=== PATIENT | male | born 1940 | race Caucasian/White ===

== ENCOUNTER 2018-01-11 13:49 | Emergency (ER) | payer OTHER ==
[2018-01-11 14:06] LABS: Absolute Lymphocytes (CBC) 1.5 K/uL (0.7-4.9); Absolute Monocytes 0.8 K/uL (0.1-1.3); Absolute Neutrophil 2.6 K/uL (1.8-8.0); Basophils % 0.7 % (0-1.3); Eosinophils % 0.8 % (0-4.4); Hematocrit 41.5 % (39.6-49.0); Lymphocytes % 30.5 % (15.3-44.8); MCH 36.3 pg (27.0-35.0); MCV 105.4 fL (80-100); MPV 8.4 fL (7.6-11.3); Monocytes % 16.6 % (3.3-12.3); RBC Red Blood Cell Count 3.94 M/uL (4.33-5.43)
[2018-01-11 14:09] LABS: Protime INR 1.12
[2018-01-11 14:24] LABS: ALT/SGPT 22 U/L (12-78); AST/SGOT 19 U/L (15-37); Albumin 4.7 g/dL (3.4-5.0); Alkaline Phosphatase 57 U/L (45-117); BUN Blood Urea Nitrogen 17 mg/dL (7-18); Bicarbonate 27 mmol/L (21-32); Bilirubin Direct 0.2 mg/dL (0-0.2); Bilirubin Total 0.8 mg/dL (0.2-1.0); Glucose Level 106 mg/dL (74-106); Magnesium 2.2 mg/dL (1.8-2.4); NT PRO-BNP 40 pg/mL (<450); Potassium 3.8 mmol/L (3.5-5.1); Protein, Total 8.2 g/dL (6.4-8.2); Sodium Level 140 mmol/L (136-145); Troponin (Emerg Dept Use Only) < 0.02 ng/mL (0.0-0.045)
[2018-01-11 14:38] LABS: Blood Morphology Comment NOTED (NOT SEEN); Platelet Estimate ADEQ; Urine White Blood Cell Casts OK
[2018-01-11 14:39] LABS: Macrocytosis 1+
--- NOTE | 2018-01-11 14:42 | RAD REPORT ---
EXAM DESCRIPTION: RAD - Chest Single View - 01/11/2018 2:33 pm CLINICAL HISTORY: CHEST PAIN Chest pain. COMPARISON: CHEST PA AND LAT 2 VIEW dated 11/12/2013; CHEST PA AND LAT 2 VIEW dated 05/02/2013 FINDINGS: Portable technique limits examination quality. The lungs are grossly clear. The heart is normal in size. No displaced fractures. IMPRESSION: No acute intrathoracic process suspected.
--- NOTE | 2018-01-11 15:04 | RAD REPORT ---
EXAM DESCRIPTION: CT - Chest For Pe Angio - 01/11/2018 2:58 pm CLINICAL HISTORY: Chest pain. Chest pain;Dyspnea COMPARISON: Chest Angio dated 05/04/2016 TECHNIQUE: CT angiogram of the pulmonary arteries was performed with MIP. All CT scans are performed using dose optimization technique as appropriate and may include automated exposure control or mA/KV adjustment according to patient size. FINDINGS: No evidence of pulmonary thromboembolism. No acute aortic finding demonstrated. The lungs are clear. No significant pericardial or pleural fluid. No concerning bony finding. IMPRESSION: No evidence of pulmonary thromboembolism. No acute lung findings.
--- NOTE | 2018-01-11 16:19 | ER ---
Nurse's Notes [facility] Name: Jovi Garcia Age: 77 yrs Sex: Male : 1940 Arrival Date: 01/11/2018 Time: 13:50 Bed 7 Private MD: Diagnosis: Shortness of breath;Back pain Presentation: 01/11 13:50 Presenting complaint: Patient states: pain to left arm radiating to chest for a few iw days, worse today, also c/o shortness of breath. Transition of care: patient was not received from another setting of care. Risk Assessment: Do you want to hurt yourself or someone else? Patient reports no desire to harm self or others. Initial Sepsis Screen:. 13:50 Method Of Arrival: Ambulatory iw 13:50 Acuity: NABEEL 2 iw 16:15 Onset of symptoms is unknown. Initial Sepsis Screen: Does the patient meet any 2 bp criteria? No. Patient's initial sepsis screen is negative. Does the patient have a suspected source of infection? No. Patient's initial sepsis screen is negative. Care prior to arrival: None. Triage Assessment: 16:15 General: Appears in no apparent distress. comfortable, Behavior is calm, cooperative, bp appropriate for age. Pain: Denies pain. Historical: - Allergies: 13:58 No Known Allergies; iw - Home Meds: 13:57 alfuzosin 10 mg oral Tb24 1 tab once daily [Active]; Livalo 4 mg oral tab 1 tab once iw daily [Active]; furosemide 40 mg Oral tab 1 tab [Active]; potassium chloride 10 mEq Oral cpER [Active]; carvedilol 12.5 mg oral tab 1 tab 2 times per day [Active]; clopidogrel 75 mg oral tab 1 tab once daily [Active]; Prozac 40 mg Oral cap 1 cap once daily [Active]; pantoprazole 40 mg oral TbEC 1 tab once daily [Active]; Xanax 0.25 mg oral tab as needed [Active]; Valium Oral as needed [Active]; ProAir HFA 90 mcg/actuation inhalation HFAA 2 puffs as needed [Active]; aspirin 81 mg Oral TbEC 1 tab once daily [Active]; Vitamin D Oral daily [Active]; Vitamin B-12 Oral daily [Active]; indomethacin 75 mg Oral cpER 1 cap 2 times per day [Active]; - PMHx: 13:57 AAA; Alzheimers; Hernia; Hypertension; iw - PSHx: 13:57 Hernia repair; iw - Immunization history:: Adult Immunizations up to date. - Social history:: Smoking status: Patient/guardian denies using tobacco. - Ebola Screening: : Patient negative for fever greater than or equal to 101.5 degrees Fahrenheit, and additional compatible Ebola Virus Disease symptoms Patient denies exposure to infectious person Patient denies travel to an Ebola-affected area in the 21 days before illness onset No symptoms or risks identified at this time. Screenin:55 Abuse screen: Denies threats or abuse. Denies injuries from another. Nutritional bp screening: No deficits noted. Tuberculosis screening: No symptoms or risk factors identified. Fall Risk None identified. Assessment: 13:57 General: Appears in no apparent distress. comfortable, Behavior is cooperative, bp appropriate for age, anxious. Pain: Complains of pain in chest Pain does not radiate. Pain began 1 hour ago. Neuro: Level of Consciousness is awake, alert, obeys commands, Oriented to person, place, time, situation, Appropriate for age. Cardiovascular: Rhythm is sinus rhythm. Respiratory: Reports shortness of breath Airway is patent Respiratory effort is even, unlabored, Respiratory pattern is regular, symmetrical. GI: No signs and/or symptoms were reported involving the gastrointestinal system. : No signs and/or symptoms were reported regarding the genitourinary system. EENT: No deficits noted. Derm: No deficits noted. Musculoskeletal: Circulation, motion, and sensation intact. Range of motion: intact in all extremities. 14:49 Reassessment: PT TO CT WITH COMMERCIAL REAL ESTATE ATTORNEY. bp 16:28 Reassessment: PT D/C HOME WITH FAMILY, DX WITH NONSPECIFIC CP. bp Vital Signs: 13:56 BP 97 / 85; Pulse 86; Resp 16; Temp 98.1; Pulse Ox 96% ; Weight 99.79 kg; Height 6 ft. bp (182.88 cm); 14:49 BP 107 / 69; Pulse 81; Resp 17; Pulse Ox 96% ; bp 16:14 BP 119 / 88; Pulse 81; Resp 17; Pulse Ox 99% ; bp 13:56 Body Mass Index 29.84 (99.79 kg, 182.88 cm) bp ED Course: 13:50 Patient arrived in ED. iw 13:50 Tye Tomlinson, RN is Primary Nurse. bp 13:51 Triage completed. iw 13:52 Enoc Mccrary PA is PHCP. jr8 13:52 Adair Saldivar MD is Attending Physician. jr8 13:55 Inserted saline lock: 22 gauge in right antecubital area, using aseptic technique. bp Blood collected. Patient maintains SpO2 saturation greater than 95% on room air. 13:55 Patient has correct armband on for positive identification. Placed in gown. Bed in low bp position. Call light in reach. Side rails up X2. Adult w/ patient. teletypesetter monitor on. Pulse ox on. NIBP on. 14:00 EKG done, by application technician. reviewed by Enoc ABBOTT. at1 14:33 X-ray completed. Portable x-ray completed in exam room. Patient tolerated procedure sw well. 14:33 XRAY Chest (1 view) In Process Unspecified. EDMS 14:57 CT completed. Patient tolerated procedure well. Patient moved to CT via stretcher. mw3 Patient moved back from CT. 14:58 CT Chest For PE Angio In Process Unspecified. EDMS 16:14 No provider procedures requiring assistance completed. IV discontinued, intact, bp bleeding controlled, No redness/swelling at site. Pressure dressing applied. 16:16 Arm band placed on. bp 16:18 Germán Kuhn MD is Referral Physician. jr8 Administered Medications: No medications were administered Outcome: 16:16 Discharged to home ambulatory, with family. bp 16:16 Condition: stable 16:19 Discharge ordered by . jr8 16:27 Discharge instructions given to patient, Instructed on discharge instructions, follow bp up and referral plans. Demonstrated understanding of instructions, follow-up care. 16:28 Patient left the ED. bp Signatures: Dispatcher [employer] EDMS Christi Velarde, RN RN iw Enoc Mccrary PA PA jr8 Tosha Adams, textile machine maintenance mechanic EKG Tat1 Ofelia Palacios Brian, RN RN bp Angie Lugo mw3 Corrections: (The following items were deleted from the chart) 13:59 13:56 BP 97 / 85; Pulse 86bpm; Resp 16bpm; Pulse Ox 96%; Temp 98.1F; bp bp
--- NOTE | 2018-01-11 16:19 | EDPHYS ---
Physician Documentation [facility] Name: oJvi Garcia Age: 77 yrs Sex: Male : 1940 Arrival Date: 01/11/2018 Time: 13:50 Bed 7 Private MD: ED Physician Adair Saldivar HPI: 01/11 16:11 This 77 yrs old Male presents to ER via Ambulatory with complaints of jr8 shoulder pain/ Shortness Of Breath. 16:11 Patient stated that for the past several months has had on/off bilateral shoulder pain jr8 and shortness of breath. Has seen PCP with no definitive answer. Came to ED today because he was feeling worse . Severity of symptoms: At their worst the symptoms were mild in the emergency department the symptoms are unchanged. The patient has experienced similar episodes in the past, a few times. The patient has not recently seen a physician. Historical: - Allergies: 13:58 No Known Allergies; iw - Home Meds: 13:57 alfuzosin 10 mg oral Tb24 1 tab once daily [Active]; Livalo 4 mg oral tab 1 tab once iw daily [Active]; furosemide 40 mg Oral tab 1 tab [Active]; potassium chloride 10 mEq Oral cpER [Active]; carvedilol 12.5 mg oral tab 1 tab 2 times per day [Active]; clopidogrel 75 mg oral tab 1 tab once daily [Active]; Prozac 40 mg Oral cap 1 cap once daily [Active]; pantoprazole 40 mg oral TbEC 1 tab once daily [Active]; Xanax 0.25 mg oral tab as needed [Active]; Valium Oral as needed [Active]; ProAir HFA 90 mcg/actuation inhalation HFAA 2 puffs as needed [Active]; aspirin 81 mg Oral TbEC 1 tab once daily [Active]; Vitamin D Oral daily [Active]; Vitamin B-12 Oral daily [Active]; indomethacin 75 mg Oral cpER 1 cap 2 times per day [Active]; - PMHx: 13:57 AAA; Alzheimers; Hernia; Hypertension; iw - PSHx: 13:57 Hernia repair; iw - Immunization history:: Adult Immunizations up to date. - Social history:: Smoking status: Patient/guardian denies using tobacco. - Ebola Screening: : Patient negative for fever greater than or equal to 101.5 degrees Fahrenheit, and additional compatible Ebola Virus Disease symptoms Patient denies exposure to infectious person Patient denies travel to an Ebola-affected area in the 21 days before illness onset No symptoms or risks identified at this time. ROS: 16:11 Eyes: Negative for injury, pain, redness, and discharge, ENT: Negative for injury, jr8 pain, and discharge, Neck: Negative for injury, pain, and swelling, Cardiovascular: Negative for chest pain, palpitations, and edema, Abdomen/GI: Negative for abdominal pain, nausea, vomiting, diarrhea, and constipation, MS/Extremity: Negative for injury and deformity, Skin: Negative for injury, rash, and discoloration, Neuro: Negative for headache, weakness, numbness, tingling, and seizure. 16:11 Respiratory: Positive for dyspnea on exertion, shortness of breath, Negative for cough, hemoptysis, orthopnea, pleurisy, sputum production, wheezing. 16:11 Back: Positive for pain with movement, of the left trapezius and right trapezius. Exam: 16:11 Eyes: Pupils equal round and reactive to light, extra-ocular motions intact. Lids and jr8 lashes normal. Conjunctiva and sclera are non-icteric and not injected. Cornea within normal limits. Periorbital areas with no swelling, redness, or edema. ENT: Nares patent. No nasal discharge, no septal abnormalities noted. Tympanic membranes are normal and external auditory canals are clear. Oropharynx with no redness, swelling, or masses, exudates, or evidence of obstruction, uvula midline. Mucous membranes moist. Neck: Trachea midline, no thyromegaly or masses palpated, and no cervical lymphadenopathy. Supple, full range of motion without nuchal rigidity, or vertebral point tenderness. No Meningismus. Cardiovascular: Regular rate and rhythm with a normal S1 and S2. No gallops, murmurs, or rubs. Normal PMI, no JVD. No pulse deficits. Respiratory: Lungs have equal breath sounds bilaterally, clear to auscultation and percussion. No rales, rhonchi or wheezes noted. No increased work of breathing, no retractions or nasal flaring. Abdomen/GI: Soft, non-tender, with normal bowel sounds. No distension or tympany. No guarding or rebound. No evidence of tenderness throughout. Back: No spinal tenderness. No costovertebral tenderness. Full range of motion. Skin: Warm, dry with normal turgor. Normal color with no rashes, no lesions, and no evidence of cellulitis. MS/ Extremity: Pulses equal, no cyanosis. Neurovascular intact. Full, normal range of motion. Neuro: Awake and alert, GCS 15, oriented to person, place, time, and situation. Cranial nerves II-XII grossly intact. Motor strength 5/5 in all extremities. Sensory grossly intact. Cerebellar exam normal. Normal gait. Vital Signs: 13:56 BP 97 / 85; Pulse 86; Resp 16; Temp 98.1; Pulse Ox 96% ; Weight 99.79 kg; Height 6 ft. bp (182.88 cm); 14:49 BP 107 / 69; Pulse 81; Resp 17; Pulse Ox 96% ; bp 16:14 BP 119 / 88; Pulse 81; Resp 17; Pulse Ox 99% ; bp 13:56 Body Mass Index 29.84 (99.79 kg, 182.88 cm) bp MDM: 13:52 Patient medically screened. [facility] 16:11 Data reviewed: vital signs, nurses notes, lab test result(s), EKG, radiologic studies, [facility] CT scan, plain films, and as a result, I will discharge patient. Data interpreted: Pulse oximetry: on room air is 99 %. Interpretation: normal. Counseling: I had a detailed discussion with the patient and/or guardian regarding: the historical points, exam findings, and any diagnostic results supporting the discharge/admit diagnosis, lab results, radiology results, the need for outpatient follow up, a card processing clerk, a family practitioner, to return to the emergency department if symptoms worsen or persist or if there are any questions or concerns that arise at home. ED course: Patients pain completely resolved. No acute findings on labs, CT, plain films, or ECG. Needs to f/u back with cardiology . 01/11 13:51 Order name: Basic Metabolic Panel; Complete Time: 14:25 bp 01/11 13:51 Order name: CBC with Diff; Complete Time: 14:43 bp 01/11 13:51 Order name: LFT's; Complete Time: 14:25 bp 01/11 13:51 Order name: Magnesium; Complete Time: 14:25 bp 01/11 13:51 Order name: NT PRO-BNP; Complete Time: 14:25 bp 01/11 13:51 Order name: PT-INR; Complete Time: 14:25 bp 01/11 13:51 Order name: Troponin (emerg Dept Use Only); Complete Time: 14:25 bp 01/11 13:51 Order name: XRAY Chest (1 view); Complete Time: 14:43 bp 01/11 13:51 Order name: EKG; Complete Time: 13:52 bp 01/11 13:51 Order name: Cardiac monitoring; Complete Time: 13:52 bp 01/11 13:51 Order name: EKG - Nurse/Tech; Complete Time: 13:52 bp 01/11 13:51 Order name: IV Saline Lock; Complete Time: 13:52 bp 01/11 14:11 Order name: CBC Smear Scan; Complete Time: 14:43 EDMS 01/11 14:44 Order name: CT Chest For PE Angio; Complete Time: 15:11 jr8 01/11 13:51 Order name: Labs collected and sent; Complete Time: 13:52 bp 01/11 13:51 Order name: O2 Per Protocol; Complete Time: 13:52 bp 01/11 13:51 Order name: O2 Sat Monitoring; Complete Time: 13:52 bp Administered Medications: No medications were administered Disposition: 17:53 Co-signature as Attending Physician, Adair Saldivar MD. rn Disposition: 01/11/18 16:19 Discharged to Home. Impression: Shortness of breath, Back pain. - Condition is Stable. - Discharge Instructions: Shortness of Breath. - Medication Reconciliation Form, Thank You Letter, Antibiotic Education, Prescription Opioid Use form. - Follow up: Germán Kuhn MD; When: 2 - 3 days; Reason: Recheck today's complaints, Continuance of care, Re-evaluation by your physician. - Problem is new. - Symptoms have improved. Signatures: Dispatcher [employer] Christi Osborne RN Adair Farias MD MD rn Roszak, Josh, PA PA jr8 Tye Tomlinson RN RN bp Corrections: (The following items were deleted from the chart) 16:28 16:19 01/11/2018 16:19 Discharged to Home. Impression: Shortness of breath; Back pain. bp Condition is Stable. Forms are Medication Reconciliation Form, Thank You Letter, Antibiotic Education, Prescription Opioid Use. Follow up: Germán Kuhn; When: 2 - 3 days; Reason: Recheck today's complaints, Continuance of care, Re-evaluation by your physician. Problem is new. Symptoms have improved. jr8
--- NOTE | 2018-01-11 16:46 | EKG ---
Test Date: 2018-01-11 Test Time: 13:55:07 Police Guard: NICKY MEASUREMENT RESULTS: Intervals: Rate: 80 NV: 192 QRSD: 150 QT: 436 QTc: 502 [place]: P: 45 NV: 192 QRS: 42 T: 181 INTERPRETIVE STATEMENTS: Normal sinus rhythm Left bundle branch block Abnormal ECG Compared to ECG 09/03/2015 11:03:16 No significant changes Electronically Signed On 01-11-18 16:44:25 CDT by Chase Friedman
== END 2018-01-11 16:28 | disposition home or self-care (01) ==
LOC: ER 13:49
DX: M54.9 Dorsalgia, unspecified (principal)
CPT/HCPCS: 36415; 71045; 71275; 80048; 80076; 83735; 83880; 84484; 85025; 85610; 93005; 99285; Q9967

== ENCOUNTER 2019-10-03 15:11 | Emergency (ER) | payer OTHER ==
[2019-10-03 16:30] LABS: Absolute Lymphocytes (CBC) 1.4 K/uL (0.7-4.9); Basophils % 0.2 % (0-1.3); Hematocrit 37.8 % (39.6-49.0); Lymphocytes % 15.7 % (15.3-44.8); MPV 9.8 fL (7.6-11.3); RBC Red Blood Cell Count 3.66 M/uL (4.33-5.43)
[2019-10-03] MEDS ORDERED: MORPHINE 2 MG/ML SYR ONE (16:47)
[2019-10-03] MEDS ORDERED: ONDANSETRON 4 MG/2 ML VIAL ONE (16:47)
--- NOTE | 2019-10-03 16:55 | RAD REPORT ---
EXAM DESCRIPTION: CT - Abdomen Pelvis W Contrast - 10/03/2019 4:33 pm CLINICAL HISTORY: ABD PAIN COMPARISON: Chest For Pe Angio dated 01/11/2018 TECHNIQUE: Biphasic, helical CT imaging of the abdomen and pelvis was performed following 100 ml non -ionic IV contrast. No oral contrast. All CT scans are performed using dose optimization technique as appropriate and may include automated exposure control or mA/KV adjustment according to patient size. FINDINGS: Minimal stranding in the lateral gutter on the right not clearly different from the prior CT chest study. No acute lung base finding. Mild diffuse fatty infiltration of the liver. No focal liver lesion. No portal vein abnormality. Sple en and pancreas without suspicious findings. Gallbladder and biliary tree are also without suspicious finding. Symmetric renal function is seen with no hydronephrosis or suspicious renal mass. No pyelonephritis o r acute parenchymal process. No bladder abnormalities. No adrenal abnormalities. Stomach and small bowel show no suspicious findings. Appendix is normal. Colon from cecum through the splenic flexure shows no acute finding. In the mid descending colon there is mild wall thickening. T here is 1 enlarged diverticulum with stranding and edema in the adjacent fat. Patient has additional descending and sigmoid diverticulosis. No free air, abscess or extravasation of bowel content. No col on mass seen. No free air, pneumatosis or free fluid. No hernia, mass or bulky lymphadenopathy. Advanced disc and bony degenerative changes are present spanning L2-S1. No pars defects. No acute or destructive finding. IMPRESSION: Mild diverticulitis in the mid descending colon. No abscess, free air or other complicating factor.
[2019-10-03 17:13] LABS: Albumin 4.4 g/dL (3.4-5.0); Bilirubin Direct 0.2 mg/dL (0-0.2); Potassium 3.8 mmol/L (3.5-5.1); Protein, Total 8.4 g/dL (6.4-8.2)
[2019-10-03 17:27] LABS: Urine Blood 2+ (NEG); Urine Glucose NEGATIVE (NEG); Urine Protein NEGATIVE (NEG); Urine Specific Gravity 1.005 (1.005-1.030); Urine pH 5.5 (5.0-7.0)
--- OUTSIDE RECORDS SUMMARY | 2019-10-03 17:39 | XMS REPORT | Continuity of Care Document ---
:1940 Author Organization [facility] t Address [address] [place] [address] [address] [place] [address] Care Team Providers Name Role Phone Oj Gabriel MD Attending Clinician Problems This patient has no known problems. Allergies, Adverse Reactions, Alerts This patient has no known allergies or adverse reactions. Medications This patient has no known medications. Procedures This patient has no known procedures. Encounters Start End Encounter Admission Attending Care Care Encounter Source Date/Time Date/Time Type Type Clinicians Facility Department ID 2018-12-11 2018-12-11 Office WILLIAM Gabriel [id number] 14:50:18 15:54:42 Visit Lucio Sparks [id number] Tobias [id number] Tri [id number] nal 092 Building Results This patient has no known results.
[2019-10-03] MEDS ORDERED: CIPROFLOXACIN HCL 500 MG TAB ONE (17:47)
[2019-10-03] MEDS ORDERED: metroNIDAZOLE 500 MG TABLET ONE (17:47)
--- NOTE | 2019-10-03 17:47 | ER ---
Nurse's Notes [facility] Name: Jovi Garcia Age: 79 yrs Sex: Male : 1940 Arrival Date: 10/03/2019 Time: 15:18 Bed 25 Private MD: Diagnosis: Diverticulitis Presentation: 10/02 15:34 Chief complaint: Patient states: Severe abdominal pain for 4 days. Denies N/V/D, no ll1 fever. Sent by Dr. Dave for eval of possible bowel obstruction. Coronavirus screen: Proceed with normal triage. Patient denies a cough. Patient denies shortness of breath or difficulty breathing. Patient denies measured and/or subjective temperature greater than 100.4F prior to today's visit. Patient denies travel on a cruise ship or to a country the [facility] currently lists as an affected area. Patient denies contact with known and/or suspected case of COVID-19. Ebola Screen: Patient denies travel to an Ebola-affected area in the 21 days before illness onset. Initial Sepsis Screen: Does the patient meet any 2 criteria? No. Patient's initial sepsis screen is negative. Risk Assessment: Do you want to hurt yourself or someone else? Patient reports no desire to harm self or others. Onset of symptoms was September 30, 2019. 15:34 Method Of Arrival: Ambulatory ll1 15:34 Acuity: NABEEL 3 ll1 15:58 Initial Sepsis Screen: Does the patient have a suspected source of infection? No. ca1 Patient's initial sepsis screen is negative. Historical: - Allergies: 15:34 No Known Allergies; ll1 - PMHx: 15:34 AAA; Hernia; Hypertension; Alzheimers; ll1 - PSHx: 15:34 Hernia repair; ll1 - Immunization history:: Flu vaccine is up to date. - Social history:: Patient/guardian denies using alcohol, street drugs, tobacco products, Smoking status: Patient denies any tobacco usage or history of. Screenin:56 Abuse screen: Denies threats or abuse. Denies injuries from another. Nutritional ca1 screening: No deficits noted. Tuberculosis screening: No symptoms or risk factors identified. Fall Risk IV access (20 points). Assessment: 15:56 General: Appears in no apparent distress. comfortable, Behavior is calm, cooperative, ca1 appropriate for age. Pain: Complains of pain in left upper quadrant and left lower quadrant Pain does not radiate. Pain currently is 8 out of 10 on a pain scale. Pain began 5 days ago. Neuro: Level of Consciousness is awake, alert, obeys commands, Oriented to person, place, time, situation. Cardiovascular: Heart tones S1 S2 present Capillary refill < 3 seconds Patient's skin is warm and dry. Respiratory: Airway is patent Respiratory effort is even, unlabored, Respiratory pattern is regular, symmetrical, Breath sounds are clear bilaterally. GI: Abdomen is round non-distended, Bowel sounds present X 4 quads. Abd is soft X 4 quads Abdomen is tender to palpation in left lower quadrant Reports last BM was 5 days ago. : No signs and/or symptoms were reported regarding the genitourinary system. EENT: No signs and/or symptoms were reported regarding the EENT system. Derm: Skin is intact, is healthy with good turgor, Skin is pink, warm \T\ dry. Musculoskeletal: Circulation, motion, and sensation intact. Capillary refill < 3 seconds. 16:53 Reassessment: Patient appears in no apparent distress at this time. Patient and/or ca1 family updated on plan of care and expected duration. Pain level reassessed. Patient is alert, oriented x 3, equal unlabored respirations, skin warm/dry/pink. 17:56 Reassessment: Patient appears in no apparent distress at this time. Patient is alert, ca1 oriented x 3, equal unlabored respirations, skin warm/dry/pink. Vital Signs: 15:34 Pulse 76; Resp 18; Temp 99.0; Pulse Ox 95% ; Pain 8/10; ll1 15:34 BP 128 / 71; ll1 16:53 BP 123 / 71; Pulse 67; Resp 15 S; Pulse Ox 95% on R/A; ca1 17:53 BP 134 / 79 RA (auto/lg); Pulse 67; Resp 18 S; Pulse Ox 98% on R/A; jp3 ED Course: 15:18 Patient arrived in ED. fj1 15:36 Triage completed. ll1 15:36 Arm band placed on Patient notified of wait time. ll1 15:47 Sanjeev Day MD is Attending Physician. mh7 15:49 Francesca Mandujano RN is Primary Nurse. ca1 15:56 Patient has correct armband on for positive identification. Placed in gown. Bed in low ca1 position. Call light in reach. Side rails up X 1. Pulse ox on. NIBP on. Warm blanket given. 16:07 Initial lab(s) drawn, by me, held in ED. Inserted saline lock: 18 gauge in left jp3 antecubital area, using aseptic technique. Blood collected. Patient maintains SpO2 saturation greater than 95% on room air. 16:33 CT Abd/Pelvis - IV Contrast Only In Process Unspecified. EDMS 16:57 EKG done, by ED staff, reviewed by Sanjeev Day MD. 3 17:45 Rory Griffin MD is Referral Physician. [facility] 17:56 Removal of peripheral IV. Catheter intact, dressing applied. 3 17:56 No provider procedures requiring assistance completed. IV discontinued, intact, ca1 bleeding controlled, No redness/swelling at site. Pressure dressing applied. Administered Medications: 16:40 Drug: Zofran (Ondansetron) 4 mg Route: IVP; Site: left antecubital; ca1 17:37 Follow up: Response: No adverse reaction; Nausea is decreased ca1 16:44 Drug: morphine 2 mg {Note: rass 0.} Route: IVP; Site: left antecubital; ca1 17:37 Follow up: Response: No adverse reaction; Pain is decreased; RASS: Alert and Calm (0) ca1 17:40 Drug: Cipro 500 mg Route: PO; ca1 17:58 Follow up: Response: No adverse reaction ca1 17:42 Drug: Flagyl 500 mg Route: PO; ca1 17:58 Follow up: Response: No adverse reaction ca1 Outcome: 17:46 Discharge ordered by . [facility] 17:56 Discharged to home ambulatory, with significant other. ca1 17:56 Condition: stable 17:56 Discharge instructions given to patient, Instructed on discharge instructions, follow up and referral plans. medication usage, Demonstrated understanding of instructions, follow-up care, medications, Prescriptions given X x5 17:58 Patient left the ED. ca1 Signatures: Dispatcher [employer] EDMS Aroldo Soto jp3 Francesca Mandujano RN RN ca1 Vladimir Massey1 Stevan Diaz RN RN ll1 Sanjeev Day MD MD [facility]
--- NOTE | 2019-10-03 17:47 | EDPHYS ---
Physician Documentation [facility] Name: Jovi Garcia Age: 79 yrs Sex: Male : 1940 Arrival Date: 10/03/2019 Time: 15:18 Bed 25 Private MD: ED Physician Sanjeev Day HPI: 10/02 16:16 This 79 yrs old Male presents to ER via Ambulatory with complaints of mh7 Abdominal Pain.. 16:16 The patient presents with abdominal pain in the left lower quadrant. Onset: The mh7 symptoms/episode began/occurred 5 day(s) ago. The symptoms do not radiate. Associated signs and symptoms: Pertinent positives: constipation, Pertinent negatives: nausea, vomiting, and diarrhea, anorexia, blood in stools, chest pain, diarrhea, dysuria, fever, headache, hematuria, nausea, palpitations, shortness of breath, testicular pain, vomiting, vomiting blood. The symptoms are described as intermittent, vague, waxing/waning. Modifying factors: The symptoms are alleviated by nothing, the symptoms are aggravated by nothing. Severity of pain: At its worst the pain was moderate today, in the emergency department the pain has improved moderately. The patient has been recently seen by a physician: the patient's primary care provider. Historical: - Allergies: 15:34 No Known Allergies; ll1 - PMHx: 15:34 AAA; Hernia; Hypertension; Alzheimers; ll1 - PSHx: 15:34 Hernia repair; ll1 - Immunization history:: Flu vaccine is up to date. - Social history:: Patient/guardian denies using alcohol, street drugs, tobacco products, Smoking status: Patient denies any tobacco usage or history of. ROS: 16:16 Constitutional: Negative for fever, chills, and weight loss, Eyes: Negative for injury, mh7 pain, redness, and discharge, ENT: Negative for injury, pain, and discharge, Neck: Negative for injury, pain, and swelling, Cardiovascular: Negative for chest pain, palpitations, and edema, Respiratory: Negative for shortness of breath, cough, wheezing, and pleuritic chest pain, Back: Negative for injury and pain, : Negative for injury, bleeding, discharge, and swelling, MS/Extremity: Negative for injury and deformity, Skin: Negative for injury, rash, and discoloration, Neuro: Negative for headache, weakness, numbness, tingling, and seizure, Psych: Negative for depression, anxiety, suicide ideation, homicidal ideation, and hallucinations, Allergy/Immunology: Negative for hives, rash, and allergies, Endocrine: Negative for neck swelling, polydipsia, polyuria, polyphagia, and marked weight changes, Hematologic/Lymphatic: Negative for swollen nodes, abnormal bleeding, and unusual bruising. Exam: 16:16 Constitutional: This is a well developed, well nourished patient who is awake, alert, mh7 and in no acute distress. Head/Face: Normocephalic, atraumatic. Eyes: Pupils equal round and reactive to light, extra-ocular motions intact. Lids and lashes normal. Conjunctiva and sclera are non-icteric and not injected. Cornea within normal limits. Periorbital areas with no swelling, redness, or edema. Neck: Trachea midline, no thyromegaly or masses palpated, and no cervical lymphadenopathy. Supple, full range of motion without nuchal rigidity, or vertebral point tenderness. No Meningismus. Chest/axilla: Normal chest wall appearance and motion. Nontender with no deformity. No lesions are appreciated. Cardiovascular: Regular rate and rhythm with a normal S1 and S2. No gallops, murmurs, or rubs. Normal PMI, no JVD. No pulse deficits. Respiratory: Lungs have equal breath sounds bilaterally, clear to auscultation and percussion. No rales, rhonchi or wheezes noted. No increased work of breathing, no retractions or nasal flaring. 16:16 Back: No spinal tenderness. No costovertebral tenderness. Full range of motion. Skin: Warm, dry with normal turgor. Normal color with no rashes, no lesions, and no evidence of cellulitis. MS/ Extremity: Pulses equal, no cyanosis. Neurovascular intact. Full, normal range of motion. Neuro: Awake and alert, GCS 15, oriented to person, place, time, and situation. Cranial nerves II-XII grossly intact. Motor strength 5/5 in all extremities. Sensory grossly intact. Cerebellar exam normal. Normal gait. Psych: Awake, alert, with orientation to person, place and time. Behavior, mood, and affect are within normal limits. 16:16 Abdomen/GI: Inspection: scar(s), are noted in the abdomen, Bowel sounds: normal, in all quadrants, Palpation: moderate abdominal tenderness, in the left lower quadrant, Rectal exam: the exam is deferred, because of patient request, Indicators: McBurney's point is not tender, Mcdonough's sign is negative, Rovsing's sign is negative, Obturator sign is negative, Psoas sign is negative, Liver: no appreciated palpable abnormalities, Hernia: not appreciated. 17:52 ECG was reviewed by the Attending Physician. [facility] Vital Signs: 15:34 Pulse 76; Resp 18; Temp 99.0; Pulse Ox 95% ; Pain 8/10; ll1 15:34 BP 128 / 71; ll1 16:53 BP 123 / 71; Pulse 67; Resp 15 S; Pulse Ox 95% on R/A; ca1 17:53 BP 134 / 79 RA (auto/lg); Pulse 67; Resp 18 S; Pulse Ox 98% on R/A; jp3 MDM: 16:11 Patient medically screened. [facility] 17:42 Differential diagnosis: bowel obstruction, diverticulitis, non-specific abd pain, mh7 Peptic Ulcer Disease, Pyelonephritis, Ureterolithiasis, urinary tract infection. Data reviewed: vital signs, nurses notes, old medical records, lab test result(s), CBC, electrolytes, urinalysis, radiologic studies, CT scan. Data interpreted: Pulse oximetry: on room air is 95 %. Interpretation: normal. Counseling: I had a detailed discussion with the patient and/or guardian regarding: the historical points, exam findings, and any diagnostic results supporting the discharge/admit diagnosis, lab results, radiology results, the need for outpatient follow up, a hatch supervisor, to return to the emergency department if symptoms worsen or persist or if there are any questions or concerns that arise at home. 10/02 16:13 Order name: Basic Metabolic Panel; Complete Time: 17:34 [facility] 10/02 16:13 Order name: CBC with Diff [facility] 10/02 16:13 Order name: Hepatic Function; Complete Time: 17:34 [facility] 10/02 16:13 Order name: Lipase; Complete Time: 17:34 [facility] 10/02 16:13 Order name: CT Abd/Pelvis - IV Contrast Only; Complete Time: 17:07 [facility] 10/02 17:12 Order name: Urine Dipstick--Ancillary (enter results); Complete Time: 17:34 eb 10/02 16:13 Order name: IV Saline Lock; Complete Time: 16:35 7 10/02 16:13 Order name: Labs collected and sent; Complete Time: 16:35 7 10/02 16:13 Order name: Urine Dipstick-Ancillary (obtain specimen); Complete Time: 17:08 7 10/02 16:21 Order name: EKG - Nurse/Tech; Complete Time: 16:52 mh7 EC:52 Rate is 67 beats/min. Rhythm is regular, Normal Sinus Rhythm. QRS [place] is Normal. VA mh7 interval is prolonged at 212 msec. QRS interval is normal. QT interval is normal. No Q waves. T waves are Normal. No ST changes noted. Clinical impression: Abnormal EKG without significant change. Administered Medications: 16:40 Drug: Zofran (Ondansetron) 4 mg Route: IVP; Site: left antecubital; ca1 17:37 Follow up: Response: No adverse reaction; Nausea is decreased ca1 16:44 Drug: morphine 2 mg {Note: rass 0.} Route: IVP; Site: left antecubital; ca1 17:37 Follow up: Response: No adverse reaction; Pain is decreased; RASS: Alert and Calm (0) ca1 17:40 Drug: Cipro 500 mg Route: PO; ca1 17:58 Follow up: Response: No adverse reaction ca1 17:42 Drug: Flagyl 500 mg Route: PO; ca1 17:58 Follow up: Response: No adverse reaction ca1 Disposition: 10/03/19 17:46 Discharged to Home. Impression: Diverticulitis. - Condition is Stable. - Discharge Instructions: Diverticulitis, [id number]. - Prescriptions for Dulcolax (bisacodyl) 5 mg Oral tablet,delayed release (DR/EC) - take 1 tablet by ORAL route once daily; 5 tablet. Bentyl 20 mg Oral Tablet - take 1 tablet by ORAL route every 6 hours As needed; 20 tablet. Colace 100 mg Oral Tablet - take 1 tablet by ORAL route every 12 hours; 14 tablet. Flagyl 500 mg Oral Tablet - take 1 tablet by ORAL route every 8 hours for 7 days; 21 tablet. Cipro 500 mg Oral Tablet - take 1 tablet by ORAL route every 12 hours for 7 days; 14 tablet. - Medication Reconciliation Form, Thank You Letter, Antibiotic Education, Prescription Opioid Use form. - Follow up: Private Physician; When: 1 - 2 days; Reason: Worsening of condition, Recheck today's complaints, Re-evaluation by your physician. Follow up: Rory Griffin MD; When: 1 - 2 days; Reason: Worsening of condition, Recheck today's complaints. - Problem is new. - Symptoms have improved. Signatures: Dispatcher [employer] EDMS Francesca Mandujano RN RN ca1 Stevan Diaz RN RN ll1 Sanjeev Day MD MD mh7 Corrections: (The following items were deleted from the chart) 17:58 17:46 10/03/2019 17:46 Discharged to Home. Impression: Diverticulitis. Condition is ca1 Stable. Forms are Medication Reconciliation Form, Thank You Letter, Antibiotic Education, Prescription Opioid Use. Follow up: Private Physician; When: 1 - 2 days; Reason: Worsening of condition, Recheck today's complaints, Re-evaluation by your physician. Follow up: Rory Griffin; When: 1 - 2 days; Reason: Worsening of condition, Recheck today's complaints. Problem is new. Symptoms have improved. mh7
[2019-10-03 18:09] VITALS: TEMP 99
[2019-10-03 18:12] VITALS: BP 134/79; O2SAT 98
[2019-10-03 20:36] LABS: Blood Morphology Comment NOT SEEN (NOT SEEN); Platelet Estimate ADEQ; Urine White Blood Cell Casts OK
--- NOTE | 2019-10-04 18:15 | EKG ---
Test Date: 2019-10-03 Test Time: 16:49:54 Patent Leather Sorter: ROBIN MEASUREMENT RESULTS: Intervals: Rate: 67 VA: 212 QRSD: 148 QT: 466 QTc: 492 [place]: P: 43 VA: 212 QRS: 10 T: 126 INTERPRETIVE STATEMENTS: Sinus rhythm with 1st degree AV block Left bundle branch block Abnormal ECG Compared to ECG 01/11/2018 13:55:07 First degree AV block now present Electronically Signed On 10-04-19 18:12:48 CDT by Chase Friedman
== END 2019-10-03 17:58 | disposition home or self-care (01) ==
LOC: ER 15:11
DX: K57.92 Diverticulitis of intestine, part unspecified, without perforation or abscess without bleeding (principal); I10 Essential (primary) hypertension; G30.9 Alzheimer's disease, unspecified; F02.80 Dementia in other diseases classified elsewhere, unspecified severity, without behavioral disturbance, psychotic disturbance, mood disturbance, and anxiety
CPT/HCPCS: 93005; 85025; 80048; 36415; 82565; 80076; 81003; 83690; 74177; 96375; 96374; 99284; Q9967; J2270; J2405

== ENCOUNTER 2020-10-15 09:00 | Day surgery (SDC) | payer OTHER ==
--- NOTE | 2020-10-13 14:12 | RAD REPORT ---
EXAM DESCRIPTION: RAD - Chest Pa And Lat (2 Views) - 10/13/2020 2:04 pm CLINICAL HISTORY: preop, pending catheterization and stenting procedure COMPARISON: January 2018, November 2013 TECHNIQUE: Frontal and lateral views of the chest were obtained. FINDINGS: The lungs are clear. Interstitial pattern matches comparison. No failure or volume overlo ad. Heart size is normal and central vasculature is within normal limits. No pleural effusion or pne umothorax seen. No acute bony finding noted. No aortic abnormality. IMPRESSION: No acute cardiopulmonary process. No significant change from comparison study.
[2020-10-13 14:18] LABS: Absolute Lymphocytes (CBC) 1.6 K/uL (0.7-4.9); Basophils % 0.4 % (0-1.3); Hematocrit 39.4 % (39.6-49.0); Lymphocytes % 33.2 % (15.3-44.8); MPV 10.3 fL (7.6-11.3); RBC Red Blood Cell Count 3.92 M/uL (4.33-5.43)
[2020-10-13 14:27] LABS: Protime INR 1.03
--- NOTE | 2020-10-14 13:01 | EKG ---
Test Date: 2020-10-13 Test Time: 12:51:17 Exchange Trouble Shooter: JOCELYN MEASUREMENT RESULTS: Intervals: Rate: 75 TN: 208 QRSD: 144 QT: 434 QTc: 484 [place]: P: 61 TN: 208 QRS: 93 T: -25 INTERPRETIVE STATEMENTS: Normal sinus rhythm Rightward axis Left bundle branch block Abnormal ECG Compared to ECG 10/03/2019 16:49:54 Right-axis deviation now present First degree AV block no longer present Electronically Signed On 10-14-20 12:59:36 CDT by Chase Friedman
[2020-10-15] MEDS ORDERED: NA CHLORIDE 0.9% 500 ML ONE (09:35)
[2020-10-15] MEDS ORDERED: LIDOCAINE 1% 20 ML MDV ONE (09:37)
[2020-10-15] MEDS ORDERED: HEPA 1000U/500MLS 1,000 UNIT/500 ML BAG IV ONE (09:37)
[2020-10-15] MEDS ORDERED: MIDAZOLAM HCL 2 MG/2 ML INJ ONE (09:55)
[2020-10-15] MEDS ORDERED: NA CHLORIDE 0.9% 0 ML ONE (09:56)
[2020-10-15] MEDS ORDERED: FENTANYL CITR 100 MCG/2 ML ONE (09:56)
[2020-10-15] MEDS ORDERED: ATROPINE SULF 1 MG/10 ML SYR IV ONE (09:56)
--- NOTE | 2020-10-15 11:02 | OP ---
Date of Procedure: 10/15/2020 Surgeon: Chase Friedman MD Beaming Machine Operator: Mr. Donald Gramajo Angio-Seal was used to close the case. The patient will remain in the hospital for 2 hours of bedres t after this. He will go home with the same home medication plus statin and I will see him in the of [facility] in 2 weeks. Procedure: Left heart catheterization and selective coronary arteriogram. Indication: Coronary artery disease. Chest pain. The patient was brought to the laborer steel handling today as an inpatient. He has a history of CAD, status post multiple stents. He has a history of hypertensio n, gastroesophageal reflux disease, chronic diastolic congestive heart failure, COPD. Procedure In Detail: Brought to the laborer steel handling as an outpatient, prepped and draped in the routine elie rile fashion, given Versed and fentanyl for sedation. A 6-American sheath introduced in the right comm on femoral artery successfully using the Seldinger technique and 10 cc of xylocaine. Angiography the re was normal. Angio-Seal was used to close the case. Left and right Lona catheter were used to cannulate the left main and right main. He was found to have diffuse plaquing throughout. He has a proximal mid LAD stent that is widely patent. He had a distal RCA stent, they were widely patent. H e had a 50% RCA stenosis, proximal had about 50% mid to distal LAD stenosis right after a very large second diagonal. Circumflex was normal. He was right dominant. The patient tolerated the procedure well. There were no complications. Blood Loss: 5 mL. Postoperative Diagnosis: Moderate coronary artery disease. Plan: To continue to medical therapy. The patient is not on statin and I will definitely plan to ad d that down the road. Anesthesia: Total conscious sedation was 45 minutes. NB/MODL Voice ID: [id number] Report ID: [id number]
[2020-10-15 11:16] VITALS: O2SAT 97
[2020-10-15 11:45] VITALS: BP 145/66; TEMP 96.6
== END 2020-10-15 12:13 | disposition home or self-care (01) ==
LOC: CCL 09:00
DX: I25.110 Atherosclerotic heart disease of native coronary artery with unstable angina pectoris (principal); I11.0 Hypertensive heart disease with heart failure; I50.32 Chronic diastolic (congestive) heart failure; I65.23 Occlusion and stenosis of bilateral carotid arteries; J44.9 Chronic obstructive pulmonary disease, unspecified; K21.9 Gastro-esophageal reflux disease without esophagitis; Z95.5 Presence of coronary angioplasty implant and graft
CPT/HCPCS: 93005; 85025; 80048; 36415; 85610; 85730; 71046; 93454; C1893; C1760; J2250; J3010; J7040; J1644; J0583

== ENCOUNTER 2021-03-30 09:30 | Day surgery (SDC) | payer OTHER ==
[2021-03-30 10:00] LABS: MPV 10.1 fL (7.6-11.3)
[2021-03-30 10:05] LABS: Protime INR 1.02
[2021-03-30 11:55] VITALS: O2SAT 97
--- NOTE | 2021-03-30 12:59 | RAD REPORT ---
EXAM DESCRIPTION: RAD - Lumbar Puncture For Dx - 03/30/2021 12:32 pm CLINICAL HISTORY: Dementia COMPARISON: None FINDINGS: The risks, benefits and alternatives to the procedure were explained to the patient and in formed consent obtained. The patient was placed prone into the fluoroscopy suite. The skin and subcutaneous tissues were anest hetized with lidocaine. Under fluoroscopic guidance a 22 gauge spinal needle was advanced into the th ecal sac at L2-3 level. 4 cc of CSF removed and sent to the laboratory Patient experienced no immediate complication Fluoroscopy time 2.4 minutes. One fluoroscopic spot image obtained IMPRESSION: Lumbar puncture
[2021-03-30 13:45] VITALS: BP 134/75; TEMP 97
[2021-03-30 13:46] VITALS: BMI 33.5
== END 2021-03-30 14:15 | disposition home or self-care (01) ==
LOC: DS 09:30 → EDSTATUS 11:00 → DS 14:15
PROVIDERS: ATTEND Psychiatry & Neurology Neurology with Special Qualifications in Child Neurology
PROC: 009U3ZX Drainage of Spinal Canal, Percutaneous Approach, Diagnostic (ICD-10-PCS; principal; 2021-03-30)
DX: F03.90 Unspecified dementia, unspecified severity, without behavioral disturbance, psychotic disturbance, mood disturbance, and anxiety (principal)
CPT/HCPCS: 36415; 77003; 82542; 85049; 85610; 85730

== ENCOUNTER 2023-07-10 07:46 | Day surgery (SDC) | payer OTHER ==
[2023-07-07 09:21] LABS: Absolute Eosinophils 0.1 K/uL (0-0.5); Absolute Lymphocytes (CBC) 1.6 K/uL (0.7-4.9); Absolute Monocytes 1.9 K/uL (0.1-1.3); Basophils % 0.4 % (0-1.3); Eosinophils % 0.7 % (0-4.4); Hematocrit 38.7 % (39.6-49.0); Hemoglobin 13.2 g/dL (13.6-17.9); Lymphocytes % 20.6 % (15.3-44.8); MCH 33.6 pg (27.0-35.0); MCV 98.9 fL (80-100); MPV 10.4 fL (7.6-11.3); Monocytes % 25.3 % (3.3-12.3); Platelets 121 thou/uL (152-406); RBC Red Blood Cell Count 3.91 M/uL (4.33-5.43); Red Cell Distribution Width 14.8 % (12.1-15.2)
[2023-07-07 09:30] LABS: PT Prothrombin Time 12.5 SECONDS (9.5-12.5); PTT, Activated Partial Thromb 32.3 SECONDS (24.3-36.9); Protime INR 1.14
--- NOTE | 2023-07-07 09:56 | RAD REPORT ---
EXAM DESCRIPTION: RAD - Chest Pa And Lat (2 Views) - 07/07/2023 8:25 am CLINICAL HISTORY: pre op for surgery Chest pain. COMPARISON: Chest Pa And Lat (2 Views) dated 10/13/2020; Chest Single View dated 01/11/2018; CHEST PA A ND LAT 2 VIEW dated 11/12/2013; CHEST PA AND LAT 2 VIEW dated 05/02/2013 FINDINGS: The lungs are clear. The heart is normal in size. No displaced fractures. IMPRESSION: No acute or concerning finding suspected.
[2023-07-07 10:29] LABS: Blood Morphology Comment NOT SEEN (NOT SEEN); Differential Total Cells Count 100; Lymphocytes 19 % (15-42); Metamyelocytes 1 % (0-0); Monocytes 25 % (0-10); Platelet Estimate ADEQ; Segmented Neutrophils 53 % (40-80)
--- NOTE | 2023-07-07 11:49 | EKG ---
Test Date: 2023-07-07 Test Time: 08:27:31 Section Crews Activities Clerk: JOCELYN MEASUREMENT RESULTS: Intervals: Rate: 62 PA: 226 QRSD: 146 QT: 448 QTc: 454 [place]: P: 52 PA: 226 QRS: 56 T: 159 INTERPRETIVE STATEMENTS: Sinus rhythm with 1st degree AV block Left bundle branch block Abnormal ECG Compared to ECG 10/13/2020 12:51:17 First degree AV block now present Right-axis deviation no longer present Electronically Signed On 07-07-23 11:48:22 CDT by Gene Ledezma
[2023-07-10] MEDS: Ringers Lactate 1,000 ML IV ONE (08:20)
[2023-07-10 09:16] VITALS: O2SAT 99
[2023-07-10] MEDS ORDERED: propofoL 200 MG/20 ML VIAL IV ONE (09:19)
[2023-07-10] MEDS ORDERED: LIDOCAINE 1% MPF 5 ML VIAL ONE (09:19)
[2023-07-10] MEDS ORDERED: FENTANYL CITR 100 MCG/2 ML ONE (09:20)
[2023-07-10] MEDS: CEFAZOLIN SODIUM 1 GM/VIAL ONE (09:48)
[2023-07-10] MEDS: LIDOCAINE 1% 20 ML MDV ONE (10:15)
--- NOTE | 2023-07-10 10:26 | P.BOP ---
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
[2023-07-10 12:58] VITALS: BP 145/71; TEMP 97.1
--- NOTE | 2023-07-10 20:21 | OP ---
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 Postoperative Diagnosis: Right facial squamous cell carcinoma. Procedures: Wide excision of right facial squamous cell carcinoma. The area removed is about 3 x 2 cm for gross negative margins. Estimated Blood Loss: Less than 10 cc. Specimen: Mass. Anesthesia: General plus local. Indications: This is the case of an 83-year-old patient who comes to us referred by the dermatologis t with a squamous cell carcinoma. The patient had initial shave biopsy by a local caseworker who referred the patient to us for excision. The area of concern was marked by me, the patient, and the patient's today. It was done long time ago, so the only thing we have is a scar tissue present in that region, but the margins were positive so they want me to excise that. So we looked some othe r areas in the face and this will always come back to the same spot. I went a little bit extra just to get some lesions around the area, I guess it looks also with some scales present. Description Of Procedure: The benefits, alternatives, and risks of the procedure was done in advance , which include, but not limited to infection, bleeding, damage to adjacent structures, anesthetic co mplication, recurrence, NE, even . He also understands this may not relieve the symptoms. He m ight need more than one surgical intervention. He understood and signed a consent. Then, after that , we took the patient to the operating room after marking the area . The patient had some sedation and MAC anesthesia present in case we do want to give general anesthesia at this moment. We were trying to do as light as we can but at the same time, the area hurt and it was so close to his eyes, the reflex made it moved, so the Anesthesia helped us with that. We also did local anesthetic and after that, we proceeded to do wide excision of the area of concern. We went a little bit more t sainz the area mentioned around since some areas with scales nearby that we do not want to mess. The a marcello was sent out with gross negative margins and they come back as squamous tissue by Dr. Carrasquillo. No evidence of the margins of the squamous cell carcinoma. That meant we proceeded then to irrigate th e area. Then, after that, we closed the area with a combination of 3-0 chromic and Dermabond. Spong e count and instrument counts correct. We injected local anesthetic before closure and obtained hemo stasis. Patient was sent to recovery in stable condition. We cannot see any other lesions in the fa ce right now. We recommend the patient to see the caseworker and follow up in the future since andry ocampo has other areas that look like keratosis all over his face and forearms. Disposition: Home. Activity: As tolerated, no lifting. Follow up in my office in 1 week. Call for appointment at [phone]. Keep the area dry for 48 hours, then may shower. SHAWN/ROB Voice ID: [id number] Report ID: [id number]
== END 2023-07-10 11:56 | disposition home or self-care (01) ==
LOC: OR 07:46
PROVIDERS: ATTEND Surgery
PROC: 0HB1XZZ Excision of Face Skin, External Approach (ICD-10-PCS; principal; 2023-07-10 09:45)
DX: C44.329 Squamous cell carcinoma of skin of other parts of face (principal); E78.00 Pure hypercholesterolemia, unspecified; I51.9 Heart disease, unspecified; F32.A Depression, unspecified; F41.9 Anxiety disorder, unspecified; F03.90 Unspecified dementia, unspecified severity, without behavioral disturbance, psychotic disturbance, mood disturbance, and anxiety; G47.30 Sleep apnea, unspecified; L82.1 Other seborrheic keratosis
CPT/HCPCS: 93005; 85025; 80048; 36415; 85610; 88331; 88332; 88305; 85730; 71046; 11643; J2704; J2001 ×2; J3010; J7120; J0690

== ENCOUNTER 2023-11-21 08:08 | Day surgery (SDC) | payer OTHER ==
[2023-11-21 09:11] LABS: Absolute Basophils 0.1 K/uL (0-0.5); Absolute Eosinophils 1.3 K/uL (0-0.5); Absolute Lymphocytes (CBC) 1.6 K/uL (0.7-4.9); Absolute Monocytes 2.5 K/uL (0.1-1.3); Absolute Neutrophil 3.9 K/uL (1.8-8.0); Basophils % 0.6 % (0-1.3); Hematocrit 33.7 % (39.6-49.0); Hemoglobin 11.4 g/dL (13.6-17.9); Lymphocytes % 16.8 % (15.3-44.8); MCH 33.5 pg (27.0-35.0); MCHC 33.9 g/dL (32.0-36.0); MCV 98.9 fL (80-100); MPV 9.8 fL (7.6-11.3); Neutrophils % 41.6 % (41.7-73.7); Nucleated Red Blood Cells % 0.1 % (0-0); Platelets 116 thou/uL (152-406); RBC Red Blood Cell Count 3.41 M/uL (4.33-5.43); Red Cell Distribution Width 15.9 % (12.1-15.2)
[2023-11-21] MEDS ORDERED: NA CHLORIDE 0.9% 1,000 ML ONE (09:18)
[2023-11-21 09:20] LABS: PT Prothrombin Time 12.7 SECONDS (9.4-12.5); PTT, Activated Partial Thromb 34.5 SECONDS (24.3-36.9); Protime INR 1.14
[2023-11-21] MEDS ORDERED: FLUMAZENIL 0.1 MG/ML (5 mL VIAL) IV ONE (09:25)
[2023-11-21] MEDS ORDERED: NALOXONE HCL 2 MG/2 ML VIAL ONE (09:25)
[2023-11-21] MEDS ORDERED: MIDAZOLAM HCL 2 MG/2 ML INJ ONE (09:25)
[2023-11-21] MEDS ORDERED: FENTANYL CITR 100 MCG/2 ML ONE (09:25)
[2023-11-21] MEDS ORDERED: ONDANSETRON 4 MG/2 ML VIAL ONE (09:26)
[2023-11-21 09:49] LABS: Percent Reticulocyte Count 2.07 % (0.4-2.05)
[2023-11-21 10:54] LABS: Atypical Lymphocytes 1 %; Band Neutrophils 1 % (0-1); Blood Morphology Comment NOT SEEN (NOT SEEN); Differential Total Cells Count 100; Eosinophils 5 % (0-3); Lymphocytes 21 % (15-42); Monocytes 19 % (0-10); Platelet Estimate ADEQ; Segmented Neutrophils 52 % (40-80)
[2023-11-21 11:05] LABS: Cytogenetics, Bone Marrow SENT; Flow Cytometry, Bone Marrow SENT
--- NOTE | 2023-11-21 11:25 | RAD REPORT ---
EXAM DESCRIPTION: - Bone Marrow Biopsy - 11/21/2023 10:50 am CLINICAL HISTORY: C94.6,D47.1 COMPARISON: No comparisons FINDINGS: Preoperative diagnosis: Thrombocytopenia, lymphocytosis Post operative diagnosis: Same Conscious Sedation: 3 milligram Versed, 100 mcg Fentanyl. 30 minutes of face to face time. Patient was continuously monitored by nursing staff. Image guidance: CT guidance Contrast used: NONE Estimated blood loss: less than 5 mL Specimens: 10 mL of bone marrow aspirate obtained. A core sample was also submitted. Needle type: 13 gauge bone biopsy needle. Complications: None Postprocedure imaging demonstrated no complications. Samples were given to pathology for analysis. Th e patient tolerated the procedure without immediate complication and transferred to the recovery room in stable condition. All CT scans are performed using dose optimization technique as appropriate and may include automated exposure control or mA/KV adjustment according to patient size. IMPRESSION: Technically successful CT-guided bone marrow aspiration and core biopsy with conscious s edation. No immediate complications.
[2023-11-21 13:06] VITALS: BMI 31.1
[2023-11-21 14:41] VITALS: BP 136/88; TEMP 97.1; O2SAT 100
== END 2023-11-21 12:07 | disposition home or self-care (01) ==
LOC: DS 08:08
PROVIDERS: ATTEND Internal Medicine Hematology & Oncology
PROC: 07DR3ZX Extraction of Iliac Bone Marrow, Percutaneous Approach, Diagnostic (ICD-10-PCS; principal; 2023-11-21)
PROC: 079T3ZX Drainage of Bone Marrow, Percutaneous Approach, Diagnostic (ICD-10-PCS; 2023-11-21)
DX: C94.6 Myelodysplastic disease, not elsewhere classified (principal); D47.1 Chronic myeloproliferative disease; D72.821 Monocytosis (symptomatic); J44.9 Chronic obstructive pulmonary disease, unspecified; F03.90 Unspecified dementia, unspecified severity, without behavioral disturbance, psychotic disturbance, mood disturbance, and anxiety
CPT/HCPCS: 36415; 38221; 85025; 85044; 85610; 85730; 88305; 88311; 88313; J2250; J2310; J2405; J3010; J7030

== ENCOUNTER 2024-01-15 02:59 | Inpatient (IN) | payer OTHER ==
--- OUTSIDE RECORDS SUMMARY | 2024-01-15 03:03 | XMS REPORT | Continuity of Care Document ---
Author Name Unknown Address [address] [place] [address] [facility] Address [address] [place] [address] Care Team Providers Care Regulatory Compliance Engineer Name Role Phone Vladimir Bowser Jr. Primary Care Physician ADRIÁN OSUNA Attending Clinician Unavailable [facility] Attending Clinician Unavailable SANJIV CASAS Attending Clinician Unavailable SANJIV CASAS Attending Clinician Unavailable Doctor Unassigned, [place] Attending Clinician U LUCIO Abad Attending Clinician Unavail LUCIO Bess Attending Clinician Unavail Lucio Bess MD Attending Clinician [phone] Marissa Gbariel Attending Clinician [phone] Payers Payer Name Policy Type Policy Number Effective Date Expirati on Date Source FABIOLA WOODS [facility] [place] HMO 7 [id number] 2023 00:00:00 NICHOLAS WOODS [employer]US 42 OA 7 [id number] 2022 00:00:00 [employer] MEDICARE ADVANTAGE [id number] 2023 00:00:00 [employer] [place] 5 [id number] 2022 00:00:00 [employer] MEDICARE ADV [id number] 00:00:00 Problems Condition Name Condition Details Condition Category Status Onset Date Resolution Date Last Treatment Date Treating Clinician Comments Source Dermatitis Dermatitis Disease Active 10-01 00:00: 00 [facility] - Externa l Monocytosi s Monocytosi s Disease Active 10-01 00:00: 00 [facility] - Externa l Low platelet count Low platelet count Disease Active 10-01 00:00: 00 [facility] - Externa l Chronic diastolic (congestiv e) heart failure (multi HCC) Chronic diastolic (congestiv e) heart failure (multi HCC) Disease Active 08-06 00:00: 00 [facility] - Externa felix Immunodefi ciency due to conditions classified elsewhere (multi HCC) Immunodefi ciency due to conditions classified elsewhere (multi HCC) Disease Active 09-26 00:00: 00 [facility] - Externa felix Stage 3a chronic kidney disease Stage 3a chronic kidney disease Disease Active 05-26 00:00: 00 [facility] - Externa felix Morbid obesity Morbid obesity Disease Active 05-25 00:00: 00 [facility] - Externa l Well adult exam Well adult exam Disease Active 05-25 00:00: 00 [facility] - Externa felix Prediabete s Prediabete s Disease Active 05-25 00:00: 00 [facility] - Externa l Gastroesop hageal reflux disease without esophagiti s Gastroesop hageal reflux disease without esophagiti s Disease Active 05-25 00:00: 00 Gneet Jacob - Externa l 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 Disease Active 05-25 00:00: 00 [facility] - Externa l Elevated liver function tests Elevated liver function tests Disease Active 05-25 00:00: 00 [facility] - Externa l Renal insufficie ncy Renal insufficie ncy Disease Active 05-25 00:00: 00 [facility] - Externa felix Condyloma acuminatum Condyloma acuminatum Disease Active 05-25 00:00: 00 Genet Seybold - Externa l 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 pectoris Disease Active 04-27 00:00: 00 Genet Seybold - Externa l Well adult exam Well adult exam Disease Active 04-27 00:00: 00 Genet Seybold - Externa l Chronic paroxysmal hemicrania Chronic paroxysmal hemicrania Disease Active 04-27 00:00: 00 Genet Lamaold - Externa l Primary hypertensi on Primary hypertensi on Disease Active 04-27 00:00: 00 Genet Seybold - Externa l Mixed hyperlipid emia Mixed hyperlipid emia Disease Active 04-27 00:00: 00 Genet Seybold - Externa l 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 pectoris Disease Active 04-27 00:00: 00 Genet Seybold - Externa l History of heart artery stent History of heart artery stent Disease Active 04-27 00:00: 00 Genet Seybold - Externa l History of AAA (abdominal aortic aneurysm) repair History of AAA (abdominal aortic aneurysm) repair Disease Active 04-27 00:00: 00 Genet Seybold - Externa l Simple chronic bronchitis (multi HCC) Simple chronic bronchitis (multi HCC) Disease Active 04-27 00:00: 00 [facility] Seybold - Externa l Anxiety Anxiety Disease Active 04-27 00:00: 00 Gen[facility] Seybold - Externa l 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 Active 04-27 00:00: 00 Gen[facility] Seybold - Externa l Injury, other and unspecifie d, hand, except finger Injury, other and unspecifie d, hand, except finger Disease Active 2005-04 00:00: 00 [facility] Allergies, Adverse Reactions, Alerts Allergy Name Allergy Type Status Severity Reaction(s) Onset Date Inactive Date Treating Clinician Comments Source NO KNOWN ALLERGIE S Drug Class Active [facility] Social History Social Habit Start Date Stop Date Quantity Comments Source [facility] to SARS[facility]-2 (event) Not sure [facility] History SDOH Alcohol Frequency [facility] mcclelland - External History SDOH Alcohol Std Drinks Genet cohenold - External History SDOH Alcohol Binge [facility] - External Gender identity Antonia harvey ybold - External History of tobacco use Cigarette Smoker Genet izquierdo - External Alcoholic beverage intake 2023-12-12 00:00:00 2023-12-12 00:00:00 Ex-drinker (finding) [facility] - External Cigarettes smoked current (pack per day) - Reported 2023-08-07 00:00:00 2023-08-07 00:00:00 [facility] - External Cigarette pack-years 2023-08-07 00:00:00 2023-08-07 00:00:00 [facility] Jacob - External Tobacco use and exposure 2023-08-07 00:00:00 2023-08-07 00:00:00 Smokeless tobacco non-user [facility] - External Alcohol intake 2023-03-28 00:00:00 2023-03-28 00:00:00 Lifetime non-drinker (finding) [facility] - External Alcohol Comment 2022-04-27 00:00:00 2022-04-27 00:00:00 quit in 1977 [facility] - External Education 2022-04-27 00:00:00 2022-04-27 00:00:00 17 [facility] - External History of Social function 2020-02-03 00:00:00 2020-02-03 00:00:00 [facility] Sex assigned at 1940 00:00:00 1940 00:00:00 Gen[facility] Jacob - External Smoking Status Start Date Stop Date Source Ex-smoker 2023-08-07 00:00:00 2023-08-07 00:00:00 [place] Jacob - External Never smoked tobacco [facility] Medications Ordered Medication Name Filled Medication Name Start Date Stop Date Current Medication? Ordering Clinician Indication Dosage Frequency Signature (SIG) Comments Components Source Rivastigmin e 4.6 MG/24HR transdermal PATCH 24 HR 12-11 16:33: 07 12-11 00:00 :00 No 1{appli cation} QD Place 1 Applicatio n onto the skin daily. [facility] Aspirin 81 MG oral Chewable Tablet 12-11 16:32: 34 12-11 00:00 :00 No 81mg QD Take 1 tablet (81 mg total) by mouth daily. [facility] Cetirizine HCl (ZyrTEC Allergy) 10 MG oral Capsule 12-11 00:00: 00 Yes [id number] 10mg QD Take 1 capsule (10 mg total) by mouth daily as needed (itching). [facility] Famotidine (Pepcid) 20 MG oral tablet 12-11 00:00: 00 Yes [id number] 20mg QD Take 1 tablet (20 mg total) by mouth daily. [facility] Furosemide 40 MG oral Tablet 11-13 00:00: 00 Yes [id number] TK1 TABLET BY MOUTH THREE TIMES A WEEK [facility] Potassium chloride CR (KLOR-CON) 10 MEQ oral Tab CR 11-12 00:00: 00 Yes [id number] take 1 tablet by mouth 3 times a week. [facility] Ascorbic Acid (Vitamin C) 100 MG oral Chewable Tablet 10-01 16:47: 07 10-01 00:00 :00 No Take by mouth. [facility] Albuterol HFA 108 (90 Base) MCG/ACT IN AERS 10-01 16:11: 36 Yes 2{puff} Q.25D Inhale 2 puffs into the lungs every 6 hours as needed. [facility] Aspirin 81 MG oral Chewable Tablet 10-01 16:11: 36 Yes 81mg Take 1 tablet (81 mg total) by mouth daily. [facility] Pitavastati n Calcium (Livalo) 4 MG oral Tablet 10-01 16:11: 36 Yes QD Take by mouth daily [facility] Ascorbic Acid (Vitamin C) 500 MG oral Chewable Tablet 10-01 16:11: 36 Yes Take by mouth [facility] Rivastigmin e 4.6 MG/24HR transdermal PATCH 24 HR 10-01 16:11: 36 Yes 1{appli cation} Place 1 Applicatio n onto the skin daily. [facility] Multiple Vitamins-Mi nerals (PreserVisi on AREDS) oral Tablet 10-01 16:11: 36 Yes 1{tbl} Q.5D Take 1 tablet by mouth 2 times daily. [facility] Indomethaci n CR 75 MG oral Cap CR 10-01 16:11: 36 Yes 1{tbl} QD Take 1 tablet by mouth daily as needed (headache) . [facility] COCONUT OIL OR 10-01 16:11: 36 Yes Take by mouth. [facility] Alprazolam 0.5 MG oral Tablet 10-01 00:00: 00 Yes [id number] .5mg QD Take 1 tablet (0.5 mg total) by mouth daily as needed for anxiety. [facility] Triamcinolo ne Acetonide 0.1 % apply externally Cream 09-17 00:00: 00 Yes [facility] predniSONE (DELTASONE) 20 MG oral tablet 09-15 00:00: 00 12-11 00:00 :00 No 40mg QD Take 2 tablets (40 mg total) by mouth daily FOR 5 DAYS. [facility] Indomethaci n CR 75 MG oral Cap CR 08-06 11:16: 17 Yes 1{tbl} QD Take 1 tablet by mouth daily as needed (headache) . [facility] Multiple Vitamins-Mi nerals (PreserVisi on AREDS) oral Tablet 08-06 11:07: 34 Yes 1{tbl} Take 1 tablet by mouth 2 times daily. [facility] Rivastigmin e 4.6 MG/24HR transdermal PATCH 24 HR 29 11:06: 43 Yes 1{appli cation} Place 1 Applicatio n onto the skin daily. [facility] Carvedilol 12.5 MG oral Tablet 06-25 00:00: 00 Yes 12.5mg Take 1 tablet (12.5 mg total) by mouth in the morning and 1 tablet (12.5 mg total) in the evening. Take with meals. [facility] PROZAC ORAL 06-18 13:19: 22 Yes None Entered [facility] albuterol (PROAIR HFA) 90 mcg/actuati on inhaler 06-18 13:19: 22 Yes 2{puff} Inhale 2 Puffs every 6 (six) hours as needed for Wheezing or Shortness of Breath. [facility] indomethaci n 75 mg CR capsule 06-18 13:19: 22 Yes 75mg Take 1 capsule by mouth as needed. [facility] potassium chloride 10 mEq CR capsule 06-18 13:19: 22 Yes 10meq Take 1 capsule by mouth in the morning and 1 capsule in the evening. [facility] carvedilol 12.5 mg tablet 06-18 13:19: 22 Yes 12.5mg Take 1 tablet by mouth in the morning and 1 tablet in the evening. Take with meals. [facility] clopidogrel 75 mg tablet 06-18 13:19: 22 Yes 75mg Take 1 tablet by mouth in the morning. [facility] aspirin 81 mg chewable tablet 06-18 13:19: 22 Yes 81mg Take 1 tablet by mouth in the morning. [facility] ZOCOR ORAL 06-18 13:18: 59 06-18 00:00 :00 No None Entered [facility] ascorbic acid (VITAMIN C ORAL) 06-18 13:18: 58 Yes Take by mouth. [facility] mupirocin (BACTROBAN TOPICAL) 06-18 13:18: 58 Yes Apply to area(s). [facility] Pitavastati n (LIVALO) 4 mg Tab 06-18 13:18: 58 Yes Take by mouth. [facility] Tamsulosin HCl 0.4 MG oral Capsule 05-23 00:00: 00 Yes [id number] .4mg QD Take 1 capsule (0.4 mg total) by mouth daily. [facility] Alprazolam 0.5 MG oral Tablet 05-09 00:00: 00 10-01 00:00 :00 No [id number] .5mg QD Take 1 tablet (0.5 mg total) by mouth daily as needed for anxiety. [facility] Indomethaci n 50 MG oral Capsule 05-09 00:00: 00 08-06 00:00 :00 No [id number] 50mg QD Take 1 capsule (50 mg total) by mouth daily as needed (pain). [facility] Albuterol HFA 108 (90 Base) MCG/ACT IN AERS 2022-04 11:26: 54 Yes 2{puff} Q.25D Inhale 2 puffs into the lungs every 6 hours as needed. [facility] Aspirin 81 MG oral Chewable Tablet 2022-04 11:26: 54 Yes 81mg Take 1 tablet (81 mg total) by mouth daily. [facility] Pitavastati n Calcium (Livalo) 4 MG oral Tablet 2022-04 11:26: 54 Yes Take by mouth daily [facility] Ascorbic Acid (Vitamin C) 500 MG oral Chewable Tablet 2022-04 11:26: 54 Yes Take by mouth [facility] Potassium chloride CR (Klor-Con 10) 10 MEQ oral Tab CR 2022-04 00:00: 00 Yes [id number] TAKE 1 TABLET BY MOUTH THREE TIMES PER WEEK. [facility] Furosemide 40 MG oral Tablet 2022-04 00:00: 00 Yes [id number] 40mg TAKE 1 TABLET (40 MG TOTAL) BY MOUTH THREE TIMES A WEEK [facility] Pantoprazol e Sodium 40 MG oral Tablet Delayed Response 2022-04 00:00: 00 Yes [id number] 40mg QD TAKE 1 TABLET BY MOUTH EVERY DAY [facility] Clopidogrel Bisulfate (PLAVIX) 75 MG oral Tablet 2022-04 00:00: 00 Yes [id number] 75mg QD TAKE 1 TABLET BY MOUTH EVERY DAY [facility] Fluoxetine HCl 40 MG oral Capsule 2022-04 00:00: 00 Yes [id number] 40mg QD TAKE 1 CAPSULE (40 MG TOTAL) BY MOUTH DAILY. [facility] Albuterol HFA 108 (90 Base) MCG/ACT IN AERS 12-16 10:10: 23 Yes 2{puff} Q.25D Inhale 2 puffs into the lungs every 6 hours as needed. [facility] Aspirin 81 MG oral Chewable Tablet 12-16 10:10: 23 Yes 81mg Take 1 tablet (81 mg total) by mouth daily. [facility] Pitavastati n Calcium (Livalo) 4 MG oral Tablet 12-16 10:10: 23 Yes Take by mouth daily [facility] Ascorbic Acid (Vitamin C) 500 MG oral Chewable Tablet 12-16 10:10: 23 Yes Take by mouth [facility] Alprazolam 0.5 MG oral Tablet 12-16 00:00: 00 Yes [id number] .5mg QD Take 1 tablet (0.5 mg total) by mouth daily as needed for anxiety. [facility] Albuterol HFA 108 (90 Base) MCG/ACT IN AERS 09-16 14:42: 05 Yes 2{puff} Q.25D Inhale 2 puffs into the lungs every 6 hours as needed [facility] Aspirin 81 MG oral Chewable Tablet 09-16 14:42: 05 Yes 81mg Take 1 tablet (81 mg total) by mouth daily [facility] Pitavastati n Calcium (Livalo) 4 MG oral Tablet 09-16 14:42: 05 Yes Take by mouth daily [facility] Ascorbic Acid (Vitamin C) 500 MG oral Chewable Tablet 09-16 14:42: 05 Yes Take by mouth [facility] Potassium chloride CR (Klor-Con 10) 10 MEQ oral Tab CR 08-15 00:00: 00 Yes [id number] TAKE 1 TABLET BY MOUTH THREE TIMES PER WEEK [facility] Tamsulosin HCl 0.4 MG oral Capsule 08-15 00:00: 00 Yes [id number] .4mg Take 1 capsule (0.4 mg total) by mouth daily [facility] Carvedilol 12.5 MG oral Tablet 08-15 00:00: 00 Yes 12.5mg Take 1 tablet (12.5 mg total) by mouth in the morning and 1 tablet (12.5 mg total) in the evening. Take with meals. [facility] Alprazolam 0.5 MG oral Tablet 06-10 00:00: 00 Yes [id number] .5mg QD Take 1 tablet (0.5 mg total) by mouth daily as needed for anxiety [facility] Fluoxetine HCl 40 MG oral Capsule 06-08 00:00: 00 Yes [id number] 40mg Take 1 capsule (40 mg total) by mouth daily [facility] Furosemide 40 MG oral Tablet 06-08 00:00: 00 Yes [id number] 40mg Take 1 tablet (40 mg total) by mouth three times a week [facility] Pantoprazol e Sodium 40 MG oral Tablet Delayed Response 06-08 00:00: 00 Yes [id number] 40mg Take 1 tablet (40 mg total) by mouth daily [facility] Clopidogrel Bisulfate (PLAVIX) 75 MG oral Tablet 06-08 00:00: 00 Yes [id number] 75mg Take 1 tablet (75 mg total) by mouth daily [facility] Fluocinolon e Acetonide 0.01 % apply externally Solution 05-07 00:00: 00 Yes APPLY TO AFFECTED AREAS ON SCALP TWICE A DAY FOR 2 WEEKS/BRODERICK H [facility] Indomethaci n CR 75 MG oral Cap CR 04-27 10:35: 36 04-27 00:00 :00 No 75mg Take 75 mg by mouth as needed [facility] Fluticasone Furoate-Jeri anterol 200-25 MCG/ACT inhalation AEROSOL POWDER, BREATH ACTIVATED 04-27 10:35: 36 04-27 00:00 :00 No Inhale into the lungs [facility] Calcium Carbonate-V it D-Min (CALCIUM 1200 OR) 04-27 10:35: 36 04-27 00:00 :00 No Take by mouth [facility] [place]-3 Fatty Acids (Fish Oil) 1200 MG oral Capsule 04-27 10:35: 36 04-27 00:00 :00 No Take by mouth [facility] Coconut Oil 1000 MG oral Capsule 04-27 10:35: 36 04-27 00:00 :00 No Take by mouth [facility] Zinc 50 MG oral Capsule 04-27 10:35: 36 04-27 00:00 :00 No Take by mouth [facility] Mupirocin Calcium (BACTROBAN) 2 % apply externally Cream 04-27 10:31: 51 04-27 00:00 :00 No Apply 1 applicatio n topically 3 times daily Follow package directions . [facility] Albuterol HFA 108 (90 Base) MCG/ACT IN AERS 04-27 09:31: 26 Yes 2{puff} Q.25D Inhale 2 puffs into the lungs every 6 hours as needed. [facility] Aspirin 81 MG oral Chewable Tablet 04-27 09:31: 26 Yes 81mg Take 1 tablet (81 mg total) by mouth daily. [facility] Carvedilol 12.5 MG oral Tablet 04-27 09:31: 26 Yes 12.5mg Take 12.5 mg by mouth in the morning and 12.5 mg in the evening. Take with meals. [facility] Clopidogrel Bisulfate 75 MG oral Tablet 04-27 09:31: 26 Yes 75mg Take 75 mg by mouth daily [facility] Pitavastati n Calcium (Livalo) 4 MG oral Tablet 04-27 09:31: 26 Yes Take by mouth daily [facility] Ascorbic Acid (Vitamin C) 500 MG oral Chewable Tablet 04-27 09:31: 26 Yes Take by mouth [facility] Zinc 50 MG oral Capsule 04-27 00:00: 00 Yes 1{capsu le} Take 1 capsule by mouth daily [facility] Turmeric 500 MG oral Capsule 04-27 00:00: 00 Yes 1{capsu le} Take 1 capsule by mouth daily [facility] [place]-3 Fatty Acids (Fish Oil) 1200 MG oral Capsule 04-27 00:00: 00 Yes [id number] 1{capsu le} Take 1 capsule by mouth 2 times daily [facility] Alprazolam 0.5 MG oral Tablet 04-27 00:00: 00 Yes [id number] .5mg QD Take 1 tablet (0.5 mg total) by mouth daily as needed for anxiety [facility] Zinc 50 MG oral Capsule 04-27 00:00: 00 Yes 1{capsu le} Take 1 capsule by mouth daily [facility] Indomethaci n CR 75 MG oral Cap CR 04-27 00:00: 00 Yes [id number] 75mg QD Take 75 mg by mouth daily as needed (pain) [facility] Zinc 50 MG oral Capsule 04-27 00:00: 00 Yes 1{capsu le} QD Take 1 capsule by mouth daily [facility] [place] Turmeric 500 MG oral Capsule 04-27 00:00: 00 Yes 1{capsu le} QD Take 1 capsule by mouth daily [facility] [place]-3 Fatty Acids (Fish Oil) 1200 MG oral Capsule 04-27 00:00: 00 Yes [id number] 1{capsu le} Q.5D Take 1 capsule by mouth 2 times daily [facility] Fluticasone Furoate-Jeri anterol 200-25 MCG/ACT inhalation AEROSOL POWDER, BREATH ACTIVATED 04-27 00:00: 00 Yes [id number] 1{puff} QD Inhale 1 puff into the lungs daily [facility] Coconut Oil 1000 MG oral Capsule 04-27 00:00: 00 Yes [id number] 1{capsu le} QD Take 1 capsule by mouth daily [facility] Calcium Carbonate-V it D-Min (Calcium 1200) [id number] MG-UNIT oral Chewable Tablet 04-27 00:00: 00 Yes 1{each} QD Take 1 each by mouth daily [facility] Fluoxetine HCl 40 MG oral Capsule 2021-04 00:00: 00 Yes 40mg Take 40 mg by mouth daily [facility] Furosemide 40 MG oral Tablet 2021-04 00:00: 00 Yes 40mg Take 40 mg by mouth three times a week [facility] Tamsulosin HCl 0.4 MG oral Capsule 2021-04 00:00: 00 Yes 1{capsu le} Take 1 capsule by mouth daily [facility] Alprazolam 0.5 MG oral Tablet 2021-04 00:00: 00 04-27 00:00 :00 No .5mg QD Take 0.5 mg by mouth daily as needed [facility] Klor-Con 10 10 MEQ oral Tab CR 2021-04 00:00: 00 Yes TAKE 1 TABLET BY MOUTH THREE TIMES PER WEEK [facility] Pantoprazol e Sodium 40 MG oral Tablet Delayed Response 2021-04 1-14 00:00: 00 Yes 40mg Take 40 mg by mouth daily [facility] Memantine HCl 10 MG oral Tablet 2021-04 1-14 00:00: 00 Yes 10mg Take 1 tablet (10 mg total) by mouth 2 times daily. [facility] Amoxicillin -Pot Clavulanate 500-125 MG oral Tablet 2021-04 1-09 00:00: 00 04-27 00:00 :00 No TAKE 2 TABLETS BY MOUTH NOW, THEN 1 TABLET EVERY 8 HOURS UNTIL ALL TAKEN [facility] MEMANTINE 10 mg tablet 2019-04 00:00: 00 Yes [id number] TAKE 1 TABLET BY MOUTH TWICE A DAY [facility] memantine 10 mg tablet 2019-04 00:00: 00 Yes [id number] 10mg Take 1 tablet by mouth 2 (two) times daily. [facility] RIVASTIGMIN E 4.6 mg/24 hr patch 2019-04 00:00: 00 Yes [id number] 1{patch } APPLY 1 PATCH TO SKIN DAILY. [facility] memantine tablet pack 2019-04 0- 00:00: 00 03-09 00:00 :00 No [id number] Take by mouth SEE-INSTRU CTIONS. 5 mg/day for =1 week; 5 mg twice daily for =1 week; 15 mg/day given in 5 mg and 10 mg doses for =1 week; then 10 mg twice daily [facility] RIVASTIGMIN E 4.6 mg/24 hr patch 2019-04 0-13 00:00: 00 02-25 00:00 :00 No [id number] 1{patch } APPLY 1 PATCH TO SKIN DAILY. [facility] ZOCOR ORAL 12-11 21:16: 59 Yes None Entered [facility] albuterol (PROAIR HFA) 90 mcg/actuati on inhaler 12-11 21:16: 59 Yes 2{puff} Inhale 2 Puffs every 6 (six) hours as needed for Wheezing or Shortness of Breath. [facility] indomethaci n 75 mg CR capsule 12-11 21:16: 59 Yes 75mg Take 75 mg by mouth as needed. [facility] aspirin 81 mg chewable tablet 12-11 21:16: 59 Yes 81mg Take 81 mg by mouth daily. [facility] omega-3s/dh a/epa/fish oil/D3 (VITAMIN-D + OMEGA-3 ORAL) 12-11 21:16: 59 Yes Take by mouth. [facility] PROZAC ORAL 12-11 21:14: 13 Yes None Entered [facility] potassium chloride 10 mEq CR capsule 12-11 21:14: 13 Yes 10meq Take 10 mEq by mouth 2 (two) times daily. [facility] carvedilol 12.5 mg tablet 12-11 21:14: 13 Yes 12.5mg Take 12.5 mg by mouth 2 (two) times daily with meals. [facility] clopidogrel 75 mg tablet 12-11 21:14: 13 Yes 75mg Take 75 mg by mouth daily. [facility] ZOCOR ORAL 12-11 16:16: 59 Yes None Entered [facility] albuterol (PROAIR HFA) 90 mcg/actuati on inhaler 12-11 16:16: 59 Yes 2{puff} Inhale 2 Puffs every 6 (six) hours as needed for Wheezing or Shortness of Breath. [facility] indomethaci n 75 mg CR capsule 12-11 16:16: 59 Yes 75mg Take 75 mg by mouth as needed. [facility] aspirin 81 mg chewable tablet 12-11 16:16: 59 Yes 81mg Take 81 mg by mouth daily. [facility] PROZAC ORAL 12-11 16:14: 13 Yes None Entered [facility] potassium chloride 10 mEq CR capsule 12-11 16:14: 13 Yes 10meq Take 10 mEq by mouth 2 (two) times daily. [facility] carvedilol 12.5 mg tablet 12-11 16:14: 13 Yes 12.5mg Take 12.5 mg by mouth 2 (two) times daily with meals. [facility] clopidogrel 75 mg tablet 12-11 16:14: 13 Yes 75mg Take 75 mg by mouth daily. [facility] rivastigmin e 4.6 mg/24 hr patch 12-11 00:00: 00 01-20 00:00 :00 No [id number] 1{patch } Apply 1 Patch to skin daily. [facility] rivastigmin e 4.6 mg/24 hr patch 11-28 00:00: 00 12-11 00:00 :00 No 1{patch } Apply 1 Patch to skin daily. [facility] pantoprazol e 40 mg EC tablet 10-28 00:00: 00 Yes 40mg Take 1 tablet by mouth in the morning. [facility] ALPRAZolam 0.25 mg tablet 618 00:00: 00 Yes [facility] furosemide 40 mg tablet 0 509 00:00: 00 Yes [facility] alfuzosin 10 mg 24 hr tablet 0 416 00:00: 00 Yes [facility] FLUoxetine 40 mg capsule 0 416 00:00: 00 Yes [facility] Immunizations Ordered Immunization Name Filled Immunization Name Date Status Comments Source Influenza Virus Vaccine, Quadrivalent, High Dose, Age 65 And Up 2022-02-09 00:00:00 Completed [facility] - External Influenza Virus Vaccine, Quadrivalent, High Dose, Age 65 And Up 2022-02-09 00:00:00 Completed [facility] - External Influenza Virus Vaccine, Quadrivalent, High Dose, Age 65 And Up 2022-02-09 00:00:00 Completed [facility] - External Influenza Virus Vaccine, Quadrivalent, High Dose, Age 65 And Up 2022-02-09 00:00:00 Completed [facility] - External Influenza Virus Vaccine, Quadrivalent, High Dose, Age 65 And Up 2021-05-05 00:00:00 Completed [facility] - External Influenza Virus Vaccine, Quadrivalent, High Dose, Age 65 And Up 2021-05-05 00:00:00 Completed [facility] - External Influenza Virus Vaccine, Quadrivalent, High Dose, Age 65 And Up 2021-05-05 00:00:00 Completed [facility] - External Influenza Virus Vaccine, Quadrivalent, High Dose, Age 65 And Up 2021-05-05 00:00:00 Completed Genet Jacob - External Tetanus/Diptheria 2006-04-04 00:00:00 Completed [facility] Tetanus/Diptheria 2006-04-04 00:00:00 Completed [facility] Tetanus/Diptheria 2006-04-04 00:00:00 Completed [facility] Tetanus/Diptheria 2006-04-04 00:00:00 Completed [facility] Tetanus/Diptheria 2006-04-04 00:00:00 Completed [facility] Tetanus/Diptheria 2006-04-04 00:00:00 Completed [facility] Tetanus/Diptheria 2006-04-04 00:00:00 Completed [facility] Tetanus/Diptheria 2006-04-04 00:00:00 Completed [facility] Tetanus/Diptheria 2006-04-04 00:00:00 Completed [facility] Tetanus/Diptheria 2006-04-04 00:00:00 Completed [facility] Tetanus/Diptheria 2006-04-04 00:00:00 Completed [facility] Tetanus/Diptheria 2006-04-04 00:00:00 Completed [facility] Tetanus/Diptheria 2006-04-04 00:00:00 Completed [facility] Tetanus/Diptheria 2006-04-04 00:00:00 Completed [facility] Tetanus/Diptheria 2006-04-04 00:00:00 Completed [facility] Tetanus/Diptheria 2006-04-04 00:00:00 Completed [facility] Infanrix Hexa 2006-04-04 00:00:00 Completed Genet Jacob - External Infanrix Hexa 2006-04-04 00:00:00 Completed Genet Jacob - External Infanrix Hexa 2006-04-04 00:00:00 Completed Genet Jacob - External Infanrix Hexa 2006-04-04 00:00:00 Completed Genet Sorto External Tetanus/Diptheria Unknown Completed [facility] Tetanus/Diptheria Unknown Completed Un [facility] Influenza Virus Vaccine, Quadrivalent, High Dose, Age 65 And Up Unknown Completed Genet Reeves candicebold - External Infanrix Hexa Unknown Completed Genet Jacob - External Influenza vaccine, quadrivalent, adjuvanted, 65+ Unknown Completed Genet noelo ld - External Influenza Virus Vaccine, Quadrivalent, High Dose, Age 65 And Up Unknown Completed Genet Lala harveybold - External Infanrix Hexa Unknown Completed Genet noelold - External Influenza vaccine, quadrivalent, adjuvanted, 65+ Unknown Completed Genet Seole ld - External Influenza Virus Vaccine, Quadrivalent, High Dose, Age 65 And Up Unknown Completed Genet Lala harveybold - External Infanrix Hexa Unknown Completed Genet noelfelecia - External Influenza vaccine, quadrivalent, adjuvanted, 65+ Unknown Completed Genet ole ld - External Influenza Virus Vaccine, Quadrivalent, High Dose, Age 65 And Up Unknown Completed Genet Lala harveybold - External Infanrix Hexa Unknown Completed Genet noelfelecia - External Influenza vaccine, quadrivalent, adjuvanted, 65+ Unknown Completed Genet ole ld - External Vital Signs Vital Name Observation Time Observation Value Comments S ource Systolic blood pressure 2023-12-12 21:04:00 132 mm[Hg] Genet ole renner - External Diastolic blood pressure 2023-12-12 21:04:00 87 mm[Hg] Genet Au ld - External Heart rate 2023-12-12 21:04:00 79 /min Nikhil Jacob - External Body temperature 2023-12-12 21:04:00 37.11 Ligia Genet Jacob - External Respiratory rate 2023-12-12 21:04:00 16 /min Genet Jacob - External Body height 2023-12-12 21:04:00 182.9 cm Antonia Jacob - External Body weight 2023-12-12 21:04:00 110.678 kg Antonia Jacob - External BMI 2023-12-12 21:04:00 33.09 kg/m2 Antonia Jacob - External Oxygen saturation in Arterial blood by Pulse oximetry 2023-12-12 21:04:00 100 /min Genet Au ld - External Systolic blood pressure 2023-10-02 21:05:00 136 mm[Hg] Genet Oropezaybo ld - External Diastolic blood pressure 2023-10-02 21:05:00 82 mm[Hg] Genet Oropezaybo ld - External Heart rate 2023-10-02 21:05:00 77 /min Berryse y Seybold - External Body temperature 2023-10-02 21:05:00 36.83 Ligia Genet Seybold - External Respiratory rate 2023-10-02 21:05:00 16 /min Genet Seybold - External Body height 2023-10-02 21:05:00 182.9 cm Antonia ey Seybold - External Body weight 2023-10-02 21:05:00 111.131 kg Antonia ey Seybold - External BMI 2023-10-02 21:05:00 33.23 kg/m2 Antonia ey Seybold - External Systolic blood pressure 2023-08-07 15:51:00 122 mm[Hg] Genet Oropezaybo ld - External Diastolic blood pressure 2023-08-07 15:51:00 74 mm[Hg] Genet Oropezaybo ld - External Heart rate 2023-08-07 15:51:00 70 /min Nikhil y Seybold - External Body temperature 2023-08-07 15:51:00 36.56 Ligia Genet Seybold - External Respiratory rate 2023-08-07 15:51:00 16 /min Genet Oropezaybold - External Body height 2023-08-07 15:51:00 182.9 cm Antonia ey Seybold - External Body weight 2023-08-07 15:51:00 112.946 kg Antonia ey Seybold - External BMI 2023-08-07 15:51:00 33.77 kg/m2 Antonia ey Seybold - External Oxygen saturation in Arterial blood by Pulse oximetry 2023-08-07 15:51:00 97 /min Genet Oropezaybo ld - External Systolic blood pressure 2023-06-19 18:08:00 137 mm[Hg] [facility] Diastolic blood pressure 2023-06-19 18:08:00 81 mm[Hg] [facility] Heart rate 2023-06-19 18:08:00 77 /min [facility] Body temperature 2023-06-19 18:08:00 35.94 Ligia [facility] Respiratory rate 2023-06-19 18:08:00 20 /min [facility] Body height 2023-06-19 18:08:00 182.9 cm [facility] Body weight 2023-06-19 18:08:00 113.399 kg [facility] BMI 2023-06-19 18:08:00 33.91 kg/m2 [facility] Oxygen saturation in Arterial blood by Pulse oximetry 2023-06-19 18:08:00 93 /min [facility] Systolic blood pressure 2023-03-28 17:23:00 125 mm[Hg] Genet Seybo ld - External Diastolic blood pressure 2023-03-28 17:23:00 77 mm[Hg] Genet Seybo ld - External Heart rate 2023-03-28 17:23:00 87 /min Kelse y Seybold - External Body temperature 2023-03-28 17:23:00 36.67 Ligia Genet Seybold - External Respiratory rate 2023-03-28 17:23:00 20 /min Genet Seybold - External Body height 2023-03-28 17:23:00 182.9 cm Antonia ey Seybold - External Body weight 2023-03-28 17:23:00 112.946 kg Antonia ey Seybold - External BMI 2023-03-28 17:23:00 33.77 kg/m2 Antonia ey Seybold - External Oxygen saturation in Arterial blood by Pulse oximetry 2023-03-28 17:23:00 98 /min Genet Seybo ld - External Systolic blood pressure 2022-12-16 15:07:00 123 mm[Hg] Genet Seybo ld - External Diastolic blood pressure 2022-12-16 15:07:00 72 mm[Hg] Genet Seybo ld - External Heart rate 2022-12-16 15:07:00 64 /min Kelse y Seybold - External Body temperature 2022-12-16 15:07:00 36.67 Ligia Genet Seybold - External Respiratory rate 2022-12-16 15:07:00 20 /min Genet Seybold - External Body height 2022-12-16 15:07:00 182.9 cm Antonia ey Seybold - External Body weight 2022-12-16 15:07:00 115.214 kg Antonia ey Seybold - External BMI 2022-12-16 15:07:00 34.45 kg/m2 Antonia ey Seybold - External Systolic blood pressure 2022-09-16 19:48:00 114 mm[Hg] Genet Seybo ld - External Diastolic blood pressure 2022-09-16 19:48:00 70 mm[Hg] Genet Seybo ld - External Heart rate 2022-09-16 19:40:00 74 /min Kelse y Seybold - External Body temperature 2022-09-16 19:40:00 36.61 Ligia Genet Seybold - External Respiratory rate 2022-09-16 19:40:00 15 /min Genet Seybold - External Body height 2022-09-16 19:40:00 182.9 cm Antonia ey Seybold - External Body weight 2022-09-16 19:40:00 114.76 kg Antonia ey Seybold - External BMI 2022-09-16 19:40:00 34.31 kg/m2 Antonia ey Seybold - External Oxygen saturation in Arterial blood by Pulse oximetry 2022-09-16 19:40:00 99 /min Genet Seybo ld - External Systolic blood pressure 2022-05-25 16:17:00 128 mm[Hg] Genet Seybo ld - External Diastolic blood pressure 2022-05-25 16:17:00 67 mm[Hg] Genet Seybo ld - External Heart rate 2022-05-25 16:17:00 82 /min Kelse y Seybold - External Body temperature 2022-05-25 16:17:00 36.44 Ligia Genet Seybold - External Respiratory rate 2022-05-25 16:17:00 14 /min Genet Seybold - External Body height 2022-05-25 16:17:00 182.9 cm Antonia ey Seybold - External Body weight 2022-05-25 16:17:00 119.75 kg Antonia ey Seybold - External BMI 2022-05-25 16:17:00 35.80 kg/m2 Antonia ey Seybold - External Oxygen saturation in Arterial blood by Pulse oximetry 2022-05-25 16:17:00 95 /min Genet Au ld - External Systolic blood pressure 2022-04-27 15:19:00 116 mm[Hg] Genet Lamao ld - External Diastolic blood pressure 2022-04-27 15:19:00 68 mm[Hg] Genet Lamao ld - External Heart rate 2022-04-27 15:19:00 100 /min Nikhil y ybold - External Body temperature 2022-04-27 15:19:00 35.89 Ligia Genet Oropezaybold - External Respiratory rate 2022-04-27 15:19:00 16 /min Genet Lamaold - External Body height 2022-04-27 15:19:00 182.9 cm Antonia harvey Seybold - External Body weight 2022-04-27 15:19:00 119.296 kg Antonia harvey Seybold - External BMI 2022-04-27 15:19:00 35.67 kg/m2 Antonia ey Seybold - External Oxygen saturation in Arterial blood by Pulse oximetry 2020-02-03 16:12:00 98 /min [facility] Systolic blood pressure 2020-02-03 16:12:00 109 mm[Hg] [facility] Diastolic blood pressure 2020-02-03 16:12:00 70 mm[Hg] [facility] Heart rate 2020-02-03 16:12:00 70 /min [facility] Body height 2020-02-03 16:12:00 182.9 cm [facility] Body weight 2020-02-03 16:12:00 108.863 kg [facility] BMI 2020-02-03 16:12:00 32.55 kg/m2 [facility] Systolic blood pressure 2018-12-11 20:01:00 132 mm[Hg] [facility] Diastolic blood pressure 2018-12-11 20:01:00 83 mm[Hg] [facility] Heart rate 2018-12-11 20:01:00 69 /min [facility] Body temperature 2018-12-11 20:01:00 36.5 Ligia [facility] Respiratory rate 2018-12-11 20:01:00 18 /min [facility] Body height 2018-12-11 20:01:00 182.9 cm [facility] Body weight 2018-12-11 20:01:00 99.394 kg [facility] BMI 2018-12-11 20:01:00 29.72 kg/m2 [facility] Systolic blood pressure 2018-12-11 20:01:00 132 mm[Hg] [facility] Diastolic blood pressure 2018-12-11 20:01:00 83 mm[Hg] [facility] Heart rate 2018-12-11 20:01:00 69 /min [facility] Body temperature 2018-12-11 20:01:00 36.5 Ligia [facility] Respiratory rate 2018-12-11 20:01:00 18 /min [facility] Body height 2018-12-11 20:01:00 182.9 cm [facility] Body weight 2018-12-11 20:01:00 99.394 kg [facility] BMI 2018-12-11 20:01:00 29.72 kg/m2 [facility] Procedures Procedure Date / Time Performed Performing Clinician Source EXTERNAL PROVIDER RECORDS 2023-06-16 06:01:00 Do ctor Unassigned, [place] [facility] INSURANCE CORRESPONDENCE 2020-02-11 06:01:00 Doc tor Unassigned, [place] [facility] INSURANCE CORRESPONDENCE 2020-02-05 05:01:00 Doc tor Unassigned, [place] [facility] Encounters Start Date/Time End Date/Time Encounter Type Admission Type Attending [facility] Facility Care Department Encounter ID Source 2024-01-09 11:30:00 2024-01-09 11:30:00 Outpatient ADRIÁN OSUNA [id number] [facility] Jacob 2024-01-03 00:00:00 2024-01-03 00:00:00 Outpatient ADRIÁN OSUNA [id number] [facility] Jacob 2023-12-27 00:00:00 2023-12-27 00:00:00 Outpatient ADRIÁN OSUNA [id number] [facility] 2023-12-27 00:00:00 2023-12-27 00:00:00 Outpatient PREZAS, ADRIÁN JAIMES GENET [id number] [facility] 2023-12-15 00:00:00 2023-12-15 00:00:00 Outpatient PREZAS, ADRIÁN JAIMES GENET [id number] [facility] 2023-12-12 16:50:00 2023-12-12 16:50:00 Outpatient LABGo JAIMES GENET [id number] [facility] 2023-12-12 16:15:00 2023-12-12 16:15:00 Outpatient PREZAS, ADRIÁN GENET GENET [id number] Genet [facility] 2023-12-04 00:00:00 2023-12-04 00:00:00 Outpatient PREZAS, ADRIÁN GENET JAIMES [id number] [facility] 2023-12-01 00:00:00 2023-12-01 00:00:00 Outpatient PREZAS, ADRIÁN GENET GENET [id number] [facility] 2023-11-14 00:00:00 2023-11-14 00:00:00 Outpatient PREZAS, ADRIÁN GENET JAIMES [id number] Genet [facility] 2023-11-13 11:00:00 2023-11-13 11:00:00 Outpatient PREZAS, ADRIÁN GENET JAIMES [id number] Genet [facility] 2023-11-12 00:00:00 2023-11-12 00:00:00 Outpatient PREZAS, ADRIÁN GENET JAIMES [id number] [facility] 2023-11-06 11:00:00 2023-11-06 11:00:00 Outpatient PREZAS, ADRIÁN GENET JAIMES [id number] [facility] 2023-10-24 00:00:00 2023-10-24 00:00:00 Outpatient PREZAS, ADRIÁN GENET JAIMES [id number] [facility] 2023-10-02 16:30:00 2023-10-02 16:30:00 Outpatient PREZAS, ADRIÁN JAIMES [id number] [facility] 2023-09-14 00:00:00 2023-09-14 00:00:00 Outpatient PREZAS, ADRIÁN JAIMES [id number] Genet [facility] 2023-09-11 14:35:00 2023-09-11 14:35:00 Outpatient LAB90 GENET ESQUIVELSEY [id number] Genet [facility] 2023-09-11 00:00:00 2023-09-11 00:00:00 Outpatient PREZAS, ADRIÁN JAIMES [id number] Genet [facility] 2023-09-07 00:00:00 2023-09-07 00:00:00 Outpatient PREZAS, ADRIÁN JAIMES GENET [id number] Genet [facility] 2023-08-10 00:00:00 2023-08-10 00:00:00 Outpatient PREZAS, ADRIÁN JAIMES [facility] [id number] [facility]23-[facility] 11:45:00 2023-08-07 11:45:00 Outpatient LAB90 GENET JAIMES [id number] [facility] 2023-08-07 10:45:00 2023-08-07 10:45:00 Outpatient PREZAS, ADRIÁN JAIMES GENET [id number] Genet [facility] 2023-07-11 00:00:00 2023-07-11 00:00:00 Outpatient PREZAS, ADRIÁN JAIMES GENET [id number] [facility] 2023-07-10 00:00:00 2023-07-10 00:00:00 Outpatient PREZAS, ADRIÁN JAIMES GENET [id number] [facility] 2023-07-03 00:00:00 2023-07-03 00:00:00 Outpatient PREZAS, ADRIÁN JAIMES GENET [id number] [facility] 2023-06-27 10:45:00 2023-06-27 10:45:00 Outpatient PREZAS, ADRIÁN GENET JAIMES [id number] [facility] 2023-06-27 00:00:00 2023-06-27 00:00:00 Outpatient PREZAS, ADRIÁN GENET JAIMES [id number] Genet [facility] 2023-06-26 13:00:00 2023-06-26 13:00:00 Outpatient Macario DHARASONAL SANJIV JULESIsaiasSANJIV CRUZ [facility] [id number] [facility] 2023-06-24 00:00:00 2023-06-24 00:00:00 Outpatient ADRIÁN OSUNA [id number] Genet [facility] 2023-06-21 00:00:00 2023-06-21 00:00:00 Outpatient ADRIÁN OSUNA [id number] Genet [facility] 2023-06-19 13:00:00 2023-06-19 13:45:00 Office Visit Sanjiv Casas [facility] 1..840.114 350.1.13.10 4.2.7.2.686 [id number] [facility] 2023-06-19 13:00:00 2023-06-19 13:00:00 Outpatient Macario DHARASONAL SANJIV JULESIsaiasSANJIV CRUZ [facility] [id number] [facility] 2023-06-16 00:00:00 2023-06-16 00:00:00 Orders Only Doctor Unassigned, [place] [facility] 1..840.114 350.1.13.10 4.2.7.2.686 [id number] [facility] 2023-06-03 00:00:00 2023-06-03 00:00:00 Outpatient ADRIÁN OSUNA [id number] Genet [facility] 2023-05-29 00:00:00 2023-05-29 00:00:00 Outpatient ADRIÁN OSUNA [id number] [facility]et [facility] 2023-05-22 00:00:00 2023-05-22 00:00:00 Outpatient ADRIÁN OSUNA [id number] Genet [facility] 2023-05-08 00:00:00 2023-05-08 00:00:00 Outpatient PREZAS, ADRIÁN JAIMES GENET [id number] [facility] 2023-04-13 00:00:00 2023-04-13 00:00:00 Outpatient PREZAS, ADRIÁN JAIMES GENET [id number] [facility] 2023-04-13 00:00:00 2023-04-13 00:00:00 Outpatient PREZAS, ADRIÁN JAIMES GENET [id number] [facility]et O[facility] 2023-03-28 11:00:00 2023-03-28 11:00:00 Outpatient PREZAS, ADRIÁN JAIMES GENET [id number] [facility] 2023-03-17 10:15:00 2023-03-17 10:15:00 Outpatient PREZAS, ADRIÁN JAIMES GENET [id number] [facility] 2023-02-01 00:00:00 2023-02-01 00:00:00 Outpatient PREZAS, ADRIÁN JAIMES GENET [id number] Genet [facility] 2023-01-22 00:00:00 2023-01-22 00:00:00 Outpatient PREZAS, ADRIÁN JAIMES GENET [id number] [facility] 2022-12-19 00:00:00 2022-12-19 00:00:00 Outpatient PREZAS, ADRIÁN JAIMES GENET [id number] [facility] 2022-12-16 10:35:00 2022-12-16 10:35:00 Outpatient LAB90 GENET JAIMES [id number] [facility] 2022-12-16 10:00:00 2022-12-16 10:00:00 Outpatient PREZAS, ADRIÁN GENET GENET [id number] [facility] 2022-11-21 00:00:00 2022-11-21 00:00:00 Outpatient GENET JAIMES [id number] [facility] 2022-11-03 00:00:00 2022-11-03 00:00:00 Outpatient GENET JAIMES [id number] [facility] 2022-11-02 00:00:00 2022-11-02 00:00:00 Outpatient PREZAS, ADRIÁN GENET JAIMES [id number] [facility] 2022-10-05 00:00:00 2022-10-05 00:00:00 Outpatient PREZAS, ADRIÁN JAIMES GENET [id number] [facility] 2022-09-16 14:45:00 2022-09-16 14:45:00 Outpatient PREZAS, ADRIÁN JAIMES GENET [id number] [facility] 2022-09-02 00:00:00 2022-09-02 00:00:00 Outpatient PREZAS, ADRIÁN JAIMES GENET [id number] [facility] 2022-08-22 11:00:00 2022-08-22 11:00:00 Outpatient PREZAS, ADRIÁN JAIMES GENET [id number] [facility] 2022-08-15 00:00:00 2022-08-15 00:00:00 Outpatient PREZAS, ADRIÁN GENET GENET [id number] [facility] 2022-06-29 00:00:00 2022-06-29 00:00:00 Outpatient PREZAS, ADRIÁN JAIMES GENET [id number] [facility] 2022-06-14 00:00:00 2022-06-14 00:00:00 Outpatient PREZAS, ADRIÁN GENET JAIMES [id number] [facility] 2022-06-10 00:00:00 2022-06-10 00:00:00 Outpatient PREZAS, ADRIÁN GENET JAIMES [id number] [facility] 2022-06-08 00:00:00 2022-06-08 00:00:00 Outpatient PREZAS, ADRIÁN JAIMES GENET [id number] [facility] 2022-05-25 11:15:00 2022-05-25 11:15:00 Outpatient LABGo JAIMES [id number] Genet Seybold 2022-05-25 10:15:00 2022-05-25 10:15:00 Outpatient PREZAS, ADRIÁN GENET JAIMES [id number] Genet Seybold 2022-04-28 00:00:00 2022-04-28 00:00:00 Outpatient PREZAS, ADRIÁN GENET JAIMES [id number] [facility] 2022-04-27 10:30:00 2022-04-27 10:30:00 Outpatient LAB90 GENET GENET [id number] Genet Jacob 2022-04-27 09:30:00 2022-04-27 09:30:00 Outpatient ADRIÁN OSUNA GENET GENET [id number] Genet [facility] 2021-01-22 10:40:00 2021-01-22 10:40:00 Outpatient LUCIO MINOR HOWARD [facility] [id number] [facility] 2020-08-06 00:00:00 2020-08-06 00:00:00 Telephone Lucio Gabriel [facility] 1.2.840.114 350.1.13.10 4.2.7.2.686 [id number] [facility] 2020-07-10 00:00:00 2020-07-10 00:00:00 [facility] 1.2.840.114 350.1.13.10 4.2.7.2.686 [id number] [facility] 2020-07-07 00:00:00 2020-07-07 00:00:00 Lucio Mccabe [facility] 1.2.840.114 350.1.13.10 4.2.7.2.686 [id number] [facility] 2020-04-07 00:00:00 2020-04-07 00:00:00 RefLucio Gupta [facility] 1.2.840.114 350.1.13.10 4.2.7.2.686 [id number] [facility] 2020-04-04 00:00:00 2020-04-04 00:00:00 Lucio Whipple [facility] 1.2840.114 350.1.13.10 4.2.7.2.686 [id number] [facility] 2020-03-06 00:00:00 2020-03-06 00:00:00 Lucio Whipple [facility] 1.2840.114 350.1.13.10 4.2.7.2.686 [id number] [facility] 2020-02-20 00:00:00 2020-02-20 00:00:00 Lucio Whipple [facility] 1.2840.114 350.1.13.10 4.2.7.2.686 [id number] [facility] 2020-02-18 00:00:00 2020-02-18 00:00:00 Telephone Lucio Gabriel [facility] 1.2840.114 350.1.13.10 4.2.7.2.686 [id number] [facility] 2020-02-11 00:00:00 2020-02-11 00:00:00 Orders Only Doctor Unassigned, [place] [facility] 1.2840.114 350.1.13.10 4.2.7.2.686 [id number] [facility] 2020-02-11 00:00:00 2020-02-11 00:00:00 Telephone Lucio Gabriel [facility] 1.2840.114 350.1.13.10 4.2.7.2.686 [id number] [facility] 2020-02-05 00:00:00 2020-02-05 00:00:00 Orders Only Doctor Unassigned, [place] [facility] 1.2840.114 350.1.13.10 4.2.7.2.686 [id number] [facility] 2020-02-04 00:00:00 2020-02-04 00:00:00 Telephone Lucio Gabriel [facility] 1.2.840.114 350.1.13.10 4.2.7.2.686 [id number] [facility] 2020-02-03 10:54:13 2020-02-03 12:01:04 Office Visit HarveyLucio grande [facility] 1.2.840.114 350.1.13.10 4.2.7.2.686 [id number] [facility] 2020-02-03 11:20:00 2020-02-03 11:20:00 Outpatient R LUCIO GABRIEL [facility] [id number] [facility] 2020-01-21 00:00:00 2020-01-21 00:00:00 Refill [facility]io [facility] 1.2.840.114 350.1.13.10 4.2.7.2.686 [id number] [facility] 2019-10-25 00:00:00 2019-10-25 00:00:00 Telephone HarveyMarissa grande [facility] 1.2.840.114 350.1.13.10 4.2.7.2.686 [id number] [facility] 2018-12-11 14:50:18 2018-12-11 15:54:42 Office Visit Lucio Gabriel [facility] 1.2.840.114 350.1.13.10 4.2.7.2.686 [id number] 2018-12-11 14:50:18 2018-12-11 15:54:42 [facility] 1.2.840.114 350.1.13.10 4.2.7.2.686 [id number] [facility] Notes Date/Time Note Provider Source 2023-10-02 16:12:21 Chief Complaint Patient presents with Follow-up Yuki Perales MA II [facility] 2023-08-07 10:57:06 Chief Complaint Patient presents with Physical Annual Health Risk Assessment. Fasting for labs Ro Atkins LVN [facility]
[2024-01-15] MEDS ORDERED: NA CHLORIDE 0.9% 1,000 ML ONE ×3 (03:09→15:55)
[2024-01-15 03:58] LABS: Specific Gravity 1.026 (1.005-1.030); Sqamous Epithelial <5 /HPF (None Seen); Urine Bacteria 20-50 /HPF (<20); Urine Bilirubin NEGATIVE (Negative); Urine Blood Negative (Negative); Urine Clarity Extremely Turbid (Clear); Urine Color Yellow (Yellow); Urine Culture Reflex Order NOT NEEDED; Urine Glucose NEGATIVE (Negative); Urine Granular Casts 0-5 /LPF (None Seen); Urine Ketones NEGATIVE (Negative); Urine Microscopic Reflex YN ORDER UMIC; Urine Mucus 1+ /HPF (None Seen); Urine Nitrite NEGATIVE (Negative); Urine Protein 1+ (Negative); Urine RBC <5 /HPF (None Seen); Urine Urobilinogen 1+ (Normal); Urine pH 5.5 (5.0-7.0)
[2024-01-15 04:01] LABS: Absolute Basophils 0.7 K/uL (0-0.5); Absolute Eosinophils 0.2 K/uL (0-0.5); Absolute Lymphocytes (CBC) 2.2 K/uL (0.7-4.9); Absolute Neutrophil 55.2 K/uL (1.8-8.0); Basophils % 0.8 % (0-1.3); Eosinophils % 0.2 % (0-4.4); Hematocrit 38.2 % (39.6-49.0); Hemoglobin 12.1 g/dL (13.6-17.9); Lymphocytes % 2.3 % (15.3-44.8); MCH 30.8 pg (27.0-35.0); MCHC 31.8 g/dL (32.0-36.0); MCV 96.9 fL (80-100); MPV 8.1 fL (7.6-11.3); Monocytes % 38.8 % (3.3-12.3); Neutrophils % 57.9 % (41.7-73.7); Platelets 70 thou/uL (152-406); RBC Red Blood Cell Count 3.94 M/uL (4.33-5.43); Red Cell Distribution Width 15.6 % (12.1-15.2)
[2024-01-15 04:06] LABS: PT Prothrombin Time 15.1 SECONDS (9.4-12.5); PTT, Activated Partial Thromb 27.4 SECONDS (24.3-36.9); Protime INR 1.36
[2024-01-15] MEDS ORDERED: NA CHLORIDE 0.9% 100 ML ONE ×2 (04:30→15:55)
[2024-01-15] MEDS ORDERED: CEFTRIAXONE 1000 MG/VIAL ONE (04:30)
[2024-01-15 04:59] LABS: Albumin 2.9 g/dL (3.4-5.0); Albumin/Globulin Ratio 1.1 (1.1-1.8); Anion Gap 11.1 mEq/L (5.0-15.0); Bilirubin Total 1.6 mg/dL (0.2-1.0); Globulin 2.6 g/dL (2.3-3.5); Potassium 3.1 mEq/L (3.5-5.1); Protein, Total 5.5 g/dL (6.4-8.2)
[2024-01-15 05:01] LABS: Band Neutrophils 14 % (0-1); Blood Morphology Comment NOT SEEN (NOT SEEN); Differential Total Cells Count 100; Lymphocytes 1 % (15-42); Monocytes 52 % (0-10); Platelet Estimate DECR; Reactive Lymphocytes 1 %; Segmented Neutrophils 32 % (40-80); Smudge Cells 8
[2024-01-15] MEDS ORDERED: NOREPINEPHRINE BITARTRATE/D5W 4 MG/250 ML KIT IV ONE ×2 (05:06→08:25)
[2024-01-15] MEDS ORDERED: DIAZEPAM 10 MG/2 ML INJ SYRINGE ONE (05:08)
--- NOTE | 2024-01-15 05:44 | RAD REPORT ---
XR CHEST 1 VIEW CLINICAL INDICATION: Cough COMPARISON: None FINDINGS: LUNGS/PLEURAL SPACES: The lungs are clear. No pleural effusion. No pneumothorax. HEART/MEDIASTINUM: Within normal range. BONES/UPPER ABDOMEN/SOFT TISSUES: No acute findings. IMPRESSION: No radiographic evidence of active pulmonary process. Electronically signed by: Yesi Redd MD 01/15/2024 05:16 AM CDT RP Due to temporary technical issues with the PACS/[employer] reporting system, reports are being dorie d by the in-house radiologist without review as a courtesy to ensure prompt reporting the interpreting radiologist is fully responsible for the content of the report. Transcribed Date/Time: 01/15/2024 5:44 AM
--- NOTE | 2024-01-15 06:04 | EDPHYS ---
Physician Documentation [facility] Name: Jovi Garcia Age: 83 yrs Sex: Male : 1940 Arrival Date: 01/15/2024 Time: 02:59 Bed 4 Private MD: ED Physician Blanka Keyes HPI: 01/14 03:04 This 83 yrs old Male presents to ER via Unassigned with complaints of ec2 weakness. 03:04 Patient arrives today for evaluation of increased weakness along with nausea, vomiting, ec2 diarrhea. No reported chest pain, no difficulty breathing. History gathered from and EMS.. Historical: - Allergies: 03:49 No Known Allergies; ha1 03:46 No Known Allergies; al5 - Home Meds: 03:49 potassium chloride 10 mEq Oral cpER [Active]; alfuzosin 10 mg Oral Tb24 1 tab once ha1 daily [Active]; indomethacin 75 mg Oral cpER 1 cap 2 times per day [Active]; pantoprazole 40 mg Oral TbEC 1 tab once daily [Active]; Valium Oral as needed [Active]; Vitamin D Oral daily [Active]; Xanax 0.25 mg Oral tab as needed [Active]; ProAir HFA 90 mcg/actuation inhalation HFAA 2 puffs as needed [Active]; aspirin 81 mg Oral TbEC 1 tab once daily [Active]; carvedilol 12.5 mg Oral tab 1 tab 2 times per day [Active]; clopidogrel 75 mg Oral tab 1 tab once daily [Active]; furosemide 40 mg Oral tab 1 tab [Active]; 03:46 carvedilol 12.5 mg Oral tab 1 tab 2 times per day [Active]; pantoprazole 40 mg Oral al5 TbEC 1 tab once daily [Active]; furosemide 40 mg Oral tab 1 tab [Active]; potassium chloride 10 mEq Oral cpER [Active]; clopidogrel 75 mg Oral tab 1 tab once daily [Active]; Livalo 4 mg Oral tab 1 tab once daily [Active]; Wixela Inhub inhalation 2 times per day [Active]; alprazolam 0.5 mg Oral tablet as needed [Active]; tamsulosin 0.4 mg oral capsule daily [Active]; zinc sulfate 50 mg zinc (220 mg) Oral tablet [Active]; Vitamin D3 50 mcg (2,000 unit) oral tablet daily [Active]; - PMHx: 03:49 AAA; Alzheimers; Hernia; Hypertension; ha1 03:51 Dementia; Chronic obstructive lung disease; Hypertensive disorder; BPH; Dementia; al5 CHRONIC PROXIMAL HEMICRANIA; HARD OF HEARING; AORTIC ANEURYSM; - PSHx: 03:51 Stented artery; BACK SX; al5 - Immunization history:: Adult Immunizations up to date, Adult Immunizations up to date. - Infectious Disease History:: Denies. Denies. - Social history:: Smoking status: Smoking status: Patient denies any tobacco usage or history of. ROS: 03:04 Constitutional: as per hpi ec2 Exam: 03:04 Constitutional: GEN: NAD Head: atraumatic Eyes: EOMI Ears: External ears are ec2 normal. LUNGS: no respiratory distress ABD: non-distended, soft, nontender, not guarding, not rigid. SKIN: no evidence of rashes MSK: no evidence of trauma Vital Signs: 03:01 BP 91 / 62; Pulse 101; Resp 16; Pulse Ox 96% ; dd2 03:25 BP 64 / 48; Pulse 121; Resp 17; Pulse Ox 96% ; dd2 03:49 BP 73 / 63; Pulse 109; Resp 16; Temp 98.9(R); Pulse Ox 95% on R/A; Weight 99.79 kg; al5 Height 6 ft. 0 in. ; 04:00 BP 86 / 49; Pulse 124; Resp 20 S; Pulse Ox 96% on R/A; ha1 04:15 BP 76 / 56; Pulse 117; Resp 19 S; Pulse Ox 96% on R/A; ha1 04:30 BP 69 / 58; Pulse 117; Resp 17 S; Pulse Ox 98% on R/A; ha1 05:00 BP 73 / 63; Pulse 109; hb 05:15 BP 98 / 58; Pulse 124; Resp 17 S; Pulse Ox 98% on R/A; ha1 05:30 BP 105 / 87; Pulse 114; Resp 21 S; Pulse Ox 100% on R/A; ha1 05:40 BP 81 / 54; Pulse 116; Resp 17 S; Pulse Ox 100% on R/A; ha1 05:50 BP 71 / 46; Pulse 92; Resp 17 S; Pulse Ox 98% on R/A; ha1 06:10 BP 88 / 48; Pulse 93; Resp 17; Pulse Ox 96% ; dd2 06:36 BP 90 / 66; ec2 06:38 BP 90 / 66; Pulse 96; Resp 16; Pulse Ox 98% ; dd2 06:46 BP 109 / 59; ec2 06:49 BP 100 / 66; Pulse 95; Resp 13; Pulse Ox 98% on R/A; al5 06:50 BP 108 / 92; Pulse 97; Resp 17; Pulse Ox 99% on R/A; al5 06:56 Pulse 96; ec2 07:15 BP 134 / 82; Pulse 103; Resp 15; Pulse Ox 98% on R/A; hb 07:30 BP 130 / 97; Pulse 97; Resp 17; Pulse Ox 98% on R/A; rs5 08:00 BP 103 / 72; Pulse 99; Resp 14; Pulse Ox 99% on R/A; hb 08:15 BP 98 / 71; Pulse 98; hb 08:30 BP 114 / 64; Pulse 99; hb 08:45 BP 116 / 66; Pulse 95; hb 09:00 BP 115 / 58; Pulse 102; Resp 24; Pulse Ox 100% on R/A; hb 09:15 BP 117 / 68; Pulse 101; hb 09:30 BP 113 / 70; Pulse 99; hb 09:45 BP 73 / 63; Pulse 99; hb 10:00 BP 79 / 51; Pulse 99; Resp 21; Pulse Ox 99% on R/A; hb 10:15 BP 96 / 63; Pulse 101; hb 10:30 BP 115 / 71; Pulse 93; hb 10:45 BP 86 / 55; Pulse 97; hb 11:00 BP 92 / 61; Pulse 89; Resp 17; Pulse Ox 98% on R/A; hb 11:15 BP 74 / 63; Pulse 103; hb 11:30 BP 107 / 64; Pulse 102; hb 11:45 BP 114 / 74; Pulse 102; hb 12:00 BP 88 / 63; Pulse 97; Resp 23; Pulse Ox 99% ; hb 12:15 BP 109 / 90; Pulse 96; hb 12:30 BP 141 / 76; Pulse 97; hb 12:45 BP 146 / 70; Pulse 93; hb 13:00 BP 138 / 76; Pulse 91; Resp 18; Pulse Ox 99% on R/A; hb 13:15 BP 155 / 74; Pulse 97; hb 13:30 BP 127 / 51; Pulse 73; hb 13:45 BP 106 / 88; Pulse 93; hb 14:00 BP 128 / 71; Pulse 95; Resp 17; Pulse Ox 98% on R/A; hb 14:15 BP 140 / 74; Pulse 93; hb 14:30 BP 145 / 68; Pulse 90; hb 14:45 BP 109 / 58; Pulse 95; hb 15:00 BP 125 / 55; Pulse 91; Resp 22; Pulse Ox 100% ; hb 15:15 BP 119 / 45; Pulse 99; hb 17:01 BP 116 / 66; Pulse 84; Resp 17; Pulse Ox 98% on R/A; rs5 18:30 BP 122 / 69; Pulse 88; Resp 17; Pulse Ox 99% ; rs5 19:31 BP 121 / 69; Pulse 87; Resp 16; Pulse Ox 99% on R/A; al5 03:49 Body Mass Index 29.84 (99.79 kg, 182.88 cm) al5 Procedures: 05:46 Central Line: the site was prepped with Betadine, in sterile fashion, a triple lumen ec2 catheter was inserted, in the left femoral vein, in 1 attempts. placement was verified, by blood return, the site was dressed with Tegaderm, the patient tolerated the procedure, well. MDM: 03:08 Data reviewed: vital signs. ED course: Patient arrives today for increased weakness ec2 along with nausea, vomiting, diarrhea. Examination remarkable for well-appearing nontoxic individuals otherwise in no acute distress with a reassuring examination. Obtain lab work, EKG, chest x-ray, CT imaging of the abdomen pelvis along with CT scan of the head. . 03:10 Patient medically screened. ec2 03:43 ED course: EKG independently reviewed and interpreted by me, shows atrial fibrillation, ec2 rate of 115, no acute ST segment elevations, left bundle branch block noted. . 03:48 ED course: Further discussion with , indicates patient been weak for some time, has ec2 been having some nausea and vomiting diarrhea. Patient had CT imaging of the thorax and abdomen pelvis 3 days ago. External records show no acute process identified. Will forego CT abdomen of the abdomen and pelvis at this time.. 04:31 ED course: CBC shows marked leukocytosis at 95.3. Urine is remarkable for hyaline casts ec2 as well as bacteriuria. Lactic acid elevated. . 04:32 ED course: Repeat EKG independently reviewed and interpreted by me, shows atrial ec2 fibrillation, rate of 118, left noted, intervals are nonactionable.. 04:41 ED course: Sepsis reassessment complete. . ec2 05:46 ED course: Metabolic profile shows hypokalemia with potassium of 3.1, renal dysfunction ec2 with creatinine of 2.22 will give the patient potassium . 05:58 ED course: Ultimately patient is a critically ill individual with septic shock ec2 secondary to urinary tract infection along with marked leukocytosis, patient required higher level of care and I will transfer accordingly.. 06:08 ED course: I obtained a repeat EKG, shows normal sinus rhythm, rate 93, no acute ST ec2 segment elevations, low bundle-branch block noted.. 07:47 ED course: Patient signed out to me by nighttime physician for helping arrange transfer sp3 to [facility]. Patient is an 83-year-old male with extensive past medical history and no cancer history now in septic shock with FORREST in the setting of leukocytosis of 96,000 on pressors. Monocyte count also elevated on the differential. I have added a Monospot and vancomycin 1 dose has been given as well. Patient's vital signs now much improved on Levophed. Initial lactate of 5.7 and patient has received 30 mill liters per kilogram bolus. Will monitor urine output in the meantime. Transfer has been initiated and they are helping arrange a bed prior to To Communication.. 08:03 ED course: Discussed with Dr. Blas at [facility] who has gracious excepted this sp3 patient to the ICU. We are awaiting bed from transfer center. Will monitor patient in the meantime.. 08:21 ED course: Patient declined by [facility] due to capacity. Upon further sp3 investigation, we do have hematology on-call available here locally at [facility]. I discussed the case with them and they are happy to consult and further differentiate the leukocytosis. Therefore patient will be kept here and I will discuss with inpatient team.. 16:11 ED course: Patient now accepted at [facility] as discussed with Dr. Raphael on our sp3 behalf.. 01/14 03:04 Order name: Blood Culture Adult (2) ec2 01/14 03:04 Order name: CBC with Diff; Complete Time: 05:45 ec2 01/14 03:04 Order name: CMP; Complete Time: 05:45 ec2 01/14 03:04 Order name: Lactate w/ 2H reflex if indic.; Complete Time: 04:33 ec2 01/14 03:04 Order name: Protime (+inr); Complete Time: 04:30 ec2 01/14 03:04 Order name: Ptt, Activated; Complete Time: 04:30 ec2 01/14 03:04 Order name: Urinalysis w/ reflexes; Complete Time: 04:30 ec2 01/14 04:14 Order name: Manual Differential; Complete Time: 05:45 EDMS 01/14 06:33 Order name: Ghost Lactate-NO COLLECT Timer; Complete Time: 06:35 EDMS 01/14 07:53 Order name: Greenlee Screen; Complete Time: 08:32 EDMS 01/14 08:18 Order name: Lactate Sepsis 2 HR Follow-up; Complete Time: 08:32 EDMS 01/14 09:53 Order name: Phosphorus EDMS 01/14 09:53 Order name: Procalcitonin EDMS 01/14 09:53 Order name: Uric Acid EDMS 01/14 09:55 Order name: Cortisol EDMS 01/14 09:55 Order name: C-Reactive Protein EDMS 01/14 09:55 Order name: C-Reactive Protein EDMS 01/14 09:55 Order name: Lactate w/ 2H reflex if indic. EDMS 01/14 09:55 Order name: Magnesium EDMS 01/14 10:50 Order name: Vancomycin Level Trough EDMS 01/14 13:03 Order name: Ghost Lactate-NO COLLECT Timer EDMS 01/14 15:59 Order name: CBC with Automated Diff EDMS 01/14 15:59 Order name: CBC with Automated Diff EDMS 01/14 15:59 Order name: Comprehensive Metabolic Panel EDMS 01/14 15:59 Order name: Comprehensive Metabolic Panel EDMS 01/14 15:59 Order name: Procalcitonin EDMS 01/14 15:59 Order name: Procalcitonin EDMS 01/14 15:59 Order name: Protime (+INR) EDMS 01/14 15:59 Order name: Protime (+INR) EDMS 01/14 15:59 Order name: PTT, Activated Partial Thromb EDMS 01/14 15:59 Order name: PTT, Activated Partial Thromb EDMS 01/14 15:59 Order name: Troponin High Sensitivity EDMS 01/14 15:59 Order name: Troponin High Sensitivity EDMS 01/14 15:59 Order name: Troponin High Sensitivity EDMS 01/14 15:59 Order name: Troponin High Sensitivity EDMS 01/14 03:04 Order name: Chest Single View XRAY; Complete Time: 08:01 ec2 01/14 03:09 Order name: CT Head Brain wo Cont ec2 01/14 08:41 Order name: EKG Electrocardiogram EDMS 01/14 08:41 Order name: EKG Electrocardiogram EDMS 01/14 16:03 Order name: CONS Physician Consult EDMS 01/14 03:04 Order name: Accucheck; Complete Time: 05:03 ec2 01/14 03:04 Order name: Cardiac monitoring; Complete Time: 05:03 ec2 01/14 03:04 Order name: EKG - Nurse/Tech; Complete Time: 05:03 ec2 01/14 03:04 Order name: IV Saline Lock - Large Bore; Complete Time: 05:03 ec2 01/14 03:04 Order name: Labs collected and sent; Complete Time: 05:03 ec2 01/14 03:04 Order name: O2 Per Protocol; Complete Time: 05:03 ec2 01/14 03:04 Order name: O2 Sat Monitoring; Complete Time: 05:03 ec2 01/14 03:04 Order name: Vital Signs; Complete Time: 05:03 ec2 01/14 07:47 Order name: Labs - recollect needed: mono spot; Complete Time: 08:06 bd Administered Medications: 03:25 Drug: NS 0.9% IV (30 ml/kg) 30 ml/kg IV at bolus once; Sepsis Protocol Route: IV; Rate: ha1 bolus; Site: right hand; 03:40 Follow up: Response: No adverse reaction dd2 04:25 Follow up: IV Status: Completed infusion; IV Intake: 1000ml dd2 04:40 Drug: Rocephin IV 1 grams IV at calculated rate once; Given slow IV push per pharmacy ha1 instructions Route: IV; Rate: calculated rate; Site: left antecubital; 04:55 Follow up: Response: No adverse reaction dd2 05:10 Follow up: IV Status: Completed infusion; IV Intake: 100ml dd2 05:00 Drug: Norepinephrine IV 0.1 mcg/kg/min IV at calculated rate Per protocol; (Standard ha1 concentration 4 mg / 250 mL D5W); Recommended max rate 3 mcg/kg/min; Titrate 0.05 mcg/kg/min as often as every 5 minutes to achieve goal (see titration policy); Goal parameter MAP greater than 65 mmHg. Route: IV; Rate: calculated rate; Site: right hand; 05:15 Follow up: Response: No adverse reaction dd2 19:33 Follow up: Response: No adverse reaction; IV Status: patient infusion discontinued per al5 protocol, infusion brought with patient during transport in case needed. 05:15 Drug: Diazepam IVP 5 mg IVP once Route: IVP; Site: left hand; dd2 05:30 Follow up: Response: No adverse reaction dd2 06:37 Drug: Potassium Chloride IV 20 mEq IV at calculated rate once; administer over 1-2 dd2 hours Route: IV; Rate: calculated rate; Site: left femoral; 08:31 Follow up: Response: No adverse reaction; IV Status: Completed infusion; IV Intake: rs5 100ml 08:06 Drug: vancoMYCIN IVPB 1 grams IVPB once over 2 hrs Route: IVPB; Infused Over: 2 hrs; rs5 Site: left femoral; 19:32 Follow up: Response: No adverse reaction; IV Status: Completed infusion; IV Intake: al5 250ml Disposition Summary: 01/15/24 16:22 Transfer Ordered Notes: Transfer Location: Other Acute Care Facility(01/15/24 16:22) sp3 Reason: Higher level of care(01/15/24 16:22) sp3 Condition: Stable(01/15/24 16:22) sp3 Problem: an acute exacerbation(01/15/24 16:22) sp3 Symptoms: have worsened(01/15/24 16:22) sp3 Accepting Physician: [facility] (01/15/24 19:32) al5 Diagnosis - Septic shock, urosepsis, CML with leukocytosis and multiorgan dysfunction sp3 Forms: - Medication Reconciliation Form sp3 - SBAR form sp3 Critical care time excluding procedures: 05:58 Critical care time: Bedside Care: 30 minutes, Consultation: 5 minutes. Total time: 35 ec2 minutes Signatures: Dispatcher [employer] EDMS Conchita zimmerman Blanka Gallegos MD [facility] Shalini Bond, RN RN ha1 Trent Bonilla, RN RN rs5 Vipul Andrade MD MD [facility] Tosha Shelton, RN RN al5 DORENE JOHNSON, RN RN dd2 Corrections: (The following items were deleted from the chart) 03:04 03:04 BLOOD CULTURE*+BA.LAB.BRZ ordered. EDMS EDMS 03:04 03:04 CBC+H.LAB.BRZ ordered. EDMS EDMS 03:04 03:04 COMPREHENSIVE METABOLIC PANEL+C.LAB.BRZ ordered. EDMS EDMS 03:04 03:04 LACTATE+C.LAB.BRZ ordered. EDMS EDMS 03:04 03:04 PROTIME (+INR)+COAG.LAB.BRZ ordered. EDMS EDMS 03:04 03:04 PTT, ACTIVATED+COAG.LAB.BRZ ordered. EDMS EDMS 03:04 03:04 Urinalysis+U.LAB.BRZ ordered. EDMS EDMS 03:04 03:04 Chest Single View+RAD.RAD.BRZ ordered. EDMS EDMS 03:10 03:10 Abdomen Pelvis Wo Con+CT.RAD.BRZ ordered. EDMS EDMS 03:10 03:10 Head Brain Wo Cont+CT.RAD.BRZ ordered. EDMS EDMS 04:03 03:46 Home Meds: Vitamin D Oral daily; al5 al5 04:03 03:46 PMHx: Hypertension; al5 al5 04:03 03:46 PMHx: AAA; al5 al5 04:03 03:46 PMHx: Hernia; al5 al5 04:03 03:46 PMHx: Alzheimers; al5 al5 05:59 05:58 ED course: Ultimately patient is a critically ill individual with septic shock ec2 secondary to urinary tract infection along with marked leukocytosis, patient required higher level of care and I will transfer accordingly.. ec2 06:47 06:03 transferring doc ec2 ec2 08:20 06:03 [facility] ec2 sp3 08:20 06:03 Higher level of care ec2 sp3 08:20 06:03 Stable ec2 sp3 08:20 06:03 new ec2 sp3 08:20 06:03 have improved ec2 sp3 08:20 06:03 Severe sepsis with septic shock ec2 sp3 08:20 06:03 Leukocytosis ec2 sp3 08:20 06:03 UTI/ Urinary tract infection, site not specified ec2 sp3 08:20 06:47 transferring doc ec2 sp3 08:20 06:47 Paroxysmal atrial fibrillation ec2 sp3 16:21 08:21 Inpatient Admission sp3 sp3 16:21 08:21 Eliza Liriano sp3 sp3 16:21 08:21 Intensive Care Unit sp3 sp3 16:21 08:21 Stable sp3 sp3 16:21 08:21 new sp3 sp3 16:21 08:21 have worsened sp3 sp3 16:21 08:21 Standard sp3 sp3 16:21 08:21 sp3 sp3 16:21 08:21 Septic shock, urosepsis, dehydration, leukocytosis undifferentiated sp3 sp3 19:32 16:22 [facility] sp3 al5
--- NOTE | 2024-01-15 06:04 | ER ---
Nurse's Notes [facility] Name: Jovi Garcia Age: 83 yrs Sex: Male : 1940 Arrival Date: 01/15/2024 Time: 02:59 Bed 4 Private MD: Diagnosis: Septic shock, urosepsis, CML with leukocytosis and multiorgan dysfunction Presentation: 01/14 03:49 Coronavirus screen: Vaccine status: Patient reports being unvaccinated. Ebola Screen: ha1 No symptoms or risks identified at this time. Initial Sepsis Screen: Does the patient meet any 2 criteria? No. Patient's initial sepsis screen is negative. Does the patient have a suspected source of infection? No. Patient's initial sepsis screen is negative. Risk Assessment: Do you want to hurt yourself or someone else? Patient reports no desire to harm self or others. Onset of symptoms was January 15, 2024. 03:49 Acuity: NABEEL 2 ha1 03:49 Method Of Arrival: EMS: [facility] al5 03:49 Chief complaint: EMS states: ems toned out by because patient is experiencing al5 nausea, vomiting, and weakness. ems states they found him on the bathroom floor of the home, states he walked to the bathroom and then just laid on the floor. Triage Assessment: 03:49 General: Appears in no apparent distress. Behavior is calm, cooperative. Pain: Denies al5 pain. EENT: No signs and/or symptoms were reported regarding the EENT system. Neuro: Level of Consciousness is awake, alert, obeys commands, Oriented to person, situation, baseline mentation. Cardiovascular: skin cool clammy diaphoretic. Respiratory: Airway is patent Respiratory effort is even, unlabored, Respiratory pattern is regular, symmetrical. GI: reports that patient has been experiencing nausea, vomiting, weakness. : No signs and/or symptoms were reported regarding the genitourinary system. Derm: Skin is clammy, diaphoretic, Skin is pale, Skin temperature is cool. Musculoskeletal: No signs and/or symptoms reported regarding the musculoskeletal system. Historical: - Allergies: 03:49 No Known Allergies; ha1 03:46 No Known Allergies; al5 - Home Meds: 03:49 potassium chloride 10 mEq Oral cpER [Active]; alfuzosin 10 mg Oral Tb24 1 tab once ha1 daily [Active]; indomethacin 75 mg Oral cpER 1 cap 2 times per day [Active]; pantoprazole 40 mg Oral TbEC 1 tab once daily [Active]; Valium Oral as needed [Active]; Vitamin D Oral daily [Active]; Xanax 0.25 mg Oral tab as needed [Active]; ProAir HFA 90 mcg/actuation inhalation HFAA 2 puffs as needed [Active]; aspirin 81 mg Oral TbEC 1 tab once daily [Active]; carvedilol 12.5 mg Oral tab 1 tab 2 times per day [Active]; clopidogrel 75 mg Oral tab 1 tab once daily [Active]; furosemide 40 mg Oral tab 1 tab [Active]; 03:46 carvedilol 12.5 mg Oral tab 1 tab 2 times per day [Active]; pantoprazole 40 mg Oral al5 TbEC 1 tab once daily [Active]; furosemide 40 mg Oral tab 1 tab [Active]; potassium chloride 10 mEq Oral cpER [Active]; clopidogrel 75 mg Oral tab 1 tab once daily [Active]; Livalo 4 mg Oral tab 1 tab once daily [Active]; Wixela Inhub inhalation 2 times per day [Active]; alprazolam 0.5 mg Oral tablet as needed [Active]; tamsulosin 0.4 mg oral capsule daily [Active]; zinc sulfate 50 mg zinc (220 mg) Oral tablet [Active]; Vitamin D3 50 mcg (2,000 unit) oral tablet daily [Active]; - PMHx: 03:49 AAA; Alzheimers; Hernia; Hypertension; ha1 03:51 Dementia; Chronic obstructive lung disease; Hypertensive disorder; BPH; Dementia; al5 CHRONIC PROXIMAL HEMICRANIA; HARD OF HEARING; AORTIC ANEURYSM; - PSHx: 03:51 Stented artery; BACK SX; al5 - Immunization history:: Adult Immunizations up to date, Adult Immunizations up to date. - Infectious Disease History:: Denies. Denies. - Social history:: Smoking status: Smoking status: Patient denies any tobacco usage or history of. Screenin:05 [facility] ED Fall Risk Assessment (Adult) History of falling in the last 3 months, ha1 including since admission Yes- single mechanical fall (1 pt) Confusion or Disorientation Yes (5 pts) Intoxicated or Sedated No (0 pts) Impaired Gait Yes (1 pt) Mobility Assist Device Used Yes (1 pt) Altered Elimination Yes (1 pt) Score/Fall Risk Level 3 or more points = High Risk Oriented to surroundings, Maintained a safe environment, Educated pt \\T\\ family on fall prevention, incl call for assistance when getting out of bed, Hourly rounding (assess needs \\T\\ fall precautionary measures) done. Abuse screen: Denies threats or abuse. Denies injuries from another. Nutritional screening: No deficits noted. Tuberculosis screening: No symptoms or risk factors identified. Assessment: 04:07 Reassessment: see triage assessment. al5 05:00 Reassessment: Patient and/or family updated on plan of care and expected duration. Pain ha1 level reassessed. Respiratory: Airway is patent Respiratory effort is even, unlabored, Respiratory pattern is regular, symmetrical. 06:03 Reassessment: Patient and/or family updated on plan of care and expected duration. Pain ha1 level reassessed. Respiratory: Airway is patent Respiratory effort is even, unlabored, Respiratory pattern is regular, symmetrical. 07:01 General: Appears in no apparent distress. comfortable, Behavior is calm, cooperative. rs5 Pain: Denies pain. Neuro: Level of Consciousness is obeys commands, Oriented to person, place, time. Cardiovascular: Patient's skin is warm and dry. Respiratory: Airway is patent Respiratory effort is even, unlabored, Respiratory pattern is regular, symmetrical. GI: Abdomen is round non-distended, Abd is soft and non tender X 4 quads. : Sagastume in place to gravity drainage. EENT: No signs and/or symptoms were reported regarding the EENT system. Derm: Skin is intact, Skin is pink, warm \\T\\ dry. Musculoskeletal: Range of motion: intact in all extremities. 08:08 Reassessment: Patient and/or family updated on plan of care and expected duration. Pain rs5 level reassessed. Patient is alert, oriented x 3, equal unlabored respirations, skin warm/dry/pink. 09:35 Reassessment: Dr. Liriano at bedside assessing pt and discussing plan of care. ss 12:15 Reassessment: PT AOx2-3, at baseline per . Awaiting acceptance at higher level of care. Levophed continues. Family remains at bedside. 14:47 Reassessment: Initiated transfer to [facility] and spoke with Quintin, transfer ss coordinator who states they cannot accept patient at this time due to lack of cancer diagnosis. 16:01 Reassessment: Patient and/or family updated on plan of care and expected duration. Pain rs5 level reassessed. Patient is alert, oriented x 3, equal unlabored respirations, skin warm/dry/pink. 17:10 Reassessment: Patient and/or family updated on plan of care and expected duration. Pain rs5 level reassessed. Patient is alert, oriented x 3, equal unlabored respirations, skin warm/dry/pink. 18:29 Reassessment: Patient and/or family updated on plan of care and expected duration. Pain rs5 level reassessed. Patient is alert, oriented x 3, equal unlabored respirations, skin warm/dry/pink. successful attempt to call report to MARIKA Murillo from [facility] . 19:30 Reassessment: Patient appears in no apparent distress at this time. No changes from al5 previously documented assessment. Patient and/or family updated on plan of care and expected duration. Pain level reassessed. report given to [facility] for transfer. Vital Signs: 03:01 BP 91 / 62; Pulse 101; Resp 16; Pulse Ox 96% ; dd2 03:25 BP 64 / 48; Pulse 121; Resp 17; Pulse Ox 96% ; dd2 03:49 BP 73 / 63; Pulse 109; Resp 16; Temp 98.9(R); Pulse Ox 95% on R/A; Weight 99.79 kg; al5 Height 6 ft. 0 in. ; 04:00 BP 86 / 49; Pulse 124; Resp 20 S; Pulse Ox 96% on R/A; ha1 04:15 BP 76 / 56; Pulse 117; Resp 19 S; Pulse Ox 96% on R/A; ha1 04:30 BP 69 / 58; Pulse 117; Resp 17 S; Pulse Ox 98% on R/A; ha1 05:00 BP 73 / 63; Pulse 109; hb 05:15 BP 98 / 58; Pulse 124; Resp 17 S; Pulse Ox 98% on R/A; ha1 05:30 BP 105 / 87; Pulse 114; Resp 21 S; Pulse Ox 100% on R/A; ha1 05:40 BP 81 / 54; Pulse 116; Resp 17 S; Pulse Ox 100% on R/A; ha1 05:50 BP 71 / 46; Pulse 92; Resp 17 S; Pulse Ox 98% on R/A; ha1 06:10 BP 88 / 48; Pulse 93; Resp 17; Pulse Ox 96% ; dd2 06:36 BP 90 / 66; ec2 06:38 BP 90 / 66; Pulse 96; Resp 16; Pulse Ox 98% ; dd2 06:46 BP 109 / 59; ec2 06:49 BP 100 / 66; Pulse 95; Resp 13; Pulse Ox 98% on R/A; al5 06:50 BP 108 / 92; Pulse 97; Resp 17; Pulse Ox 99% on R/A; al5 06:56 Pulse 96; ec2 07:15 BP 134 / 82; Pulse 103; Resp 15; Pulse Ox 98% on R/A; hb 07:30 BP 130 / 97; Pulse 97; Resp 17; Pulse Ox 98% on R/A; rs5 08:00 BP 103 / 72; Pulse 99; Resp 14; Pulse Ox 99% on R/A; hb 08:15 BP 98 / 71; Pulse 98; hb 08:30 BP 114 / 64; Pulse 99; hb 08:45 BP 116 / 66; Pulse 95; hb 09:00 BP 115 / 58; Pulse 102; Resp 24; Pulse Ox 100% on R/A; hb 09:15 BP 117 / 68; Pulse 101; hb 09:30 BP 113 / 70; Pulse 99; hb 09:45 BP 73 / 63; Pulse 99; hb 10:00 BP 79 / 51; Pulse 99; Resp 21; Pulse Ox 99% on R/A; hb 10:15 BP 96 / 63; Pulse 101; hb 10:30 BP 115 / 71; Pulse 93; hb 10:45 BP 86 / 55; Pulse 97; hb 11:00 BP 92 / 61; Pulse 89; Resp 17; Pulse Ox 98% on R/A; hb 11:15 BP 74 / 63; Pulse 103; hb 11:30 BP 107 / 64; Pulse 102; hb 11:45 BP 114 / 74; Pulse 102; hb 12:00 BP 88 / 63; Pulse 97; Resp 23; Pulse Ox 99% ; hb 12:15 BP 109 / 90; Pulse 96; hb 12:30 BP 141 / 76; Pulse 97; hb 12:45 BP 146 / 70; Pulse 93; hb 13:00 BP 138 / 76; Pulse 91; Resp 18; Pulse Ox 99% on R/A; hb 13:15 BP 155 / 74; Pulse 97; hb 13:30 BP 127 / 51; Pulse 73; hb 13:45 BP 106 / 88; Pulse 93; hb 14:00 BP 128 / 71; Pulse 95; Resp 17; Pulse Ox 98% on R/A; hb 14:15 BP 140 / 74; Pulse 93; hb 14:30 BP 145 / 68; Pulse 90; hb 14:45 BP 109 / 58; Pulse 95; hb 15:00 BP 125 / 55; Pulse 91; Resp 22; Pulse Ox 100% ; hb 15:15 BP 119 / 45; Pulse 99; hb 17:01 BP 116 / 66; Pulse 84; Resp 17; Pulse Ox 98% on R/A; rs5 18:30 BP 122 / 69; Pulse 88; Resp 17; Pulse Ox 99% ; rs5 19:31 BP 121 / 69; Pulse 87; Resp 16; Pulse Ox 99% on R/A; al5 03:49 Body Mass Index 29.84 (99.79 kg, 182.88 cm) al5 ED Course: 03:03 Patient arrived in ED. ec2 03:03 Vipul Andrade MD is Attending Physician. ec2 03:15 EKG done, by ED staff, reviewed by Vipul Andrade MD. ha1 03:20 Sagastume cath inserted, using sterile technique, 16 Fr., by nd, balloon inflated, to dd2 gravity drainage, urine specimen collected. returned sg urine. Patient tolerated well. 03:25 Inserted saline lock: 20 gauge in left antecubital area, using aseptic technique. Blood ha1 collected. Flushed with 10 mL NS. 03:25 Client placed on continuous cardiac and pulse oximetry monitoring. NIBP monitoring dd2 applied. satellite project site monitor on. Door closed. Noise minimized. Warm blanket given. Pillow given. Verbal reassurance given. 03:48 DORENE JOHNSON, RN is Primary Nurse. dd2 03:49 Inserted saline lock: 20 gauge in left forearm, using aseptic technique. Blood dd2 collected. Flushed with 10 mL NS. Maintain EMS IV. Dressing intact. Good blood return noted. Site clean \\T\\ dry. Gauge \\T\\ site: RT HAND 22G. Flushed with 10 mL NS. 03:51 Triage completed. ha1 04:00 CT Head Brain wo Cont In Process Unspecified. EDMS 04:05 Chest Single View XRAY In Process Unspecified. EDMS 04:07 No provider procedures requiring assistance completed. al5 04:07 Arm band placed on right wrist. Patient placed in the treatment room, on a stretcher. al5 04:08 Patient has correct armband on for positive identification. Placed in gown. Bed in low al5 position. Call light in reach. Side rails up X2. patient in trendelenburg position at this time. Provided Education on: plan of care. 04:55 Procedure consent explained by staff, explained by physician, signed by spouse, CONSENT dd2 FOR CENTRAL LINE. 04:55 Provided Education on: Procedure Consent. dd2 06:38 EKG done, by ED staff, reviewed by Vipul Andrade MD. dd2 07:22 initiated transfer to [facility]. bd 07:47 Attending Physician role handed off by Vipul Andrade MD sp3 07:47 Blanka Keyes MD is Attending Physician. sp3 08:10 pt declined due to no capacity at this time. Per Мария Griffin. bd 08:[address] Keyes, pt will be admitted here. bd 08:21 Eliza Liriano MD is Hospitalizing Provider. sp3 11:30 1130 CM met with at the bedside in the ED exam room. Patient identified by ane name and . Patient is A \\T\\ O 1-2, to self and place. 1200 CM spoke to patient's Kelly Garcia via telephone at [phone]. Kelly reports that her and Jovi live in a 2 story home, and that Jovi has not been on the 2nd floor for maybe 2 years, due to weakness. She explains that performs ADLs mostly independently but also with her assistance at times. He sometimes has difficulty walking around the house because he becomes weak and short of breath. She states does not use any DME except a wheelchair when he has appointments outside the home, and CPAP that he uses while sleeping. Other DME in the home includes a nebulizer, shower chair and a cane. She goes on to explain that he has a Hx of dementia and high WBCs, for which he was referred to Dr. Pires. She states that Dr. Pires told them he no longer needed to see her that "there was nothing wrong with his blood" Dr. Leandro Lugo is 's PCP. No HH or other medical services at this time, and MPOA is in place. Kelly states the ultimate plan is for to return home, perhaps with increased ability to walk around their home and with less assistance with ADLs. She states she will be his transportation home. There are 2 steps to get into the home from the garage and she states prior to him becoming ill, he was able to walk into the house fairly well. CM team will continue to follow and coordinate care during this hospital stay. 12:46 transfer re initiated by Aruna Reeves, Dr Liriano will do the Dr to . bd 12:[address] [facility] due to no icu beds per Yarelis Cooper. bd 13:03 initiated transfer to [facility]. bd 13:12 pt denied at [facility] due to no icu beds. bd 13:17 initiated transfer to [facility]. bd 13:25 pt denied at [facility] due to not having oncology. bd 15:43 re initiated transfer to [facility]. bd 17:30 pt accepted in transfer to [facility] by Dr Sheehan admin approval given by Dr rupinder Dunbar,pt going to ICU rrm G [id number]. 18:41 [facility] will transport pt. bd 19:31 Patient transferred, IV remains in place. al5 Administered Medications: 03:25 Drug: NS 0.9% IV (30 ml/kg) 30 ml/kg IV at bolus once; Sepsis Protocol Route: IV; Rate: ha1 bolus; Site: right hand; 03:40 Follow up: Response: No adverse reaction dd2 04:25 Follow up: IV Status: Completed infusion; IV Intake: 1000ml dd2 04:40 Drug: Rocephin IV 1 grams IV at calculated rate once; Given slow IV push per pharmacy ha1 instructions Route: IV; Rate: calculated rate; Site: left antecubital; 04:55 Follow up: Response: No adverse reaction dd2 05:10 Follow up: IV Status: Completed infusion; IV Intake: 100ml dd2 05:00 Drug: Norepinephrine IV 0.1 mcg/kg/min IV at calculated rate Per protocol; (Standard ha1 concentration 4 mg / 250 mL D5W); Recommended max rate 3 mcg/kg/min; Titrate 0.05 mcg/kg/min as often as every 5 minutes to achieve goal (see titration policy); Goal parameter MAP greater than 65 mmHg. Route: IV; Rate: calculated rate; Site: right hand; 05:15 Follow up: Response: No adverse reaction dd2 19:33 Follow up: Response: No adverse reaction; IV Status: patient infusion discontinued per al5 protocol, infusion brought with patient during transport in case needed. 05:15 Drug: Diazepam IVP 5 mg IVP once Route: IVP; Site: left hand; dd2 05:30 Follow up: Response: No adverse reaction dd2 06:37 Drug: Potassium Chloride IV 20 mEq IV at calculated rate once; administer over 1-2 dd2 hours Route: IV; Rate: calculated rate; Site: left femoral; 08:31 Follow up: Response: No adverse reaction; IV Status: Completed infusion; IV Intake: rs5 100ml 08:06 Drug: vancoMYCIN IVPB 1 grams IVPB once over 2 hrs Route: IVPB; Infused Over: 2 hrs; rs5 Site: left femoral; 19:32 Follow up: Response: No adverse reaction; IV Status: Completed infusion; IV Intake: al5 250ml Medication: 04:07 VIS not applicable for this client. al5 Intake: 04:25 IV: 1000ml; Total: 1000ml. dd2 05:10 IV: 100ml; Total: 1100ml. dd2 08:31 IV: 100ml; Total: 1200ml. rs5 19:32 IV: 250ml; Total: 1450ml. al5 Outcome: 06:03 ER care complete, transfer ordered by . ec2 08:21 Decision to Hospitalize by Provider. sp3 16:22 ER care complete, transfer ordered by . sp3 19:31 Transferred by ground EMS to [facility], al5 19:31 Condition: stable 19:31 Instructed on the need for transfer, 19:32 Patient left the ED. al5 Signatures: Dispatcher [employer] EDMS Conchita Avalos Shelby, RN RN Yazmin Armstrong RN RN hb Patel, Setul, MD MD sp3 Shalini Bond RN RN ha1 Trent Bonilla RN RN rs5 Vipul Andrade MD MD ec2 Tosha Shelton RN RN al5 Marianela Paz RN RN ane DAVIS, DIANA RN RN dd2 Corrections: (The following items were deleted from the chart) 04:03 03:46 Home Meds: Vitamin D Oral daily; al5 al5 04:03 03:46 PMHx: Hypertension; al5 al5 04:03 03:46 PMHx: AAA; al5 al5 04:03 03:46 PMHx: Hernia; al5 al5 04:03 03:46 PMHx: Alzheimers; al5 al5 04:12 04:08 General: Appears in no apparent distress. Behavior is calm, cooperative, al5 al5 : 04:08 Pain: Denies pain. al5 al5 : 04:08 EENT: No signs and/or symptoms were reported regarding the EENT system. al5 al5 : 04:08 Neuro: Level of Consciousness is awake, alert, obeys commands, Oriented to al5 person, situation, baseline mentation. al5 : 04:08 Cardiovascular: skin cool clammy diaphoretic. al5 al5 : 04:08 Respiratory: Airway is patent Respiratory effort is even, unlabored, Respiratory al5 pattern is regular, symmetrical, al5 : 04:08 GI: reports that patient has been experiencing nausea, vomiting, weakness al5al5 : 04:08 : No signs and/or symptoms were reported regarding the genitourinary system. al5al5 : 04:08 Derm: Skin is clammy, diaphoretic, Skin is pale, Skin temperature is cool al5 al5 :12 04:08 Musculoskeletal: No signs and/or symptoms reported regarding the musculoskeletal al5 system. al5
[2024-01-15] MEDS ORDERED: KCL 20 MEQ/100 mL IVPB 100 ML IV ONE (06:31)
[2024-01-15] MEDS ORDERED: NA CHLORIDE 0.9% 250 ML ONE ×2 (07:58→16:10)
[2024-01-15] MEDS ORDERED: VANCOMYCIN 1 GM/VIAL ONE ×2 (07:58→16:10)
[2024-01-15 08:10] LABS: Monoscreen NEG (NEG)
[2024-01-15 10:11] LABS: Phosphorus 2.9 mg/dL (2.5-4.9); Uric Acid 8.8 mg/dL (3.5-7.2)
--- NOTE | 2024-01-15 10:13 | P.CNS ---
Date of Consult: 01/15/24 Reason for Consult: Hypotensive Requesting Physician: Blanka Keyes Chief Complaint: Intractable nausea and vomiting and diarrhea; syncope and collapse History of Present Illness: Patient is an 83-year-old gentleman who presented to the hospital after having an episode of a intractable nausea and vomiting and syncope. Patient passed out completely, and patient was brought into the emergency room for further evaluation. In the ER patient was found to be hypotensive and was started on Levophed. Patient was given IV fluids and it was felt like patient may have a urinary tract infection. However, in light of the fact that patient with significant leukocytosis he has minimal white blood cells in his urine. Chest x-ray was negative. Blood cultures are pending. Spoke with patient's oncologist regarding his medical treatment. 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 I spoke to Dr. Hamm and his concern is that patient may require induction therapy which he is not able to do at this hospital. With patient's counts being so high he is worried that patient may have a underlying superinfection with his renal function and his liver function being slightly abnormal. Patient has been transferred to [facility] while they are waiting for a bed. At this point, after speaking with hematology oncology they are feeling that it is best to transfer patient from the ER as patient may need more aggressive therapy then were able to do here. Will assist with medical management of the patient while in the emergency room while they await transfer. Allergies No Known Allergies Allergy (Verified 11/21/23 08:44) Home Medications: Furosemide [Lasix] 40 mg PO DAILY 03/30/21 Indomethacin 1 mg PO DAILY 03/30/21 Pantoprazole [Protonix Tab*] 1 mg PO DAILY 03/30/21 Potassium Chloride [Micro-K] 1 meq PO DAILY 03/30/21 Rivastigmine Patch [Exelon 4.6 mg Patch*] 1 mg DAILY 03/30/21 carvediloL [Carvedilol] 12.5 mg PO DAILY 03/30/21 ALPRAZolam [Xanax*] 1 tab PO DAILY PRN 07/07/23 Albuterol Inhaler [Ventolin Inhaler] 2 puff IH Q6H PRN 07/07/23 Ascorbate Calcium [Vitamin C] 500 mg PO DAILY 07/07/23 Calcium Carbonate [Calcium] 2 tab PO DAILY 07/07/23 Clopidogrel Bisulfate [Plavix] 75 mg PO DAILY 07/07/23 Coconut Oil 2 tab PO DAILY 07/07/23 Memantine HCl 10 mg PO DAILY 07/07/23 Pitavastatin Calcium [Livalo] 4 mg PO BID 07/07/23 Tamsulosin HCl 0.4 mg PO DAILY 07/07/23 Turmeric Root Extract [Turmeric Curcumin] 500 mg PO DAILY 07/07/23 Zinc Gluconate [Zinc] 50 mg PO DAILY 07/07/23 Tramadol HCl/Acetaminophen [Ultracet Tablet] 1 each PO Q4H PRN #1 07/10/23 Review of Systems 10-point ROS is otherwise unremarkable Physical Examination reviewed General: Alert, In no apparent distress, Oriented x2 HEENT: Atraumatic, PERRLA, Mucous membr. moist/pink, EOMI, Sclerae nonicteric Neck: Supple, 2+ carotid pulse no bruit, No LAD, Without JVD or thyroid abnormality Respiratory: Clear to auscultation bilaterally, Normal air movement Cardiovascular: Regular rate/rhythm, Normal S1 S2 Gastrointestinal: Normal bowel sounds, Soft and benign, Non-distended, No tenderness Musculoskeletal: No tenderness Integumentary: No rashes Neurological: Normal speech, Normal strength at 5/5 x4 extr, Normal tone, Sensation intact, Cranial nerves 3-12 intact, Normal affect Lymphatics: No axilla or inguinal lymphadenopathy Laboratory Data (last 24 hrs) 01/15/24 01/15/24 01/15/24 04:28 03:25 03:25 WBC 95.30 H Hgb 12.1 L Hct 38.2 L Plt Count 70 L PT 15.1 H INR 1.36 APTT 27.4 Sodium 141 Potassium 3.1 L BUN 26 H Creatinine 2.22 H Glucose 119 H Total Bilirubin 1.6 H AST 15 ALT 28 Alkaline Phosphatase 56 - Problems (1) Septic shock Current Visit: Yes Status: Acute (2) Langerhans' cell histiocytosis Current Visit: Yes Status: Acute (3) CMML (chronic myelomonocytic leukemia) Current Visit: Yes Status: Acute (4) Thrombocytopenia Current Visit: Yes Status: Acute (5) Lactic acidosis Current Visit: Yes Status: Acute (6) FORREST (acute kidney injury) Current Visit: Yes Status: Acute (7) Total bilirubin, elevated Current Visit: Yes Status: Acute Conclusions/ Impression: 1. Continue with aggressive IV hydration 2. Continue with IV steroid 3. Spoke with hematology and concern for superinfection with possible need for induction chemotherapy 4. Blood cultures pending 5. Continue with broad-spectrum antibiotic coverage 6. Antiemetics as needed 7. GI and DVT prophylaxis Critical Care: Yes Time Spent Managing Pts care (In Minutes): 60
[2024-01-15] MEDS ORDERED: NOREPINEPHRINE 16 MG in D5W 250 ML IV SCH (10:30)
[2024-01-15] MEDS: NA CHLORIDE 0.9% 500 ML IV ONE ×2 (10:30→15:56)
[2024-01-15] MEDS: HYDROCORTISONE SUC 100 MG INJ IV ONE (10:45)
[2024-01-15] MEDS: NA CHLORIDE 0.9% 1,000 ML IV SCH (11:00)
[2024-01-15] MEDS: CEFEPIME 1 GM in NA CHLORIDE 0.9% 100 ML IV SCH (11:00)
[2024-01-15] MEDS: VANCOMYCIN 1 GM in NA CHLORIDE 0.9% 250 ML IVPB SCH (11:00)
--- NOTE | 2024-01-15 11:51 | EKG ---
Test Date: 2024-01-15 Test Time: 06:05:47 Woodworking Craftsman: NESSA MEASUREMENT RESULTS: Intervals: Rate: 93 NE: 204 QRSD: 146 QT: 426 QTc: 529 [place]: P: 65 NE: 204 QRS: 32 T: 101 INTERPRETIVE STATEMENTS: Normal sinus rhythm Left bundle branch block Abnormal ECG Compared to ECG 01/15/2024 04:30:57 Atrial fibrillation no longer present Electronically Signed On 01-15-24 11:50:17 CDT by Serafin Marshall
--- NOTE | 2024-01-15 11:51 | EKG ---
Test Date: 2024-01-15 Test Time: 03:32:20 Health Physics Technician: NESSA MEASUREMENT RESULTS: Intervals: Rate: 115 [place]: QRSD: 144 QT: 302 QTc: 417 [place]: P: MO: QRS: 12 T: 210 INTERPRETIVE STATEMENTS: Atrial fibrillation with rapid ventricular response Left bundle branch block Abnormal ECG Compared to ECG 07/07/2023 08:27:31 Sinus rhythm no longer present First degree AV block no longer present Electronically Signed On 01-15-24 11:50:34 CDT by Serafin Marshall
--- NOTE | 2024-01-15 11:51 | EKG ---
Test Date: 2024-01-15 Test Time: 04:30:57 [employer] Teacher: NESSA MEASUREMENT RESULTS: Intervals: Rate: 118 OR: QRSD: 140 QT: 354 QTc: 496 [place]: P: OR: QRS: 17 T: 160 INTERPRETIVE STATEMENTS: Atrial fibrillation with rapid ventricular response Left bundle branch block Abnormal ECG Compared to ECG 01/15/2024 03:32:20 No significant changes Electronically Signed On 01-15-24 11:50:25 CDT by Serafin Marshall
--- NOTE | 2024-01-15 15:44 | P.HP ---
Certification for Inpatient Patient admitted to: Inpatient With expected LOS: >2 Midnights Patient will require the following post-hospital care: None Practitioner: I am a practitioner with admitting privileges, knowledge of patient current condition, hospital course, and medical plan of care. Services: Services provided to patient in accordance with Admission requirements found in Title 42 Section 412.3 of the Code of Federal Regulations Patient History Date of Service: 01/15/24 Reason for admission: Intractable nausea and vomiting and diarrhea; syncope and collapse History of Present Illness: Patient is an 83-year-old gentleman who presented to the hospital after having an episode of a intractable nausea and vomiting and syncope. Patient passed out completely, and patient was brought into the emergency room for further evaluation. In the ER patient was found to be hypotensive and was started on Levophed. Patient was given IV fluids and it was felt like patient may have a urinary tract infection. However, in light of the fact that patient with significant leukocytosis he has minimal white blood cells in his urine. Chest x-ray was negative. Blood cultures are pending. Spoke with patient's oncologist regarding his medical treatment. 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 I spoke to Dr. Hamm and his concern is that patient may require induction therapy which he is not able to do at this hospital. With patient's counts being so high he is worried that patient may have a underlying superinfection with his renal function and his liver function being slightly abnormal. Patient has been transferred to [facility] while they are waiting for a bed. At this point, after speaking with hematology oncology they are feeling that it is best to transfer patient from the ER as patient may need more aggressive therapy then were able to do here. Will assist with medical management of the patient while in the emergency room while they await transfer. Allergies No Known Allergies Allergy (Verified 11/21/23 08:44) Home Medications: Furosemide [Lasix] 40 mg PO DAILY 03/30/21 Indomethacin 1 mg PO DAILY 03/30/21 Pantoprazole [Protonix Tab*] 1 mg PO DAILY 03/30/21 Potassium Chloride [Micro-K] 1 meq PO DAILY 03/30/21 Rivastigmine Patch [Exelon 4.6 mg Patch*] 1 mg DAILY 03/30/21 carvediloL [Carvedilol] 12.5 mg PO DAILY 03/30/21 ALPRAZolam [Xanax*] 1 tab PO DAILY PRN 07/07/23 Albuterol Inhaler [Ventolin Inhaler] 2 puff IH Q6H PRN 07/07/23 Ascorbate Calcium [Vitamin C] 500 mg PO DAILY 07/07/23 Calcium Carbonate [Calcium] 2 tab PO DAILY 07/07/23 Clopidogrel Bisulfate [Plavix] 75 mg PO DAILY 07/07/23 Coconut Oil 2 tab PO DAILY 07/07/23 Memantine HCl 10 mg PO DAILY 07/07/23 Pitavastatin Calcium [Livalo] 4 mg PO BID 07/07/23 Tamsulosin HCl 0.4 mg PO DAILY 07/07/23 Turmeric Root Extract [Turmeric Curcumin] 500 mg PO DAILY 07/07/23 Zinc Gluconate [Zinc] 50 mg PO DAILY 07/07/23 Tramadol HCl/Acetaminophen [Ultracet Tablet] 1 each PO Q4H PRN #1 07/10/23 - Past Medical/Surgical History -: Alzheimer's dementia -: Langerhans cell histiocytosis -: CMML -: Hemicrania continua -: Hypertension -: Skin biopsy -: Bone marrow biopsy - Family History Father Family History: Reviewed- Non-Contributory - Social History Smoking Status: Former smoker Alcohol use: No CD- Drugs: No Review of Systems 10-point ROS is otherwise unremarkable Physical Examination - Vital Signs Temperature: 98 F Blood Pressure: 130/80 Pulse: 100 Respirations: 18 Pulse Ox (%): 95 - Physical Exam General: Alert, In no apparent distress, Oriented x2, Demented HEENT: Atraumatic, PERRLA, Mucous membr. moist/pink, EOMI, Sclerae nonicteric Neck: Supple, 2+ carotid pulse no bruit, No LAD, Without JVD or thyroid abnormality Respiratory: Clear to auscultation bilaterally, Normal air movement Cardiovascular: Regular rate/rhythm, Normal S1 S2 Gastrointestinal: Normal bowel sounds, Soft and benign, Non-distended, No tenderness Musculoskeletal: No clubbing, No swelling, No tenderness Integumentary: No rashes Neurological: Normal speech, Normal strength at 5/5 x4 extr, Normal tone, Sensation intact, Cranial nerves 3-12 intact, Normal affect Lymphatics: No axilla or inguinal lymphadenopathy - Studies Laboratory Data (last 24 hrs) 01/15/24 01/15/24 01/15/24 10:25 04:28 04:28 WBC Hgb Hct Plt Count PT INR APTT Sodium 141 Potassium 3.1 L BUN 26 H Creatinine 2.22 H Glucose 119 H Uric Acid 8.8 H Phosphorus 2.9 Magnesium 1.6 Total Bilirubin 1.6 H AST 15 ALT 28 Alkaline Phosphatase 56 01/15/24 01/15/24 03:25 03:25 WBC 95.30 H Hgb 12.1 L Hct 38.2 L Plt Count 70 L PT 15.1 H INR 1.36 APTT 27.4 Sodium Potassium BUN Creatinine Glucose Uric Acid Phosphorus Magnesium Total Bilirubin AST ALT Alkaline Phosphatase Assessment & Plan - Problems (Diagnosis) (1) Septic shock Current Visit: Yes Status: Acute (2) Langerhans' cell histiocytosis Current Visit: Yes Status: Acute (3) CMML (chronic myelomonocytic leukemia) Current Visit: Yes Status: Acute (4) Thrombocytopenia Current Visit: Yes Status: Acute (5) Lactic acidosis Current Visit: Yes Status: Acute (6) FORREST (acute kidney injury) Current Visit: Yes Status: Acute (7) Total bilirubin, elevated Current Visit: Yes Status: Acute - Plan Plan: 1. Continue with IV fluids and IV [id number] coverage 2. IV steroids 3. Hematology consultation 4. Blood cultures 5. Repeat lactic acid 6. Monitor renal function closely; 7. Echocardiogram 8. Hematology consultation 9. Infectious disease consultation 10. Monitor LFTs 11. Discharge Plan: Home Plan to discharge in: Greater than 2 days - Advance Directives Does patient have a Living Will: No Does patient have a Durable POA for Healthcare: No - Code Status/Comfort Care Code Status Assessed: Yes Code Status: Full Code Critical Care: Yes Time Spent Managing PTS Care (In Minutes): 60
[2024-01-15] MEDS ORDERED: ONDANSETRON 4 MG/2 ML VIAL IV PRN (15:53)
[2024-01-15] MEDS ORDERED: ACETAMINOPHEN 500 MG TAB PO PRN (15:53)
[2024-01-15] MEDS ORDERED: HYDROCORTISONE SUC 100 MG INJ ONE (15:54)
[2024-01-15] MEDS ORDERED: NA CHLORIDE 0.9% 500 ML ONE (15:54)
[2024-01-15] MEDS ORDERED: CEFEPIME 1 GM/VIAL ONE (15:55)
[2024-01-15] MEDS ORDERED: SODIUM CHLORIDE 0.9% 10ML INJ IV PRN (16:00)
[2024-01-15] MEDS: INDOMETHACIN 25 MG CAP PO PRN (16:30)
[2024-01-15 20:14] VITALS: TEMP 98.9
[2024-01-15] MEDS ORDERED: PANTOPRAZOLE 40 MG INJ IVP SCH (21:00)
[2024-01-15 21:30] VITALS: O2SAT 99
[2024-01-15 21:32] VITALS: BP 121/69
--- NOTE | 2024-01-16 13:23 | RAD REPORT ---
CT HEAD WITHOUT IV CONTRAST INDICATION: Headache, AMS. COMPARISON: None TECHNIQUE: CT images of the head were obtained without contrast. Multiplanar reformats were provided. Dose lowering techniques such as automated exposure control, iterative reconstruction, and mA and/or kV adjustment for patient size was utilized for this examination. FINDINGS: PARENCHYMA: No acute arterial territory infarct. No acute intracranial hemorrhage. No mass effect or midline shift. VENTRICLES: Normal in size for patient's age. EXTRA-AXIAL: No focal collection. Patent basilar cisterns. ORBITS: Unremarkable. BONES: No acute finding. PARANASAL SINUSES/MASTOIDS/MIDDLE EARS: Clear. SOFT TISSUES: No acute findings. OTHER: None. IMPRESSION: No acute intracranial abnormality. Electronically signed by: Yesi Redd MD 01/15/2024 05:15 AM CDT Due to temporary technical issues with the [employer] reporting system, reports are being dorie d by the in-house radiologist without review as a courtesy to ensure prompt reporting the interpreting radiologist is fully responsible for the content of the report. Transcribed Date/Time: 01/16/2024 1:22 PM
[2024-01-16] MEDS ORDERED: VANCOMYCIN 2 GM in NA CHLORIDE 0.9% 500 ML IVPB SCH (21:00)
== END 2024-01-15 19:32 | disposition short-term general hospital (02) | DRG 871 ==
LOC: ER 02:59 → ERHOLD 15:53
PROVIDERS: ADMIT Hospitalist; ATTEND Hospitalist
PROC: 06HN33Z Insertion of Infusion Device into Left Femoral Vein, Percutaneous Approach (ICD-10-PCS; principal; 2024-01-15)
PROC: 3E043XZ Introduction of Vasopressor into Central Vein, Percutaneous Approach (ICD-10-PCS; 2024-01-15)
DX: A41.9 Sepsis, unspecified organism (principal); R65.21 Severe sepsis with septic shock; E87.20 Acidosis, unspecified; C93.10 Chronic myelomonocytic leukemia not having achieved remission; C96.6 Unifocal Langerhans-cell histiocytosis; R17 Unspecified jaundice; N17.9 Acute kidney failure, unspecified; N39.0 Urinary tract infection, site not specified; G30.9 Alzheimer's disease, unspecified; J44.9 Chronic obstructive pulmonary disease, unspecified; I10 Essential (primary) hypertension; D69.6 Thrombocytopenia, unspecified; F02.80 Dementia in other diseases classified elsewhere, unspecified severity, without behavioral disturbance, psychotic disturbance, mood disturbance, and anxiety; R55 Syncope and collapse; N40.0 Benign prostatic hyperplasia without lower urinary tract symptoms
CPT/HCPCS: 36415; 36556; 51702; 70450; 71045; 80053; 81001; 83605; 83735; 84100; 84145; 84550; 85025; 85610; 85730; 86308; 87040; 93005; 99291; 99292; J0692; J0696; J1720; J3360; J3480; J7030; J7040; J7050; J7060

== ENCOUNTER 2024-01-29 15:45 | Emergency (ER) | payer OTHER ==
--- OUTSIDE RECORDS SUMMARY | 2024-01-29 15:54 | XMS REPORT | Clinical Summary ---
Author Name Unknown Organization [facility] Address [address] [place] [address] Care Team Providers Care Turret Lathe Operator Name Role Phone Arjun Hamm MD Unavailable Allergies No known active allergies Medications Medication Sig Dispensed Refills Start Date End Date Status furosemide (LASIX) 40 mg tablet Take 1 tablet (40 mg) by mouth 3 (three) times a week Monday, Monday and Monday. Active ALPRAZolam (XANAX) 0.25 mg tablet Take 1 tablet (0.25 mg) by mouth every 8 (eight) hours as needed for anxiety. Active pantoprazole (PROTONIX) 40 mg EC tablet Take 1 tablet (40 mg) by mouth daily. Active FLUoxetine (PROzac) 40 mg capsule Take 1 capsule (40 mg) by mouth daily. Active carvedilol (COREG) 12.5 mg tablet Take 1 tablet (12.5 mg) by mouth twice daily. Active tamsulosin (Flomax) 0.4 mg 24 hr capsule Take 1 capsule (0.4 mg) by mouth daily. Active pitavastatin calcium (Livalo) 4 mg tab Take 4 mg by mouth daily. Active cefPODoxime (VANTIN) 200 mg tabletIndications:Pr evention of bacterial infection Take 1 tablet (200 mg) by mouth every 12 (twelve) hours. 60 tablet 2 01/23/2024 Active triamcinolone (KENALOG) 0.1% creamIndications:Chr onic myelomonocytic leukemia Apply topically to affected area(s) 3 (three) times a day. 01/23/2024 Active sodium chloride (NS) 0.9% flush syringe 10 mLIndications:Chroni c myelomonocytic leukemia Inject 10 mL (1 syringe) into each lumen of central venous catheter daily as directed. 60 each 01/23/2024 Active indomethacin (INDOCIN SR) 75 mg ER capsule Take 1 capsule (75 mg) by mouth 2 (two) times a day with meals. 4 Discontinue d(Stop Taking at Discharge) clopidogrel (PLAVIX) 75 mg tablet Take 1 tablet (75 mg) by mouth daily. 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 Encounters Date Type Department Care Team Description 01/29/2024 Documentation [facility] [address] [place] [address] [facility], 8th Floor Elevator [place] [address] Kandis Melton, RN 01/26/2024 Telephone [facility] [address] [place] [address] [facility], 8th Floor Ele[place]ator [place] [address] Leny Stearns, RN 01/23/2024 Orders Only Le[facility] [address] [place] [address] [facility], 8th Floor Elevator [place] [address] Susan Sahu APRN Chronic myelomonocytic leukemia (Primary Dx) 01/23/2024 Orders Only [facility] [address] [place] [address] [facility], 8th Floor Elevator [place] [address] Susan Sahu APRN 01/22/2024 Orders Only [facility] [address] [place] [address] [facility], 11th Floor [place] [address] Bonny Perales APRN 01/18/2024 8:10 PM CDT [facility] [address] [place] [address] 01/18/2024 8:05 PM CDT [facility] [address] [place] [id number] 01/18/2024 8:00 PM CDT Anc[facility] [address] [place] [id number] 01/18/2024 Travel 01/15/2024 8:59 PM CDT - 01/23/2024 10:20 PM CDT Hospital Encounter MAIN [address] [place] [id number] Garrison Sheehan MD Issa, Ghayas C, MD Acute renal impairment (Primary Dx); Chronic myelomonocytic leukemia; Cancer; Malnutrition of moderate degree; Hyperuricemia; Tumor lysis syndrome; Disorder of fluid AND/OR electrolyte; Acute metabolic acidosis; Altered mental status; Other elevated white blood cell count; Creatine kinase level above reference range; Difficulty in walking; Other abnormalities of gait and mobility Discharge Disposition: Home 01/15/2024 Travel after 01/29/2023 Surgical History Surgery Date Site/Laterality Comments CORONARY ANEURYSM REPAIR 2004 CORONARY ANGIOPLASTY 2004 Medical History Medical History Date Comments 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 Dementia in other diseases classified elsewhere, moderate Headache Social History Tobacco Use Types Packs/Day Years Used Date Smoking Tobacco: Unknown Tobacco Cessation:Counseling Given: Not Answered Sex and Gender Information Value Date Recorded Sex Assigned at Not on file Gender Identity Not on file Sexual Orientation Not on file Obstetrics History Last Filed Vital Signs Vital Sign Reading Time Taken Comments Blood Pressure 103/85 01/23/2024 8:35 PM CDT Pulse 79 01/23/2024 8:35 PM CDT Temperature 36.7 C (98 F) 01/23/2024 8:35 PM CDT Respiratory Rate 17 01/23/2024 8:35 PM CDT Oxygen Saturation 97% 01/23/2024 8:35 PM CDT Inhaled Oxygen Concentration - - Weight 105.2 kg (231 lb 14.8 oz) 01/23/2024 6:57 AM CDT Height 180.3 cm (5' 11") 01/15/2024 9:32 PM CDT Body Mass Index 32.35 01/15/2024 9:32 PM CDT Plan of Treatment Upcoming Encounters Date Type Department Care Team (Late st Contact Info) Description 02/06/2024 4:30 PM CDT Telemedicine Leukemia Center [address] [facility] Main Bldg, 8th Floor [place] [address] Jatin Alvarez MD [address] [place], [place] [id number] [email or web address] Maintenance Due Date Last Done Comments COVID-19 Vaccine (#1) 1945 Pneumococcal Vaccine: 65+ Years (1 of 2 - PCV) 948 Influenza Vaccine (#1) 2023 Procedures Procedure Name Priority Date/Time Associated Diagnosis Comments DIFFERENTIAL Routine 01/23/2024 12:26 AM CDT .CBC Routine 01/23/2024 12:26 AM CDT CALCIUM IONIZED, VENOUS Routine 01/23/20 12:26 AM CDT BASIC METABOLIC PANEL, CALCIUM IONIZED Routine 01/23/2024 12:26 AM CDT PHOSPHORUS LEVEL Routine 01/23/2024 12:2 6 AM CDT MAGNESIUM LEVEL Routine 01/23/2024 12:26 AM CDT COMPLETE BLOOD COUNT W/ DIFFERENTIAL Routine 01/23/2024 12:26 AM CDT BASIC METABOLIC PANEL, CALCIUM IONIZED Routine 01/23/2024 12:26 AM CDT URIC ACID Routine 01/23/2024 12:26 AM CDT FIBRINOGEN Routine 01/23/2024 12:26 AM CDT D DIMER Routine 01/23/2024 12:26 AM CDT APTT Routine 01/23/2024 12:26 AM CDT PROTHROMBIN TIME Routine 01/23/2024 12:2 6 AM CDT ASPARTATE AMINOTRANSFERASE Routine 01/23/2024 12:26 AM CDT ALKALINE PHOSPHATASE Routine 01/23/2024 12:26 AM CDT FRACTIONATED BILIRUBIN Routine 12:26 AM CDT TOTAL PROTEIN Routine 01/23/2024 12:26 AM CDT LACTATE DEHYDROGENASE Routine 01/23/2024 12:26 AM CDT ALANINE AMINOTRANSFERASE Routine 01/23/2024 12:26 AM CDT ALBUMIN LEVEL Routine 01/23/2024 12:26 AM CDT POC GLUCOSE SCREEN Routine 01/22/2024 7: 25 AM CDT DIFFERENTIAL Routine 01/22/2024 1:31 AM CDT .CBC Routine 01/22/2024 1:31 AM CDT CALCIUM IONIZED, VENOUS Routine 01/22/20 1:31 AM CDT BASIC METABOLIC PANEL, CALCIUM IONIZED Routine 01/22/2024 1:31 AM CDT PHOSPHORUS LEVEL Routine 01/22/2024 1:31 AM CDT MAGNESIUM LEVEL Routine 01/22/2024 1:31 AM CDT COMPLETE BLOOD COUNT W/ DIFFERENTIAL Routine 01/22/2024 1:31 AM CDT BASIC METABOLIC PANEL, CALCIUM IONIZED Routine 01/22/2024 1:31 AM CDT URIC ACID Routine 01/22/2024 1:31 AM CDT FIBRINOGEN Routine 01/22/2024 1:31 AM CDT D DIMER Routine 01/22/2024 1:31 AM CDT APTT Routine 01/22/2024 1:31 AM CDT PROTHROMBIN TIME Routine 01/22/2024 1:31 AM CDT ASPARTATE AMINOTRANSFERASE Routine 01/22/2024 1:31 AM CDT ALKALINE PHOSPHATASE Routine 01/22/2024 1:31 AM CDT FRACTIONATED BILIRUBIN Routine 1:31 AM CDT TOTAL PROTEIN Routine 01/22/2024 1:31 AM CDT LACTATE DEHYDROGENASE Routine 01/22/2024 1:31 AM CDT ALANINE AMINOTRANSFERASE Routine 01/22/2024 1:31 AM CDT ALBUMIN LEVEL Routine 01/22/2024 1:31 AM CDT POC GLUCOSE SCREEN Routine 01/21/2024 9: 29 PM CDT XR CHEST 1 VW PORTABLE STAT 7:48 PM CDT POC GLUCOSE SCREEN Routine 01/21/2024 7: 08 PM CDT POC GLUCOSE SCREEN Routine 01/21/2024 2: 34 PM CDT POC GLUCOSE SCREEN Routine 01/21/2024 8: 00 AM CDT DIFFERENTIAL Routine 01/21/2024 12:51 AM CDT .CBC Routine 01/21/2024 12:51 AM CDT CALCIUM IONIZED, VENOUS Routine 01/21/20 12:51 AM CDT BASIC METABOLIC PANEL, CALCIUM IONIZED Routine 01/21/2024 12:51 AM CDT PHOSPHORUS LEVEL Routine 01/21/2024 12:5 1 AM CDT MAGNESIUM LEVEL Routine 01/21/2024 12:51 AM CDT COMPLETE BLOOD COUNT W/ DIFFERENTIAL Routine 01/21/2024 12:51 AM CDT BASIC METABOLIC PANEL, CALCIUM IONIZED Routine 01/21/2024 12:51 AM CDT URIC ACID Routine 01/21/2024 12:51 AM CDT FIBRINOGEN Routine 01/21/2024 12:51 AM CDT D DIMER Routine 01/21/2024 12:51 AM CDT APTT Routine 01/21/2024 12:51 AM CDT PROTHROMBIN TIME Routine 01/21/2024 12:5 1 AM CDT ASPARTATE AMINOTRANSFERASE Routine 01/21/2024 12:51 AM CDT ALKALINE PHOSPHATASE Routine 01/21/2024 12:51 AM CDT FRACTIONATED BILIRUBIN Routine 12:51 AM CDT TOTAL PROTEIN Routine 01/21/2024 12:51 AM CDT LACTATE DEHYDROGENASE Routine 01/21/2024 12:51 AM CDT ALANINE AMINOTRANSFERASE Routine 01/21/2024 12:51 AM CDT ALBUMIN LEVEL Routine 01/21/2024 12:51 AM CDT TYPE AND SCREEN Routine 01/21/2024 12:51 AM CDT POC GLUCOSE SCREEN Routine 01/20/2024 10 :44 PM CDT POC GLUCOSE SCREEN Routine 01/20/2024 6: 54 PM CDT POC GLUCOSE SCREEN Routine 01/20/2024 2: 20 PM CDT POC GLUCOSE SCREEN Routine 01/20/2024 9: 27 AM CDT DIFFERENTIAL Routine 01/20/2024 12:43 AM CDT .CBC Routine 01/20/2024 12:43 AM CDT CALCIUM IONIZED, VENOUS Routine 01/20/20 12:43 AM CDT BASIC METABOLIC PANEL, CALCIUM IONIZED Routine 01/20/2024 12:43 AM CDT PHOSPHORUS LEVEL Routine 01/20/2024 12:4 3 AM CDT MAGNESIUM LEVEL Routine 01/20/2024 12:43 AM CDT COMPLETE BLOOD COUNT W/ DIFFERENTIAL Routine 01/20/2024 12:43 AM CDT BASIC METABOLIC PANEL, CALCIUM IONIZED Routine 01/20/2024 12:43 AM CDT URIC ACID Routine 01/20/2024 12:43 AM CDT FIBRINOGEN Routine 01/20/2024 12:43 AM CDT D DIMER Routine 01/20/2024 12:43 AM CDT APTT Routine 01/20/2024 12:43 AM CDT PROTHROMBIN TIME Routine 01/20/2024 12:4 3 AM CDT ASPARTATE AMINOTRANSFERASE Routine 01/20/2024 12:43 AM CDT ALKALINE PHOSPHATASE Routine 01/20/2024 12:43 AM CDT FRACTIONATED BILIRUBIN Routine 12:43 AM CDT TOTAL PROTEIN Routine 01/20/2024 12:43 AM CDT LACTATE DEHYDROGENASE Routine 01/20/2024 12:43 AM CDT ALANINE AMINOTRANSFERASE Routine 01/20/2024 12:43 AM CDT ALBUMIN LEVEL Routine 01/20/2024 12:43 AM CDT POC GLUCOSE SCREEN Routine 01/19/2024 11 :29 PM CDT POC GLUCOSE SCREEN Routine 01/19/2024 7: 21 PM CDT DIFFERENTIAL Routine 01/19/2024 2:25 PM CDT .CBC Routine 01/19/2024 2:25 PM CDT CALCIUM IONIZED, VENOUS Routine 01/19/20 2:25 PM CDT BASIC METABOLIC PANEL, CALCIUM IONIZED Routine 01/19/2024 2:25 PM CDT PHOSPHORUS LEVEL Routine 01/19/2024 2:25 PM CDT MAGNESIUM LEVEL Routine 01/19/2024 2:25 PM CDT COMPLETE BLOOD COUNT W/ DIFFERENTIAL Routine 01/19/2024 2:25 PM CDT BASIC METABOLIC PANEL, CALCIUM IONIZED Routine 01/19/2024 2:25 PM CDT POC GLUCOSE SCREEN Routine 01/19/2024 1: 58 PM CDT POC GLUCOSE SCREEN Routine 01/19/2024 8: 11 AM CDT OSCILLATORY PEP Routine 01/19/2024 8:00 AM CDT .CBC Routine 01/19/2024 1:27 AM CDT CALCIUM IONIZED, VENOUS Routine 01/19/20 1:27 AM CDT BASIC METABOLIC PANEL, CALCIUM IONIZED Routine 01/19/2024 1:27 AM CDT FIBRINOGEN Routine 01/19/2024 1:27 AM CDT D DIMER Routine 01/19/2024 1:27 AM CDT APTT Routine 01/19/2024 1:27 AM CDT PROTHROMBIN TIME Routine 01/19/2024 1:27 AM CDT ASPARTATE AMINOTRANSFERASE Routine 01/19/2024 1:27 AM CDT ALKALINE PHOSPHATASE Routine 01/19/2024 1:27 AM CDT FRACTIONATED BILIRUBIN Routine 1:27 AM CDT TOTAL PROTEIN Routine 01/19/2024 1:27 AM CDT LACTATE DEHYDROGENASE Routine 01/19/2024 1:27 AM CDT ALANINE AMINOTRANSFERASE Routine 01/19/2024 1:27 AM CDT ALBUMIN LEVEL Routine 01/19/2024 1:27 AM CDT URIC ACID RASBURICASE TREATED Routine 01/19/2024 1:27 AM CDT PHOSPHORUS LEVEL Routine 01/19/2024 1:27 AM CDT MAGNESIUM LEVEL Routine 01/19/2024 1:27 AM CDT COMPLETE BLOOD COUNT W/ DIFFERENTIAL Routine 01/19/2024 1:27 AM CDT BASIC METABOLIC PANEL, CALCIUM IONIZED Routine 01/19/2024 1:27 AM CDT POC GLUCOSE SCREEN Routine 01/18/2024 8: 52 PM CDT OSCILLATORY PEP Routine 01/18/2024 8:00 PM CDT OSCILLATORY PEP Routine 01/18/2024 4:00 PM CDT XR CHEST 1 VW STAT 01/18/2024 2:13 PM CDT OSCILLATORY PEP Routine 01/18/2024 12:00 PM CDT POC GLUCOSE SCREEN Routine 01/18/2024 11 :44 AM CDT .CBC Routine 01/18/2024 11:30 AM CDT CALCIUM IONIZED, VENOUS Routine 01/18/20 11:30 AM CDT BASIC METABOLIC PANEL, CALCIUM IONIZED Routine 01/18/2024 11:30 AM CDT URIC ACID RASBURICASE TREATED Routine 01/18/2024 11:30 AM CDT PHOSPHORUS LEVEL Routine 01/18/2024 11:3 0 AM CDT MAGNESIUM LEVEL Routine 01/18/2024 11:30 AM CDT COMPLETE BLOOD COUNT W/ DIFFERENTIAL Routine 01/18/2024 11:30 AM CDT BASIC METABOLIC PANEL, CALCIUM IONIZED Routine 01/18/2024 11:30 AM CDT OSCILLATORY PEP Routine 01/18/2024 8:00 AM CDT POC GLUCOSE SCREEN Routine 01/18/2024 7: 52 AM CDT DIFFERENTIAL Routine 01/18/2024 3:05 AM CDT .CBC Routine 01/18/2024 3:05 AM CDT CALCIUM IONIZED, VENOUS Routine 01/18/20 3:05 AM CDT BASIC METABOLIC PANEL, CALCIUM IONIZED Routine 01/18/2024 3:05 AM CDT FIBRINOGEN Routine 01/18/2024 3:05 AM CDT D DIMER Routine 01/18/2024 3:05 AM CDT APTT Routine 01/18/2024 3:05 AM CDT PROTHROMBIN TIME Routine 01/18/2024 3:05 AM CDT ASPARTATE AMINOTRANSFERASE Routine 01/18/2024 3:05 AM CDT ALKALINE PHOSPHATASE Routine 01/18/2024 3:05 AM CDT FRACTIONATED BILIRUBIN Routine 3:05 AM CDT TOTAL PROTEIN Routine 01/18/2024 3:05 AM CDT LACTATE DEHYDROGENASE Routine 01/18/2024 3:05 AM CDT URIC ACID RASBURICASE TREATED Routine 01/18/2024 3:05 AM CDT PHOSPHORUS LEVEL Routine 01/18/2024 3:05 AM CDT MAGNESIUM LEVEL Routine 01/18/2024 3:05 AM CDT COMPLETE BLOOD COUNT W/ DIFFERENTIAL Routine 01/18/2024 3:05 AM CDT BASIC METABOLIC PANEL, CALCIUM IONIZED Routine 01/18/2024 3:05 AM CDT ALANINE AMINOTRANSFERASE Routine 01/18/2024 3:05 AM CDT ALBUMIN LEVEL Routine 01/18/2024 3:05 AM CDT TYPE AND SCREEN Routine 01/18/2024 3:05 AM CDT POC GLUCOSE SCREEN Routine 01/17/2024 9: 21 PM CDT .CBC Routine 01/17/2024 6:16 PM CDT CALCIUM IONIZED, VENOUS Routine 01/17/20 6:16 PM CDT BASIC METABOLIC PANEL, CALCIUM IONIZED Routine 01/17/2024 6:16 PM CDT URIC ACID RASBURICASE TREATED Routine 01/17/2024 6:16 PM CDT PHOSPHORUS LEVEL Routine 01/17/2024 6:16 PM CDT MAGNESIUM LEVEL Routine 01/17/2024 6:16 PM CDT COMPLETE BLOOD COUNT W/ DIFFERENTIAL Routine 01/17/2024 6:16 PM CDT BASIC METABOLIC PANEL, CALCIUM IONIZED Routine 01/17/2024 6:16 PM CDT POC GLUCOSE SCREEN Routine 01/17/2024 5: 20 PM CDT OSCILLATORY PEP Routine 01/17/2024 4:00 PM CDT OSCILLATORY PEP Routine 01/17/2024 12:00 PM CDT POC GLUCOSE SCREEN Routine 01/17/2024 11 :36 AM CDT HEMATOPATHOLOGY BONE MARROW DIFFERENTIAL Routine 01/17/2024 11:10 AM CDT Chronic myelomonocytic leukemia HEMATOPATHOLOGY BONE MARROW INTERPRETATION Routine 01/17/2024 11:10 AM CDT Chronic myelomonocytic leukemia ZENIA LANGE MD RNA HOLD Routine 01/17/2024 11 :10 AM CDT HP FC SCATTER INTERPRETATION AND REPORT Routine 01/17/2024 11:10 AM CDT STANTON CHAN FLT3 ANALYSIS INTERPRETATION AND REPORT Routine 01/17/2024 11:10 AM CDT ZENIA LANGE FLOW CYTOMETRY WORKUP Routine 01/17/2024 11:10 AM CDT FL DIAGNOSTIC BONE MARROW BIOPSIES & ASPIRATIONS Routine 01/17/2024 11:10 AM CDT Chronic myelomonocytic leukemia .CBC Routine 01/17/2024 10:59 AM CDT CALCIUM IONIZED, VENOUS Routine 01/17/20 24 10:59 AM CDT BASIC METABOLIC PANEL, CALCIUM IONIZED Routine 01/17/2024 10:59 AM CDT URIC ACID RASBURICASE TREATED Routine 01/17/2024 10:59 AM CDT PHOSPHORUS LEVEL Routine 01/17/2024 10:5 9 AM CDT MAGNESIUM LEVEL Routine 01/17/2024 10:59 AM CDT COMPLETE BLOOD COUNT W/ DIFFERENTIAL Routine 01/17/2024 10:59 AM CDT BASIC METABOLIC PANEL, CALCIUM IONIZED Routine 01/17/2024 10:59 AM CDT POC GLUCOSE SCREEN Routine 01/17/2024 8: 16 AM CDT OSCILLATORY PEP Routine 01/17/2024 8:00 AM CDT .CBC Routine 01/17/2024 1:43 AM CDT CALCIUM IONIZED, VENOUS Routine 01/17/20 24 1:43 AM CDT BASIC METABOLIC PANEL, CALCIUM IONIZED Routine 01/17/2024 1:43 AM CDT FIBRINOGEN Routine 01/17/2024 1:43 AM CDT D DIMER Routine 01/17/2024 1:43 AM CDT PROTHROMBIN TIME Routine 01/17/2024 1:43 AM CDT TOTAL PROTEIN Routine 01/17/2024 1:43 AM CDT LACTATE DEHYDROGENASE Routine 01/17/2024 1:43 AM CDT URIC ACID RASBURICASE TREATED Routine 01/17/2024 1:43 AM CDT PHOSPHORUS LEVEL Routine 01/17/2024 1:43 AM CDT MAGNESIUM LEVEL Routine 01/17/2024 1:43 AM CDT COMPLETE BLOOD COUNT W/ DIFFERENTIAL Routine 01/17/2024 1:43 AM CDT BASIC METABOLIC PANEL, CALCIUM IONIZED Routine 01/17/2024 1:43 AM CDT ALANINE AMINOTRANSFERASE Routine 01/17/2024 1:43 AM CDT ALBUMIN LEVEL Routine 01/17/2024 1:43 AM CDT ALKALINE PHOSPHATASE Routine 01/17/2024 1:43 AM CDT APTT Routine 01/17/2024 1:43 AM CDT ASPARTATE AMINOTRANSFERASE Routine 01/17/2024 1:43 AM CDT FRACTIONATED BILIRUBIN Routine 1:43 AM CDT POC GLUCOSE SCREEN Routine 01/16/2024 9: [address] CHEST WO CONTRAST STAT 01/16/2024 9:[address] HEAD WO CONTRAST STAT 01/16/2024 9 :09 PM CDT PROTHROMBIN TIME Routine 01/16/2024 8:30 PM CDT OSCILLATORY PEP Routine 01/16/2024 8:00 PM CDT DIFFERENTIAL Routine 01/16/2024 5:57 PM CDT .CBC Routine 01/16/2024 5:57 PM CDT CALCIUM IONIZED, VENOUS Routine 01/16/20 5:57 PM CDT BASIC METABOLIC PANEL, CALCIUM IONIZED Routine 01/16/2024 5:57 PM CDT URIC ACID RASBURICASE TREATED Routine 01/16/2024 5:57 PM CDT PHOSPHORUS LEVEL Routine 01/16/2024 5:57 PM CDT MAGNESIUM LEVEL Routine 01/16/2024 5:57 PM CDT COMPLETE BLOOD COUNT W/ DIFFERENTIAL Routine 01/16/2024 5:57 PM CDT BASIC METABOLIC PANEL, CALCIUM IONIZED Routine 01/16/2024 5:57 PM CDT POC GLUCOSE SCREEN Routine 01/16/2024 5: 02 PM CDT OSCILLATORY PEP Routine 01/16/2024 4:00 PM CDT US RENAL Routine 01/16/2024 3:55 PM CDT VERIFY CATHETER TIP PLACEMENT Routine 01/16/2024 3:33 PM CDT Acute renal impairment XR CHEST 1 VW POST IMPLANT Routine 01/16/2024 2:57 PM CDT VAP PICC INSERTION W US >5 YEARS OLD Routine 01/16/2024 2:02 PM CDT POC GLUCOSE SCREEN Routine 01/16/2024 11 :39 AM CDT POTASSIUM LEVEL URINE Routine 01/16/2024 10:22 AM CDT PROTEIN / CREATININE RATIO URINE Routine 01/16/2024 10:22 AM CDT SODIUM URINE Routine 01/16/2024 10:22 AM CDT URINE CULTURE STAT 01/16/2024 10:22 AM CDT FOLATE LEVEL STAT 01/16/2024 10:16 AM CDT C. AURIS SCREENING PCR Routine 9:56 AM CDT RESPIRATORY MULTIPLEX PCR PANEL, NASOPHARYNGEAL SWAB STAT 01/16/2024 9:56 AM CDT HP CG KMT2A(MLL) FISH INTERPRETATION AND REPORT STAT 01/16/2024 9:41 AM CDT HP CG OPTICAL GENOME MAPPING ANALYSIS FINAL REPORT STAT 01/16/2024 9:41 AM CDT HP CG BCR/ABL1 T(9;22) FISH INTERPRETATION AND REPORT STAT 01/16/2024 9:41 AM CDT HP CG CHROMOSOME ANALYSIS INTERPRETATION AND REPORT STAT 01/16/2024 9:41 AM CDT HP FC MRD AML INTERPRETATION AND REPORT STAT 01/16/2024 9:41 AM CDT DIFFERENTIAL Routine 01/16/2024 9:41 AM CDT .CBC Routine 01/16/2024 9:41 AM CDT CALCIUM IONIZED, VENOUS Routine 01/16/20 9:41 AM CDT BASIC METABOLIC PANEL, CALCIUM IONIZED Routine 01/16/2024 9:41 AM CDT STANTON CHAN ENDLEUKEMIA MUTATION PANEL V1 INTERPRETATION AND REPORT STAT 01/16/2024 9:41 AM CDT MDA CP FLOW CYTOMETRY WORKUP - AML, MDS WITH EXCESS BLASTS, MPN ACCELERATED/BLAST PHASE OR NEW ACUTE LEUKEMIA OF UNKNOWN LINEAGE STAT 01/16/2024 9:41 AM CDT URIC ACID RASBURICASE TREATED Routine 01/16/2024 9:41 AM CDT PHOSPHORUS LEVEL Routine 01/16/2024 9:41 AM CDT MAGNESIUM LEVEL Routine 01/16/2024 9:41 AM CDT COMPLETE BLOOD COUNT W/ DIFFERENTIAL Routine 01/16/2024 9:41 AM CDT BASIC METABOLIC PANEL, CALCIUM IONIZED Routine 01/16/2024 9:41 AM CDT POTASSIUM VENOUS STAT 01/16/2024 9:41 AM CDT YAMIL CASE Routine 01/16/2024 9:41 AM CDT PERIPHERAL SMR FOR BONE MARROW Routine 01/16/2024 9:41 AM CDT HTLV I+II ANTIBODY STAT 01/16/2024 9: 41 AM CDT HIV 1/2 ANTIGEN/ANTIBODY, FOURTH GEN W/RFL STAT 01/16/2024 9:41 AM CDT HEPATITIS C VIRUS RNA DETECT/QUANT, SERUM STAT 01/16/2024 9:41 AM CDT HEPATITIS B SURFACE ANTIGEN STAT 01/16/2024 9:41 AM CDT HEPATITIS B CORE ANTIBODY STAT 01/16/2024 9:41 AM CDT APTT STAT 01/16/2024 9:41 AM CDT PROTHROMBIN TIME STAT 01/16/2024 9:41 AM CDT ERYTHROPOIETIN LEVEL STAT 01/16/2024 9:41 AM CDT RETICULOCYTE COUNT AUTOMATED Add-On 01/16/2024 9:41 AM CDT VITAMIN B12 LEVEL STAT 01/16/2024 9:4 1 AM CDT ECHOCARDIOGRAM 2D COMPLETE Routine 01/16/2024 8:44 AM CDT OSCILLATORY PEP Routine 01/16/2024 8:00 AM CDT POC GLUCOSE SCREEN Routine 01/16/2024 7: 25 AM CDT NT PRO BNP Add-On 01/16/2024 1:14 AM CDT D DIMER Add-On 01/16/2024 1:14 AM CDT FERRITIN Add-On 01/16/2024 1:14 AM CDT FIBRINOGEN Add-On 01/16/2024 1:14 AM CDT THYROXINE Add-On 01/16/2024 1:14 AM CDT THYROID STIMULATING HORMONE Add-On 01/16/2024 1:14 AM CDT CALCIUM IONIZED, VENOUS Routine 01/16/20 1:14 AM CDT BASIC METABOLIC PANEL, CALCIUM IONIZED Routine 01/16/2024 1:14 AM CDT URIC ACID RASBURICASE TREATED Routine 01/16/2024 1:14 AM CDT URIC ACID Routine 01/16/2024 1:14 AM CDT APTT Routine 01/16/2024 1:14 AM CDT PROTHROMBIN TIME Routine 01/16/2024 1:14 AM CDT PHOSPHORUS LEVEL Routine 01/16/2024 1:14 AM CDT MAGNESIUM LEVEL Routine 01/16/2024 1:14 AM CDT ALBUMIN LEVEL Routine 01/16/2024 1:14 AM CDT ALKALINE PHOSPHATASE Routine 01/16/2024 1:14 AM CDT LACTATE DEHYDROGENASE Routine 01/16/2024 1:14 AM CDT FRACTIONATED BILIRUBIN Routine 1:14 AM CDT ALANINE AMINOTRANSFERASE Routine 01/16/2024 1:14 AM CDT ASPARTATE AMINOTRANSFERASE Routine 01/16/2024 1:14 AM CDT BASIC METABOLIC PANEL, CALCIUM IONIZED Routine 01/16/2024 1:14 AM CDT URINALYSIS MICROSCOPIC EXAM STAT 01/16/2024 1:00 AM CDT URINALYSIS WITH MICROSCOPIC IF INDICATED STAT 01/16/2024 1:00 AM CDT URINE CULTURE STAT 01/16/2024 1:00 AM CDT EKG, 12-LEAD (PORTABLE) Routine 01/16/2024 DIFFERENTIAL STAT 01/15/2024 11:55 PM CDT .CBC STAT 01/15/2024 11:55 PM CDT COMPLETE BLOOD COUNT W/ DIFFERENTIAL STAT 01/15/2024 11:55 PM CDT POC GLUCOSE SCREEN Routine 01/15/2024 11 :26 PM CDT CONFIRM ABORH TYPE STAT 01/15/2024 10 :45 PM CDT VRE CULTURE Routine 01/15/2024 10:40 PM CDT CALCIUM IONIZED, VENOUS STAT 01/15/20 10:26 PM CDT BASIC METABOLIC PANEL, CALCIUM IONIZED STAT 01/15/2024 10:26 PM CDT URIC ACID STAT 01/15/2024 10:26 PM CDT NT PRO BNP Routine 01/15/2024 10:26 PM CDT TRIIODOTHYRONINE STAT 01/15/2024 10:2 6 PM CDT FREE THYROXINE STAT 01/15/2024 10:26 PM CDT THYROID STIMULATING HORMONE STAT 01/15/2024 10:26 PM CDT BLOOD GAS VENOUS STAT 01/15/2024 10:2 6 PM CDT CALCIUM LEVEL STAT 01/15/2024 10:26 PM CDT PHOSPHORUS LEVEL STAT 01/15/2024 10:2 6 PM CDT MAGNESIUM LEVEL STAT 01/15/2024 10:26 PM CDT ALBUMIN LEVEL STAT 01/15/2024 10:26 PM CDT ALKALINE PHOSPHATASE STAT 01/15/2024 10:26 PM CDT LACTATE DEHYDROGENASE STAT 01/15/2024 10:26 PM CDT FRACTIONATED BILIRUBIN STAT 10:26 PM CDT ALANINE AMINOTRANSFERASE STAT 01/15/2024 10:26 PM CDT ASPARTATE AMINOTRANSFERASE STAT 01/15/2024 10:26 PM CDT BASIC METABOLIC PANEL, CALCIUM IONIZED STAT 01/15/2024 10:26 PM CDT BLOOD CULTURE Routine 01/15/2024 10:26 PM CDT D DIMER Add-On 01/15/2024 10:25 PM CDT FIBRINOGEN STAT 01/15/2024 10:25 PM CDT APTT STAT 01/15/2024 10:25 PM CDT PROTHROMBIN TIME STAT 01/15/2024 10:2 5 PM CDT CARDIAC PANEL Routine 01/15/2024 10:25 PM CDT TYPE AND SCREEN STAT 01/15/2024 10:25 PM CDT OSCILLATORY PEP Routine 01/15/2024 9:35 PM CDT OSCILLATORY PEP Routine 01/15/2024 9:35 PM CDT OSCILLATORY PEP Routine 01/15/2024 9:[address] BRAIN Routine 01/15/2024 9:13 AM CDT Cancer OSI CHEST Routine 01/15/2024 9:13 AM CDT Cancer OSI CT ABDOMEN AND PELVIS Routine 01/12/2024 9:14 AM CDT Cancer after 01/29/2023 Results * (ABNORMAL) Basic Metabolic Panel- Calcium Ionized (01/23/2024 12:26 AM CDT) Only the most recent of15 resultswithin the time period is included. eGFR 60 >=60 mL/min/1. 73 sq. m 01/23/2024 2:27 AM [facility] Comment: The eGFRcr is calculated with the 2020 CKD-EPI creatinine equation using creatinine, patient's age, and sex for adults 18 years of age and older. Other factors, especially muscle mass, may affect accuracy and need to be considered. According to the Kidney Disease: Improving Global Outcomes (KDIGO) CKD Work Group 2012 Clinical Practice Guideline, chronic kidney disease (CKD) is defined as the abnormalities of kidney structure or function, present for more than 3 months, with implications for health. CKD should be classified by cause, GFR category, and albuminuria category. KDIGO guidelines provide the following GFR categories. Stage / Description / GFR mL/min/1.73 m2: G1* / Normal or high / >= 90 G2* / Mildly decreased / 60-89 G3a / Mildly to moderately decreased / 45-59 G3b / Moderately to severely decreased / 30-44 G4 / Severely decreased / 15-29 G5 / Kidney failure / <15 *In the absence of evidence of kidney damage, neither G1 nor G2 fulfill criteria for CKD. Sodium Level 137 136 - 145 mmol/L 01/23/2024 2:27 AM [facility] Potassium Level 3.7 3.4 - 4.5 mmol/L 01/23/2024 2:27 AM [facility] Chloride 103 98 - 107 mmol/L 01/23/2024 2:27 AM [facility] CO2 23 22 - 29 mmol/L 01/23/2024 2:27 AM [facility] Anion Gap 11 4 - 14 mmol/L 01/23/2024 2:27 AM [facility] Creatinine 1.20(H) 0.67 - 1.17 mg/dL 01/23/2024 2:27 AM [facility] BUN <4(L) 6 - 23 mg/dL 01/23/2024 2:27 AM [facility] Glucose Level 116(H) 70 - 99 mg/dL 01/23/2024 2:27 AM [facility] Comment: Effective 11/04/15, the glucose reference intervals have been updated based on [employer] guidelines (Standards of Medical Care in Diabetes 2016. Diabetes Care 2016; 39: S13-S22). Fasting blood glucose: Normal: 70-99 mg/dL Impaired fasting glucose (increased risk for diabetes or pre-diabetes): 100-125 mg/dL Diabetes mellitus: >/=126 mg/dL Random blood glucose: Normal: 70-199 mg/dL Note: Random glucose >100 mg/dL is associated with increased risk for diabetes. Blood Venous blood specimen / Unknown Venipuncture / Unknown 01/23/2024 12:26 AM CDT 01/23/2024 12:37 AM CDT Bee Barrera APRN LAB BLOOD ORDERABLE S [facility] Unless otherwise noted, all lab tests performed by: Division of Pathology and Laboratory Medicine [address] [place] [id number] * (ABNORMAL) .CBC (01/23/2024 12:26 AM CDT) Only the most recent of14 resultswithin the time period is included. White Blood Cell 2.4(L) 4.1 - 10.5 K/uL 01/23/2024 5:49 AM CDT [facility] Red Blood Cell 2.66(L) 4.30 - 6.04 M/uL 01/23/2024 5:49 AM CDT [facility] Hemoglobin 8.4(L) 13.3 - 17.4 g/dL 01/23/2024 5:49 AM CDT [facility] Hematocrit 25.6(L) 39.5 - 51.8 % 01/23/2024 5:49 AM CDT [facility] Mean Cell Volume 96 82 - 99 fL 01/23/2024 5:49 AM CDT [facility] Mean Cell Hemoglobin 31.6 26.6 - 33.2 pg 01/23/2024 5:49 AM CDT [facility] Mean Cell Hemoglobin Concentration 32.8 31.1 - 35.2 g/dL 01/23/2024 5:49 AM CDT [facility] RDW-SD 53.9(H) 37.5 - 49.7 fL 01/23/2024 5:49 AM CDT [facility] Red Cell Diameter Width 15.3 11.6 - 15.5 % 01/23/2024 5:49 AM CDT [facility] Platelet 54(L) 160 - 397 K/uL 01/23/2024 5:49 AM CDT [facility] Mean Platelet Volume 9.7 9.1 - 12.6 fL 01/23/2024 5:49 AM CDT [facility] INRBC 0.0 0.0 - 0.1 /100 WBC 01/23/2024 5:49 AM CDT [facility] Comment: The INRBC (instrument NRBC) value reflects the enumeration of nucleated red blood cells contained in a 200uL sample of whole blood analyzed by the instrument. This value may differ from the NRBC value reported in a manual differential, which is based on a 100 cell differential. Blood Venous blood specimen / Unknown Venipuncture / Unknown 01/23/2024 12:26 AM CDT 01/23/2024 12:39 AM CDT Bee Barrera APRN LAB BLOOD ORDERABLE S [facility] Unless otherwise noted, all lab tests performed by: Division of Pathology and Laboratory Medicine [address] [place] [id number] * Fractionated Bilirubin (01/23/2024 12:26 AM CDT) Only the most recent of9 resultswithin the time period is included. Bilirubin Direct 0.2 0.0 - 0.3 mg/dL 01/23/2024 1:09 AM CDT [facility] Comment:Indocyanine Green (I CG) may cause falsely elevated bilirubin results. Total and direct bilirubin must not be measured from samples containing indocyanine green. Bilirubin Indirect 0.9 0.0 - 0.9 mg/dL 01/23/2024 1:09 AM CDT [facility] Bilirubin Total 1.1 0.0 - 1.2 mg/dL 01/23/2024 1:09 AM CDT [facility] Comment:Indocyanine Green (I CG) may cause falsely elevated bilirubin results. Total and direct bilirubin must not be measured from samples containing indocyanine green. False elevation of total bilirubin can be seen in patients with IgG concentrations above 28 g/L. Blood Venous blood specimen / Unknown Venipuncture / Unknown 01/23/2024 12:26 AM CDT 01/23/2024 12:37 AM CDT Jackie Solomon APRN LAB BLOOD ORD ERABLES Performing Organization Address City/[facility]/ZIP Co de Phone Number [facility] Unless otherwise noted, all lab tests performed by: Division of Pathology and Laboratory Medicine [address] [place] [id number] * aPTT (01/23/2024 12:26 AM CDT) Only the most recent of10 resultswithin the time period is included. Pathologist [facility] Activated PTT 28.4 24.8 - 35.6 second(s) 01/23/2024 1:16 AM CDT [facility] Blood Venous blood specimen / Unknown Venipuncture / Unknown 01/23/2024 12:26 AM CDT 01/23/2024 12:38 AM CDT Jackie Whitaker MartinezEmily MORRISON LAB BLOOD ORD ERABLES Performing Organization Address City/[facility] [[email or web address]] de Phone Number [facility] Unless otherwise noted, all lab tests performed by: Division of Pathology and Laboratory Medicine [address] [place] [id number] * Calcium Ionized, Venous (01/23/2024 12:26 AM CDT) Only the most recent of15 resultswithin the time period is included. Pathologist [facility] Venous Ionized Calcium 1.18 1.15 - 1.29 mmol/L 01/23/2024 12:41 AM CDT [facility] Oxygen FLOW Rate/ FiO2 01/23/2024 12:41 AM CDT [facility] O2 Therapy Room air 01/23/2024 12:41 AM CDT [facility] Blood Venous blood specimen / Unknown Venipuncture / Unknown 01/23/2024 12:26 AM CDT 01/23/2024 12:38 AM CDT Bee Barrera [employer] LAB BLOOD ORDERABLE S [facility] Unless otherwise noted, all lab tests performed by: Division of Pathology and Laboratory Medicine [facility] [place] [address] * (ABNORMAL) Differential (01/23/2024 12:26 AM CDT) Only the most recent of9 resultswithin the time period is included. Total Cells 100 01/23/2024 5:49 AM CDT [facility] Manual Neutrophil % 19.0(L) 43.2 - 72.7 % 01/23/2024 5:49 AM CDT [facility] Comment:The Neutrophil count includes Bands. Manual Lymphocyte % 59.0(H) 16.8 - 46.2 % 01/23/2024 5:49 AM CDT [facility] Manual Monocyte % 16.0(H) 5.1 - 12.5 % 01/23/2024 5:49 AM CDT [facility] Manual Eosinophil % 3.0 0.4 - 6.3 % 01/23/2024 5:49 AM CDT [facility] Manual Basophil % 3.0(H) 0.2 - 1.4 % 01/23/2024 5:49 AM CDT [facility] Metamyelocyte % 5:49 AM CDT [facility] Comment:The Metamyelocyte co unt includes Myelocytes. Manual Neutrophil Abs 0.46(L) 1.95 - 7.25 K/uL 01/23/2024 5:49 AM CDT [facility] Manual Lymphocyte Abs 1.42 1.01 - 3.24 K/uL 01/23/2024 5:49 AM CDT [facility] Manual Monocyte Abs 0.38 0.24 - 0.85 K/uL 01/23/2024 5:49 AM CDT [facility] Manual Eosinophil Abs 0.07 0.02 - 0.50 K/uL 01/23/2024 5:49 AM CDT [facility] Manual Basophil Abs 0.07 0.02 - 0.09 K/uL 01/23/2024 5:49 AM CDT [facility] RBC Morphology PRESENT 01/23/2024 5:49 AM CDT [facility] PLT Morph Normal Normal 01/23/2024 5:49 AM CDT [facility] Anisocytosis Present(A) (none) 01/23/2024 5:49 AM CDT [facility] Ovalocyte Present(A) (none) 01/23/2024 5:49 AM CDT [facility] Blood Venous blood specimen / Unknown Venipuncture / Unknown 01/23/2024 12:26 AM CDT 01/23/2024 12:39 AM CDT Bee Barrera APRN LAB BLOOD ORDERABLE S Performing Organization Address [facility] [[email or web address]] de Phone Number [facility] Unless otherwise noted, all lab tests performed by: Division of Pathology and Laboratory Medicine [address] [place] [phone] * (ABNORMAL) Prothrombin Time (01/23/2024 12:26 AM CDT) Only the most recent of11 resultswithin the time period is included. [facility] Prothrombin Time 14.6(H) 12.2 - 14.4 second(s) 01/23/2024 1:16 AM CDT [facility] International Normalization Ratio 1.16(H) 0.91 - 1.10 01/23/2024 1:16 AM CDT [facility] Blood Venous blood specimen / Unknown Venipuncture / Unknown 01/23/2024 12:26 AM CDT 01/23/2024 12:38 AM CDT Jackie Solomon APRN LAB BLOOD ORD ERABLES Performing Organization Address City/[facility]/ZIP Co de Phone Number [facility] Unless otherwise noted, all lab tests performed by: Division of Pathology and Laboratory Medicine [address] [place] [id number] * Fibrinogen (01/23/2024 12:26 AM CDT) Only the most recent of9 resultswithin the time period is included. [facility] Fibrinogen 320 214 - 503 mg/dL 01/23/2024 1:16 AM CDT [facility] Blood Venous blood specimen / Unknown Venipuncture / Unknown 01/23/2024 12:26 AM CDT 01/23/2024 12:38 AM CDT Jackie Solomon APRN LAB BLOOD ORD ERABLES Performing Organization Address City/[facility] [[email or web address]] de Phone Number [facility] Unless otherwise noted, all lab tests performed by: Division of Pathology and Laboratory Medicine [address] [place] [phone] * (ABNORMAL) D-Dimer (01/23/2024 12:26 AM CDT) Only the most recent of9 resultswithin the time period is included. [facility] D-Dimer 6.47(H) 0.10 - 0.50 mcg/ml FEU 01/23/2024 1:18 AM CDT [facility] Blood Venous blood specimen / Unknown Venipuncture / Unknown 01/23/2024 12:26 AM CDT 01/23/2024 12:38 AM CDT Narrative [facility] - 01/23/2024 1:18 AM CDT The cut off value for exclusion of venous thromboembolism is <0.51 mcg/mL FEUs (fibrinogen equivalent units). Jackie Solomon APRN LAB BLOOD ORD ERABLES Performing Organization Address City/[facility] [[email or web address]] de Phone Number [facility] Unless otherwise noted, all lab tests performed by: Division of Pathology and Laboratory Medicine [address] [place] [phone] * (ABNORMAL) Uric Acid (01/23/2024 12:26 AM CDT) Only the most recent of6 resultswithin the time period is included. [facility] Uric Acid 2.5(L) 3.4 - 7.0 mg/dL 01/23/2024 2:27 AM CDT [facility] Blood Venous blood specimen / Unknown Venipuncture / Unknown 01/23/2024 12:26 AM CDT 01/23/2024 12:37 AM CDT Bee Barrera APRN LAB BLOOD ORDERABLE S Performing Organization Address City/[facility]/ZIP Co de Phone Number [facility] Unless otherwise noted, all lab tests performed by: Division of Pathology and Laboratory Medicine [address] [place] [id number] * Alanine Aminotransferase (01/23/2024 12:26 AM CDT) Only the most recent of9 resultswithin the time period is included. ALT 18 <=41 U/L 01/23/2024 2:2 7 AM CDT [facility] Blood Venous blood specimen / Unknown Venipuncture / Unknown 01/23/2024 12:26 AM CDT 01/23/2024 12:37 AM CDT Jackie Solomon APRN LAB BLOOD ORD ERABLES Performing Organization Address City/[facility] Co de Phone Number [facility] Unless otherwise noted, all lab tests performed by: Division of Pathology and Laboratory Medicine [address] [place] [phone] * Aspartate Aminotransferase (01/23/2024 12:26 AM CDT) Only the most recent of9 resultswithin the time period is included. AST 20 <=40 U/L 01/23/2024 1:0 9 AM CDT [facility] Blood Venous blood specimen / Unknown Venipuncture / Unknown 01/23/2024 12:26 AM CDT 01/23/2024 12:37 AM CDT Jackie Solomon APRN LAB BLOOD ORD ERABATSHEVA [facility] Unless otherwise noted, all lab tests performed by: Division of Pathology and Laboratory Medicine [address] [place] [phone] * (ABNORMAL) Total Protein (01/23/2024 12:26 AM CDT) Only the most recent of7 resultswithin the time period is included. Pathologist [facility] Tot Protein 6.1(L) 6.4 - 8.3 gm/dL 01/23/2024 1:09 AM CDT [facility] Blood Venous blood specimen / Unknown Venipuncture / Unknown 01/23/2024 12:26 AM CDT 01/23/2024 12:37 AM CDT Narrative [facility] - 01/23/2024 1:09 AM CDT Reference range established based on adult population Jackie Solomon APRN LAB BLOOD ORD ERABLES [facility] Unless otherwise noted, all lab tests performed by: Division of Pathology and Laboratory Medicine [address] [place] [id number] * (ABNORMAL) Phosphorus Level (01/23/2024 12:26 AM CDT) Only the most recent of15 resultswithin the time period is included. [facility] Phosphorus Level 2.4(L) 2.5 - 4.5 mg/dL 01/23/2024 2:27 AM CDT [facility] Blood Venous blood specimen / Unknown Venipuncture / Unknown 01/23/2024 12:26 AM CDT 01/23/2024 12:37 AM CDT Bee Barrera APRN LAB BLOOD ORDERABLE S [facility] Unless otherwise noted, all lab tests performed by: Division of Pathology and Laboratory Medicine [address] [place] [id number] * Alkaline phosphatase (01/23/2024 12:26 AM CDT) Only the most recent of9 resultswithin the time period is included. Pathologist [facility] Alkaline Phosphatase 62 40 - 129 U/L 01/23/2024 1:09 AM CDT [facility] Blood Venous blood specimen / Unknown Venipuncture / Unknown 01/23/2024 12:26 AM CDT 01/23/2024 12:37 AM CDT Jackie Solomon APRN LAB BLOOD ORD ERABLES Performing Organization Address City/[facility] Co de Phone Number [facility] Unless otherwise noted, all lab tests performed by: Division of Pathology and Laboratory Medicine [address] [place] [phone] * Magnesium Level (01/23/2024 12:26 AM CDT) Only the most recent of15 resultswithin the time period is included. Magnesium Level 1.6 1.6 - 2.6 mg/dL 01/23/2024 2:27 AM CDT [facility] Blood Venous blood specimen / Unknown Venipuncture / Unknown 01/23/2024 12:26 AM CDT 01/23/2024 12:37 AM CDT Bee Barrera APRN LAB BLOOD ORDERABLE S Performing Organization Address [facility] [[email or web address]] de Phone Number [facility] Unless otherwise noted, all lab tests performed by: Division of Pathology and Laboratory Medicine [address] [place] [address] [phone] * (ABNORMAL) LDH (01/23/2024 12:26 AM CDT) Only the most recent of9 resultswithin the time period is included. LDH 234(H) 135 - 225 U/L 01/23/2024 1:09 AM CDT [facility] Blood Venous blood specimen / Unknown Venipuncture / Unknown 01/23/2024 12:26 AM CDT 01/23/2024 12:37 AM CDT Narrative [facility] - 01/23/2024 1:09 AM CDT Results greater than 1651 U/L may not be reliable due to matrix effect with extended dilution as it exceeds the percher's recommended limit. Caution should be exercised when interpreting such values and done in conjunction with clinical context. Jackie Solomon APRN LAB BLOOD ORD ERABLES Performing Organization Address City/[facility] Co de Phone Number [facility] Unless otherwise noted, all lab tests performed by: Division of Pathology and Laboratory Medicine [address] [place] [id number] * Albumin Level (01/23/2024 12:26 AM CDT) Only the most recent of9 resultswithin the time period is included. Albumin Level 3.9 3.5 - 5.2 gm/dL 01/23/2024 2:27 AM CDT [facility] Blood Venous blood specimen / Unknown Venipuncture / Unknown 01/23/2024 12:26 AM CDT 01/23/2024 12:37 AM CDT Jackie Solomon APRN LAB BLOOD ORD ERABLES [facility] Unless otherwise noted, all lab tests performed by: Division of Pathology and Laboratory Medicine [address] [place] [address] [id number] * (ABNORMAL) POC Glucose Screen - Fingerstick (01/22/2024 7:25 AM CDT) Only the most recent of25 resultswithin the time period is included. Pathologist [facility] Glucose Screen 133(H) 70 - 99 mg/dL 01/22/2024 7:27 AM CDT [facility] POC Sample Type Capillary 01/22/2024 7:27 AM CDT [facility] Blood 01/22/2024 7:25 AM CDT 01/22/2024 7:27 AM CDT Narrative [facility] - 01/22/2024 7:27 AM CDT Capillary blood samples, e.g. obtained by fingerstick, may have inaccurate results in patients with decreased peripheral blood flow. Method description: All results are measured using Electrochemistry test methodology. The glucose in the sample mixes with the reagents on the test strip. The reaction produces an electric current. The amount of current produced is proportional to the glucose concentration in the blood. All POC Glucose screen test results, including critical values, must be interpreted and evaluated in the context of the patients' clinical findings. It is recommended to confirm any questionable test results by core lab methodology. Jatin Alvarez MD POCT ORDERABLES - DE VICE [facility] Unless otherwise noted, all lab tests performed by: Division of Pathology and Laboratory Medicine [address] [place] [address] * X-ray Chest 1 View Portable (01/21/2024 7:48 PM CDT) Anatomical Region Laterality Modality Chest Digital Radiogra phy 01/21/2024 9:01 PM CDT Impressions 01/21/2024 9:04 PM CDT Stable exam without evidence of acute cardiopulmonary process. ACTIONABLE ITEMS/RECOMMENDATIONS*: None. *An Actionable Finding is a finding that may be unrelated to the original reason for imaging but potentially actionable, meaning further investigation may be necessary. The Actionable Findings Vigilance Unit (AFVU) assists medical providers with responding to additional radiologic findings that are unexpected and potentially actionable. Narrative 01/21/2024 9:04 PM CDT FULL RESULT: Examination: XR CHEST 1 VW PORTABLE on 01/21/2024 7:48 PM. Clinical History: Acute leukemia Indication: Chest pain Comparison: Chest portable 01/18/2024 1353 hours; chest CT 01/16/2024 Technique: Frontal radiograph of the chest Findings: Support Apparatus: Right PICC terminates over the middle superior vena cava. Lungs/Pleura/Mediastinum: Positioning is lordotic and rotated right posterior oblique. Mild asymmetric elevation of the right hemidiaphragm is unchanged. The lungs are adequately inflated. Reticular bibasilar opacities correlate with small hypodensity linear and nodular opacities in both lung bases on CT, pulmonary ossification versus sequela of prior infection or aspiration. No pleural effusion or pneumothorax. Heart is top normal in size. The aorta is tortuous, unchanged. Procedure Note Lyudmila Trujillo MD - 01/21/2024 FULL RESULT: Examination: XR CHEST 1 VW PORTABLE on 01/21/2024 7:48 PM. Clinical History: Acute leukemia Indication: Chest pain Comparison: Chest portable 01/18/2024 1353 hours; chest CT 01/16/2024 Technique: Frontal radiograph of the chest Findings: Support Apparatus: Right PICC terminates over the middle superior venacava. Lungs/Pleura/Mediastinum: Positioning is lordotic and rotated rightposterior oblique. Mild asymmetric elevation of the right hemidiaphragm isunchanged. The lungs are adequately inflated. Reticular bibasilaropacities correlate with small hypodensity linear and nodular opacities inboth lung bases on CT, pulmonary ossification versus sequela of priorinfection or aspiration. No pleural effusion or pneumothorax. Heart is topnormal in size. The aorta is tortuous, unchanged. IMPRESSION: Stable exam without evidence of acute cardiopulmonary process. ACTIONABLE ITEMS/RECOMMENDATIONS*: None. *An Actionable Finding is a finding that may be unrelated to the originalreason for imaging but potentially actionable, meaning furtherinvestigation may be necessary. The Actionable Findings Vigilance Unit(AFVU) assists medical providers with responding to additional radiologicfindings that are unexpected and potentially actionable. Yady Lang APRN IMG DIAGNOSTIC IMAGI NG ORDERABLES * Type and screen (01/21/2024 12:51 AM CDT) Only the most recent of3 resultswithin the time period is included. ABORh B POS 01/21/2024 12:00 AM CDT [facility] ABSC Negative 01/21/2024 12:00 AM CDT [facility] Clot Expiration 01/24/2024 23:59 01/21/2024 12:00 AM CDT [facility] Historical Record Check Complete 01/21/2024 12:00 AM CDT [facility] Blood Venous blood specimen / Unknown Venipuncture / Unknown 01/21/2024 12:51 AM CDT 01/21/2024 1:05 AM CDT Jackie Solomon APRN BLOOD BANK TE ST ORDERABLES [facility] [address] [place] [address] * (ABNORMAL) Uric Acid Rasburicase (01/19/2024 1:27 AM CDT) Only the most recent of9 resultswithin the time period is included. Uric Acid Rasburicase Treated 2.9(L) 3.4 - 7.0 mg/dL 01/19/2024 2:02 AM CDT [facility] Blood Venous blood specimen / Unknown Venipuncture / Unknown 01/19/2024 1:27 AM CDT 01/19/2024 1:36 AM CDT Jatin Alvarez MD LAB BLOOD ORDERABLES [facility] Unless otherwise noted, all lab tests performed by: Division of Pathology and Laboratory Medicine [address] [place] [id number] * XR Chest 1 View (01/18/2024 2:13 PM CDT) Anatomical Region Laterality Modality Chest Digital Radiogra phy 01/18/2024 2:14 PM CDT Impressions 01/18/2024 2:15 PM CDT Left lower lung opacities may represent infection or atelectasis. ACTIONABLE ITEMS/RECOMMENDATIONS*: None. *An Actionable Finding is a finding that may be unrelated to the original reason for imaging but potentially actionable, meaning further investigation may be necessary. The Actionable Findings Vigilance Unit (AFVU) assists medical providers with responding to additional radiologic findings that are unexpected and potentially actionable. Narrative 01/18/2024 2:15 PM CDT FULL RESULT: Examination: XR CHEST 1 VW on 01/18/2024 2:13 PM. Clinical History: Acute leukemia Indication: Cough, Negative COVID-19 Test Result Comparison: 01/16/2024 Technique: Frontal radiograph of the chest Findings: Support Apparatus: Right PICC line with its distal tip over the SVC. Lungs/Pleura/Mediastinum: Subtle left lower lung opacities. No evident pneumothorax. Cardiomediastinal silhouette is stable. Procedure Note Keyur Major MD - 01/18/2024 FULL RESULT: Examination: XR CHEST 1 VW on 01/18/2024 2:13 PM. Clinical History: Acute leukemia Indication: Cough, Negative COVID-19 Test Result Comparison: 01/16/2024 Technique: Frontal radiograph of the chest Findings: Support Apparatus: Right PICC line with its distal tip over the SVC. Lungs/Pleura/Mediastinum: Subtle left lower lung opacities. No evidentpneumothorax. Cardiomediastinal silhouette is stable. IMPRESSION: Left lower lung opacities may represent infection or atelectasis. ACTIONABLE ITEMS/RECOMMENDATIONS*: None. *An Actionable Finding is a finding that may be unrelated to the originalreason for imaging but potentially actionable, meaning furtherinvestigation may be necessary. The Actionable Findings Vigilance Unit(AFVU) assists medical providers with responding to additional radiologicfindings that are unexpected and potentially actionable. Jackie Solomon APRN IMG DIAGNOSTI C IMAGING ORDERABLES * MD [place] Hold (01/17/2024 11:10 AM CDT) Bone Marrow (Iliac Crest, Right Posterior, Aspirate) Non-blood Collection / Unknown 01/17/2024 11:10 AM CDT 01/17/2024 1:45 PM CDT Jackie Solomon APRN, MDA CP [facility] [employer] MOLECULAR DIAGNOSTICS [facility] Diagnostics Laboratory [address] [place] [address] * Flow Cytometry Workup (01/17/2024 11:10 AM CDT) FLOW CYTOMETRY WORKUP TESTS TO ORDER FC Scatter 01/18/2024 6:36 AM CDT FLOW CYTOMETRY Bone Marrow (Iliac Crest, Right Posterior, Aspirate) Non-blood Collection / Unknown 01/17/2024 11:10 AM CDT 01/17/2024 12:45 PM CDT Jackie Solomon APRN, MDA CP [facility]OMAR [employer] [facility] [address] [address], FLOW CYTOMETRY [facility] Flow Cytometry Laboratory [address] [place] [address] * Hematopathology Bone Marrow Interpretation (01/17/2024 11:10 AM CDT) Diagnosis Bone marrow, right posterior iliac crest, core biopsy, clot sections, aspirate smears, touch preparation and peripheral blood smear: CHRONIC MYELOMONOCYTIC LEUKEMIA-1 (9% BLASTS) 01/22/2024 9:05 PM T [facility] Comment Patient is an 83-year-old woman with 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 Flow cytometry demonstrates increased (18%) monocytes with dim CD7 and partial CD56 expression. CD34 positive population is too few to be properly assessed. FISH for BCR::ABL1 is negative. FISH for KMT2A rearrangement is negative. FLT3 mutation analysis is negative for mutations. 81-gene NGS panel detects ASXL1 p.R1415* (VAF: 48%), NRAS p.G12V (VAF: 41%), SRSF2 p.P95H (VAF: 47%) and TET2 p.Q769fs (VAF: 37%). 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 Cytogenetic study is in progress and the result will be reported separately. 01/22/2024 9:05 PM T [facility] Microscopic Description BONE MARROW BIOPSY Quality: Adequate Cellularity: 30% Megakaryocytes: Decreased Infiltrate: None BONE MARROW CLOT Quality: Adequate Cellularity: 50-60% Megakaryocytes: Dysplastic (small megakaryocytes, hypolobated nuclei) Infiltrate: None BONE MARROW SMEARS and TOUCH PREPARATION Quality / cellularity: Adequate Granulocytes: Adequate in quantity, progressive maturation, mild dysgranulopoiesis Erythrocytes: Decreased, progressive maturation, unremarkable morphology Megakaryocytes: Dysplastic (small megakaryocytes, hypolobated nuclei) Lymphocytes: Adequate in quantity, unremarkable morphology Monocytes: Increased Blasts: Increased (9%). Blasts are large cells and have irregular nuclear contours, fine chromatin, distinct nucleolus and moderate amount of cytoplasm. No Nilda rods seen. 01/22/2024 9:05 PM CDT [facility] Stains on Biopsy Reticulin: No reticulin fibrosis Trichrome: No collagen fibrosis Grade: MF-0 01/22/2024 9:05 PM T [facility] Stains on Aspirate Smear / Touch Preparation Iron: Decreased (1+) stainable storage iron. Ring sideroblasts are not increased. MPO: Positive in a subset of blasts. 01/22/2024 9:05 PM T [facility] Gross Description B: Iliac crest, right posterior, biopsy Length: 1.4 cm Submitted in a single cassette for decalcification. DG C: Iliac crest, right posterior, clot Dimensions: 0.3 x 2.5 x 2.5 cm Specimen is entirely submitted in 1. DG 01/22/2024 9:05 PM T [facility] Peripheral Blood Peripheral blood smear with corresponding complete blood count with differential shows normocytic anemia, leukocytosis (66,300/uL), and thrombocytopenia. Granulocytes show mild left-shifted maturation without obvious dysplasia. Manual differentiation count shows increased monocytes in the absolute number (11,270/ul) and percentage (17%). Lymphocytes appear small and mature. Circulating blasts are not present. Platelets are adequate in quantity and unremarkable morphology. 01/22/2024 9:05 PM T [facility] Disclaimer "Some tests reported here may have been developed and performance characteristics determined by [facility]. These tests have not been specifically cleared or approved by the U.S. Food and Drug Administration. If applicable, controls were reviewed and showed appropriate reactivity." 01/22/2024 9:05 PM T [facility] Bone Marrow (Iliac Crest, Right Posterior, Aspirate) Non-blood Collection / Unknown 01/17/2024 11:10 AM CDT 01/17/2024 12:54 PM CDT Comment:STAINS: IRON,POD (PM L),RETICULIN/TRICHROME Bone marrow specimen (specimen) (Iliac Crest, Right Posterior, Biopsy) Non-blood Collection / Unknown 01/17/2024 11:10 AM CDT 01/17/2024 12:41 PM CDT Comment:STAINS: IRON,POD (PM L),RETICULIN/TRICHROME Bone marrow specimen (specimen) (Iliac Crest, Right Posterior, Clot) 01/17/2024 11:10 AM CDT 01/17/2024 12:41 PM CDT Comment:STAINS: IRON,POD (PM L),RETICULIN/TRICHROME Jatin Alvarez MD LAB PATHOLOGY ORDERA BATSHEVA [facility] [place] [address] [place] [address], [place] * (ABNORMAL) Hematopathology Bone Marrow Differential (01/17/2024 11:10 AM CDT) Method Smear 01/18/2024 10:39 AM CDT [facility] Adequacy Satisfactory for evaluation 01/18/2024 10:39 AM CDT [facility] Total cells counted 500 01/18/2024 10:39 AM CDT [facility] BM Blast % 9(H) 0 - 5 % 01/18/2024 10:39 AM CDT [facility] BM Progranulocyte % 1(L) 2 - 8 % 01/18/2024 10:39 AM CDT [facility] BM Myelocyte % 8 5 - 20 % 01/18/2024 10:39 AM CDT [facility] BM Metamyelocyte % 16 13 - 32 % 01/18/2024 10:39 AM CDT [facility] BM Granulocyte % 43(H) 7 - 30 % 01/18/20 10:39 AM CDT [facility] BM Eosinophil % 1 0 - 4 % 10:39 AM CDT [facility] BM Basophil % 1 0 - 1 % 01/18/2024 10:39 AM CDT [facility] BM Lymphocyte % 6 3 - 17 % 10:39 AM CDT [facility] BM Plasma Cell % 1 0 - 2 % 01/18/20 10:39 AM CDT [facility] BM Monocyte % 8(H) 0 - 5 % 01/18/2024 10:39 AM CDT [facility] BM Pronormoblast % 1 1 - 8 % 01/18/2024 10:39 AM CDT [facility] BM Normoblast % 6(L) 7 - 32 % 10:39 AM CDT [facility] BM M:E Ratio 14.0(H) 3.0 - 4.0 01/18/2024 10:39 AM CDT [facility] Bone Marrow (Iliac Crest, Right Posterior, Aspirate) Non-blood Collection / Unknown 01/17/2024 11:10 AM CDT 01/17/2024 12:54 PM CDT Narrative [facility] - 01/18/2024 10:39 AM CDT DISCLAIMER Preliminary BM Diff may have been completed by a director of medical staff services or a hematopathology fellow and is subject to change. Any pathologist updates will be included on interpretation and appear in the final result. Please use caution in evaluating your patient based on preliminary results. Jatin Alvarez MD LAB PATHOLOGY ORDERA BLES [facility] [id number] [place] [address], * [place] DIAGNOSTIC BONE MARROW BIOPSIES & ASPIRATIONS (01/17/2024 11:10 AM CDT) Bone Marrow Narrative Jewel King APRN - 01/17/2024 11:10 AM CDT Jewel King APRN 01/17/2024 5:43 PM Procedure: Bone Marrow Aspiration/Biopsy Date/Time: 01/17/2024 11:10 AM Provider Information: Performed by: Jewel King APRN Authorized by: Jackie Solomon APRN Tube Wrapper present: yes Tube Wrapper: Pinky Garcia commercial crabber used?: patient representative not needed Patient Diagnosis: Pre-procedure diagnosis: CMML Post-procedure diagnosis: unchanged Indication: Indication: evaluation of disease status and diagnosis/evaluation of hematopoietic dysfunction Anesthesia: Anesthesia: local infiltration (3.5 NEEDLE USED) Patient anesthetized by: advanced practice provider Local anesthetic: lidocaine 1% without epinephrine Anesthetic total (ml): 20 Sedation: Patient sedated?: patient not sedated Aspirate Site(s): Laterality: right Site location: posterior iliac crest Instrument(s) used: [place] needle Instruments placed by: advanced practice provider Biopsy Site(s): Laterality: right Site location: posterior iliac crest Instrument(s) used: Brandin needle Instruments placed by: advanced practice provider Dressing: Dressing: compression bandage (dressing reinforced) Post-Procedure Patient Assessment: Patient tolerance: well Estimated blood loss: none Complications/Observations: no complications Pre-procedure pain scale: 0/10 Greater than 20ccs of Lidocaine given?: No Post-procedure pain scale: 0/10 Discharge/Disposition: Discharge instructions: verbal and patient verbalized understanding Patient discharged to: return to inpatient bed Disposition mode: other Other disposition mode: pt remained in inpatient bed Sample Disposition: Testing performed: flow cytometry, molecular, cytogenetics and pathology Stains performed: iron, POD, reticulum and trichome Research samples(s): no Aspirate volume obtained (mL) - right: 15 Visual assessment for aspirate specimen adequacy - right: particles Visual assessment for biopsy specimen adequacy (cm) - right: 1.3 Biopsy specimen integrity - right: whole Comments: LABELS OBSERVED BY AMELIA Platelets are Lab Results Component Value Date PLT 49 (L) 01/17/2024 today. Jovi Garcia was identified by , MRN, and Name. His allergies were reviewed. The procedure was explained to Jovi Garcia, he was given the opportunity to ask questions, and consent was reviewed with him and signed by him to authorize this procedure. He was satisfied with the answers provided to his questions. Jovi Garcia was assisted in the left lateral recumbent position. The right posterior iliac crest was prepped. Jovi Garcia tolerated the procedure well. I applied pressure at the site for 3 mins to minimize hematoma formation and ensure stop of bleed and then I applied a pressure bandage for pressure dressing. Jovi Garcia verbalized understanding of instruction to maintain pressure dressing dry and intact for 48 hours with no shower, no bathing, no swimming and no activities that would wet the dressing. He remained in the inpatient bed under care of his RN. No bleeding was noted at the dressing site at the end of procedure. I wrote the date and time of procedure on the dressing. Specimens's labels verified with [employer]. Jackie Solomon APRN PROCEDURE/MIN OR SURGICAL ORDERABLES * FC Scatter Interpretation and Report (01/17/2024 11:10 AM CDT) Interpretation Bone Marrow, Iliac crest, right posterior, aspirate No significant increase in blasts by by CD45/CD34/CD19 markers. Flow cytometry study to assess residual myelodysplastic syndrome (MDS) panel not performed. 01/19/2024 10:26 AM CDT FLOW CYTOMETRY Scatter Markers Assessed CD19, CD34, CD45 01/19/2024 10:26 AM CDT FLOW CYTOMETRY Disclaimer Interpretive comments are based on review by the pathologist of the results of each antibody of this specimen. This test was developed and its performance characteristics determined by [facility] Clinical Flow Cytometry Laboratory. It has not been cleared or approved by the US Food and Drug Administration. FDA does not require this test go through premarket FDA review. This test is used for clinical purposes. It should not be regarded as investigational or for research. This laboratory is certified under the Clinical Laboratory Improvement Amendment of 1988 (CLIA) as qualified to perform high complexity clinical laboratory testing. 01/19/2024 10:26 AM CDT FLOW CYTOMETRY Pathologist Signature . 01/19/2024 10:26 AM CDT FLOW CYTOMETRY Bone Marrow (Iliac Crest, Right Posterior, Aspirate) Non-blood Collection / Unknown 01/17/2024 11:10 AM CDT 01/17/2024 12:45 PM CDT Jackie Solomon APRN [facility] HP FLOW C YTOMETRY (HP FC) FLOW CYTOMETRY [facility] Flow Cytometry Laboratory [address] [place] [address] * FLT3 Mutation Analysis Interpretation and Report (01/17/2024 11:10 AM CDT) Pathology [id number] 01/19/2024 8:02 PM CDT MOLECULAR DIAGNOSTICS FLT3 Interpretation FLT3-ITD Mutation: Not detected FLT3-TKD (D835/I836) Mutation: Not detected 01/19/2024 8:02 PM CDT MOLECULAR DIAGNOSTICS FLT3 Methodology PCR-based DNA analysis was performed to detect internal tandem duplication (ITD) mutation in the juxtamembrane domain (JMD) and mutations involving codons 835 and 836 in the tyrosine kinase domain (TKD) mutations in the FLT3. A multiplex PCR using fluorescently-lab eled primers was performed, followed by detection and sizing of PCR products using capillary electrophoresis. For detecting point mutations in codons 835/836, a restriction enzyme digestion of the PCR products using EcoRV restriction enzyme was performed prior to capillary electrophoresis. The lower limit of detection (analytical sensitivity) of this assay is approximately 1% of mutant DNA in a background of wild type DNA. The values for mutant (ITD, TKD) are calculated as (1) mutant allele fraction (mutant signal divided by total (mutant+wild-type ) signal as shown in the middle column) and (2) as a ratio of mutant signal versus wild-type signal (mutant signal divided by wild-type signal as shown in the right column). Limitation of the Assay: The assay is validated to detect FLT3-ITD up to 222 base-pair (bp) in size. The FLT3-TKD assay is limited to alterations that affect the targeted EcoRV restriction site involving codons 835 and 836. Mutations outside the targeted JMD and TKD regions cannot be ruled out. Some of these additional mutations may be covered on a next-generation sequencing (NGS)-based assay. Correlation with any available NGS findings is recommended for complete evaluation. 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 01/19/2024 8:02 PM CDT MOLECULAR DIAGNOSTICS FLT3 Mutation Details FLT3-ITD: Location: Juxtamembrane domain (JMD) Type: Internal tandem duplication (ITD) FLT3-TKD (D835/I836): Location: Codons 835 (Aspartic acid, Asp, D; D835) and 836 (Isoleucine, Ile, I; I836) within the tyrosine kinase domain (TKD) Type: Point mutation (common), which primarily involves codon 835 and small insertion-deletio n (uncommon), which primarily affects codon 836. 01/19/2024 8:02 PM CDT MOLECULAR DIAGNOSTICS FLT3 Clinical Utility FLT3-ITD mutations are reported in 20% to 30% of acute myeloid leukemia (AML) and FLT3-TKD mutations are reported in 5% to 10% AML. Presence of FLT3 mutations, especially FLT3-ITD, is associated with refractory disease, increased risk of relapse and poor overall survival. Presence of co-mutations and allelic ratio of the mutant FLT3 may alter the prognostic impact of FLT3 mutations. In addition to AML, FLT3 mutations have been reported in a smaller subset of other myeloid neoplasms, where they are associated with increased risk of transformation to AML and poor prognosis. FLT3 mutation status is reported to be unstable during disease course and new mutations can be detected especially in relapsed AML including those with previously wild-type FLT3. Food and Drug Administration (FDA)-approved targeted therapies against mutant FLT3-ITD in AML have become available. Due to highly dynamic nature of clinical evidence, testing guidelines and treatment approvals, a comprehensive assessment including, but not limited to, the review of online resources provided in the reference section for up-to-date information on clinical utility. Correlation with additional findings such as morphology, differential count and flow cytometry for assessment of tumor burden in the sample tested is recommended for complete evaluation. Mutation analysis on samples with low (below assay sensitivity) or no involvement by tumor may not be informative. 01/19/2024 8:02 PM CDT MOLECULAR DIAGNOSTICS FLT3 References Ceasar THOMPSON et al. Detection of FLT3 internal tandem duplication and D835 mutations by a multiplex polymerase chain reaction and capillary electrophoresis assay. J Mol Diagn. 2002;5(2):96-102. PubMed PMID: 05738812 Aleksandra Pagan.Cliff. Acute Myeloid Leukemia: from Mutation Profiling to Treatment Decisions. Curr Hematol Malig Rep. 2019 Nov 02. Review. PubMed PMID: 40730625. Melo N et al, Targeting FLT3 mutations in AML: review of current knowledge and evidence. Leukemia. 2019 May;33(2):299-312 . PubMed PMID: 87742430. Shayla MELTON. The importance of FLT3 mutational analysis in acute myeloid leukemia. Leuk Lymphoma. 2018 Jan;59(10):2273-2 286. PubMed PMID: 04681448. Gene-related information: HGAK: https://www.geneformerly [facility] hospitales.org Peer-reviewed literature evidence: PubMed: www.ncbi.nlm.nih. gov/pubmed/?term= FLT3+mutation+adair kemia Professional Guidelines: [place] Society of Clinical Oncology (ASCO): www.asco.org [place] Society of Hematology (NHAN): www.hematology.or g Association for Molecular Pathology (AMP): www.amp.org College of [place] Pathology: www.cap.org LeukemiaNet (ELN): www.leukemia-net. org National Comprehensive Cancer Network (NCCN): www.nccn.org Regulatory Approvals: U.S Food & Drug Administration (FDA): www.fda.gov 01/19/2024 8:02 PM CDT MOLECULAR DIAGNOSTICS ASR DISCLAIMER This test was developed and its performance characteristics determined by the Molecular Diagnostics Laboratory ([facility]) at [facility]. It has not been cleared or approved by the U.S. Food and Drug Administration (FDA). The FDA has determined that such clearance or approval is not necessary. This test is used for clinical purposes. This laboratory is certified under the Clinical Laboratory Improvement Act (CLIA) of 1988 to perform high complexity clinical laboratory testing. 01/19/2024 8:02 PM CDT MOLECULAR DIAGNOSTICS Pathologist Signature . 01/19/2024 8:02 PM CDT MOLECULAR DIAGNOSTICS Bone Marrow (Iliac Crest, Right Posterior, Aspirate) Non-blood Collection / Unknown 01/17/2024 11:10 AM CDT 01/17/2024 1:45 PM CDT Jackie Solomon APRN, MDA [facility] MOLECULAR DIAGNOSTICS [facility] Molecular Diagnostics Laboratory [address] [place] [address] * CT Head without Contrast (01/16/2024 9:09 PM CDT) Anatomical Region Laterality Modality Head Computed Tomogra phy 01/16/2024 9:44 PM CDT Impressions 01/16/2024 9:55 PM CDT Nonspecific 6 mm hypoattenuation within the right centrum semiovale white matter. This may represent chronic microangiopathic change or an age-indeterminate infarct. If there is clinical concern for acute ischemic changes, a MRI brain can be obtained for further evaluation. ACTIONABLE ITEMS/RECOMMENDATIONS*: None. *An Actionable Finding is a finding that may be unrelated to the original reason for imaging but potentially actionable, meaning further investigation may be necessary. The Actionable Findings Vigilance Unit (AFVU) assists medical providers with responding to additional radiologic findings that are unexpected and potentially actionable. Narrative 01/16/2024 9:55 PM CDT FULL RESULT: Examination: CT HEAD WO CONTRAST on 01/16/2024 9:09 PM. CLINICAL HISTORY: Acute leukemia INDICATION: altered mental status COMPARISON: None. TECHNIQUE: CT head without IV contrast was performed. FINDINGS: There are cerebral involutional changes associated prominence of the cerebral sulci, cisterns and ventricles. There is no acute hydrocephalus. There is no intracranial hemorrhage. There is no mass effect or midline shift. There is a nonspecific hypoattenuation within the right posterior frontal centrum semiovale white matter (series 301, image 61). Procedure Note Uri Koch MD - 01/16/2024 FULL RESULT: Examination: CT HEAD WO CONTRAST on 01/16/2024 9:09 PM. CLINICAL HISTORY: Acute leukemia INDICATION: altered mental status COMPARISON: None. TECHNIQUE: CT head without IV contrast was performed. FINDINGS: There are cerebral involutional changes associated prominence of thecerebral sulci, cisterns and ventricles. There is no acute hydrocephalus. There is no intracranial hemorrhage. There is no mass effect or midlineshift. There is a nonspecific hypoattenuation within the right posterior frontalcentrum semiovale white matter (series 301, image 61). IMPRESSION: Nonspecific 6 mm hypoattenuation within the right centrum semiovale whitematter. This may represent chronic microangiopathic change or anage-indeterminate infarct. If there is clinical concern for acute ischemic changes, a MRI brain canbe obtained for further evaluation. ACTIONABLE ITEMS/RECOMMENDATIONS*: None. *An Actionable Finding is a finding that may be unrelated to the originalreason for imaging but potentially actionable, meaning furtherinvestigation may be necessary. The Actionable Findings Vigilance Unit(AFVU) assists medical providers with responding to additional radiologicfindings that are unexpected and potentially actionable. Bernarda Duvall SEO TEAM LEAD G CT ORDERABLES * CT Chest without Contrast (01/16/2024 9:09 PM CDT) Anatomical Region Laterality Modality Chest Computed Tomogra phy 01/16/2024 9:3 7 PM CDT Impressions 01/16/2024 9:51 PM CDT 1. No pulmonary consolidations. A few noncalcified small pulmonary nodules are nonspecific. Innumerable hyperdense pulmonary nodular opacities may represent sequela of prior infectious inflammatory process, pulmonary ossification or sequela of aspiration of contrast material. 2. Bilateral trace pleural effusions. 3. Heavy coronary artery calcification and/or stents. ACTIONABLE ITEMS/RECOMMENDATIONS*: See impression. *An Actionable Finding is a finding that may be unrelated to the original reason for imaging but potentially actionable, meaning further investigation may be necessary. The Actionable Findings Vigilance Unit (AFVU) assists medical providers with responding to additional radiologic findings that are unexpected and potentially actionable. Narrative 01/16/2024 9:51 PM CDT FULL RESULT: Examination: CT CHEST WO CONTRAST on 01/16/2024 9:09 PM. Clinical History: Acute leukemia Indication: cough, Not related to lung cancer, cancer screening or incidental pulmonary nodule follow-up, COVID-19 Not Suspected Comparison: None Technique: CT of the chest is performed without intravenous contrast. Findings: Lungs/Airways/Pleura: A few scattered nonspecific small pulmonary nodules. Also noted subtle peripheral groundglass opacities and innumerable hyperdense peripheral pulmonary nodules predominantly seen in the lower lobes possibly representing sequela of prior infectious inflammatory process, pulmonary ossification or sequela of aspiration of contrast material. Bilateral trace pleural effusions. Neck/Mediastinum/Nodes/Heart: A right PICC has its tip in the superior vena cava. There is no mediastinal or hilar lymphadenopathy. The heart is normal in size. There is heavy coronary artery calcification. No pericardial effusion. Upper abdomen: Limited imaging through the upper abdomen shows normal adrenal glands. Colonic diverticulosis without evidence of complications. There is distention of the gallbladder measuring 5.1 cm in diameter, without evidence of wall thickening or surrounding inflammatory changes. Bones/Soft Tissues: No destructive bone lesions. Procedure Note Anastasia Anderson C.B., MD - 01/16/2024 FULL RESULT: Examination: CT CHEST WO CONTRAST on 01/16/2024 9:09 PM. Clinical History: Acute leukemia Indication: cough, Not related to lung cancer, cancer screening orincidental pulmonary nodule follow-up, COVID-19 Not Suspected Comparison: None Technique: CT of the chest is performed without intravenous contrast. Findings: Lungs/Airways/Pleura: A few scattered nonspecific small pulmonary nodules.Also noted subtle peripheral groundglass opacities and innumerablehyperdense peripheral pulmonary nodules predominantly seen in the lowerlobes possibly representing sequela of prior infectious inflammatoryprocess, pulmonary ossification or sequela of aspiration of contrastmaterial. Bilateral trace pleural effusions. Neck/Mediastinum/Nodes/Heart: A right PICC has its tip in the superiorvena cava. There is no mediastinal or hilar lymphadenopathy. The heart isnormal in size. There is heavy coronary artery calcification. Nopericardial effusion. Upper abdomen: Limited imaging through the upper abdomen shows normaladrenal glands. Colonic diverticulosis without evidence of complications.There is distention of the gallbladder measuring 5.1 cm in diameter,without evidence of wall thickening or surrounding inflammatory changes. Bones/Soft Tissues: No destructive bone lesions. IMPRESSION: 1. No pulmonary consolidations. A few noncalcified small pulmonarynodules are nonspecific. Innumerable hyperdense pulmonary nodularopacities may represent sequela of prior infectious inflammatory process,pulmonary ossification or sequela of aspiration of contrast material. 2. Bilateral trace pleural effusions. 3. Heavy coronary artery calcification and/or stents. ACTIONABLE ITEMS/RECOMMENDATIONS*: See impression. *An Actionable Finding is a finding that may be unrelated to the originalreason for imaging but potentially actionable, meaning furtherinvestigation may be necessary. The Actionable Findings Vigilance Unit(AFVU) assists medical providers with responding to additional radiologicfindings that are unexpected and potentially actionable. Jackie Solomon APRN IMG CT ORDERA BLES * US RENAL (01/16/2024 3:55 PM CDT) Anatomical Region Laterality Modality Abdomen Ultrasound 01/16/2024 4:03 PM CDT Impressions 01/16/2024 4:12 PM CDT 1. No hydronephrosis bilaterally. 2. Urinary bladder decompressed around a Sagastume catheter balloon. ACTIONABLE ITEMS/RECOMMENDATIONS*: Please see findings/impression of the report. *An Actionable Finding is a finding that may be unrelated to the original reason for imaging but potentially actionable, meaning further investigation may be necessary. The Actionable Findings Vigilance Unit (AFVU) assists medical providers with responding to additional radiologic findings that are unexpected and potentially actionable. Narrative 01/16/2024 4:12 PM CDT Examination: US RENAL on 01/16/2024 3:55 PM. Clinical History: Acute leukemia. Indication: Elevated creatinine level. Comparison: None available. TECHNIQUE: The kidneys and urinary bladder were evaluated with grayscale and color Doppler ultrasound. FINDINGS: Left Kidney: Measures 11.6 cm in longitudinal dimension. A cystic focus in the lower pole measures approximately 2.6 x 2.1 x 2.1 cm. No large discrete solid renal mass, obstructing calculi or hydronephrosis. Right Kidney: Measures 9.7 cm in longitudinal dimension. No large discrete solid renal mass, obstructing calculi or hydronephrosis. Urinary Bladder: Decompressed around a Sagastume catheter balloon. Procedure Note Carlito Neal MD - 01/16/2024 Examination: US RENAL on 01/16/2024 3:55 PM. Clinical History: Acute leukemia. Indication: Elevated creatinine level. Comparison: None available. TECHNIQUE: The kidneys and urinary bladder were evaluated with grayscaleand color Doppler ultrasound. FINDINGS: Left Kidney: Measures 11.6 cm in longitudinal dimension. A cystic focus inthe lower pole measures approximately 2.6 x 2.1 x 2.1 cm. No largediscrete solid renal mass, obstructing calculi or hydronephrosis. Right Kidney: Measures 9.7 cm in longitudinal dimension. No large discretesolid renal mass, obstructing calculi or hydronephrosis. Urinary Bladder: Decompressed around a Sagastume catheter balloon. IMPRESSION: 1. No hydronephrosis bilaterally. 2. Urinary bladder decompressed around a Sagastume catheter balloon. ACTIONABLE ITEMS/RECOMMENDATIONS*: Please see findings/impression of thereport. *An Actionable Finding is a finding that may be unrelated to the originalreason for imaging but potentially actionable, meaning furtherinvestigation may be necessary. The Actionable Findings Vigilance Unit(AFVU) assists medical providers with responding to additional radiologicfindings that are unexpected and potentially actionable. Yamil Jaime APRN IMG US ORDERABLES * Tip Verification Central Vascular Access Device (01/16/2024 3:33 PM CDT) Narrative Pia Dodd APRN - 01/16/2024 3:33 PM CDT Pia Dodd APRN 01/16/2024 3:34 PM Central Vascular Access Device Tip Verification Performed by: Pia Dodd APRN Authorized by: Pia Dodd APRN CVAD Properties Date device placed: 01/16/2024 Placed by: Laurent Fisher RN Device placement location: [facility] Catheter Type: PICC Catheter lumen: Double lumen Vein location: Brachial Laterality: Right Tip in good position and cleared for infusion Pia Dodd APRN IV THERAPY ORDERABL ES * XR Chest 1 View Post Implant (01/16/2024 2:57 PM CDT) Anatomical Region Laterality Modality Chest Digital Radiogra phy 01/16/2024 3:40 PM CDT Impressions 01/16/2024 3:41 PM CDT Central venous catheter appears to be in satisfactory position without visible complication. ACTIONABLE ITEMS/RECOMMENDATIONS*: None. *An Actionable Finding is a finding that may be unrelated to the original reason for imaging but potentially actionable, meaning further investigation may be necessary. The Actionable Findings Vigilance Unit (AFVU) assists medical providers with responding to additional radiologic findings that are unexpected and potentially actionable. Narrative 01/16/2024 3:41 PM CDT FULL RESULT: Examination: XR CHEST 1 VW POST IMPLANT on 01/16/2024 2:57 PM. Clinical History: Acute leukemia Indication: Confirm PICC placement Comparison: None Technique: Frontal radiograph of the chest Findings: Support Apparatus: Right longline catheter in place with its tip at the upper border of the azygos arch probably in the superior vena cava. Lungs/Pleura/Mediastinum: Lung volumes are low but the lungs are normal otherwise. Mild aortic tortuosity. Heart size is normal. No pleural effusion or pneumothorax. Procedure Note Jose Horner MD - 01/16/2024 FULL RESULT: Examination: XR CHEST 1 VW POST IMPLANT on 01/16/2024 2:57 PM. Clinical History: Acute leukemia Indication: Confirm PICC placement Comparison: None Technique: Frontal radiograph of the chest Findings: Support Apparatus: Right longline catheter in place with its tip at theupper border of the azygos arch probably in the superior vena cava. Lungs/Pleura/Mediastinum: Lung volumes are low but the lungs are normalotherwise. Mild aortic tortuosity. Heart size is normal. No pleuraleffusion or pneumothorax. IMPRESSION: Central venous catheter appears to be in satisfactory position withoutvisible complication. ACTIONABLE ITEMS/RECOMMENDATIONS*: None. *An Actionable Finding is a finding that may be unrelated to the originalreason for imaging but potentially actionable, meaning furtherinvestigation may be necessary. The Actionable Findings Vigilance Unit(AFVU) assists medical providers with responding to additional radiologicfindings that are unexpected and potentially actionable. Jatin Alvarez MD IMG DIAGNOSTIC IMAGI NG ORDERABLES * Insert Vascular Access Device: PICC (01/16/2024 2:02 PM CDT) Anatomical Region Laterality Modality Ultrasound Narrative 01/16/2024 2:14 PM CDT Date of Procedure: 01/16/24 Title of Procedure: Percutaneous Image-Guided PICC Insertion Proceduralist: Laurent Fisher RN Ordered By: Pia Dodd APRN Procedure Location: ICU Tube Wrapper Present: No Pre Procedure Diagnosis: Chronic myelomonocytic leukemia Post Procedure Diagnosis: Unchanged Indication: Vascular Access. Title of Procedure: Percutaneous Image-Guided Non-Tunneled PICC line insertion Pre Procedure Evaluation: Patient examined pre-procedure and assessment (including allergies, labs, imaging, history and physical exam) performed. Pre-procedure the patient was MDA VAP pre-procdure patient condition: alert. Informed consent obtained prior to procedure, the risks, benefits, and alternative dicussed with patient/designated membership sales representative. Time out: universal protocol time out performed and documented. Anesthesia: MDA VAP anesthesia: local infiltration and see MAR for details Local Anesthetic: MDA VAP local anes (PICC): Lidocaine 1% without Epinephrine Sedation/Anxiolysis: None Sedation: Not applicable Vital signs: Vital signs monitored during procedure/sedation Procedure in Detail: Site preparation: PICC catheter insertion tray used. Patient placed in Flat/supine and Head Turned to Side position. The insertion site was anesthetized with lidocaine 1% without epinephrine via subcutaneous needle . A high level disinfected ultrasound probe with sterile cover was used for guidance. Venous access obtained., Venous access obtained using the micropuncture needle., and Non-pulsatile dark red blood obtained. A permanent record of the ultrasound-guided vessel puncture image has been stored. Modified Seldinger Technique. MicroIntroducer with sheath inserted. Dilator with peel away sheath inserted over guidewire. Guidewire removed, examined, and found to be intact. Drip test performed to confirm venous placement. A new central venous catheter was inserted successfully with good flow and blood return in all lumens. Number of attempts: 1 Vein Location/Laterality: right cephalic Catheter Lumen: double lumen Catheter size: 4Fr Catheter Type: power rated Catheter Internal Length:42cm Catheter External Length:0cm Catheter Trim Length:42cm Estimated Blood Loss: Minimal Catheter Vein Ratio: less than 45% Post Procedure: Each lumen evacuated of air and flushed with sterile saline and Needleless connector and IV tubing attached to catheter. Post procedure site: suture/secured in place, the site cleaned and sterile transparent dressing applied with biopatch, and the dressing labeled with date, time, and initial Assessment: Catheter re-assessed and blood returned through all lumens and patent to flush. Complications: no immediate complication Patient Condition: patient tolerated the procedure well with no immediate complications, patient does not report adverse symptoms, patient remained hemodynamically stable throughout the procedure, and patient is warm and well perfused Responsiveness: alert, awake, and comfortable Patient Disposition: remain in ICU bed and printed education material provided to patient/caregiver Midarm circumference:41.5cm Forearm circumference:24cm Additional Comments: None Pia Dodd APRN IMG VAP ORDERABLES * Sodium Urine (01/16/2024 10:22 AM CDT) Urine Sodium 98 mmol/L 01/16/2024 11:06 AM CDT [facility] Comment:Normal range not rubina ilable for collections less than 24 hours in duration. Urine (Urine Clean Catch) Non-blood Collection / Unknown 01/16/2024 10:22 AM CDT 01/16/2024 10:35 AM CDT Yamil Jaime APRN URINE ORDERABLES [facility] Unless otherwise noted, all lab tests performed by: Division of Pathology and Laboratory Medicine [address] [place] [id number] * (ABNORMAL) Protein/Creatinine Ratio Urine (01/16/2024 10:22 AM CDT) UTP, Random 16 mg/dL 01/16/2024 11:06 AM CDT [facility] Comment:Normal range not rubina ilable for collections less than 24 hours in duration. Urine Creatinine 54.5 40.0 - 278.0 mg/dL 01/16/2024 11:06 AM CDT [facility] Comment:The reference range listed is for first morning urine collection. Urine Protein/Creatini ne Ratio 0.29(H) <=0.14 g/g 01/16/2024 11:06 AM CDT [facility] Urine (Urine Clean Catch) Non-blood Collection / Unknown 01/16/2024 10:22 AM CDT 01/16/2024 10:35 AM CDT Yamil Jaime APRN URINE ORDERABLES [facility] Unless otherwise noted, all lab tests performed by: Division of Pathology and Laboratory Medicine [address] [place] [id number] * Potassium Urine (01/16/2024 10:22 AM CDT) Urine Potassium 20 mmol/L 11:06 AM CDT [facility] Comment:Normal range not rubina ilable for collections less than 24 hours in duration. Urine (Urine Clean Catch) Non-blood Collection / Unknown 01/16/2024 10:22 AM CDT 01/16/2024 10:35 AM CDT Yamil Jaime APRN URINE ORDERABLES [facility] Unless otherwise noted, all lab tests performed by: Division of Pathology and Laboratory Medicine [address] [place] [id number] * Urine Culture (01/16/2024 10:22 AM CDT) Only the most recent of2 resultswithin the time period is included. Urine Culture No Growth. 01/18/2024 8:43 AM CDT [facility] Urine (Urine Sagastume) Non-blood Collection / Unknown 01/16/2024 10:22 AM CDT 01/16/2024 10:35 AM CDT Jackie Solomon APRN MICROBIOLOGY - GENERAL ORDERABLES Performing Organization Address [facility] Co de Phone Number [facility] Unless otherwise noted, all lab tests performed by: Division of Pathology and Laboratory Medicine [address] [place] [id number] * Folate Level (01/16/2024 10:16 AM CDT) Folate Level 13.9 4.8 - 24.2 ng/mL 01/16/2024 11:08 AM CDT [facility] Is patient fasting? Yes 01/16/2024 11:08 AM CDT [facility] Blood Peripheral blood specimen / Unknown CVC Line / Unknown 01/16/2024 10:16 AM CDT 01/16/2024 10:30 AM CDT Narrative [facility] - 01/16/2024 11:08 AM CDT Reference range established based on adult population. Jackie Solomon APRN LAB BLOOD ORD ERABLES [facility] Unless otherwise noted, all lab tests performed by: Division of Pathology and Laboratory Medicine [address] [place] [id number] * C. auris Screening PCR (01/16/2024 9:56 AM CDT) [facility] Specimen Source Axilla+ Groin 01/20/2024 7:58 AM CDT [facility] DEEJAY C auris PCR, Result Negative Not Applicable 01/20/2024 7:58 AM CDT [facility] Comment: ADDITIONAL INFORMATION This test was developed and its performance characteristics determined by [facility] in a manner consistent with CLIA requirements. This test has not been cleared or approved by the U.S. Food and Drug Administration. Test Performed by: [address] [address] [employer] Worker: Delmy Velasquez Ph.D.; CLIA# [id number] Swab (Axilla + Groin) Non-blood Collection / Unknown 01/16/2024 9:56 AM CDT 01/16/2024 10:14 AM CDT Lise Roberto MD MICROBIOLOGY - [facility] AL ORDERABLES [facility] * Respiratory Multiplex PCR Panel, Nasopharyngeal Swab (01/16/2024 9:56 AM CDT) [facility] Adenovirus Not Detected Not Detected 01/16/2024 12:26 PM CDT [facility] Coronavirus 229E Not Detected Not Detected 01/16/2024 12:26 PM CDT [facility] Coronavirus HKU1 Not Detected Not Detected 01/16/2024 12:26 PM CDT [facility] Coronavirus NL63 Not Detected Not Detected 01/16/2024 12:26 PM CDT [facility] Coronavirus OC43 Not Detected Not Detected 01/16/2024 12:26 PM CDT [facility] COVID-19 (SARS-CoV-2) Not Detected Not Detected 01/16/2024 12:26 PM CDT [facility] Human Metapneumovirus Not Detected Not Detected 01/16/2024 12:26 PM CDT [facility] Human Rhinovirus/Enterov irus Not Detected Not Detected 01/16/2024 12:26 PM CDT [facility] Influenza A Not Detected Not Detected 01/16/2024 12:26 PM CDT [facility] Influenza A H1 Not Detected Not Detected 01/16/2024 12:26 PM CDT [facility] Influenza A H1 2009 Not Detected Not Detected 01/16/2024 12:26 PM CDT [facility] Influenza A H3 Not Detected Not Detected 01/16/2024 12:26 PM CDT [facility] Influenza B Not Detected Not Detected 01/16/2024 12:26 PM CDT [facility] Parainfluenza Virus 1 Not Detected Not Detected 01/16/2024 12:26 PM CDT [facility] Parainfluenza Virus 2 Not Detected Not Detected 01/16/2024 12:26 PM CDT [facility] Parainfluenza Virus 3 Not Detected Not Detected 01/16/2024 12:26 PM CDT [facility] Parainfluenza Virus 4 Not Detected Not Detected 01/16/2024 12:26 PM CDT [facility] Respiratory Syncytial Virus Not Detected Not Detected 01/16/2024 12:26 PM CDT [facility] Bordetella parapertussis Not Detected Not Detected 01/16/2024 12:26 PM CDT [facility] Bordetella pertussis Not Detected Not Detected 01/16/2024 12:26 PM CDT [facility] Chlamydophila pneumoniae Not Detected Not Detected 01/16/2024 12:26 PM CDT [facility] Mycoplasma pneumoniae Not Detected Not Detected 01/16/2024 12:26 PM CDT [facility] Swab Nasopharyngeal structure / Unknown Non-blood Collection / Unknown 01/16/2024 9:56 AM CDT 01/16/2024 10:14 AM CDT [facility] - 01/16/2024 12:26 PM CDT The assay is a qualitative multiplex PCR assay to aid in the diagnosis of respiratory pathogens through simultaneous qualitative detection and identification of multiple pathogens directly from nasopharyngeal swabs (RADIATOR TESTER) from individuals with respiratory symptoms. Testing is performed using the [employer]One[employer] Respiratory Panel 2.1 (RP2.1) on the [employer]mer[employer] System. The following organisms are identified using the [employer] RP 2.1 Panel: Adenovirus, Human Coronavirus (229E, HKU1, NL63, and OC43), Severe Acute Respiratory Syndrome Coronavirus 2 (SARS-CoV-2), Human Metapneumovirus, Human Rhinovirus/Enterovirus, Influenza A, including subtypes (H1, H3 and H1-2009), Influenza B, Parainfluenza Virus (1, 2, 3, and 4), Respiratory Syncytial Virus, Bordetella parapertussis, Bordetella pertussis, Chlamydia pneumoniae, and Mycoplasma pneumoniae A result of Not Detected" does not exclude the possibility of the presence of one or more of the pathogens at or below the detection limits of this assay nor does exclude the possibility of pathogens not detected by this panel. Non-infectious causes of respiratory symptoms should also be considered in such cases. Internal controls are used to monitor all stages of the testing process including amplification inhibition. If inhibition is detected, testing is repeated and if inhibition is confirmed the specimen is resulted as "Invalid". When an "Invalid" result occurs, it is recommended to wait 3 days before submitting a new specimen for testing if clinically indicated. This is an FDA-approved assay and its performance characteristics were verified by the microbiology laboratory at the [facility] [place] (CLIA Accreditation # [id number] and CAP Accreditation # [id number]). Results must be interpreted within the context of all relevant clinical and laboratory findings. Assay should not be used for monitoring response to therapy. Jackie Solomon APRN MICROBIOLOGY - GENERAL ORDERABLES [facility] Unless otherwise noted, all lab tests performed by: Division of Pathology and Laboratory Medicine [address] [place] [address] * Flow Cytometry Workup - AML, MDS with excess blasts, MPN accelerated/blast phase or new acute leukemia of unknown lineage (01/16/2024 9:41 AM CDT) FLOW CYTOMETRY WORKUP TESTS TO ORDER FC MRD AML 01/17/2024 6:08 AM CDT FLOW CYTOMETRY Blood Peripheral blood specimen / Unknown CVC Line / Unknown 01/16/2024 9:41 AM CDT 01/16/2024 9:55 AM CDT Jackie PeñazaEmily MORRISON [facility] CP BIOMAR KER WORKUPS [facility] AP LABS [facility] [address] [place] [address], FLOW CYTOMETRY [facility] Flow Cytometry Laboratory [address] [place] [address] * Optical Genome Mapping Analysis Final Report (01/16/2024 9:41 AM CDT) Clinical Indication Post-op Diagnosis: CMML 01/24/2024 4:09 PM CDT CYTOGENETICS Optical Genome Mapping Summary Tier 1 & Tier 2 Variants None Detected 01/24/2024 4:09 PM CDT [facility] HEMATOPATH LAB Optical Genome Mapping Interpretation No apparent Tier 1 (pathogenic) or Tier II (likely pathogenic) cytogenetic abnormality detected. Tier 3 Variants Events Abnormalities Genes involved Gain 5q31.1([id number])x2~3 TCF7 Loss 7q22.1([id number]_ [id number])x1~2 CUX1 Gain 7q34([id number])x2~3 BRAF Loss 16p12.1([id number]_ [id number])x1~2 IL21R Gain 17q11.2([id number]_ [id number])x2~3 SUZ12 Loss 21q22.3([id number]_ [id number])x1~2 U2AF1 Chromoanagenesis- Related Variants None Detected ISCN ogm[GRCh38] 5q31.1([id number]_ [id number])x2~3,7q 22.1([id number])x1~2,7q34 ([id number])x2~3,16p12.1( [id number] )x1~2,17q11.2([id number])x2 ~3,21q22.3([id number])x1~2 01/24/2024 4:09 PM CDT [facility] HEMATOPATH LAB Optical Genome Mapping Methodology Ultra-high molecular weight (UHMW) genomic DNA (gDNA) extraction is performed by using [employer] SP DNA Isolation Kit for blood and bone marrow, which utilizes a lyse, bind, wash, and elute procedure in combination with thermoplastic paramagnetic Nanobind disks to isolate UHMW gDNA from blood and bone marrow with minimal fragmentation. Approximately 1.5 million cells from a blood or bone marrow aspirate are used for gDNA extraction. Extracted gDNA is then labeled and stained using the [employer] Direct Label and Stain (DLS) kit, which utilizes the Direct Label Enzyme (DLE-1) to attach a fluorescent tag (DL-green) via covalent modification to the UHMW gDNA at sequence specific recognition motif (CTTAAG), then followed by staining of the DNA backbone. Approximately 750 ng UHMW gDNA is labelled and stained. Labeled and stained UHMW gDNA is then loaded into a flowcell on a clickTRUE chip, which is subsequently inserted into the [employer] instrument. The flowcells utilize a system of pillars, microchannels, and nanochannels, such that when a current is run through the flow cell, the DNA is untangled, linearized, and imaged as it passes through the pillars, microchannels, and nanochannels. Based on specific labeling and mapping of UHMW gDNA in nanochannel arrays, Optical Genome Mapping (OGM) enables high-resolution analysis of the entire genome. The OGM analysis includes the detection of copy number changes (including aneusomy) as well as structural variants, which encompass translocations, inversions, insertions, deletions, and duplications. Data analysis is performed using the [employer] in conjunction with PHRQL, utilizing a graphical user interface tool for visualization and curation, through Rare Variant Analysis for acquired variants. Following variant calling via the Rare Variant Analysis Pipeline, the sample is filtered using the recommended confidence settings and restricted to variants present in <1% of the [employer] control database. Genomic assessment is based on the Genome Reference Consortium Human Reference 38 (GRCh38/hg38). Variant calls and Tier I & II variant classifications are made according to the recommendations of the World Health Organization (WHO), National Comprehensive Cancer Network (NCCN), National Health System (NHS), and other publications for hematological malignancies. Detailed information about the structural and copy number variant calling algorithms, variant filtering criteria, and decision tree (for VIA only) is available upon request. 01/24/2024 4:09 PM [facility] Optical Genome Mapping Limitations The primary purpose of this test is to detect cytogenetic abnormalities (both structural and numerical changes) involved in tumor oncogenesis (Somatic changes), with a focus on hematological malignancies (HEME_TARGETS). However, this method cannot detect balanced Robertsonian translocations, variants with breakpoints located in poorly covered areas (centromere, sub-telomere and/or telomere), and regions of homozygosity. This method may also miss aneuploidy (e.g., triploidy & tetraploidy) and copy number changes when smaller than 1Mbp. This test is not designed to detect single-nucleotide variants (SNV) that do not impact sequence motif sites. This method is not validated to detect minimal residual disease and may not detect small clones (or subclones) when clonal size is below 20%. 01/24/2024 4:09 PM [facility] Optical Genome Mapping Classification of Variants (reference PMID [id number], [id number], [id number]) Tier 1 Variants with Strong Clinical Significance Tier2 Variants with Potential Clinical Significance Tier 3 Variants of Unknown (Uncertain) Clinical Significance Tier 4* Variants of known insignificance (benign or likely benign) *Tier 4 is not reported 01/24/2024 4:09 PM [facility] Optical Genome Mapping References PMID [id number], [id number], [id number], [id number], [id number], [id number], [id number], [id number] 01/24/2024 4:09 PM [facility] Optical Genome Mapping Disclaimer This test was developed and its performance determined by [facility] as required by the CLIA '88 regulations. It has not been cleared nor approved for specific uses by the U.S. Food and Drug Administration. In applying these results to patient care, correlation with clinical, pathological and other laboratory data are recommended. 01/24/2024 4:09 PM [facility] Pathologist Signature . 01/24/2024 4:09 PM CDT [facility] Blood Peripheral blood specimen / Unknown CVC Line / Unknown 01/16/2024 9:41 AM CDT 01/16/2024 9:55 AM CDT Jackie Solomon APRN [facility] HP CYTOGE NETICS (HP CG) [facility] CYTOGENETICS [facility] [address] [place] [address] * Yamil Case (Newly Diagnosed or Suspected New) (01/16/2024 9:41 AM CDT) Blood Peripheral blood specimen / Unknown CVC Line / Unknown 01/16/2024 9:41 AM CDT 01/16/2024 9:55 AM CDT Jackie Solomon APRN LAB BLOOD ORD ERABLES [facility] Unless otherwise noted, all lab tests performed by: Division of Pathology and Laboratory Medicine [address] [place] [id number] * EndLeukemia Mutation Panel V1 Interpretation and Report (01/16/2024 9:41 AM CDT) Pathology Accession N/A 01/22/2024 12:06 PM CDT MOLECULAR DIAGNOSTICS EndLeukemia Result Radha [facility] [id number] EndLeukemia Assay V1.1 Mutation Analysis Report: Clinical test requisition for mutation studies on the following genes was received: ASXL1, CEBPA, DNMT3A, EZH2, IDH1, IDH2, KIT, KRAS, NPM1, NRAS, RUNX1, SF3B1, SRSF2, TET2, TP53, U2AF1, ZRSR2 A next generation sequencing (NGS)-based analysis for the detection of somatic mutations in the coding sequence of a total of 81 genes was performed on the DNA extracted from the sample in our CLIA-certified molecular diagnostics laboratory. Interpretative findings are reported in the mutation screening summary table(s) below followed by specific details of detected variants. Mutation Screening Summary Interpretation Adan: Circled/Bold: Mutation (or variant) detected Underlined: Mutation testing requested (ordered gene) Asterisk: Additional confirmation studies in progress, addendum report will be issued Variants of probable somatic origin (somatic mutations) Gene DNA change Protein change Location VAF Type ASXL1 c.4243C>T p.R1415* Exon 13 48% SNV - Nonsense NRAS c.35G>T p.G12V Exon 2 41% SNV - Missense SRSF2 c.284C>A p.P95H Exon 1 47% SNV - Missense Variants of uncertain origin (germline versus somatic origin cannot be determined unequivocally) Gene DNA change Protein change Location VAF Type TET2 c.2305_2306dupCA p.Q769fs*44 Exon 3 37% Duplication - Frameshift Variants of probable germline origin Gene DNA change Protein change Location Type CSF3R c.2087T>C p.M696T Exon 17 SNV - Missense CUX1 c.484C>T p.L162F Exon 6 SNV - Missense TET2 c.1088C>T p.P363L Exon 3 SNV - Missense Comment: The selection and classification of variants for reporting incorporates review of available clinicopathologic information, correlation with current clinical presentation, any consultations with additional healthcare providers and exercise of medical judgement by the signout pathologist. GUIDE TO STANDARDIZED NOMENCLATURE AND EXPLANATION OF CHANGES: Variants identified are described using an implementation of a standardized nomenclature developed by the Human Genome Variation Society (HGVS, <http://www.hgvs.org /mutnomen/>). The normative Genbank gene reference sequence identifier and gene symbol in parentheses are provided, followed by the coding DNA sequence change (e.g., "c. 200A>G", which would mean that the position 200 adenine is changed to guanine), and then the inferred protein change (e.g., "p. V35C", which would mean that the amino acid at codon 35 is changed from valine to cysteine). Additional explanations for the DNA and protein changes seen in the current specimen are shown in the following tables: Explanation of DNA variant/mutation types seen in this specimen DNA Change SNV A single nucleotide difference (point mutation) has been identified in the patient sample relative to the reference wild-type gene sequence Duplication A sequence of contiguous DNA has been duplicated in the patient sample relative to the reference wild-type gene sequence Explanation of protein variant/mutation types seen in this specimen Protein Change Missense A single amino acid residue change in the patient sample relative to the reference wild-type protein sequence Nonsense A single nucleotide change resulting in a premature stop codon leading to a truncated protein product in the patient sample relative to the reference wild-type protein sequence Frameshift A mutation involving deletion or insertion of a non-triplet number of nucleotides in the patient sample relative to the reference wild-type sequence. Frameshift mutations generally result in a nonsense translation with early termination of translation. Additional information on genes/variants with findings identified on this assay: Gene Genomic Variant COSMIC dbSNP ClinVar ASXL1 chr20:[id number] C>T c.4243C>T p.R1415* [id number] CSF3R chr1:[id number] A>G c.2087T>C p.M696T CUX1 chr7:[id number] C>T c.484C>T p.L162F NRAS chr1:119178138 C>A c.35G>T p.G12V STZY056 [id number] SRSF2 chr17:16094793 G>T c.284C>A p.P95H TET2 chr4:906690775 C>T c.1088C>T p.P363L [id number] TET2 chr4:550861888 T>TCA c.2305_2306dupCA p.Q769fs*44 Link to COSMIC: <[email or web address]> Link to dbSNP: <https://www.ncbi.nl m.nih.gov/snp> Link to ClinVar: <https://www.ncbi.nl m.nih.gov/clinvar> Methodology: Test Platform: Sequencing libraries were prepared from genomic DNA using hybridization capture-based target enrichment of the genomic regions of interest (see the coverage details below). Bidirectional paired-end sequencing was performed using a next generation sequencing (NGS) platform to screen for single nucleotide variants and insertions/deletions (up to 52 base-pairs) . The genomic reference sequence used is genome GRCh37/hg19. The following software tools were utilized in the experimental setup and data analysis: [employer] Software 4.2.0.112, Real Time Analysis 2.11.30, Sequence Analysis Viewer 2.4.7 and Agiftidea.com.2.0.10 ([employer] Platform Application Center) EndLeukemia Regular Workflow 1.10. Detailed information about the signal-processing, basecalling, alignment, and variant calling algorithms are available upon request. Analytical Sensitivity: For this assay, sensitivity of detection is related in part to depth of coverage, tumor percentage, and allelic frequency for the mutation. Although the NGS platform is capable of achieving a much higher analytical sensitivity; for clinical purposes, we determined the effective lower limit of detection of this assay (analytical sensitivity) to be at 5% (one mutant allele in the background of nineteen wild type alleles) by taking into consideration the depth of coverage at a given base/s and the ability to confirm low level mutations using independent conventional platforms. Classification of Variants: - All gene symbols are as designated by the [employer]IS[employer] gene nomenclature committee (www.genenames.org <http://www.genename s.org>). For example, KMT2A is used in place of MLL per currently approved list of gene symbols. The variants are reported per the standardized mutation nomenclature guidelines by the human genome variation society (HGVS, www.hgvs.org <http://www.hgvs.org >). - The variants detected by this platform are classified into three groups based on both analytic findings such as allelic frequency and the currently available information in publicly available and periodically curated reference databases COSMIC version 64 (Catalog of Somatic Mutations in Cancer, [facility] [place], [place]) and dbSNP version 137 ([employer] [place] of [employer], [place]). o Probable somatic mutations o Variants for which a germline versus somatic origin cannot be determined unequivocally o Variants that are reported as germline polymorphisms in population studies/literature/m atched tumor-normal analysis on different patients in our laboratory - Silent mutations (mutations that do not result in an amino acid change) are not reported. - Very common germline polymorphisms (defined as variants otherwise fitting into group IV above, but with a population frequency of over 20% in our clinical laboratory sample cohort) are not reported. - Internal tandem duplication (ITD) mutations in FLT3 of variant allele frequency >= 5%? and SVLEN <= 100? are detected and reported on the current assay. Limitations of the test: - The primary purpose of this panel is to detect somatic mutations in genes involved in oncogenesis of this patient's tumor. The test or the results thereof should not be used to detect germline variants for hereditary cancer syndromes. If a hereditary cancer syndrome is suspected, separate testing of a germline sample should be performed using an appropriate assay. - This panel is not designed to detect germline variants for familial tumors. Given the coverage of broad genomic regions using next generation sequencing technology, variants known to be germline polymorphisms may be detected. These variants are of unknown clinical significance and are classified separately from the variants of potential somatic origin. - Matched non-tumor tissue from this patient has not been tested, therefore, the possibility of any detected mutation being a germline mutation cannot be completely ruled out. - The assay is designed to detect point mutations and smaller insertion/deletions. - VAF (variant allelic frequency) is the computed percentage ratio of number of sequencing reads that contain the specified mutation to the total number of sequencing reads at the corresponding genomic position. Nominally, computed VAF percentages provide an estimate of the relative proportion of wild-type and mutant alleles at specified genomic positions. The computed allelic frequency may be significantly impacted by a number of variables such as specimen quality, tumor purity, loss of heterozygosity or presence of copy number variations, sequencing platform-specific or bioinformatics related allelic bias, and non-linearity at low molecule counts. Computed VAF should not be used in isolation without correlation with patient's overall clinical presentation and all relevant pathologic information. - Variants detected at very low allelic frequencies not deemed to be confirmable by independent, orthogonal methods and/or in significant discordance with the percentage of tumor in the tested sample may be excluded as the clinical significance and reliability of such low level variant calls is not clear. Report annotation and generation software: A post-variant calling analysis and annotation tool, [employer] version 1.10.1.616, was used in the construction of this report. Sequencing coverage of the genes: Genomic regions interrogated in the panel include a combination of entire coding sequence, limited exons and selected hotspots as determined by reported distribution of mutations for the specific genes. The following table describes the extent and adequacy of coverage in this assay. Covered genes/exons/codons are defined as those having total coverage depth of greater than or equal to 250 reads, or for which an orthogonal mutation analysis testing has been performed. Mutations outside the optimally covered regions listed below may be detectable with diminished sensitivity, and cannot be ruled out. Coverage by gene and codon(s) tested with >250x coverage Gene Exons (codons) tested ANKRD26 (NM_014915) 1 (1-5) ASXL1 (NM_015338) 12-13 (363-1443), 13 (9769-8869) ASXL2 (NM_018263) 12-13 (381-1436) BCOR (NM_017745) 2-4 (1-512), 4-12 (514-1546), 13-15 (8234-5844), 15 (9771-6376) BCORL1 (NM_021946) 1-6 (1-1261), 6 (4140-4142), 6-12 (1468-7224), 12 (3616-4554) BRAF (NM_004333) 11 (439-477), 15 (581-620) BRINP3 (NM_199051) 2-8 (1-767) CALR (NM_004343) 9 (352-418) CBL (NM_005188) 7-9 (337-477) CBLB (NM_170662) 7-10 (282-469) CBLC (NM_012116) 7-10 (336-475) CEBPA (NM_004364) 1 (1-113), 1 (127-175), 1 (215-245), 1 (248-359) CREBBP (NM_004380) 1-8 (1-608), 9-31 (615-1943), 31 (3056-0093) CRLF2 (NM_022148) 6 (230-234) CSF3R (NM_156039) 14 (575-621), 17 (681-864) CUX1 (NM_181552) 2-6 (11-173), 6-9 (175-241), 10-14 (248-408) DDX41 (NM_016222) 1-17 (1-623) DNMT3A (NM_022552) 8-22 (286-861), 23 (866-913) EED (NM_003797) 1-2 (1-69), 2-8 (71-287), 9-12 (289-442) ELANE (NM_001972) 1-2 (1-48), 2 (68-75), 3-5 (93-268) ETNK1 (NM_018638) 3 (139-186) ETV6 (NM_001987) 1-8 (1-453) EZH2 (NM_004456) 2-5 (1-157), 5-6 (160-205), 7 (209-216), 8-19 (243-732), 20 (752) FBXW7 (NM_033632) 9-12 (413-708) FLT3 (NM_004119) 11-20 (437-847) GATA1 (NM_002049) 2-3 (1-85) GATA2 (NM_032638) 2-5 (1-377), 5-6 (379-481) GFI1 (NM_005263) 2 (2-39) GNAS (NM_000516) 8 (201-202), 11 (316-324) HNRNPK (NM_002140) 3-7 (1-108), 8-17 (111-465) HRAS (NM_005343) 2-3 (1-70), 3-4 (73-150) IDH1 (NM_005896) 4 (63-132) IDH2 (NM_002168) 4 (125-178) IKZF1 (NM_006060) 2-8 (1-443), 8 (446-520) IL2RG (NM_000206) 1-2 (1-45), 2-8 (51-370) IL7R (NM_002185) 5-7 (180-292) JAK1 (NM_002227) 3-22 (3-1023), 22-24 (0669-1134) JAK2 (NM_004972) 10 (406-442), 12-14 (505-622), 16 (665-711), 18 (762-805) JAK3 (NM_000215) 2-23 (1-1069) KDM6A (NM_021140) 1-9 (1-223), 9-19 (227-971), 19-21 (976-1070), 22-23 (2122-5416), 23-25 (7750-3639), 25-29 (2167-3233) KIT (NM_000222) 8-9 (411-514), 11 (550-592), 17 (788-828) KMT2A (NM_005933) 2-13 (145-1561), 14-15 (2736-3662), 27 (4957-2459), 27 (1382-3475), 27 (2752-5106), 27 (1292-8040) KRAS (NM_004985) 2-4 (1-150) MAP2K1 (NM_002755) 2 (28-91), 3 (98-146) MPL (NM_005373) 10 (490-522), 12 (552-636) NF1 (NM_001042492) 1-5 (1-190), 6 (202-218), 8-9 (244-309), 9-13 (311-468), 13-23 (478-1038), 24-26 (1340-0913), 26-31 (9577-6339), 31-35 (1826-0798), 35 (6504-2089), 36-38 (1439-3002), 39-47 (5912-0353), 47-52 (9046-8268), 52-58 (3978-6871) NOTCH1 (NM_017617) 26-28 (1188-4440), 34 (4745-6859), 34 (6823-9712) NPM1 (NM_002520) 11 (283-295) NRAS (NM_002524) 2-4 (1-150) PAX5 (NM_016734) 1-10 (1-392) PHF6 (NM_032458) 2-3 (1-79), 4-10 (81-366) PIGA (NM_002641) 2 (1-5), 2-6 (15-485) PML (NM_033238) 3 (201-256) RWVD67V (NM_001031698) 2-19 (2-609), 19-20 (612-658), 20-26 (662-893) PTEN (NM_000314) 7-8 (212-342) PTPN11 (NM_002834) 3-4 (47-126), 7 (253-285), 12 (461-463), 12-13 (465-533) RAD21 (NM_006265) 2-3 (1-81), 3-14 (83-632) LOUIE (NM_000964) 6-7 (211-338) RUNX1 (NM_001754) 2-9 (1-420), 9 (425-437) SETBP1 (NM_015559) 4 (839-886) SF1 (NM_004630) 1-12 (1-524), 13 (528-640) SF3A1 (NM_005877) 1-9 (1-424), 9-16 (427-794) SF3B1 (NM_012433) 13-16 (574-790) SH2B3 (NM_005475) 2 (1-121), 2 (132-170), 2-8 (211-576) SMC1A (NM_006306) 1-7 (1-415), 8-19 (419-983), 20-25 (992-1234) SMC3 (NM_005445) 1 (1-5), 2-6 (20-110), 6-16 (113-505), 16-17 (508-580), 17-20 (592-727), 20-29 (729-1218) SRSF2 (NM_003016) 1 (1-37), 1 (44-121) STAG1 (NM_005862) 2 (1-5), 3-12 (10-392), 13-22 (402-737), 22-29 (739-1049), 29-34 (9402-5773) STAG2 (NM_006603) 2-14 (1-442), 14-16 (840-539), 17-22 (548-751), 23-33 (756-1232) STAT3 (NM_139276) 17-22 (544-715) STAT5A (NM_003152) 3-7 (1-215), 7-20 (223-795) STAT5B (NM_012448) 16 (746-692) SUZ12 (NM_015355) 1-5 (15-169), 6 (174-175), 6-16 (180-740) TERC (NR_001566) 1 (1-41) TERT (NM_198253) 1 (1-24), 1-2 (32-172), 2-4 (235-630), 4-16 (633-1133) TET2 (NM_001127208) 3 (1-77), 3 (91-853), 3 (867-1027), 3-11 (1338-7853) TP53 (NM_000546) 2 (1-25), 4 (33-75), 4-11 (79-394) U2AF1 (NM_006758) 2 (15-44), 6 (117-161) U2AF2 (NM_007279) 1-2 (1-56), 3-5 (63-138), 5 (140-161), 6-12 (163-476) WT1 (NM_024426) 1 (7-64), 1 (75-98), 1-10 (127-523) ZRSR2 (NM_005089) 1-4 (1-90), 6-8 (134-257), 9-11 (267-483) Note. CRLF2 (NM_022148.2) exon 6 (codons 217-256) is also targeted in this assay, and coverage for this area has been manually reviewed to be adequate. DISCLAIMER: This test was developed and its performance characteristics determined by the Molecular Diagnostic Laboratory (M[facility]) at the [facility]. It has not been cleared by the U.S. Food and Drug Administration. However, such approval is not required for clinical implementation, and the test results on the ordered genes have been shown to be clinically useful. This laboratory is CAP accredited and CLIA certified to perform high complexity molecular testing for clinical purposes. 01/22/2024 12:06 PM CDT MOLECULAR DIAGNOSTICS Pathologist Signature . Test performed on 01/19/2024 Test performed on 01/22/2024 01/22/2024 12:06 PM CDT MOLECULAR DIAGNOSTICS Blood Peripheral blood specimen / Unknown CVC Line / Unknown 01/16/2024 9:41 AM CDT 01/16/2024 9:55 AM CDT Jackie Solomon APRN, MDA HP [facility] ([facility]) MOLECULAR DIAGNOSTICS [facility] [address] [place] [address] * HIV 1/2 Antigen/Antibody, Fourth Gen W/RFL (01/16/2024 9:41 AM CDT) HIV Ag/Ab, 4TH Gen NON-REACT EDGAR NON-REACT EDGAR 01/17/2024 5:02 PM CDT YAMILE (DEEJAY) Comment: HIV-1 antigen and HIV-1/HIV-2 antibodies were not detected. There is no laboratory evidence of HIV infection. PLEASE NOTE: This information has been disclosed to you from records whose confidentiality may be protected by state law. If your state requires such protection, then the state law prohibits you from making any further disclosure of the information without the specific written consent of the person to whom it pertains, or as otherwise permitted by law. A general authorization for the release of medical or other information is NOT sufficient for this purpose. For additional information please refer to http://education.[employer]/faq/CAU354 (This link is being provided for informational/ educational purposes only.) The performance of this assay has not been clinically validated in patients less than 2 years old. Blood Peripheral blood specimen / Unknown CVC Line / Unknown 01/16/2024 9:41 AM CDT 01/16/2024 9:55 AM CDT Thais QUEST (DEEJAY) - 01/17/2024 5:02 PM CDT Performing Organization Information: [facility] [address] [place] [address] Lise Biggs Jackie MartinezMacarioJayson TAMIKO LAB BLOOD ORD ERABLES YAMILE (DEEJAY) * Chromosome Analysis Interpretation and Report (01/16/2024 9:41 AM CDT) Clinical Indication Post-op Diagnosis: CMML 01/25/2024 10:57 AM CDT CYTOGENETICS Processed Specimen Type Bone Marrow 01/25/2024 10:57 AM CDT CYTOGENETICS Summary SEE INTERPRETATION. 01/25/2024 10:57 AM CDT CYTOGENETICS Karyotype 46,XY[7] 01/25/2024 10:57 AM CDT CYTOGENETICS Chromosome Analysis Interpretation No apparent clonal cytogenetic abnormality detected. Please note: Due to a low yield of metaphase cells, only seven metaphase cells are available for analysis, which is insufficient for an adequate cytogenetic analysis. Disease-associate d clone(s)/ sub-clones can t be entirely ruled out. Please see separate FISH and Optical Genome Mapping report(s). 01/25/2024 10:57 AM CDT CYTOGENETICS 24 hour Unstimulated Culture Yes 01/25/2024 10:57 AM CDT CYTOGENETICS 48 hour Unstimulated Culture Yes 01/25/2024 10:57 AM CDT CYTOGENETICS Cells Analyzed 7 01/25/2024 10:57 AM CDT CYTOGENETICS Cells Karyotyped 4 01/25/20 24 10:57 AM CDT CYTOGENETICS Normal Cells 7 01/25/2024 10:57 AM CDT CYTOGENETICS Chromosome Analysis Methodology Banding technique: GTL Imaging system: Leica Cytovision 01/25/2024 10:57 AM CDT CYTOGENETICS Chromosome Analysis Disclaimer This chromosomal analysis may not detect any "cryptic" chromosomal aberrations below current resolution, and clones with low mitotic index or at a low level. In applying this result to patient care, correlation with clinical, pathological and other laboratory findings are recommended. Data and/or image review for this report includes activity performed off-site at location: [id number]. 01/25/2024 10:57 AM CDT CYTOGENETICS Pathologist Signature . 01/25/2024 10:57 AM CDT CYTOGENETICS Blood Peripheral blood specimen / Unknown CVC Line / Unknown 01/16/2024 9:41 AM CDT 01/16/2024 9:55 AM CDT Jackie Solomon APRN [facility] HP CYTOGE NETICS (HP CG) CYTOGENETICS [facility] [address] [place] [address] * CG BCR/ABL1 t(9;22) FISH Interpretation and Report (01/16/2024 9:41 AM CDT) Clinical Indication Post-op Diagnosis: CMML 01/17/2024 1:56 PM CDT CYTOGENETICS Processed Specimen Type Blood Smear 01/17/2024 1:56 PM CDT CYTOGENETICS BCR/ABL1 FISH SUMMARY: NORMAL RESULT nuc jerad(ABL1,BCR)x2[2 00] INTERPRETATION: 200 cells have been analyzed, the results are within the normal limits. 01/17/2024 1:56 PM CDT CYTOGENETICS (2R2G)-Normal 100.0 % 01/17/2024 1:56 PM CDT CYTOGENETICS BCR/ABL1 FISH Methodology Technique: fluorescence in situ hybridization (FISH) Probe used: LSI BCR (22q11.2 - spectrum green)/ABL1 (9q34.1 - spectrum orange) ES dual color rearrangement probe. Vendor: [employer] 01/17/2024 1:56 PM CDT CYTOGENETICS [facility] CG FISH DISCLAIMER This test was developed and its performance determined by .[facility] as required by the CLIA '88 regulations. It has not been cleared nor approved for specific uses by the U.S. Food and Drug Administration. In applying these results to patient care, correlation with clinical, pathological and other laboratory data are recommended. 01/17/2024 1:56 PM CDT CYTOGENETICS Pathologist Signature . 01/17/2024 1:56 PM CDT CYTOGENETICS Blood Peripheral blood specimen / Unknown CVC Line / Unknown 01/16/2024 9:41 AM CDT 01/16/2024 9:55 AM CDT Jackie Solomon APRN [facility] HP CYTOGE NETICS (HP CG) CYTOGENETICS [facility] [place] [facility] [address] [place] [address] * CG KMT2A(MLL) FISH Interpretation and Report (01/16/2024 9:41 AM CDT) Clinical Indication Post-op Diagnosis: CMML 01/17/2024 1:57 PM CDT CYTOGENETICS Processed Specimen Type Blood Smear 01/17/2024 1:57 PM CDT CYTOGENETICS KMT2A (MLL) FISH SUMMARY: NORMAL RESULT nuc jerad([id number])[200] INTERPRETATION: 200 cells have been analyzed, the results are within the normal limits. 01/17/2024 1:57 PM CDT CYTOGENETICS (2F)-Normal 100.0 % 01/17/2024 1:57 PM CDT CYTOGENETICS KMT2A (MLL) FISH Methodology Technique: fluorescence in situ hybridization (FISH) Probe used: KMT2A (MLL) dual color breakapart rearrangement probe, located at 11q23 5'KMT2A (MLL) - centromeric (spectrum green) / 3'KMT2A (MLL) - telomeric (spectrum orange) Vendor: [employer] 01/17/2024 1:57 PM CDT CYTOGENETICS [facility] CG FISH DISCLAIMER This test was developed and its performance determined by .[facility] Cytogenetics Laboratory as required by the CLIA '88 regulations. It has not been cleared nor approved for specific uses by the U.S. Food and Drug Administration. In applying these results to patient care, correlation with clinical, pathological and other laboratory data are recommended. 01/17/2024 1:57 PM CDT CYTOGENETICS Pathologist Signature . 01/17/2024 1:57 PM CDT CYTOGENETICS Blood Peripheral blood specimen / Unknown CVC Line / Unknown 01/16/2024 9:41 AM CDT 01/16/2024 9:55 AM CDT Jackie Solomon APRN [facility] HP CYTOGE NETICS (HP CG) CYTOGENETICS [facility] [place] [facility]ogen[facility] [address] [place] [address] * Hepatitis C Virus RNA Detect/Quant (01/16/2024 9:41 AM CDT) [facility] HepC RNA PCR [facility] Undetected Undetected IU/mL 01/18/2024 4:30 PM CDT [facility] KRISTIKIRSTEN Comment: Result in log IU/mL is Undetected. ADDITIONAL INFORMATION The quantification range of this assay is 15 to 100,000,000 IU/mL (1.18 log to 8.00 log IU/mL). Testing was performed using the grover HCV test ([employer] Test Performed by: [place] [address] Fellmongery Worker: Delmy Velasquez Ph.D.; CLIA# [id number] Blood Peripheral blood specimen / Unknown CVC Line / Unknown 01/16/2024 9:41 AM CDT 01/16/2024 9:55 AM CDT Jackie Solomon APRN LAB BLOOD ORD ERABLES Performing Organization Address City/[facility]/ZIP Co de Phone Number [facility] DEEJAY * Hepatitis B Total Ig Core Ab (SCREENING) (anti-HBc total Ig; HBcAb total Ig) (01/16/2024 9:41 AM CDT) [facility] HBcAb. Non Reactive Non Reactive 01/16/2024 12:09 PM CDT [facility] Blood Peripheral blood specimen / Unknown CVC Line / Unknown 01/16/2024 9:41 AM CDT 01/16/2024 9:55 AM CDT Jackie Solomon APRN LAB BLOOD ORD ERABLES [facility] Unless otherwise noted, all lab tests performed by: Division of Pathology and Laboratory Medicine [address] [place] [address] * FC MRD AML Interpretation and Report (01/16/2024 9:41 AM CDT) MRD AML Interpretation Blood, Periph venous Too few immature cells, inadequate for evaluation. Monocytes increased (18%) with dim CD7 and partial CD56 expression. 01/18/2024 10:45 AM CDT FLOW CYTOMETRY Aberrant Population, MRD AML None Detected 01/18/2024 10:45 AM CDT FLOW CYTOMETRY Total Events Acq 1,184,409 01/18/20 10:45 AM CDT FLOW CYTOMETRY Nucleated Events 1,131,147 01/18/20 10:45 AM CDT FLOW CYTOMETRY ABERRANT CELL PHENOTYPE 01/18/2024 10:45 AM CDT FLOW CYTOMETRY MRD AML Markers Assessed CD4, CD5, CD7, CD13, CD14, CD15, CD19, CD25, CD33, CD34, CD36, CD38, CD45, CD54, CD56, CD64, CD117, CD123, CD133, HLA-DR 01/18/2024 10:45 AM CDT FLOW CYTOMETRY Disclaimer This assay has been validated to a sensitivity level of 0.1% (1 cell in 1,000). For a valid negative result. It requires an adequate specimen, with acquisition of at least 200,000 nucleated events and 200 CD34+ myeloid precursors in at least one of the 2 tubes containing markers to assess the original leukemic associate immunophenotype (LAIP). Cases with suboptimal events obtained (e.g.<200,000 nucleated events but =200 CD34+ myeloid precursors) may be reported as "no AML blasts detected in a limited sample" due to the loss of test sensitivity. A positive result can be reported with fewer events; however, the reliability of quantification may be affected. In some cases, a positive result may reach a level below 0.1% if a large number of events is obtained and or the original LAIP is distinctively different from normal. Interpretive comments are based on review by the pathologist of the results of each antibody of this specimen. Each case is unique; monoclonal antibody therapies, the age of specimen at staining, original LAIP and analyzed events may affect the assay's limit of detection. This test was developed and its performance characteristics determined by [facility] Clinical Flow Cytometry Laboratory. It has not been cleared or approved by the US Food and Drug Administration. FDA does not require this test go through premarket FDA review. This test is used for clinical purposes. It should not be regarded as investigational or for research. This laboratory is certified under the Clinical Laboratory Improvement Amendment of 1988 (CLIA) as qualified to perform high complexity clinical laboratory testing. 01/18/2024 10:45 AM CDT FLOW CYTOMETRY Pathologist Signature . 01/18/2024 10:45 AM CDT FLOW CYTOMETRY Blood Peripheral blood specimen / Unknown CVC Line / Unknown 01/16/2024 9:41 AM CDT 01/16/2024 9:55 AM CDT Jackie Solomon APRN [facility] HP FLOW C YTOMETRY (HP FC) FLOW CYTOMETRY [facility] Flow Cytometry Laboratory [address] [place] [address] * Potassium Venous (01/16/2024 9:41 AM CDT) Venous Potassium 3.8 3.4 - 4.5 mmol/L 01/16/2024 9:57 AM CDT [facility] Oxygen FLOW Rate/ FiO2 01/16/2024 9:57 AM CDT [facility] O2 Therapy 01/16/2024 9:57 AM CDT [facility] Blood Peripheral blood specimen / Unknown CVC Line / Unknown 01/16/2024 9:41 AM CDT 01/16/2024 9:54 AM CDT Jackie Solomon APRN LAB BLOOD ORD ERABLES [facility] Unless otherwise noted, all lab tests performed by: Division of Pathology and Laboratory Medicine [address] [place] [id number] * Peripheral Smear for Bone Marrow (01/16/2024 9:41 AM CDT) Blood Peripheral blood specimen / Unknown CVC Line / Unknown 01/16/2024 9:41 AM CDT 01/16/2024 9:55 AM CDT Jackie Solomon APRN LAB BLOOD ORD ERABLES Performing Organization Address City/[facility]/ZIP Co de Phone Number [facility] Unless otherwise noted, all lab tests performed by: Division of Pathology and Laboratory Medicine [address] [place] [id number] * (ABNORMAL) Erythropoietin Level (01/16/2024 9:41 AM CDT) Pathologist [facility] Erythropoietin Level 31.1(H) 2.6 - 18.5 mIU/mL 01/16/2024 11:00 AM CDT [facility] Blood Peripheral blood specimen / Unknown CVC Line / Unknown 01/16/2024 9:41 AM CDT 01/16/2024 9:55 AM CDT Jackie Solomon APRN LAB BLOOD ORD ERABLES Performing Organization Address [facility] Co de Phone Number [facility] Unless otherwise noted, all lab tests performed by: Division of Pathology and Laboratory Medicine [address] [place] [id number] * HTLV I/II Ab (01/16/2024 9:41 AM CDT) [facility] HTLV I/II Ab Screen-[place] Negative Negative 01/18/2024 9:34 PM CDT [facility] DEEJAY Comment: Test Performed by: [address] [address] Fellmongery Worker: Delmy Velasquez Ph.D.; CLIA# [id number] Blood Peripheral blood specimen / Unknown CVC Line / Unknown 01/16/2024 9:41 AM CDT 01/16/2024 9:55 AM CDT Jackie Solomon APRN LAB BLOOD ORD ERABLES [facility] BE[facility]ER * Hepatitis Surface B Ag (01/16/2024 9:41 AM CDT) Pathologist [facility] HBsAg. Non Reactive Non Reactive 01/16/2024 12:09 PM CDT [facility] Blood Peripheral blood specimen / Unknown CVC Line / Unknown 01/16/2024 9:41 AM CDT 01/16/2024 9:55 AM CDT Jackie Solomon APRN LAB BLOOD ORD ERABLES [facility] Unless otherwise noted, all lab tests performed by: Division of Pathology and Laboratory Medicine [address] [place] [id number] * Reticulocyte Count Automated (01/16/2024 9:41 AM CDT) [facility] Reticulocyte Count Automated 2.03 0.92 - 2.71 % 01/16/2024 10:27 AM CDT [facility] RETHE 36.3 29.9 - 38.4 pg 01/16/2024 10:27 AM CDT [facility] IRF 21.0 4.4 - 22.0 % 01/16/2024 10:27 AM CDT [facility] Retic Absolute 0.0603 0.04 - 0.13 M/uL 01/16/2024 10:27 AM CDT [facility] Blood Peripheral blood specimen / Unknown CVC Line / Unknown 01/16/2024 9:41 AM CDT 01/16/2024 9:55 AM CDT Jackie Solomon APRN LAB BLOOD ORD ERABLES [facility] Unless otherwise noted, all lab tests performed by: Division of Pathology and Laboratory Medicine [address] [place] [id number] * Vitamin B12 Level (01/16/2024 9:41 AM CDT) [facility] Vitamin B12 Level 1,108 232 - 1,245 pg/mL 01/16/2024 10:45 AM CDT [facility] Is patient fasting? Yes 01/16/2024 10:45 AM CDT [facility] Blood Peripheral blood specimen / Unknown CVC Line / Unknown 01/16/2024 9:41 AM CDT 01/16/2024 9:55 AM CDT Narrative [facility] - 01/16/2024 10:45 AM CDT Reference range established based on adult population. Jackie Solomon APRN LAB BLOOD ORD ERABLES [facility] Unless otherwise noted, all lab tests performed by: Division of Pathology and Laboratory Medicine [facility] [place] [address] * Echocardiogram 2D Complete (01/16/2024 8:44 AM CDT) EF 57 ISCV 01/16/2024 8:25 AM CDT [facility] 10[facility]24 AM CDT Echocardiographic Report Interpretation Summary A complete two-dimensional transthoracic echocardiogram was performed (2D, M- mode, Spectral and color Doppler). There is no comparison study available. The study was technically difficult. The left ventricle is normal in size. Left ventricular systolic function is normal. LV ejection fraction calculated using the bi-plane method of disks is 57 %. Right ventricular systolic pressure is normal. There is no pericardial effusion. Left Ventricle: The left ventricle is normal in size. There is normal left ventricular wall thickness. Left ventricular systolic function is normal. LV ejection fraction calculated using the bi-plane method of disks is 57 %. Septal motion is consistent with conduction abnormality. I WMSI = 1.00 % Normal = 100 Segments Size X - Cannot 2 - 1-2 small Interpret 1 - Normal Hypokinetic 3 - Akinetic 4 - Dyskinetic3- 5 moderate 5 - Aneurysmal 6-14 large 15-16 diffuse Cardiac Mechanics/Speckle Tracking Imaging: Strain Imaging was performed; GLPS avg = -15.9%. Abnormal global longitudinal peak systolic value. Speckle tracking imaging was technically limited. Diastology: Impaired LV relaxation pattern of diastolic dysfunction, Doppler suggests normal LA pressures. Right Ventricle: The right ventricle is grossly normal size. The right ventricular systolic function is normal. Atria: Atria are normal in size. Likely artifact seen across RA on subcostal views (doubt RA catheter or pacemaker). Mitral Valve: Mild thickening changes are noted. There is no mitral valve stenosis. Tricuspid Valve: The tricuspid valve is not well visualized, but is grossly normal. There is trace tricuspid regurgitation. Estimated RVSP is 21-26mmHg. Right ventricular systolic pressure is normal. Aortic Valve: The aortic valve is not well visualized. The aortic valve opens well. Three cusps cannot be clearly identified but unlikely bicuspid. Pulmonic Valve: The pulmonic valve is not well visualized. There is no pulmonic valvular stenosis. Trace pulmonic valvular regurgitation. Great Vessels: The aortic root is not well visualized but is probably normal size. The inferior vena cava demonstrates normal size and normal respiratory variation. Pericardium/Pleural: There is no pericardial effusion. MMode/2D Measurements IVSd: 1.0 cm LVIDd: 4.8 cm LVIDs: 3.4 cm LVPWd: 1.0 cm FS: 29.6 % Ao root diam: 3.3 cm Ao root area: 8.4 cm2 LA dimension: 3.6 cm LVOT diam: 2.4 cm EDV(MOD-A4C): 56.3 ml ESV(MOD-A4C): 24.3 ml LVOT area: 4.6 cm2 EF(MOD-A4C): 56.8 % EDV(MOD-A2C): 101.5 ml ESV(MOD-A2C): 43.8 ml EDV(MOD-bp): 81.6 ml EF(MOD-A2C): 56.9 % ESV(MOD-bp): 35.0 ml EF(MOD-bp): 57.1 % LAV(MOD-A2C): 62.4 ml LAV(MOD-A4C): 40.6 ml EDV (MOD-bp) Index: 36.9 ml/m2 LAV(MOD-bp): 54.1 ml LAV(MOD-bp) Indexed: 24.5 ml/m2 ESV (MOD-bp) Index: 15.8 ml/m2 RWT: 0.42 cm TAPSE (>1.6): 1.4 cm Doppler Measurements MV E max rosa elena: 64.5 cm/sec MV V2 max: 100.8 cm/sec MV A max rosa elena: 97.4 cm/sec MV max P.1 mmHg MV E/A: 0.66 MV V2 mean: 54.7 cm/sec MV mean P.4 mmHg MV V2 VTI: 16.6 cm MVA(VTI): 4.1 cm2 Ao V2 max: 99.7 cm/sec LV V1 max P.5 mmHg Ao max P.0 mmHg LV V1 mean P.4 mmHg Ao V2 mean: 64.9 cm/sec LV V1 max: 79.8 cm/sec Ao mean P.9 mmHg LV V1 mean: 55.8 cm/sec Ao V2 VTI: 16.4 cm LV V1 VTI: 14.6 cm RUBINA(I,D): 4.1 cm2 RUBINA(V,D): 3.7 cm2 SV(LVOT): 67.8 ml PA V2 max: 91.3 cm/sec PA max P.3 mmHg PA V2 mean: 54.7 cm/sec PA mean P.4 mmHg PA V2 VTI: 15.2 cm Med Peak E' Ros Aelena: 5.0 cm/sec Lat Peak E' Rosa Elena: 10.7 cm/sec TR max rosa elena: 229.0 cm/sec RAP systole: 3.0 mmHg TR max P.0 mmHg RVSP(TR): 24.0 mmHg RV S Vel_phl: 7.0 cm/sec RUBINA Index (I,D): 1.9 RUBINA Index (V,D): 1.7 Dimensionless Index: 0.80 E/e' (avg): 8.2 E/e' (lat): 6.0 E/e' (sept): 12.8 Procedure Note Graciela Benjamin MD - 01/16/2024 Echocardiographic Report Interpretation Summary A complete two-dimensional transthoracic echocardiogram was performed (2D,M- mode, Spectral and color Doppler). There is no comparison studyavailable. The study was technically difficult. The left ventricle is normal in size. Left ventricular systolic function is normal. LV ejection fraction calculated using the bi-plane method of disks is 57%. Right ventricular systolic pressure is normal. There is no pericardial effusion. Left Ventricle: The left ventricle is normal in size. There is normal left ventricularwall thickness. Left ventricular systolic function is normal. LV ejectionfraction calculated using the bi-plane method of disks is 57 %. Septalmotion is consistent with conduction abnormality. I WMSI = 1.00 % Normal = 100 Segments Size X - Cannot 2 - 1-2small Interpret 1 - Normal Hypokinetic 3 - Akinetic 4 - Dyskinetic3-5moderate 5 - Aneurysmal6-14 large 15-16 diffuse Cardiac Mechanics/Speckle Tracking Imaging: Strain Imaging was performed; GLPS avg = -15.9%. Abnormal globallongitudinal peak systolic value. Speckle tracking imaging was technicallylimited. Diastology: Impaired LV relaxation pattern of diastolic dysfunction, Doppler suggestsnormal LA pressures. Right Ventricle: The right ventricle is grossly normal size. The right ventricular systolicfunction is normal. Atria: Atria are normal in size. Likely artifact seen across RA on subcostalviews (doubt RA catheter or pacemaker). Mitral Valve: Mild thickening changes are noted. There is no mitral valve stenosis. Tricuspid Valve: The tricuspid valve is not well visualized, but is grossly normal. Thereis trace tricuspid regurgitation. Estimated RVSP is 21-26mmHg. Rightventricular systolic pressure is normal. Aortic Valve: The aortic valve is not well visualized. The aortic valve opens well.Three cusps cannot be clearly identified but unlikely bicuspid. Pulmonic Valve: The pulmonic valve is not well visualized. There is no pulmonic valvularstenosis. Trace pulmonic valvular regurgitation. Great Vessels: The aortic root is not well visualized but is probably normal size. Theinferior vena cava demonstrates normal size and normal respiratoryvariation. Pericardium/Pleural: There is no pericardial effusion. MMode/2D Measurements IVSd: 1.0 cmLVIDd: 4.8 cm LVIDs: 3.4 cm LVPWd: 1.0 cm FS: 29.6 %Ao root diam: 3.3 cm Ao root area: 8.4 cm2 LA dimension: 3.6 cm LVOT diam: 2.4 cmEDV(MOD-A4C): 56.3 ml ESV(MOD-A4C): 24.3 ml LVOT area: 4.6 cm2EF(MOD-A4C): 56.8 % EDV(MOD-A2C): 101.5 ml ESV(MOD-A2C): 43.8 mlEDV(MOD-bp): 81.6 ml EF(MOD-A2C): 56.9 %ESV(MOD-bp): 35.0 ml EF(MOD-bp): 57.1 % LAV(MOD-A2C): 62.4 ml LAV(MOD-A4C): 40.6 mlEDV (MOD-bp) Index: 36.9 ml/m2 LAV(MOD-bp): 54.1 ml LAV(MOD-bp) Indexed: 24.5 ml/m2 ESV (MOD-bp) Index: 15.8 ml/m2RWT: 0.42 cm TAPSE (>1.6): 1.4 cm Doppler Measurements MV E max rosa elena: 64.5 cm/secMV V2 max: 100.8 cm/sec MV A max rosa elena: 97.4 cm/secMV max P.1 mmHg MV E/A: 0.66MV V2 mean: 54.7 cm/sec MV mean P.4 mmHg MV V2 VTI: 16.6 cm MVA(VTI): 4.1 cm2 Ao V2 max: 99.7 cm/secLV V1 max P.5 mmHg Ao max P.0 mmHgLV V1 mean P.4 mmHg Ao V2 mean: 64.9 cm/secLV V1 max: 79.8 cm/sec Ao mean P.9 mmHgLV V1 mean: 55.8 cm/sec Ao V2 VTI: 16.4 cmLV V1 VTI: 14.6 cm RUBINA(I,D): 4.1 cm2 RUBINA(V,D): 3.7 cm2 SV(LVOT): 67.8 mlPA V2 max: 91.3 cm/sec PA max P.3 mmHg PA V2 mean: 54.7 cm/sec PA mean P.4 mmHg PA V2 VTI: 15.2 cm Med Peak E' Rosa Elena: 5.0 cm/secLat Peak E' Rosa Elena: 10.7 cm/sec TR max rosa elena: 229.0 cm/secRAP systole: 3.0 mmHg TR max P.0 mmHg RVSP(TR): 24.0 mmHg RV S Vel_phl: 7.0 cm/secAVA Index (I,D): 1.9 RUBINA Index (V,D): 1.7Dimensionless Index: 0.80 E/e' (avg): 8.2E/e' (lat): 6.0 E/e' (sept): 12.8 Bernarda Duvall APRN CV ECHO ORDERABLES Performing Organization Address City/[facility]/ZIP Co de Phone Number ISCV * (ABNORMAL) NT-Pro BNP (In-House) (01/16/2024 1:14 AM CDT) Only the most recent of2 resultswithin the time period is included. NT-ProBNP 2,694(H) <=450 pg/mL 01/16/2024 8:46 AM CDT [facility] Blood Peripheral blood specimen / Unknown CVC Line / Unknown 01/16/2024 1:14 AM CDT 01/16/2024 1:22 AM CDT Jackie Solomon APRN LAB BLOOD ORD ERABLES Performing Organization Address [facility] Co de Phone Number [facility] Unless otherwise noted, all lab tests performed by: Division of Pathology and Laboratory Medicine [address] [place] [id number] * Thyroid Stimulating Hormone (01/16/2024 1:14 AM CDT) Only the most recent of2 resultswithin the time period is included. Thyroid Stimulating Hormone 2.60 0.27 - 4.20 mcunit/mL 01/16/2024 8:32 AM CDT [facility] Blood Peripheral blood specimen / Unknown CVC Line / Unknown 01/16/2024 1:14 AM CDT 01/16/2024 1:22 AM CDT Jackie Solomon APRN LAB BLOOD ORD ERABLES Performing Organization Address City/[facility]/ZIP Co de Phone Number [facility] Unless otherwise noted, all lab tests performed by: Division of Pathology and Laboratory Medicine [address] [place] [id number] * T4 (01/16/2024 1:14 AM CDT) Pathologist [facility] Thyroxine 4.7 4.5 - 11.7 mcg/dL 01/16/2024 8:32 AM CDT [facility] Blood Peripheral blood specimen / Unknown CVC Line / Unknown 01/16/2024 1:14 AM CDT 01/16/2024 1:22 AM CDT Jackie Solomon APRN LAB BLOOD ORD ERABLES [facility] Unless otherwise noted, all lab tests performed by: Division of Pathology and Laboratory Medicine [address] [place] [id number] * Ferritin (01/16/2024 1:14 AM CDT) [facility] Ferritin Level 261 30 - 400 ng/mL 01/16/2024 8:32 AM CDT [facility] Blood Peripheral blood specimen / Unknown CVC Line / Unknown 01/16/2024 1:14 AM CDT 01/16/2024 1:22 AM CDT Narrative [facility] - 01/16/2024 8:32 AM CDT Reference range established for age 20 - 60 years Jackie Solomon APRN LAB BLOOD ORD ERABLES [facility] Unless otherwise noted, all lab tests performed by: Division of Pathology and Laboratory Medicine [address] [place] [id number] * (ABNORMAL) Urinalysis Microscopic Exam (01/16/2024 1:00 AM CDT) [facility] Urine Mucous Trace Not Seen, Trace /HPF 01/16/2024 2:00 AM CDT [facility] Urine Bacteria Not Seen Not Seen /HPF 01/16/2024 2:00 AM CDT [facility] Urine Squamous Epithelial Cells Not Seen Not Seen, OCC, Rare /HPF 01/16/2024 2:00 AM CDT [facility] Urine Amorphous Crystal OCC(A) Not Seen /HPF 01/16/2024 2:00 AM CDT [facility] Urine WBC 1 <=2 /HPF 01/16/2024 2:00 AM CDT [facility] Urine RBC 3(H) <=2 /HPF 01/16/2024 2:00 AM CDT [facility] Urine (Urine Sagastume) Non-blood Collection / Unknown 01/16/2024 1:00 AM CDT 01/16/2024 1:27 AM CDT Bernarda Jadiel MORRISON LAB BLOOD ORDERABLES [facility] Unless otherwise noted, all lab tests performed by: Division of Pathology and Laboratory Medicine [address] [place] [id number] * (ABNORMAL) Urinalysis w/Microscopic if Indicated (01/16/2024 1:00 AM CDT) Urine Appearance Hazy(A) Clear 01/16/20 1:36 AM CDT [facility] Urine Color Straw Colorless, Straw, Yellow, Dark Yellow, Straw-Yellow 01/16/2024 1:36 AM CDT [facility] Urine Specific [place] 1.013 1.003 - 1.035 01/16/2024 1:36 AM CDT [facility] Urine pH 5.5 5.0 - 8.0 01/16/2024 1:36 AM CDT [facility] Urine Glucose Negative Negative mg/dL 01/16/2024 1:36 AM CDT [facility] Urine Ketones Negative Negative mg/dL 01/16/2024 1:36 AM CDT [facility] Urine Blood Small(A) Negative 01/16/2024 1:36 AM CDT [facility] Urine Protein 20(A) Negative mg/dL 01/16/2024 1:36 AM CDT [facility] Urine Bilirubin Negative Negative 1:36 AM CDT [facility] Urine Urobilinogen Negative Negative 01/16/2024 1:36 AM CDT [facility] Urine Nitrite Negative Negative 01/16/2024 1:36 AM CDT [facility] Urine Leukocyte Esterase Negative Negative 01/16/2024 1:36 AM CDT [facility] Urine (Urine Sagastume) Non-blood Collection / Unknown 01/16/2024 1:00 AM CDT 01/16/2024 1:27 AM CDT Narrative [facility] - 01/16/2024 1:36 AM CDT Some reporting parameters within the Urinalysis test have changed due to the implementation of new instrumentation in the [facility], allowing greater sensitivity of measurement. Urinalysis results reported by the [facility] using existing instrumentation, as well as Urinalysis testing performed manually or by back-up methodology at the main [place], will remain relatively unchanged. New reporting parameters and units will now be reported for all campuses. Bernarda Duvall APRN URINE ORDERABLES Performing Organization Address City/[facility]/ZIP Co de Phone Number [facility] Unless otherwise noted, all lab tests performed by: Division of Pathology and Laboratory Medicine [address] [place] [id number] * EKG, 12-Lead (Portable) (01/16/2024) Bernarda Duvall APRN ECG ORDERABLES Performing Organization Address [facility] Co de Phone Number [facility] IECG * Confirm ABORh (01/15/2024 10:45 PM CDT) ABORh Confirm B POS 01/15/2024 10:17 PM CDT [facility] Blood Peripheral blood specimen / Unknown CVC Line / Unknown 01/15/2024 10:45 PM CDT 01/15/2024 10:52 PM CDT Bernarda Duvall APRN BLOOD BANK TEST ORDE RABLES [facility] [id number] [place] [address] * VRE Culture (01/15/2024 10:40 PM CDT) Pathologist [facility] VRE Culture No Vancomycin-Resi stant Enterococci isolated. 01/17/2024 2:27 PM CDT [facility] Swab Rectum structure / Unknown Non-blood Collection / Unknown 01/15/2024 10:40 PM CDT 01/15/2024 10:52 PM CDT Bernarda Duvall APRN MICROBIOLOGY - GENER AL ORDERABLES [facility] Unless otherwise noted, all lab tests performed by: Division of Pathology and Laboratory Medicine [address] [place] [id number] * Blood Culture Peripheral (01/15/2024 10:26 PM CDT) [facility] Blood Culture No Growth. 01/21/2024 12:01 AM CDT [facility] Blood Peripheral blood specimen / Unknown CVC Line / Unknown 01/15/2024 10:26 PM CDT 01/15/2024 10:33 PM CDT Bernarda Duvall APRN MICROBIOLOGY - GENER AL ORDERABLES Performing Organization Address City/[facility]/ZIP Co de Phone Number [facility] Unless otherwise noted, all lab tests performed by: Division of Pathology and Laboratory Medicine [address] [place] [id number] * (ABNORMAL) Triiodothyronine (01/15/2024 10:26 PM CDT) [facility] Triiodothyronine 46(L) 80 - 200 ng/dL 01/15/2024 11:13 PM CDT [facility] Blood Peripheral blood specimen / Unknown CVC Line / Unknown 01/15/2024 10:26 PM CDT 01/15/2024 10:33 PM CDT Bernarda Duvall APRN LAB BLOOD ORDERABLES [facility] Unless otherwise noted, all lab tests performed by: Division of Pathology and Laboratory Medicine [address] [place] [id number] * Thyroxine Free (01/15/2024 10:26 PM CDT) T4 (Thyroxine) Free 1.65 0.92 - 1.68 ng/dL 01/15/2024 11:13 PM CDT [facility] Blood Peripheral blood specimen / Unknown CVC Line / Unknown 01/15/2024 10:26 PM CDT 01/15/2024 10:33 PM CDT Bernarda Duvall APRN LAB BLOOD ORDERABLES [facility] Unless otherwise noted, all lab tests performed by: Division of Pathology and Laboratory Medicine [address] [place] [id number] * (ABNORMAL) Blood Gas Venous (01/15/2024 10:26 PM CDT) Pathologist [facility] pH Venous 7.37 7.32 - 7.43 01/15/2024 10:34 PM CDT [facility] P CO2 Venous 33.9(L) 41.0 - 51.0 mmHg 01/15/2024 10:34 PM CDT [facility] P O2 Venous 29 mmHg 01/15/2024 10:34 PM CDT [facility] Bicarbonate Venous 20(L) 21 - 28 mmol/L 01/15/2024 10:34 PM CDT [facility] Base Excess Venous -5(L) -2 - 3 mmol/L 01/15/2024 10:34 PM CDT [facility] Oxygen Saturation Venous 53 % 01/15/2024 10:34 PM CDT [facility] Oxygen FLOW Rate/ FiO2 01/15/2024 10:34 PM CDT [facility] O2 Therapy 01/15/2024 10:34 PM CDT [facility] Blood Peripheral blood specimen / Unknown CVC Line / Unknown 01/15/2024 10:26 PM CDT 01/15/2024 10:32 PM CDT Bernarda Duvall APRN LAB BLOOD ORDERABLES [facility] Unless otherwise noted, all lab tests performed by: Division of Pathology and Laboratory Medicine [address] [place] [id number] * (ABNORMAL) Calcium Level (01/15/2024 10:26 PM CDT) Pathologist [facility] Calcium Level Total 7.9(L) 8.2 - 10.2 mg/dL 01/15/2024 11:06 PM CDT [facility] Blood Peripheral blood specimen / Unknown CVC Line / Unknown 01/15/2024 10:26 PM CDT 01/15/2024 10:33 PM CDT Bernarda Duvall APRN LAB BLOOD ORDERABLES [facility] Unless otherwise noted, all lab tests performed by: Division of Pathology and Laboratory Medicine [address] [place] [id number] * (ABNORMAL) Cardiac Panel (01/15/2024 10:25 PM CDT) Pathologist [facility] Creatine Kinase 30(L) 39 - 308 U/L 01/15/2024 10:56 PM CDT [facility] CKMB 2.6 <=10.4 ng/mL 01/15/2024 10:56 PM CDT [facility] Troponin T 37(H) <=19 ng/L 01/15/2024 10:56 PM CDT [facility] Comment: < 19 ng/L Suggest retest at 3 to 6 hours later to rule out myocardial infarction >= 19 to <=52 ng/L Possible myocardial injury. Suggest retest at 3 hours. - a change of < 20 ng/L, retest at 6 hours - a change of >= 20 ng/L, suggestive of myocardial infarction > 52 ng/L Suggestive of myocardial infarction Critical value will be reported when cTnT is > 52 ng/L and only reported for the first in a series. Hemolyzed specimens with Hemolysis Index >100 (100 mg/dl or moderate hemolysis) may cause interferences and falsely low results. Blood Peripheral blood specimen / Unknown CVC Line / Unknown 01/15/2024 10:25 PM CDT 01/15/2024 10:33 PM CDT Bernarda Duvall APRN LAB BLOOD ORDERABLES [facility] Unless otherwise noted, all lab tests performed by: Division of Pathology and Laboratory Medicine [address] [place] [address] * OSI Chest (01/15/2024 9:13 AM CDT) Narrative Systemgenerated, Documentation - 01/18/2024 9:13 AM CDT Study acquired at another institution. For comparison only. No [facility] originated interpretation requested or available. Mario Alberto Ricci MD IMG OUTSIDE IMAGE ORDERABLES * OSI CT Brain (01/15/2024 9:13 AM CDT) Narrative Systemgenerated, Documentation - 01/18/2024 9:13 AM CDT Study acquired at another institution. For comparison only. No [facility] originated interpretation requested or available. Mario Alberto Ricci MD IMG OUTSIDE IMAGE ORDERABLES * OSI CT Abdomen and Pelvis (01/12/2024 9:14 AM CDT) Narrative Systemgenerated, Documentation - 01/18/2024 9:14 AM CDT Study acquired at another institution. For comparison only. No [facility] originated interpretation requested or available. 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 Leandro Lugo [facility] 01/19/24 01/18/99
--- NOTE | 2024-01-29 16:25 | ER ---
Nurse's Notes [facility] Name: Jovi Garcia Age: 83 yrs Sex: Male : 1940 Arrival Date: 01/29/2024 Time: 15:45 Bed 13 Private MD: Diagnosis: Encounter for removal of PICC line Presentation: 01/28 16:06 Chief complaint: Patient states: R PICC line needs to be removed per his doctor in [address] Coronavirus screen: Client denies travel out of the [place] in the last 14 days. At this time, the client does not indicate any symptoms associated with coronavirus-19. Ebola Screen: Patient denies travel to an Ebola-affected area in the 21 days before illness onset. Initial Sepsis Screen: Does the patient meet any 2 criteria? No. Patient's initial sepsis screen is negative. Does the patient have a suspected source of infection? No. Patient's initial sepsis screen is negative. Risk Assessment: Do you want to hurt yourself or someone else? Patient reports no desire to harm self or others. Onset of symptoms was January 29, 2024. 16:06 Method Of Arrival: Wheelchair ll1 16:06 Acuity: NABEEL 4 1 Triage Assessment: 16:06 General: Appears in no apparent distress. Behavior is calm, cooperative, appropriate ll1 for age, Reports Wants RUE PICC line removed. Musculoskeletal: Circulation, motion, and sensation intact. Capillary refill < 3 seconds, in right fingers. Historical: - Allergies: 16:01 No Known Allergies; ll1 - PMHx: 16:01 CHRONIC PROXIMAL HEMICRANIA; BPH; aortic aneurysm; Dementia; Chronic obstructive lung ll1 disease; Dementia; Hypertensive disorder; - PSHx: 16:01 back sx; Stented artery; ll1 - Immunization history:: Adult Immunizations up to date. - Infectious Disease History:: Denies. - Social history:: Smoking status: Patient denies any tobacco usage or history of. - Family history:: not pertinent. Screenin:32 [facility] ED Fall Risk Assessment (Adult) History of falling in the last 3 months, mb9 including since admission No falls in past 3 months (0 pts) Confusion or Disorientation No (0 pts) Intoxicated or Sedated No (0 pts) Impaired Gait No (0 pts) Mobility Assist Device Used No (0 pt) Altered Elimination No (0 pt) Score/Fall Risk Level 0 - 2 = Low Risk Oriented to surroundings, Maintained a safe environment, Educated pt \T\ family on fall prevention, incl call for assistance when getting out of bed. Abuse screen: Denies threats or abuse. Nutritional screening: No deficits noted. Tuberculosis screening: No symptoms or risk factors identified. Assessment: 16:31 General: Appears in no apparent distress. Behavior is calm, cooperative, appropriate mb9 for age. Pain: Denies pain. Neuro: Level of Consciousness is awake, alert, obeys commands. Cardiovascular: Patient's skin is warm and dry. Respiratory: Airway is patent Respiratory effort is even, unlabored, Respiratory pattern is regular, symmetrical. GI: No signs and/or symptoms were reported involving the gastrointestinal system. : No signs and/or symptoms were reported regarding the genitourinary system. EENT: No signs and/or symptoms were reported regarding the EENT system. Derm: Skin is pink, warm \T\ dry. Musculoskeletal: Range of motion: intact in all extremities. Vital Signs: 16:06 BP 116 / 70; Pulse 82; Resp 17; Temp 97; Pulse Ox 99% ; Weight 94.8 kg; Height 6 ft. 0 ll1 in. ; Pain 0/10; 16:06 Body Mass Index 28.34 (94.80 kg, 182.88 cm) ll1 16:06 Pain Scale: Adult ll1 ED Course: 15:53 Patient arrived in ED. mg5 16:01 Arm band placed on. ll1 16:07 Triage completed. ll1 16:10 Geremias Newton MD is Attending Physician. rt 16:16 Mindy Zelaya, MARIKA is Primary Nurse. cm10 16:31 PICC line removed. mb9 16:32 Adult w/ patient. Provided Education on: press call light if needing anything. Client mb9 placed on continuous cardiac and pulse oximetry monitoring. NIBP monitoring applied. 16:32 No provider procedures requiring assistance completed. mb9 Administered Medications: No medications were administered Medication: 16:32 VIS not applicable for this client. mb9 Outcome: 16:25 Discharge ordered by . rt 16:33 Discharged to home via wheelchair, with family, mbSahra 16:33 Condition: stable 16:33 Discharge instructions given to patient, Instructed on discharge instructions, follow up and referral plans. Demonstrated understanding of instructions, follow-up care, 16:36 Patient left the ED. mb9 Signatures: Stevan Diaz RN RN ll1 Magalie Espino RN RN mb9 Germeias Newton MD MD rt Martinez, Clarissa, RN RN cm10 Ashli Garcia mg5 Corrections: (The following items were deleted from the chart) 16:07 16:06 Pulse 82bpm; Resp 17bpm; Pulse Ox 99%; Temp 97F; 94.8 kg; Height 6 ft. 0 in.; ll1 BMI: 28.3; Pain 0/10, Adult; ll1
--- NOTE | 2024-01-29 16:25 | EDPHYS ---
Physician Documentation [facility] Name: Jovi Garcia Age: 83 yrs Sex: Male : 1940 Arrival Date: 01/29/2024 Time: 15:45 Bed 13 Private MD: ED Physician Geremias Newton HPI: 01/28 17:29 This 83 yrs old Male presents to ER via Wheelchair with complaints of Picc line Removal.rt 17:29 Patient had a recent admission at [facility], reportedly had a PICC line placed that rt was never used. He states that they forgot to remove it prior to discharge, they are not currently using it. Patient was instructed to come to the ED for removal of PICC line. Denies any acute complaints at this time, symptoms are mild in severity, no other aggravating or alleviating factors.. Historical: - Allergies: 16:01 No Known Allergies; ll1 - PMHx: 16:01 CHRONIC PROXIMAL HEMICRANIA; BPH; aortic aneurysm; Dementia; Chronic obstructive lung ll1 disease; Dementia; Hypertensive disorder; - PSHx: 16:01 back sx; Stented artery; ll1 - Immunization history:: Adult Immunizations up to date. - Infectious Disease History:: Denies. - Social history:: Smoking status: Patient denies any tobacco usage or history of. - Family history:: not pertinent. ROS: 17:29 Constitutional: Negative for fever, chills, and weight loss, Cardiovascular: Negative rt for chest pain, palpitations, and edema, Respiratory: Negative for shortness of breath, cough, wheezing, and pleuritic chest pain, Abdomen/GI: Negative for abdominal pain, nausea, vomiting, diarrhea, and constipation, MS/Extremity: Negative for injury and deformity, Skin: Negative for injury, rash, and discoloration, Exam: 17:29 Constitutional: This is a well developed, well nourished patient who is awake, alert, rt and in no acute distress. Head/Face: Normocephalic, atraumatic. Skin: Warm, dry with normal turgor. Normal color with no rashes, no lesions, and no evidence of cellulitis. Neuro: Awake and alert, GCS 15, oriented to person, place, time, and situation. Cranial nerves II-XII grossly intact. Motor strength 5/5 in all extremities. Sensory grossly intact. Cerebellar exam normal. Normal gait. Psych: Awake, alert, with orientation to person, place and time. Behavior, mood, and affect are within normal limits. 17:29 Musculoskeletal/extremity: PICC line to the right upper extremity, no surrounding erythema, swelling. Vital Signs: 16:06 BP 116 / 70; Pulse 82; Resp 17; Temp 97; Pulse Ox 99% ; Weight 94.8 kg; Height 6 ft. 0 ll1 in. ; Pain 0/10; 16:06 Body Mass Index 28.34 (94.80 kg, 182.88 cm) ll1 16:06 Pain Scale: Adult ll1 MDM: 16:11 Medical Screening Exam initiated rt 17:29 Differential Diagnosis PICC line removal. Data reviewed: vital signs, nurses notes. rt Counseling: I had a detailed discussion with the patient and/or guardian regarding the historical points, exam findings, and any diagnostic results supporting the discharge/admit diagnosis, the need for outpatient follow up, to return to the emergency department if symptoms worsen or persist or if there are any questions or concerns that arise at home. ED course: PICC line removed without difficulty by RN, no acute complaints, stable for outpatient care.. 01/28 16:19 Order name: Misc. Order: please remove picc line; Complete Time: 16:30 rt Administered Medications: No medications were administered Disposition Summary: 01/29/24 16:25 Discharge Ordered Notes: Location: Home rt Problem: new rt Symptoms: have improved rt Condition: Stable rt Diagnosis - Encounter for removal of PICC line rt Followup: rt - With: Private Physician - When: 2 - 3 days - Reason: Discharge Instructions: - Discharge Summary Sheet rt - PICC Removal, Adult, Care After rt Forms: - Medication Reconciliation Form rt - Antibiotic Education rt - Prescription Opioid Use rt - Patient Portal Instructions rt - Leadership Thank You Letter rt Signatures: Stevan Diaz RN RN ll1 Geremias Newton MD MD rt
[2024-01-29 20:29] VITALS: BP 116/70; TEMP 97; O2SAT 99
== END 2024-01-29 16:36 | disposition home or self-care (01) ==
LOC: ER 15:45
DX: Z45.2 Encounter for adjustment and management of vascular access device (principal)
CPT/HCPCS: 99283

== ENCOUNTER 2024-04-27 11:03 | Emergency (ER) | payer MEDICAID, OTHER ==
--- OUTSIDE RECORDS SUMMARY | 2024-04-27 11:09 | XMS REPORT | Clinical Summary ---
Author Name Unknown Organization [facility] Address [address] [place] [address] Care Team Providers Care Director Of Teaching And Learning Name Role Phone Arjun Hamm MD Unavailable Jatin Alvarez MD Primary Care Provider [phone] Allergies No known active allergies Medications furosemide (LASIX) 40 mg tablet Take 1 [...] tab Take 4 mg by mouth daily. cholesterol Active cefPODoxime (VANTIN) 200 mg tabletIndications: Prevention of bacterial infection Take 1 tablet (200 mg) by mouth every 12 (twelve) hours. 60 tablet 2 4 3:38 PM CDT 01/23/20 24 Active triamcinolone (KENALOG) 0.1% creamIndications:C hronic myelomonocytic leukemia Apply topically to affected area(s) 3 (three) times a day. 01/23/20 24 Active sodium chloride (NS) 0.9% flush syringe 10 mLIndications:Vinyl Hanger tomasa myelomonocytic leukemia Inject 10 mL (1 syringe) into each lumen of central venous catheter daily as directed. 60 each 4 3:38 PM CDT 01/23/20 Active predniSONE (DELTASONE) 10 mg tablet Take 1 tablet (10 mg) by mouth daily. Tapering dose 01/30/20 24 Active indomethacin (INDOCIN SR) 75 mg ER capsuleIndications :pain above ears Take 1 capsule (75 mg) by mouth 3 (three) times a day as needed. Active fluticasone propionate-salmete rol (ADVAIR) 250 mcg-50 mcg/inhalation diskus inhaler Inhale 1 puff by mouth twice daily. Active indomethacin (INDOCIN SR) 75 mg ER capsule Take 1 capsule (75 mg) by mouth 2 (two) times a day with meals. 024 Discontin ued(Stop Taking at Discharge ) clopidogrel (PLAVIX) 75 mg tablet Take 1 tablet (75 mg) by mouth daily. 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 Encounters Date Type Department Care Team Description 03/06/2024 Documentation [facility] [address] [place] [address] Main [facility], 8th [place] [address] Mikey Dodd, FLIGHT TEST SHOP MECHANIC 02/29/2024 Orders Only [facility] [address] [place] [address], 8th [place] [address] Mikey Dodd, FLIGHT TEST SHOP MECHANIC Chronic myelomonocytic leukemia (Primary Dx) 02/29/2024 Telephone [facility] [address] Main Bldg, 8th [place] [address] Leny Stearns, MARIKA 02/06/2024 4:30 PM CDT Telemedicine [facility] [address] Main Bldg, 8th [place] [address] Jatin Alvarez MD Chronic myelomonocytic leukemia (Primary Dx) 01/29/2024 Documentation [facility] [address] Main Bldg, 8th [place] [address] Kandis Melton RN 01/26/2024 Telephone [facility] [address] Main Bldg, 8th [place] [address] Leny Stearns, MARIKA 01/23/2024 Orders Only [facility] [address] Main Bldg, 8th [place] [address] Susan Sahu, FLIGHT TEST SHOP MECHANIC Chronic myelomonocytic leukemia (Primary Dx) 01/23/2024 Orders Only [facility] [address] Bldg, 8th [place] [address] Susan Sahu, FLIGHT TEST SHOP MECHANIC 01/22/2024 Orders Only [facility] [address] Bldg, 11th [place] [address] Bonny Perales, FLIGHT TEST SHOP MECHANIC 01/18/2024 8:10 PM CDT Ancillary [facility] [address] [place] [id number] 01/18/2024 8:05 PM CDT Ancillary [facility] [address] [place] [address] 01/18/2024 8:00 PM CDT Ancillary [facility] [address] [place] [address] 01/18/2024 Travel 01/15/2024 8:59 PM CDT - 01/23/2024 10:20 PM CDT Hospital Encounter MAIN [address] [place] [address] Garrison Sheehan MD Issa, Ghayas C, MD Acute renal impairment (Primary Dx); Chronic myelomonocytic leukemia; Cancer; Malnutrition of moderate degree; Hyperuricemia; Tumor lysis syndrome; Disorder of fluid AND/OR electrolyte; Acute metabolic acidosis; Altered mental status; Other elevated white blood cell count; Creatine kinase level above reference range; Difficulty in walking; Other abnormalities of gait and mobility Discharge Disposition: Home 01/15/2024 Travel after 04/28/2023 Immunizations Name Administration Dates Next Due [id number] B, Historical 04/04/2006 Fluad Quad Pf 03/28/2023 Influenza Quadrivalent High Dose 02/09/2022,04/11 Td 04/04/2006 Surgical History Surgery Date Site/Laterality Comments CORONARY ANEURYSM REPAIR 2004 CORONARY ANGIOPLASTY 2004 Medical History Medical History Date Comments 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] AM CDT CALCIUM IONIZED, VENOUS Routine 01/18/20 24 3:05 AM CDT BASIC METABOLIC PANEL, CALCIUM [...] 01/17/2024 11:10 AM CDT Chronic myelomonocytic leukemia MDA CP CG 48HR CULTURE Routine 11:10 AM CDT MDA CP CG 24HR CULTURE Routine 11:10 AM CDT HP CG CHROMOSOME ANALYSIS INTERPRETATION AND REPORT Routine 01/17/2024 11:10 AM CDT MDA CP RNA HOLD Routine 01/17/2024 11 :10 AM CDT HP FC SCATTER INTERPRETATION AND REPORT Routine 01/17/2024 11:10 AM CDT STANTON CHAN FLT3 ANALYSIS INTERPRETATION AND REPORT Routine 01/17/2024 11:10 AM CDT MDA CP CYTOGENETICS WORKUP Routine 01/17/2024 11:10 AM CDT MDA CP FLOW CYTOMETRY WORKUP Routine 01/17/2024 11:10 AM CDT UT DIAGNOSTIC BONE MARROW BIOPSIES & ASPIRATIONS Routine [...] STAT 01/16/2024 9:41 AM CDT MDA CP CG 48HR CULTURE STAT 9:41 AM CDT MDA CP CG 24HR CULTURE STAT 9:41 AM CDT HP CG CHROMOSOME ANALYSIS INTERPRETATION AND REPORT STAT 01/16/2024 9:41 AM CDT HP FC MRD AML INTERPRETATION AND REPORT STAT 01/16/2024 9:41 AM CDT MDA CP MD DNA HOLD Routine 01/16/2024 9: 41 AM CDT DIFFERENTIAL Routine 01/16/2024 9:41 AM CDT .CBC Routine 01/16/2024 9:41 AM CDT CALCIUM IONIZED, VENOUS Routine 01/16/20 9:41 AM CDT BASIC METABOLIC PANEL, CALCIUM IONIZED Routine 01/16/2024 9:41 AM CDT HP ENDLEUKEMIA MUTATION PANEL V1 INTERPRETATION AND REPORT STAT 01/16/2024 9:41 AM CDT MDA CP CYTOGENETICS WORKUP STAT 01/16/2024 9:41 AM CDT MDA CP [...] Routine 01/12/2024 9:14 AM CDT Cancer after 04/28/2023 Results * (ABNORMAL) Basic Metabolic Panel- Calcium Ionized (01/23/2024 12:26 AM CDT) Only the most recent of15 resultswithin the time period is included. eGFR 60 >=60 mL/min/1. 73 sq. m 01/23/2024 2:27 AM T [facility] Comment: The eGFRcr is calculated with the [...] 136 - 145 mmol/L 01/23/2024 2:27 AM CDT [facility] Potassium Level 3.7 3.4 - 4.5 mmol/L 01/23/2024 2:27 AM CDT [facility] Chloride 103 98 - 107 mmol/L 01/23/2024 2:27 AM CDT [facility] CO2 23 22 - 29 mmol/L 01/23/2024 2:27 AM CDT [facility] Anion Gap 11 4 - 14 mmol/L 01/23/2024 2:27 AM CDT [facility] Creatinine 1.20(H) 0.67 - 1.17 mg/dL 01/23/2024 2:27 AM CDT [facility] BUN <4(L) 6 - 23 mg/dL 01/23/2024 2:27 AM T [facility] Glucose Level 116(H) 70 - 99 mg/dL 01/23/2024 2:27 AM CDT [facility] Comment: Effective 11/04/15, the glucose reference intervals have been updated based on [place] [employer] guidelines (Standards of Medical Care [...] 12:26 AM CDT 01/23/2024 12:37 AM CDT us Bee Barrera APRN LAB BLOOD ORDERABLES Final Result [facility] Unless otherwise noted, all lab tests performed by: Division of Pathology and Laboratory Medicine [address] [place] [phone] * (ABNORMAL) .CBC (01/23/2024 12:26 AM CDT) Only the most recent of14 resultswithin the time period is included. White Blood Cell 2.4(L) 4.1 - 10.5 K/uL 01/23/2024 5:49 AM CDT [facility] Red Blood Cell 2.66(L) 4.30 - 6.04 M/uL 01/23/2024 5:49 AM CDT [facility] Hemoglobin 8.4(L) 13.3 - 17.4 g/dL 01/23/2024 5:49 AM CDT [facility] Hematocrit 25.6(L) 39.5 - 51.8 % 01/23/2024 5:49 AM CDT [facility] Mean Cell Volume 96 82 - 99 fL 01/23/2024 5:49 AM CDT [facility] Mean Cell Hemoglobin 31.6 26.6 - 33.2 pg 01/23/2024 5:49 AM CDT [facility] Mean Cell Hemoglobin Concentration 32.8 31.1 - 35.2 g/dL 01/23/2024 5:49 AM CDT [facility] RDW-SD 53.9(H) 37.5 - 49.7 fL 01/23/2024 5:49 AM CDT [facility] Red Cell Diameter Width 15.3 11.6 - 15.5 % 01/23/2024 5:49 AM CDT [facility] Platelet 54(L) 160 - 397 K/uL 01/23/2024 5:49 AM CDT [facility] Mean Platelet Volume 9.7 9.1 - 12.6 fL 01/23/2024 5:49 AM CDT [facility] INRBC 0.0 0.0 - 0.1 /100 WBC 01/23/2024 5:49 AM CDT [facility] Comment: The INRBC (instrument NRBC) value reflects [...] AM CDT Bee Barrera APRN LAB BLOOD ORDERABLES Final Result [facility] Unless otherwise noted, all lab tests performed by: Division of Pathology and Laboratory Medicine [address] [place] [phone] * Fractionated Bilirubin (01/23/2024 12:26 AM CDT) Only the most recent of9 resultswithin the time period is included. Bilirubin Direct 0.2 0.0 - 0.3 mg/dL 01/23/2024 1:09 AM CDT [facility] Comment:Indocyanine Green (I CG) may cause falsely elevated bilirubin results. Total and direct bilirubin must not be measured from samples containing indocyanine green. Bilirubin Indirect 0.9 0.0 - 0.9 mg/dL 01/23/2024 1:09 AM CDT [facility] Bilirubin Total 1.1 0.0 - 1.2 mg/dL 01/23/2024 1:09 AM CDT [facility] Comment:Indocyanine Green (I CG) may cause falsely elevated bilirubin results. Total and direct bilirubin must not be measured from samples containing indocyanine green. False elevation of total bilirubin can be seen in patients with IgG concentrations above 28 g/L. Blood Venous blood specimen / Unknown Venipuncture / Unknown 01/23/2024 12:26 AM CDT 01/23/2024 12:37 AM CDT Jackie Solomon APRN LAB BLOOD ORDERABLES Final Result Performing Organization Address City/[facility] de Phone Number [facility] Unless otherwise noted, all lab tests performed by: Division of Pathology and Laboratory Medicine [address] [place] [phone] * aPTT (01/23/2024 12:26 AM CDT) Only the most recent of10 resultswithin the time period is included. Activated PTT 28.4 24.8 - 35.6 second(s) 01/23/2024 1:16 AM CDT [facility] Blood Venous blood specimen / Unknown Venipuncture / Unknown 01/23/2024 12:26 AM CDT 01/23/2024 12:38 AM CDT Jackie Solomon APRN LAB BLOOD ORDERABLES Final Result Performing Organization Address City/[facility] de Phone Number [facility] Unless otherwise noted, all lab tests performed by: Division of Pathology and Laboratory Medicine [address] [place] [phone] * Calcium Ionized, Venous (01/23/2024 12:26 AM CDT) Only the most recent of15 resultswithin the time period is included. Venous Ionized Calcium 1.18 1.15 - 1.29 mmol/L 01/23/2024 12:41 AM CDT [facility] Oxygen FLOW Rate/ FiO2 01/23/2024 12:41 AM CDT [facility] O2 Therapy Room air 01/23/2024 12:41 AM CDT [facility] Blood Venous blood specimen / Unknown Venipuncture / Unknown 01/23/2024 12:26 AM CDT 01/23/2024 12:38 AM CDT us Bee Mullinssimon FLIGHT TEST SHOP MECHANIC LAB BLOOD ORDERABLES Final Result [facility] Unless otherwise noted, all lab tests performed by: Division of Pathology and Laboratory Medicine [address] [place] [phone] * (ABNORMAL) Differential (01/23/2024 12:26 AM CDT) Only the most recent of9 resultswithin the time period is included. Total Cells 100 01/23/2024 5:49 AM CDT [facility] Manual Neutrophil % 19.0(L) 43.2 - 72.7 % 01/23/2024 5:49 AM CDT [facility] Comment:The Neutrophil count includes Bands. Manual Lymphocyte % 59.0(H) 16.8 - 46.2 % 01/23/2024 5:49 AM CDT [facility] Manual Monocyte % 16.0(H) 5.1 - 12.5 % 01/23/2024 5:49 AM CDT [facility] Manual Eosinophil % 3.0 0.4 - 6.3 % 01/23/2024 5:49 AM CDT [facility] Manual Basophil % 3.0(H) 0.2 - 1.4 % 01/23/2024 5:49 AM CDT [facility] Metamyelocyte % 5:49 AM CDT [facility] Comment:The Metamyelocyte co unt includes Myelocytes. Manual Neutrophil Abs 0.46(L) 1.95 - 7.25 K/uL 01/23/2024 5:49 AM CDT [facility] Manual Lymphocyte Abs 1.42 1.01 - 3.24 K/uL 01/23/2024 5:49 AM CDT [facility] Manual Monocyte Abs 0.38 0.24 - 0.85 K/uL 01/23/2024 5:49 AM CDT [facility] Manual Eosinophil Abs 0.07 0.02 - 0.50 K/uL 01/23/2024 5:49 AM CDT [facility] Manual Basophil Abs 0.07 0.02 - 0.09 K/uL 01/23/2024 5:49 AM CDT [facility] RBC Morphology PRESENT 01/23/2024 5:49 AM CDT [facility] PLT Morph Normal Normal 01/23/2024 5:49 AM CDT [facility] Anisocytosis Present(A) (none) 01/23/2024 5:49 AM CDT [facility] Ovalocyte Present(A) (none) 01/23/2024 5:49 AM CDT [facility] Blood Venous blood specimen / Unknown Venipuncture / Unknown 01/23/2024 12:26 AM CDT 01/23/2024 12:39 AM CDT us Bee Barrera APRN LAB BLOOD ORDERABLES Final Result [facility] Unless otherwise noted, all lab tests performed by: Division of Pathology and Laboratory Medicine [address] [place] [phone] * (ABNORMAL) Prothrombin Time (01/23/2024 12:26 AM CDT) Only the most recent of11 resultswithin the time period is included. Prothrombin Time 14.6(H) 12.2 - 14.4 second(s) 01/23/2024 1:16 AM CDT [facility] International Normalization Ratio 1.16(H) 0.91 - 1.10 01/23/2024 1:16 AM CDT [facility] Blood Venous blood specimen / Unknown Venipuncture / Unknown 01/23/2024 12:26 AM CDT 01/23/2024 12:38 AM CDT Jackie Solomon APRN LAB BLOOD ORDERABLES Final Result [facility] Unless otherwise noted, all lab tests performed by: Division of Pathology and Laboratory Medicine [address] [place] [phone] * Fibrinogen (01/23/2024 12:26 AM CDT) Only the most recent of9 resultswithin the time period is included. Fibrinogen 320 214 - 503 mg/dL 01/23/2024 1:16 AM CDT [facility] Blood Venous blood specimen / Unknown Venipuncture / Unknown 01/23/2024 12:26 AM CDT 01/23/2024 12:38 AM CDT Jackie Solomon APRN LAB BLOOD ORDERABLES Final Result Performing Organization Address [facility] de Phone Number [facility] Unless otherwise noted, all lab tests performed by: Division of Pathology and Laboratory Medicine [address] [place] [phone] * (ABNORMAL) D-Dimer (01/23/2024 12:26 AM CDT) Only the most recent of9 resultswithin the time period is included. Pathologist [facility] D-Dimer 6.47(H) 0.10 - 0.50 mcg/ml FEU 01/23/2024 1:18 AM CDT [facility] Blood Venous blood specimen / Unknown Venipuncture / Unknown 01/23/2024 12:26 AM CDT 01/23/2024 12:38 AM CDT Narrative [facility] - 01/23/2024 1:18 AM CDT The cut off value for exclusion of venous thromboembolism is <0.51 mcg/mL FEUs (fibrinogen equivalent units). Jackie Solomon APRN LAB BLOOD ORDERABLES Final Result Performing Organization Address [facility] Co de Phone Number [facility] Unless otherwise noted, all lab tests performed by: Division of Pathology and Laboratory Medicine [address] [place] [phone] * (ABNORMAL) Uric Acid (01/23/2024 12:26 AM CDT) Only the most recent of6 resultswithin the time period is included. Uric Acid 2.5(L) 3.4 - 7.0 mg/dL 01/23/2024 2:27 AM CDT [facility] Blood Venous blood specimen / Unknown Venipuncture / Unknown 01/23/2024 12:26 AM CDT 01/23/2024 12:37 AM CDT Beeayden Barrera FLIGHT TEST SHOP MECHANIC LAB BLOOD ORDERABLES Final Result [facility] Unless otherwise noted, all lab tests performed by: Division of Pathology and Laboratory Medicine [address] [place] [address] * Alanine Aminotransferase (01/23/2024 12:26 AM CDT) Only the most recent of9 resultswithin the time period is included. ALT 18 <=41 U/L 01/23/2024 2:2 7 AM CDT [facility] Blood Venous blood specimen / Unknown Venipuncture / Unknown 01/23/2024 12:26 AM CDT 01/23/2024 12:37 AM CDT Jackie Solomon APRN LAB BLOOD ORDERABLES Final Result Performing Organization Address City/[facility]/ZIP Co de Phone Number [facility] Unless otherwise noted, all lab tests performed by: Division of Pathology and Laboratory Medicine [address] [place] [phone] * Aspartate Aminotransferase (01/23/2024 12:26 AM CDT) Only the most recent of9 resultswithin the time period is included. AST 20 <=40 U/L 01/23/2024 1:0 9 AM CDT [facility] Blood Venous blood specimen / Unknown Venipuncture / Unknown 01/23/2024 12:26 AM CDT 01/23/2024 12:37 AM CDT Jackie Solomon APRN LAB BLOOD ORDERABLES Final Result [facility] Unless otherwise noted, all lab tests performed by: Division of Pathology and Laboratory Medicine [address] [place] [phone] * (ABNORMAL) Total Protein (01/23/2024 12:26 AM CDT) Only the most recent of7 resultswithin the time period is included. Tot Protein 6.1(L) 6.4 - 8.3 gm/dL 01/23/2024 1:09 AM CDT [facility] Blood Venous blood specimen / Unknown Venipuncture / Unknown 01/23/2024 12:26 AM CDT 01/23/2024 12:37 AM CDT Narrative [facility] - 01/23/2024 1:09 AM CDT Reference range established based on adult population Jackie Solomon APRN LAB BLOOD ORDERABLES Final Result Performing Organization Address [facility] Co de Phone Number [facility] Unless otherwise noted, all lab tests performed by: Division of Pathology and Laboratory Medicine [address] [place] [phone] * (ABNORMAL) Phosphorus Level (01/23/2024 12:26 AM CDT) Only the most recent of15 resultswithin the time period is included. Phosphorus Level 2.4(L) 2.5 - 4.5 mg/dL 01/23/2024 2:27 AM CDT [facility] Blood Venous blood specimen / Unknown Venipuncture / Unknown 01/23/2024 12:26 AM CDT 01/23/2024 12:37 AM CDT Bee Barrera APRN LAB BLOOD ORDERABLES Final Result [facility] Unless otherwise noted, all lab tests performed by: Division of Pathology and Laboratory Medicine [address] [place] [address] [place] [address] * Alkaline phosphatase (01/23/2024 12:26 AM CDT) Only the most recent of9 resultswithin the time period is included. Alkaline Phosphatase 62 40 - 129 U/L 01/23/2024 1:09 AM CDT [facility] Blood Venous blood specimen / Unknown Venipuncture / Unknown 01/23/2024 12:26 AM CDT 01/23/2024 12:37 AM CDT Jackie Solomon APRN LAB BLOOD ORDERABLES Final Result Performing Organization Address City/[facility]/ZIP Co de Phone Number [facility] Unless otherwise noted, all lab tests performed by: Division of Pathology and Laboratory Medicine [address] [place] [phone] * Magnesium Level (01/23/2024 12:26 AM CDT) Only the most recent of15 resultswithin the time period is included. Pathologist [facility] Magnesium Level 1.6 1.6 - 2.6 mg/dL 01/23/2024 2:27 AM CDT [facility] Blood Venous blood specimen / Unknown Venipuncture / Unknown 01/23/2024 12:26 AM CDT 01/23/2024 12:37 AM CDT Bee Barrera APRN LAB BLOOD ORDERABLES Final Result Performing Organization Address City/[facility]/ZIP Co de Phone Number [facility] Unless otherwise noted, all lab tests performed by: Division of Pathology and Laboratory Medicine [address] [place] [phone] * (ABNORMAL) LDH (01/23/2024 12:26 AM CDT) Only the most recent of9 resultswithin the time period is included. LDH 234(H) 135 - 225 U/L 01/23/2024 1:09 AM CDT [facility] Blood Venous blood specimen / Unknown Venipuncture / Unknown 01/23/2024 12:26 AM CDT 01/23/2024 12:37 AM CDT Narrative [facility] - 01/23/2024 1:09 AM CDT Results greater than 1651 U/L may not be reliable due to matrix effect with extended dilution as it exceeds the architect manager's recommended limit. Caution should be exercised when interpreting such values and done in conjunction with clinical context. Jackie Julianne Solomon APRN LAB BLOOD ORDERABLES Final Result Performing Organization Address City/[facility] de Phone Number [facility] Unless otherwise noted, all lab tests performed by: Division of Pathology and Laboratory Medicine [address] [place] [phone] * Albumin Level (01/23/2024 12:26 AM CDT) Only the most recent of9 resultswithin the time period is included. Albumin Level 3.9 3.5 - 5.2 gm/dL 01/23/2024 2:27 AM CDT [facility] Blood Venous blood specimen / Unknown Venipuncture / Unknown 01/23/2024 12:26 AM CDT 01/23/2024 12:37 AM CDT Jackie Whitaker Juanito MORRISON LAB BLOOD ORDERABLES Final Result Performing Organization Address [facility] de Phone Number [facility] Unless otherwise noted, all lab tests performed by: Division of Pathology and Laboratory Medicine [address] [place] [phone] * (ABNORMAL) POC Glucose Screen - Fingerstick (01/22/2024 7:25 AM CDT) Only the most recent of25 resultswithin the time period is included. Glucose Screen 133(H) 70 - 99 mg/dL 01/22/2024 7:27 AM CDT [facility] POC Sample Type Capillary 01/22/2024 7:27 AM CDT [facility] Blood 01/22/2024 7:25 AM CDT 01/22/2024 7:27 AM CDT Narrative [facility] - 01/22/2024 7:27 AM CDT Capillary blood [...] questionable test results by core lab methodology. us Jatin Alvarez MD POCT ORDERABLES - DEVICE Final Result [facility] Unless otherwise noted, all lab tests performed by: Division of Pathology and Laboratory Medicine [address] [place] [phone] * X-ray Chest 1 View Portable (01/21/2024 [...] unexpected and potentially actionable. Yady Lang APRN IM DIAGNOSTIC IMAGING ORDER ROSSANA Final Result * Type and screen (01/21/2024 12:51 AM CDT) Only the most recent of3 resultswithin the time period is included. ABORh B POS 01/21/2024 12:00 AM CDT [facility] ABSC Negative 01/21/2024 12:00 AM CDT [facility] Clot Expiration 01/24/2024 23:59 01/21/2024 12:00 AM CDT [facility] Historical Record Check Complete 01/21/2024 12:00 AM CDT [facility] Blood Venous blood specimen / Unknown Venipuncture / Unknown 01/21/2024 12:51 AM CDT 01/21/2024 1:05 AM CDT us Jackie Solomon APRN BLOOD BANK TEST ORDER ROSSANA Final Result [facility] [id number] [place] [address] * (ABNORMAL) Uric Acid Rasburicase (01/19/2024 1:27 AM CDT) Only the most recent of9 resultswithin the time period is included. Uric Acid Rasburicase Treated 2.9(L) 3.4 - 7.0 mg/dL 01/19/2024 2:02 AM CDT [facility] Blood Venous blood specimen / Unknown Venipuncture / Unknown 01/19/2024 1:27 AM CDT 01/19/2024 1:36 AM CDT us Jatin Alvarez MD LAB BLOOD ORDERABLES Final Resu lt [facility] Unless otherwise noted, all lab tests performed by: Division of Pathology and Laboratory Medicine [address] [place] [phone] * XR Chest 1 View (01/18/2024 2:13 [...] and potentially actionable. Jackie Solomon APRN IMG DIAGNOSTIC IMAGIN G ORDERABLES Final Result * CG 48HR CULTURE (01/17/2024 11:10 AM CDT) Only the most recent of2 resultswithin the time period is included. Bone Marrow (Iliac Crest, Right Posterior, Aspirate) Non-blood Collection / Unknown 01/17/2024 11:10 AM CDT 01/17/2024 12:50 PM CDT Jackie Solomon APRN [facility] CP BIOMARKER WORK UPS Final Result CYTOGENETICS [facility] Cytogenetics Lab [address] [place] [address] * CG 24HR CULTURE (01/17/2024 11:10 AM CDT) Only the most recent of2 resultswithin the time period is included. Bone Marrow (Iliac Crest, Right Posterior, Aspirate) Non-blood Collection / Unknown 01/17/2024 11:10 AM CDT 01/17/2024 12:50 PM CDT Jackie Solomon APRN [facility] CP BIOMARKER WORK UPS Final Result CYTOGENETICS [facility] Cytogenetics Lab [address] [place] [address] * MD RNA Hold (01/17/2024 11:10 AM CDT) Bone Marrow (Iliac Crest, Right Posterior, Aspirate) Non-blood Collection / Unknown 01/17/2024 11:10 AM CDT 01/17/2024 1:45 PM CDT Jackie Solomon APRN [facility] CP BIOMARKER WORK UPS Final Result MOLECULAR DIAGNOSTICS [facility] Molecular Diagnostics Laboratory [address] [place] [address] * Cytogenetics Workup (01/17/2024 11:10 AM CDT) Only the most recent of2 resultswithin the time period is included. Triage Comments 04/04/2024 10:01 AM [employer]GL[employer]ER [facility] HEMATOPATH LAB Bone Marrow (Iliac Crest, Right Posterior, Aspirate) Non-blood Collection / Unknown 01/17/2024 11:10 AM CDT 01/17/2024 12:50 PM CDT Jackie Solomon APRN [facility] CP BIOMARKER WORK UPS Final Result [facility] HEMATOPATH LAB * Flow Cytometry Workup (01/17/2024 11:10 AM CDT) Pathologist [facility] FLOW CYTOMETRY WORKUP TESTS TO ORDER FC Scatter 01/18/2024 6:36 AM CDT FLOW CYTOMETRY Bone Marrow (Iliac Crest, Right Posterior, Aspirate) Non-blood Collection / Unknown 01/17/2024 11:10 AM CDT 01/17/2024 12:45 PM CDT us Jackie Solomon APRN [facility] CP BIOMARKER WORK UPS Final Result [facility] AP LABS [facility] [place] [address], FLOW CYTOMETRY [facility] [place] Flow Cytometry Laboratory [address] [place] [address] * Hematopathology Bone Marrow Interpretation (01/17/2024 11:10 AM CDT) Diagnosis Bone marrow, right posterior iliac crest, core biopsy, clot sections, aspirate smears, touch preparation and peripheral blood smear: CHRONIC MYELOMONOCYTIC LEUKEMIA-1 (9% BLASTS) 01/22/2024 9:05 PM CDT [facility] LAB[facility] Comment Patient is an 83-year-old woman [...] will be reported separately. 01/22/2024 9:05 PM CDT [facility] Microscopic Description BONE MARROW BIOPSY Quality: [...] No Nilda rods seen. 01/22/2024 9:05 PM T [facility] Stains on Biopsy Reticulin: No reticulin fibrosis Trichrome: No collagen fibrosis Grade: MF-0 01/22/2024 9:05 PM T [facility] Stains on Aspirate Smear / Touch Preparation Iron: Decreased (1+) stainable storage iron. Ring sideroblasts are not increased. MPO: Positive in a subset of blasts. 01/22/2024 9:05 PM T [facility] Gross Description B: Iliac crest, right posterior, biopsy Length: 1.4 cm Submitted in a single cassette for decalcification. DG C: Iliac crest, right posterior, clot Dimensions: 0.3 x 2.5 x 2.5 cm Specimen is entirely submitted in 1. DG 01/22/2024 9:05 PM T [facility] Peripheral Blood Peripheral blood smear with [...] and unremarkable morphology. 01/22/2024 9:05 PM T [facility] Disclaimer "Some tests reported here may have been developed and performance characteristics determined by [facility] Pathology and Laboratory Medicine. These tests have not been specifically cleared or approved by the U.S. Food and Drug Administration. If applicable, controls were reviewed and showed appropriate reactivity." 01/22/2024 9:05 PM T [facility] Bone Marrow (Iliac Crest, Right [...] 12:41 PM CDT Comment:STAINS: IRON,POD (PM L),RETICULIN/TRICHROME us Jatin Alvarez MD LAB PATHOLOGY ORDERABLES Final Result [facility] [address] [address], [place] * (ABNORMAL) Hematopathology Bone Marrow Differential [...] % 43(H) 7 - 30 % 01/18/20 24 10:39 AM CDT [facility] BM Eosinophil % 1 0 - 4 % 10:39 AM CDT [facility] BM Basophil % 1 0 - 1 % 01/18/2024 10:39 AM CDT [facility] BM Lymphocyte % 6 3 - 17 % 10:39 AM CDT [facility] BM Plasma Cell % 1 0 - 2 % 01/18/20 10:39 AM CDT [facility] BM Monocyte % 8(H) 0 - 5 % 01/18/2024 10:39 AM CDT [facility] BM Pronormoblast % 1 1 - 8 % 01/18/2024 10:39 AM CDT [facility] BM Normoblast % 6(L) 7 - 32 % 10:39 AM CDT [facility] BM M:E Ratio 14.0(H) 3.0 - 4.0 01/18/2024 10:39 AM CDT [facility]S Bone Marrow (Iliac Crest, Right Posterior, Aspirate) Non-blood Collection / Unknown 01/17/2024 11:10 AM CDT 01/17/2024 12:54 PM CDT Narrative [facility]S - 01/18/2024 10:39 AM CDT DISCLAIMER Preliminary BM Diff may have been completed by a medical insurance collector or a hematopathology fellow and is subject to change. Any pathologist updates will be included on interpretation and appear in the final result. Please use caution in evaluating your patient based on preliminary results. us Jatin Alvarez MD LAB PATHOLOGY ORDERABLES Final Result [facility] LABS [facility] [place] [id number] [place] [address], * CG Chromosome Analysis Interpretation and Report (01/17/2024 11:10 AM CDT) Only the most recent of2 resultswithin the time period is included. Clinical Indication Post-op Diagnosis: No Dx found. 01/30/2024 1:04 PM CDT CYTOGENETICS Processed Specimen Type Bone Marrow 01/30/2024 1:04 PM CDT CYTOGENETICS Summary SEE INTERPRETATION. 01/30/2024 1:04 PM CDT CYTOGENETICS Karyotype 46,XY,del(7)(q31q 36)[1]/46,XY[19] 01/30/2024 1:04 PM CDT CYTOGENETICS Chromosome Analysis Interpretation No apparent clonal cytogenetic abnormality detected. The significance of a single abnormal metaphase is unclear and does not represent clonality as far as official cytogenetic nomenclature. It may represent a clonal cell population or a random event. Its presence has been noted for future studies. 01/30/2024 1:04 PM CDT CYTOGENETICS 24 hour Unstimulated Culture Yes 01/30/2024 1:04 PM CDT CYTOGENETICS 48 hour Unstimulated Culture Yes 01/30/2024 1:04 PM CDT CYTOGENETICS Cells Analyzed 20 01/30/2024 1:04 PM CDT CYTOGENETICS Cells Karyotyped 4 01/30/20 24 1:04 PM CDT CYTOGENETICS Abnormal Cells 1 01/30/2024 1:04 PM CDT CYTOGENETICS Normal Cells 19 01/30/2024 1:04 PM CDT CYTOGENETICS Chromosome Analysis Methodology Banding technique: GTL Imaging system: Leica Cytovision 01/30/2024 1:04 PM CDT CYTOGENETICS Chromosome Analysis Disclaimer This chromosomal analysis may not detect any "cryptic" chromosomal aberrations below current resolution, and clones with low mitotic index or at a low level. In applying this result to patient care, correlation with clinical, pathological and other laboratory findings are recommended. Data and/or image review for this report includes activity performed off-site at location: [id number]. 01/30/2024 1:04 PM CDT CYTOGENETICS Pathologist Signature . 01/30/2024 1:04 PM CDT CYTOGENETICS Bone Marrow (Iliac Crest, Right Posterior, Aspirate) Non-blood Collection / Unknown 01/17/2024 11:10 AM CDT 01/17/2024 12:50 PM CDT Jackie Solomon APRN [facility] HP CYTOGENETICS ( HP CG) Final Result CYTOGENETICS [facility] Cytogenetics Lab [address] [place] [address] * UT DIAGNOSTIC BONE MARROW BIOPSIES & ASPIRATIONS (01/17/2024 11:10 AM CDT) Bone Marrow Narrative Jewel King APRN - 01/17/2024 11:10 AM CDT Jewel King APRN 01/17/2024 5:43 PM Procedure: Bone Marrow Aspiration/Biopsy Date/Time: 01/17/2024 11:10 AM Provider Information: Performed by: Jewel King APRN Authorized by: Jackie Solomon APRN Locker Room Attendant present: yes Locker Room Attendant: Pinky Garcia general pediatrician used?: cleaner greaser not needed Patient Diagnosis: Pre-procedure diagnosis: CMML [...] Site location: posterior iliac crest Instrument(s) used: Mind[employer] needle Instruments placed by: advanced practice provider [...] on the dressing. Specimens's labels verified with [employer]. us Jackie Solomon APRN PROCEDURE/MINOR SURGI PHYLLIS ORDERABLES Final Result * FC Scatter Interpretation and Report (01/17/2024 [...] developed and its performance characteristics determined by [facility] Clinical Flow Cytometry Laboratory. It has not [...] 11:10 AM CDT 01/17/2024 12:45 PM CDT us Jackie Julianne Solomon APRN [facility] HP FLOW CYTOMETRY (HP FC) Final Result FLOW CYTOMETRY [facility] [place] Flow Cytometry Laboratory [address] [place] [address] * FLT3 Mutation Analysis Interpretation and Report (01/17/2024 11:10 AM CDT) Pathology [id number] 01/19/2024 8:02 PM CDT MOLECULAR DIAGNOSTICS FLT3 [...] assay. J Mol Diagn. 2002;5(2):96-102. PubMed PMID: [id number] Cliff Sheehan. Acute Myeloid Leukemia: from Mutation Profiling to Treatment Decisions. Curr Hematol Malig Rep. 2019 Nov 02. Review. PubMed PMID: 56832837. Melo N et al, Targeting FLT3 mutations in AML: review of current knowledge and evidence. Leukemia. 2019 May;33(2):299-312 . PubMed PMID: [id number]. Shayla MELTON. The importance of FLT3 mutational analysis in acute myeloid leukemia. Leuk Lymphoma. 2018 Jan;59(10):2273-2 286. PubMed PMID: 26688925. Gene-related information: HGNC: https://www.genen florin.org Peer-reviewed literature evidence: PubMed: www.ncbi.nlm.nih. gov/pubmed/?term= FLT3+mutation+adair kemia Professional Guidelines: [place] Society of Clinical Oncology (ASCO): www.asco.org [place] Society of Hematology (NHAN): www.hematology.or g Association for Molecular Pathology (AMP): www.amp.org College of [place] Pathology: www.cap.org LeukemiaNet (ELN): www.leukemia-net. org National Comprehensive Cancer Network (NCCN): www.nccn.org Regulatory Approvals: U.S Food & Drug Administration (FDA): www.fda.gov 01/19/2024 8:02 PM CDT MOLECULAR DIAGNOSTICS ASR DISCLAIMER This test was developed and its performance characteristics determined by the Molecular Diagnostics Laboratory (MDL) at [facility]. It has not been cleared or approved [...] 11:10 AM CDT 01/17/2024 1:45 PM CDT us Jackie Solomon APRN [facility] HP MOLECULAR DIAG NOSTICS (HP ) Final Result MOLECULAR DIAGNOSTICS [facility] Molecular Diagnostics Laboratory [address] [place] [address] * CT Head without Contrast (01/16/2024 9:09 [...] are unexpected and potentially actionable. Bernarda Duvall FLIGHT TEST [facility] ORDERABLES Final Result * CT Chest without Contrast (01/16/2024 9:09 PM CDT) Anatomical Region Laterality Modality Chest Computed Tomogra phy 01/16/2024 9:37 PM CDT Impressions 01/16/2024 9:51 PM CDT [...] potentially actionable. Jackie Solomon APRN IMG CT ORDERABLES Fin al Result * US RENAL (01/16/2024 3:55 PM CDT) [...] that are unexpected and potentially actionable. Yamil Addison MORRISON IM US ORDERABLES Final Result * Tip Verification Central Vascular Access Device (01/16/2024 3:33 PM CDT) Narrative Pia Dodd APRN - 01/16/2024 3:33 PM CDT Pia Dodd APRN 01/16/2024 3:34 PM Central Vascular Access Device Tip Verification Performed by: Pia Dodd APRN Authorized by: Pia Dodd APRN CVAD Properties Date device placed: 01/16/2024 Placed by: Laurent Fisher RN Device placement location: [facility] Catheter Type: PICC Catheter lumen: Double lumen Vein location: Brachial Laterality: Right Tip in good position and cleared for infusion Pia Dodd FLIGHT TEST [employer]CH[employer] IV THERAPY ORDERABLES Final Result * XR Chest 1 View Post Implant [...] potentially actionable. Jatin Alvarez MD IMG DIAGNOSTIC IMAGING ORDERABL ES Final Result * Insert Vascular Access Device: PICC (01/16/2024 2:02 PM CDT) Anatomical Region Laterality Modality Ultrasound Narrative 01/16/2024 2:14 PM CDT Date of Procedure: 01/16/24 Title of Procedure: Percutaneous Image-Guided PICC Insertion Proceduralist: Laurent Fisher RN Ordered By: Pia Dodd APRN Procedure Location: ICU Locker Room Attendant Present: No Pre Procedure Diagnosis: Chronic myelomonocytic [...] risks, benefits, and alternative dicussed with patient/designated construction representative. Time out: universal protocol time out [...] Forearm circumference:24cm Additional Comments: None Pia Dodd FLIGHT TEST SH[employer] MECHAN[employer] IMG VAP ORDERABLES Final Re sult * Sodium Urine (01/16/2024 10:22 AM CDT) [facility] Urine Sodium 98 mmol/L 01/16/2024 11:06 AM CDT [facility] Comment:Normal range not rubina ilable for collections less than 24 hours in duration. Urine (Urine Clean Catch) Non-blood Collection / Unknown 01/16/2024 10:22 AM CDT 01/16/2024 10:35 AM CDT Yamil Jaime FLIGHT TEST SH[employer] MECH[employer] URINE ORDERABLES Final Result [facility] Unless otherwise noted, all lab tests performed by: Division of Pathology and Laboratory Medicine [address] [place] [address] * (ABNORMAL) Protein/Creatinine Ratio Urine (01/16/2024 10:22 AM CDT) UTP, Random 16 mg/dL 01/16/2024 11:06 AM CDT [facility] Comment:Normal range not rubina ilable for collections less than 24 hours in duration. Urine Creatinine 54.5 40.0 - 278.0 mg/dL 01/16/2024 11:06 AM CDT [facility] Comment:The reference range listed is for first morning urine collection. Urine Protein/Creatini ne Ratio 0.29(H) <=0.14 g/g 01/16/2024 11:06 AM CDT [facility] Urine (Urine Clean Catch) Non-blood Collection / Unknown 01/16/2024 10:22 AM CDT 01/16/2024 10:35 AM CDT Yamilitz Jaime APRN URINE ORDERABLES Final Result Performing Organization Address City/State/[facility] Co de Phone Number [facility] Unless otherwise noted, all lab tests performed by: Division of Pathology and Laboratory Medicine [address] [place] [address] * Potassium Urine (01/16/2024 10:22 AM CDT) Urine Potassium 20 mmol/L 11:06 AM CDT [facility] Comment:Normal range not rubina ilable for collections less than 24 hours in duration. Urine (Urine Clean Catch) Non-blood Collection / Unknown 01/16/2024 10:22 AM CDT 01/16/2024 10:35 AM CDT Yamil Jaime APRN URINE ORDERABLES Final Result [facility] Unless otherwise noted, all lab tests performed by: Division of Pathology and Laboratory Medicine [address] [place] [address] * Urine Culture (01/16/2024 10:22 AM CDT) Only the most recent of2 resultswithin the time period is included. Urine Culture No Growth. 01/18/2024 8:43 AM CDT [facility] Urine (Urine Sagastume) Non-blood Collection / Unknown 01/16/2024 10:22 AM CDT 01/16/2024 10:35 AM CDT Jackie Solomon APRN MICROBIOLOGY - GENERA L ORDERABLES Final Result Performing Organization Address [facility] Co de Phone Number [facility] Unless otherwise noted, all lab tests performed by: Division of Pathology and Laboratory Medicine [address] [place] [address] * Folate Level (01/16/2024 10:16 AM CDT) [facility] Folate Level 13.9 4.8 - 24.2 ng/mL 01/16/2024 11:08 AM CDT [facility] Is patient fasting? Yes 01/16/2024 11:08 AM CDT [facility] Blood Peripheral blood specimen / Unknown CVC Line / Unknown 01/16/2024 10:16 AM CDT 01/16/2024 10:30 AM CDT Narrative [facility] - 01/16/2024 11:08 AM CDT Reference range established based on adult population. Jackie Solomon APRN LAB BLOOD ORDERABLES Final Result Performing Organization Address [facility] Co de Phone Number [facility] Unless otherwise noted, all lab tests performed by: Division of Pathology and Laboratory Medicine [address] [place] [address] * C. auris Screening PCR (01/16/2024 9:56 AM CDT) Pathologist [facility] Specimen Source Axilla+ Groin 01/20/2024 7:58 AM CDT [facility] [employer] [facility] C auris PCR, Result Negative Not Applicable 01/20/2024 7:58 AM CDT [employer] [facility] Comment: ADDITIONAL INFORMATION This test was developed and its performance characteristics determined by [facility] in a manner consistent with CLIA requirements. This test has not been cleared or approved by the U.S. Food and Drug Administration. Test Performed by: [facility] - [address] [address] Application Release Manager: Delmy Velasquez Ph.D.; CLIA# [id number] Swab (Axilla + Groin) Non-blood Collection / Unknown 01/16/2024 9:56 AM CDT 01/16/2024 10:14 AM CDT Lise Roberto MD MICROBIOLOGY - GENERAL ORDERA BLES Final Result [facility] * Respiratory Multiplex PCR Panel, Nasopharyngeal Swab (01/16/2024 9:56 AM CDT) Adenovirus Not Detected Not Detected 01/16/2024 12:26 PM CDT [facility] Coronavirus 229E Not Detected Not Detected 01/16/2024 12:26 PM CDT [facility] Coronavirus HKU1 Not Detected Not Detected 01/16/2024 12:26 PM CDT [facility] Coronavirus NL63 Not Detected Not Detected 01/16/2024 12:26 PM CDT [facility] Coronavirus OC43 Not Detected Not Detected 01/16/2024 12:26 PM CDT [facility] COVID-19 (SARS-CoV-2) Not Detected Not Detected 01/16/2024 12:26 PM CDT [facility] Human Metapneumovirus Not Detected Not Detected 01/16/2024 12:26 PM CDT [facility] Human Rhinovirus/Enterov irus Not Detected Not Detected 01/16/2024 12:26 PM CDT [facility] Influenza A Not Detected Not Detected 01/16/2024 12:26 PM CDT [facility] Influenza A H1 Not Detected Not Detected 01/16/2024 12:26 PM CDT [facility] Influenza A H1 2009 Not Detected Not Detected 01/16/2024 12:26 PM CDT [facility] Influenza A H3 Not Detected Not Detected 01/16/2024 12:26 PM CDT [facility] Influenza B Not Detected Not Detected 01/16/2024 12:26 PM CDT [facility] Parainfluenza Virus 1 Not Detected Not Detected 01/16/2024 12:26 PM CDT [facility] Parainfluenza Virus 2 Not Detected Not Detected 01/16/2024 12:26 PM CDT [facility] Parainfluenza Virus 3 Not Detected Not Detected 01/16/2024 12:26 PM CDT [facility] Parainfluenza Virus 4 Not Detected Not Detected 01/16/2024 12:26 PM CDT [facility] Respiratory Syncytial Virus Not Detected Not Detected 01/16/2024 12:26 PM CDT [facility] Bordetella parapertussis Not Detected Not Detected 01/16/2024 12:26 PM CDT [facility] Bordetella pertussis Not Detected Not Detected 01/16/2024 12:26 PM CDT [facility] Chlamydophila pneumoniae Not Detected Not Detected 01/16/2024 12:26 PM CDT [facility] Mycoplasma pneumoniae Not Detected Not Detected 01/16/2024 12:26 PM CDT [facility] Swab Nasopharyngeal structure / Unknown Non-blood Collection / Unknown 01/16/2024 9:56 AM CDT 01/16/2024 10:14 AM CDT [facility] - 01/16/2024 12:26 PM CDT The assay is a qualitative multiplex PCR assay to aid in the diagnosis of respiratory pathogens through simultaneous qualitative detection and identification of multiple pathogens directly from nasopharyngeal swabs (ADMINISTRATIVE ASSISTANT OFFICE MANAGER) from individuals with respiratory symptoms. Testing is performed using the [employer] FilmArray Respiratory Panel 2.1 (RP2.1) on the [employer] System. The following organisms are identified using the [employer] RP 2.1 Panel: Adenovirus, Human Coronavirus (229E, [...] verified by the microbiology laboratory at the [facility] (CLIA Accreditation # [id number] and CAP Accreditation # [id number]). Results must be interpreted within the context of all relevant clinical and laboratory findings. Assay should not be used for monitoring response to therapy. Jackie Solomon APRN MICROBIOLOGY - GENERA L ORDERABLES Final Result Performing Organization Address City/[facility]/ZIP Co de Phone Number [facility] Unless otherwise noted, all lab tests performed by: Division of Pathology and Laboratory Medicine [address] [place] [address] * Flow Cytometry Workup - AML, MDS with excess blasts, MPN accelerated/blast phase or new acute leukemia of unknown lineage (01/16/2024 9:41 AM CDT) [facility] FLOW CYTOMETRY WORKUP TESTS TO ORDER FC MRD AML 01/17/2024 6:08 AM CDT FLOW CYTOMETRY Blood Peripheral blood specimen / Unknown CVC Line / Unknown 01/16/2024 9:41 AM CDT 01/16/2024 9:55 AM CDT Jackie Solomon APRN, [facility] CP BIOMARKER WORK UPS Final Result Performing Organization Address City/[facility]/ZIP Co de Phone Number [facility] [address] [address], [place] FLOW CYTOMETRY [facility] Flow Cytometry Laboratory [address] [place] [address] * DNA Hold (01/16/2024 9:41 AM CDT) Blood Peripheral blood specimen / Unknown CVC Line / Unknown 01/16/2024 9:41 AM CDT 01/16/2024 9:55 AM CDT us Jackie Solomon APRN [facility] CP BIOMARKER WORK UPS Final Result MOLECULAR DIAGNOSTICS [facility] Molecular Diagnostics Laboratory [address] [place] [address] * CG Optical Genome Mapping Analysis Final Report (01/16/2024 9:41 AM CDT) Clinical Indication Post-op Diagnosis: CMML 01/24/2024 4:09 PM CDT CYTOGENETICS Optical Genome Mapping Summary Tier 1 & Tier 2 Variants None Detected 01/24/2024 4:09 PM CDT [facility] HEMATOPATH LAB Optical Genome Mapping Interpretation No apparent Tier 1 (pathogenic) or Tier II (likely pathogenic) cytogenetic abnormality detected. Tier 3 Variants Events Abnormalities Genes involved Gain 5q31.1([id number]_ [id number])x2~3 TCF7 Loss 7q22.1([id number]_ [id number])x1~2 CUX1 Gain 7q34([id number] 2240383)x2~3 BRAF Loss 16p12.1([id number]_ [id number])x1~2 IL21R Gain 17q11.2([id number]_ 82893242)x2~3 SUZ12 Loss 21q22.3(87322626_ 31276120)x1~2 U2AF1 Chromoanagenesis- Related Variants None Detected ISCN ogm[GRCh38] 5q31.1([id number]_ [id number])x2~3,7q 22.1(102206891_10 4585806)x1~2,7q34 ([id number])x2~3,16p12.1( [id number]_[id number] )x1~2,17q11.2([id number]_[id number])x2 ~3,21q22.3([id number]_[id number])x1~2 01/24/2024 4:09 PM CDT [facility] HEMATOPATH LAB Optical Genome Mapping Methodology Ultra-high molecular weight (UHMW) genomic DNA (gDNA) extraction is performed by using [employer] SP DNA Isolation Kit for blood and bone marrow, which utilizes a lyse, bind, wash, and elute procedure in combination with thermoplastic paramagnetic Nanobind disks to isolate UHMW gDNA from blood and bone marrow with minimal fragmentation. Approximately 1.5 million cells from a blood or bone marrow aspirate are used for gDNA extraction. Extracted gDNA is then labeled and stained using the [employer] Direct Label and Stain (DLS) kit, which utilizes the Direct Label Enzyme (DLE-1) to attach a fluorescent tag (DL-green) via covalent modification to the UHMW gDNA at sequence specific recognition motif (CTTAAG), then followed by staining of the DNA backbone. Approximately 750 ng UHMW gDNA is labelled and stained. Labeled and stained UHMW gDNA is then loaded into a flowcell on a [employer] chip, which is subsequently inserted into the [employer] instrument. The flowcells utilize a system [...] duplications. Data analysis is performed using the [employer] in conjunction with VIA, utilizing a graphical user interface tool for visualization and curation, through Rare Variant Analysis for acquired variants. Following variant calling via the Rare Variant Analysis Pipeline, the sample is filtered using the recommended confidence settings and restricted to variants present in <1% of the [employer] control database. Genomic assessment is based on [...] is available upon request. 01/24/2024 4:09 PM T [facility] Optical Genome Mapping Limitations The [...] size is below 20%. 01/24/2024 4:09 PM T [facility] Optical Genome Mapping Classification of Variants (reference PMID [id number], [id number], [id number]) Tier 1 Variants with Strong Clinical Significance Tier2 Variants with Potential Clinical Significance Tier 3 Variants of Unknown (Uncertain) Clinical Significance Tier 4* Variants of known insignificance (benign or likely benign) *Tier 4 is not reported 01/24/2024 4:09 PM T [facility] Optical Genome Mapping References PMID [id number], [id number], [id number], [id number], [id number], [id number], [id number], [id number] 01/24/2024 4:09 PM T [facility] Optical Genome Mapping Disclaimer This test was developed and its performance determined by [facility] as required by the CLIA '88 regulations. It has not been cleared nor approved for specific uses by the U.S. Food and Drug Administration. In applying these results to patient care, correlation with clinical, pathological and other laboratory data are recommended. 01/24/2024 4:09 PM [facility] Pathologist Signature . 01/24/2024 4:09 PM T [facility] Blood Peripheral blood specimen / Unknown CVC Line / Unknown 01/16/2024 9:41 AM CDT 01/16/2024 9:55 AM CDT Jackie Solomon APRN [facility] HP CYTOGENETICS ( HP CG) Final Result [facility] CYTOGENETICS [facility] [address] [place] [address] * Yamil Case (Newly Diagnosed or Suspected New) (01/16/2024 9:41 AM CDT) Blood Peripheral blood specimen / Unknown CVC Line / Unknown 01/16/2024 9:41 AM CDT 01/16/2024 9:55 AM CDT Jackie Solomon APRN LAB BLOOD ORDERABLES Final Result [facility] Unless otherwise noted, all lab tests performed by: Division of Pathology and Laboratory Medicine [address] [place] [address] * EndLeukemia Mutation Panel V1 Interpretation and Report (01/16/2024 9:41 AM CDT) Pathology Accession N/A 01/22/2024 12:06 PM CDT MOLECULAR DIAGNOSTICS EndLeukemia Result Rad[facility] [id number] EndLeukemia Assay V1.1 Mutation Analysis Report: Clinical [...] Gene Genomic Variant COSMIC dbSNP ClinVar ASXL1 chr20:[id number] C>T c.4243C>T p.R1415* [id number] CSF3R chr1:[id number] A>G c.2087T>C p.M696T CUX1 chr7:[id number] C>T c.484C>T p.L162F NRAS chr1:[id number] C>A c.35G>T p.G12V OJII331 [id number] 17188 SRSF2 chr17:[id number] G>T c.284C>A p.P95H TET2 chr4:476669126 C>T c.1088C>T p.P363L [id number] 002821 TET2 chr4:670789718 T>TCA c.2305_2306dupCA p.Q769fs*44 Link to COSMIC: <[email or web address]> Link to dbSNP: <https://www.ncbi.nl .nih.gov/snp> Link to ClinVar: <https://www.ncbi.nl .nih.gov/clinvar> Methodology: Test Platform: Sequencing libraries were prepared [...] in the experimental setup and data analysis: [employer] Control Software 4.2.0.112, Real Time Analysis 2.11.30, Sequence Analysis Viewer 2.4.7 and Readyforce.2.0.10 ([employer]) EndLeukemia Regular Workflow 1.10. [...] of Somatic Mutations in Cancer, [facility] [facility] [employer] [place], [place]) and dbSNP version 137 (National [employer] of Health, [place]). o Probable somatic mutations [...] A post-variant calling analysis and annotation tool, [employer] version 1.10.1.616, was used in the construction [...] ANKRD26 (NM_014915) 1 (1-5) ASXL1 (NM_015338) 12-13 (976-1714), 13 (0139-0353) ASXL2 (NM_018263) 12-13 (381-1436) BCOR (NM_017745) 2-4 (1-512), 4-12 (194-1546), 13-15 (5929-9339), 15 (7994-5244) BCORL1 (NM_021946) 1-6 (1-1261), 6 (8265-4192), 6-12 (7266-9862), 12 (1659-4314) BRAF (NM_004333) 11 (439-477), 15 (581-620) BRINP3 (NM_199051) 2-8 (1-767) CALR (NM_004343) 9 (352-418) CBL (NM_005188) 7-9 (337-477) CBLB (NM_170662) 7-10 (282-469) CBLC (NM_012116) 7-10 (336-475) CEBPA (NM_004364) 1 (1-113), 1 (127-175), 1 (215-245), 1 (248-359) CREBBP (NM_004380) 1-8 (1-608), 9-31 (615-1943), 31 (7271-8668) CRLF2 (NM_022148) 6 (230-234) CSF3R (NM_156039) 14 [...] 5-7 (180-292) JAK1 (NM_002227) 3-22 (3-1023), 22-24 (0611-9539) JAK2 (NM_004972) 10 (406-442), 12-14 (505-622), 16 (665-711), 18 (762-805) JAK3 (NM_000215) 2-23 (1-1069) KDM6A (NM_021140) 1-9 (1-223), 9-19 (227-971), 19-21 (976-1070), 22-23 (1538-3397), 23-25 (6316-4676), 25-29 (6042-2141) KIT (NM_000222) 8-9 (411-514), 11 (550-592), 17 (788-828) KMT2A (NM_005933) 2-13 (145-1561), 14-15 (7378-0067), 27 (7685-3978), 27 (0306-2512), 27 (3775-0846), 27 (5069-5904) KRAS (NM_004985) 2-4 (1-150) MAP2K1 (NM_002755) 2 (28-91), 3 (98-146) MPL (NM_005373) 10 (490-522), 12 (552-636) NF1 (NM_001042492) 1-5 (1-190), 6 (202-218), 8-9 (244-309), 9-13 (311-468), 13-23 (478-1038), 24-26 (3432-2629), 26-31 (2964-2503), 31-35 (2817-5174), 35 (3749-8326), 36-38 (5916-8945), 39-47 (6940-9545), 47-52 (6259-7653), 52-58 (6144-7805) NOTCH1 (NM_017617) 26-28 (5237-5523), 34 (2533-1072), 34 (8399-3471) NPM1 (NM_002520) 11 (283-295) NRAS (NM_002524) 2-4 (1-150) PAX5 (NM_016734) 1-10 (1-392) PHF6 (NM_032458) 2-3 (1-79), 4-10 (81-366) PIGA (NM_002641) 2 (1-5), 2-6 (15-485) PML (NM_033238) 3 (201-256) WPVU18E (NM_001031698) 2-19 (2-609), 19-20 (612-658), 20-26 (662-893) [...] 3-12 (10-392), 13-22 (402-737), 22-29 (739-1049), 29-34 (0954-9830) STAG2 (NM_006603) 2-14 (1-442), 14-16 (844-539), 17-22 (544-751), 23-33 (756-1232) STAT3 (NM_139276) 17-22 (489-715) STAT5A (NM_003152) 3-7 (1-215), 7-20 (223-795) STAT5B (NM_012448) 16 (636-692) SUZ12 (NM_015355) 1-5 (15-169), 6 (174-175), 6-16 (180-740) TERC (NR_001566) 1 (1-41) TERT (NM_198253) 1 (1-24), 1-2 (32-172), 2-4 (235-630), 4-16 (633-1133) TET2 (NM_001127208) 3 (1-77), 3 (91-853), 3 (867-1027), 3-11 (1213-3113) TP53 (NM_000546) 2 (1-25), 4 (33-75), 4-11 [...] Laboratory (MDL) at the [facility]. It has not been cleared by the [...] 9:41 AM CDT 01/16/2024 9:55 AM CDT us Jackie Solomon APRN [facility] HP MOLECULAR DIAG NOSTICS (HP ) Final Result MOLECULAR DIAGNOSTICS [facility] [address] [place] [address] * HIV 1/2 Antigen/Antibody, Fourth Gen W/RFL (01/16/2024 9:41 AM CDT) HIV Ag/Ab, 4TH Gen NON-REACT EDGAR NON-REACT EDGAR 01/17/2024 5:02 PM CDT [facility] (DEEJAY) Comment: HIV-1 antigen and HIV-1/HIV-2 antibodies [...] purpose. For additional information please refer to http://education.Software Technology.ezTaxi/faq/LAA721 (This link is being provided for informational/ educational purposes only.) The performance of this assay has not been clinically validated in patients less than 2 years old. Blood Peripheral blood specimen / Unknown CVC Line / Unknown 01/16/2024 9:41 AM CDT 01/16/2024 9:55 AM CDT Narrative [facility] (DEEJAY) - 01/17/2024 5:02 PM CDT Performing Organization Information: [facility] [address] [place] [address] Lise Biggs Jackie Solomon APRN LAB BLOOD ORDERABLES Final Result [facility] (BEAKER) * CG BCR/ABL1 t(9;22) FISH Interpretation and [...] orange) ES dual color rearrangement probe. Vendor: [employer]. 01/17/2024 1:56 PM CDT CYTOGENETICS [facility] CP CG FISH DISCLAIMER This test was developed and its performance determined by .[facility] as required by the CLIA [...] 01/16/2024 9:55 AM CDT Jackie Solomon APRN [facility] HP CYTOGENETICS ( HP CG) Final Result CYTOGENETICS [facility] [address] [place] [address] * CG KMT2A(MLL) FISH Interpretation and Report (01/16/2024 9:41 AM CDT) Clinical Indication Post-op Diagnosis: CMML 01/17/2024 1:57 PM CDT CYTOGENETICS Processed Specimen Type Blood Smear 01/17/2024 1:57 PM CDT CYTOGENETICS KMT2A (MLL) FISH SUMMARY: NORMAL RESULT nuc jerad(LIC2Fx8)[200] INTERPRETATION: 200 cells have been analyzed, the results are within the normal limits. 01/17/2024 1:57 PM CDT CYTOGENETICS (2F)-Normal 100.0 % 01/17/2024 1:57 PM CDT CYTOGENETICS KMT2A (MLL) FISH Methodology Technique: fluorescence in situ hybridization (FISH) Probe used: KMT2A (MLL) dual color breakapart rearrangement probe, located at 11q23 5'KMT2A (MLL) - centromeric (spectrum green) / 3'KMT2A (MLL) - telomeric (spectrum orange) Vendor: [employer]. 01/17/2024 1:57 PM CDT CYTOGENETICS [facility] CP CG FISH DISCLAIMER This test was developed and its performance determined by [facility] as required by the CLIA [...] 9:41 AM CDT 01/16/2024 9:55 AM CDT us Jackie Solomon APRN, [facility] HP CYTOGENETICS ( HP CG) Final Result CYTOGENETICS [facility] [address] [place] [address] * Hepatitis C Virus RNA Detect/Quant (01/16/2024 9:41 AM CDT) [facility] HepC RNA PCR [facility] Undetected Undetected IU/mL 01/18/2024 4:30 PM CDT [facility] DEEJAY Comment: Result in log IU/mL is Undetected. ADDITIONAL INFORMATION The quantification range of this assay is 15 to 100,000,000 IU/mL (1.18 log to 8.00 log IU/mL). Testing was performed using the grover HCV test ([employer] Test Performed by: [facility] [address] [place] [address] Application Release Manager: Delmy Velasquez Ph.D.; CLIA# [id number] Blood Peripheral blood specimen / Unknown CVC Line / Unknown 01/16/2024 9:41 AM CDT 01/16/2024 9:55 AM CDT Jackie Solomon APRN LAB BLOOD ORDERABLES Final Result [facility] DEEJAY * Hepatitis B Total Ig Core Ab (SCREENING) (anti-HBc total Ig; HBcAb total Ig) (01/16/2024 9:41 AM CDT) [facility] HBcAb. Non Reactive Non Reactive 01/16/2024 12:09 PM CDT [facility] Blood Peripheral blood specimen / Unknown CVC Line / Unknown 01/16/2024 9:41 AM CDT 01/16/2024 9:55 AM CDT Jackie Solomon APRN LAB BLOOD ORDERABLES Final Result [facility] Unless otherwise noted, all lab tests performed by: Division of Pathology and Laboratory Medicine [address] [place] [address] [place] [address] * FC MRD AML Interpretation and Report [...] developed and its performance characteristics determined by [facility] Clinical Flow Cytometry Laboratory. It has not [...] 01/16/2024 9:55 AM CDT Jackie Solomon APRN [facility] HP FLOW CYTOMETRY (HP FC) Final Result FLOW CYTOMETRY [facility] Flow Cytometry Laboratory [address] [place] [address] * Potassium Venous (01/16/2024 9:41 AM CDT) Venous Potassium 3.8 3.4 - 4.5 mmol/L 01/16/2024 9:57 AM CDT [facility] Oxygen FLOW Rate/ FiO2 01/16/2024 9:57 AM CDT [facility] O2 Therapy 01/16/2024 9:57 AM CDT [facility] Blood Peripheral blood specimen / Unknown CVC Line / Unknown 01/16/2024 9:41 AM CDT 01/16/2024 9:54 AM CDT Jackie Solomon APRN LAB BLOOD ORDERABLES Final Result [facility] Unless otherwise noted, all lab tests performed by: Division of Pathology and Laboratory Medicine [address] [place] [address] * Peripheral Smear for Bone Marrow (01/16/2024 9:41 AM CDT) Blood Peripheral blood specimen / Unknown CVC Line / Unknown 01/16/2024 9:41 AM CDT 01/16/2024 9:55 AM CDT Jackie Solomon APRN LAB BLOOD ORDERABLES Final Result [facility] Unless otherwise noted, all lab tests performed by: Division of Pathology and Laboratory Medicine [address] [place] [address] * (ABNORMAL) Erythropoietin Level (01/16/2024 9:41 AM CDT) [facility] Erythropoietin Level 31.1(H) 2.6 - 18.5 mIU/mL 01/16/2024 11:00 AM CDT [facility] Blood Peripheral blood specimen / Unknown CVC Line / Unknown 01/16/2024 9:41 AM CDT 01/16/2024 9:55 AM CDT Jackie Solomon APRN LAB BLOOD ORDERABLES Final Result Performing Organization Address [facility] Co de Phone Number [facility] Unless otherwise noted, all lab tests performed by: Division of Pathology and Laboratory Medicine [address] [place] [address] * HTLV I/II Ab (01/16/2024 9:41 AM CDT) [facility] HTLV I/II Ab Screen-[place] Negative Negative 01/18/2024 9:34 PM CDT [facility] Comment: Test Performed by: [place] [address] Application Release Manager: Delmy Velasquez Ph.D.; CLIA# [id number] Blood Peripheral blood specimen / Unknown CVC Line / Unknown 01/16/2024 9:41 AM CDT 01/16/2024 9:55 AM CDT Jackie Solomon APRN LAB BLOOD ORDERABLES Final Result Performing Organization Address City/[facility]/ZIP Co de Phone Number [facility] DEEJAY * Hepatitis Surface B Ag (01/16/2024 9:41 AM CDT) [facility] HBsAg. Non Reactive Non Reactive 01/16/2024 12:09 PM CDT [facility] Blood Peripheral blood specimen / Unknown CVC Line / Unknown 01/16/2024 9:41 AM CDT 01/16/2024 9:55 AM CDT Jackie Solomon APRN LAB BLOOD ORDERABLES Final Result Performing Organization Address City/[facility]/ZIP Co de Phone Number [facility] Unless otherwise noted, all lab tests performed by: Division of Pathology and Laboratory Medicine [address] [place] [address] * Reticulocyte Count Automated (01/16/2024 9:41 AM CDT) [facility] Reticulocyte Count Automated 2.03 0.92 - 2.71 % 01/16/2024 10:27 AM CDT [facility] RETHE 36.3 29.9 - 38.4 pg 01/16/2024 10:27 AM CDT [facility] IRF 21.0 4.4 - 22.0 % 01/16/2024 10:27 AM CDT [facility] Retic Absolute 0.0603 0.04 - 0.13 M/uL 01/16/2024 10:27 AM CDT [facility] Blood Peripheral blood specimen / Unknown CVC Line / Unknown 01/16/2024 9:41 AM CDT 01/16/2024 9:55 AM CDT Jackie Solomon APRN LAB BLOOD ORDERABLES Final Result Performing Organization Address City/[facility]/ZIP Co de Phone Number [facility] Unless otherwise noted, all lab tests performed by: Division of Pathology and Laboratory Medicine [address] [place] [address] * Vitamin B12 Level (01/16/2024 9:41 AM CDT) Pathologist [facility] Vitamin B12 Level 1,108 232 - 1,245 pg/mL 01/16/2024 10:45 AM CDT [facility] Is patient fasting? Yes 01/16/2024 10:45 AM CDT [facility] Blood Peripheral blood specimen / Unknown CVC Line / Unknown 01/16/2024 9:41 AM CDT 01/16/2024 9:55 AM CDT Narrative [facility] - 01/16/2024 10:45 AM CDT Reference range established based on adult population. Jackie Solomon APRN LAB BLOOD ORDERABLES Final Result [facility] Unless otherwise noted, all lab tests performed by: Division of Pathology and Laboratory Medicine [address] [place] [address] * Echocardiogram 2D Complete (01/16/2024 8:44 AM CDT) EF 57 ISCV 01/16/2024 8:25 AM CDT Narrative [facility] - 01/16/2024 10:24 AM CDT Echocardiographic Report [...] cm Med Peak E' Rosa Elena: 5.0 cm/sec Lat Peak E' Rosa Elena: [...] 12.8 Bernarda Duvall APRN CV ECHO ORDERABLES Final Result [facility] * (ABNORMAL) NT-Pro BNP (In-House) (01/16/2024 1:14 AM CDT) Only the most recent of2 resultswithin the time period is included. Pathologist [facility] NT-ProBNP 2,694(H) <=450 pg/mL 01/16/2024 8:46 AM CDT [facility] Blood Peripheral blood specimen / Unknown CVC Line / Unknown 01/16/2024 1:14 AM CDT 01/16/2024 1:22 AM CDT Jackie Solomon APRN LAB BLOOD ORDERABLES Final Result Performing Organization Address City/[facility] Co de Phone Number [facility] Unless otherwise noted, all lab tests performed by: Division of Pathology and Laboratory Medicine [address] [place] [address] * Thyroid Stimulating Hormone (01/16/2024 1:14 AM CDT) Only the most recent of2 resultswithin the time period is included. [facility] Thyroid Stimulating Hormone 2.60 0.27 - 4.20 mcunit/mL 01/16/2024 8:32 AM CDT [facility] Blood Peripheral blood specimen / Unknown CVC Line / Unknown 01/16/2024 1:14 AM CDT 01/16/2024 1:22 AM CDT Jackie Solomon APRN LAB BLOOD ORDERABLES Final Result Performing Organization Address City/[facility]/ZIP Co de Phone Number [facility] Unless otherwise noted, all lab tests performed by: Division of Pathology and Laboratory Medicine [address] [place] [address] * T4 (01/16/2024 1:14 AM CDT) Pathologist [facility] Thyroxine 4.7 4.5 - 11.7 mcg/dL 01/16/2024 8:32 AM CDT [facility] Blood Peripheral blood specimen / Unknown CVC Line / Unknown 01/16/2024 1:14 AM CDT 01/16/2024 1:22 AM CDT Jackie Solomon APRN LAB BLOOD ORDERABLES Final Result [facility] Unless otherwise noted, all lab tests performed by: Division of Pathology and Laboratory Medicine [address] [place] [address] * Ferritin (01/16/2024 1:14 AM CDT) [facility] Ferritin Level 261 30 - 400 ng/mL 01/16/2024 8:32 AM CDT [facility] Blood Peripheral blood specimen / Unknown CVC Line / Unknown 01/16/2024 1:14 AM CDT 01/16/2024 1:22 AM CDT Narrative [facility] - 01/16/2024 8:32 AM CDT Reference range established for age 20 - 60 years Jackie Solomon APRN LAB BLOOD ORDERABLES Final Result Performing Organization Address City/[facility] Co de Phone Number [facility] Unless otherwise noted, all lab tests performed by: Division of Pathology and Laboratory Medicine [address] [place] [phone] * (ABNORMAL) Urinalysis Microscopic Exam (01/16/2024 1:00 AM CDT) Urine Mucous Trace Not Seen, Trace /HPF 01/16/2024 2:00 AM CDT [facility] Urine Bacteria Not Seen Not Seen /HPF 01/16/2024 2:00 AM CDT [facility] Urine Squamous Epithelial Cells Not Seen Not Seen, OCC, Rare /HPF 01/16/2024 2:00 AM CDT [facility] Urine Amorphous Crystal OCC(A) Not Seen /HPF 01/16/2024 2:00 AM CDT [facility] Urine WBC 1 <=2 /HPF 01/16/2024 2:00 AM CDT [facility] Urine RBC 3(H) <=2 /HPF 01/16/2024 2:00 AM CDT [facility] Urine (Urine Sagastume) Non-blood Collection / Unknown 01/16/2024 1:00 AM CDT 01/16/2024 1:27 AM CDT Bernarda Duvall APRN LAB BLOOD ORDERABLES Final Resul t [facility] Unless otherwise noted, all lab tests performed by: Division of Pathology and Laboratory Medicine [address] [place] [address] * (ABNORMAL) Urinalysis w/Microscopic if Indicated (01/16/2024 1:00 AM CDT) Urine Appearance Hazy(A) Clear 01/16/20 1:36 AM CDT [facility] Urine Color Straw Colorless, Straw, Yellow, Dark Yellow, Straw-Yellow 01/16/2024 1:36 AM CDT [facility] Urine Specific [place] 1.013 1.003 - 1.035 01/16/2024 1:36 AM CDT [facility] Urine pH 5.5 5.0 - 8.0 01/16/2024 1:36 AM CDT [facility] Urine Glucose Negative Negative mg/dL 01/16/2024 1:36 AM CDT [facility] Urine Ketones Negative Negative mg/dL 01/16/2024 1:36 AM CDT [facility] Urine Blood Small(A) Negative 01/16/2024 1:36 AM CDT [facility] Urine Protein 20(A) Negative mg/dL 01/16/2024 1:36 AM CDT [facility] Urine Bilirubin Negative Negative 1:36 AM CDT [facility] Urine Urobilinogen Negative Negative 01/16/2024 1:36 AM CDT [facility] Urine Nitrite Negative Negative 01/16/2024 1:36 AM CDT [facility] Urine Leukocyte Esterase Negative Negative 01/16/2024 1:36 AM CDT [facility] Urine (Urine Sagastume) Non-blood Collection / Unknown 01/16/2024 1:00 AM CDT 01/16/2024 1:27 AM CDT Narrative [facility] - 01/16/2024 1:36 AM CDT Some reporting parameters within the Urinalysis test have changed due to the implementation of new instrumentation in the Main [place], allowing greater sensitivity of measurement. Urinalysis results reported by the [facility] using existing instrumentation, as well as Urinalysis testing performed manually or by back-up methodology at the main [place], will remain relatively unchanged. New reporting parameters and units will now be reported for all campuses. Bernarda Duvall APRN URINE ORDERABLES Final Result Performing Organization Address City/[facility]/ZIP Co de Phone Number [facility] Unless otherwise noted, all lab tests performed by: Division of Pathology and Laboratory Medicine [address] [place] [address] * EKG, 12-Lead (Portable) (01/16/2024) us Bernarda Duvall APRN ECG ORDERABLES Final Result Performing Organization Address [facility]/ZIP Co de Phone Number [facility] * Confirm ABORh (01/15/2024 10:45 PM CDT) Pathologist [facility] ABORh Confirm B POS 01/15/2024 10:17 PM CDT [facility] Blood Peripheral blood specimen / Unknown CVC Line / Unknown 01/15/2024 10:45 PM CDT 01/15/2024 10:52 PM CDT Bernarda Duvall APRN BLOOD BANK TEST ORDERABLES Final Result Performing Organization Address City/[facility] Co de Phone Number [facility] [address] [facility] [address] [place] [address] * VRE Culture (01/15/2024 10:40 PM CDT) VRE Culture No Vancomycin-Resi stant Enterococci isolated. 01/17/2024 2:27 PM CDT [facility] Swab Rectum structure / Unknown Non-blood Collection / Unknown 01/15/2024 10:40 PM CDT 01/15/2024 10:52 PM CDT us Bernarda Duvall APRN MICROBIOLOGY - GENERAL ORDERABLE S Final Result Performing Organization Address City/[facility]/ZIP Co de Phone Number [facility] Unless otherwise noted, all lab tests performed by: Division of Pathology and Laboratory Medicine [address] [place] [address] * Blood Culture Peripheral (01/15/2024 10:26 PM CDT) [facility] Blood Culture No Growth. 01/21/2024 12:01 AM CDT [facility] Blood Peripheral blood specimen / Unknown CVC Line / Unknown 01/15/2024 10:26 PM CDT 01/15/2024 10:33 PM CDT us Bernarda Duvall APRN MICROBIOLOGY - GENERAL ORDERABLE S Final Result Performing Organization Address [facility] de Phone Number [facility] Unless otherwise noted, all lab tests performed by: Division of Pathology and Laboratory Medicine [address] [place] [phone] * (ABNORMAL) Triiodothyronine (01/15/2024 10:26 PM CDT) [facility] Triiodothyronine 46(L) 80 - 200 ng/dL 01/15/2024 11:13 PM CDT [facility] Blood Peripheral blood specimen / Unknown CVC Line / Unknown 01/15/2024 10:26 PM CDT 01/15/2024 10:33 PM CDT us Bernarda Duvall APRN LAB BLOOD ORDERABLES Final Resul t Performing Organization Address City/[facility]/ZIP Co de Phone Number [facility] Unless otherwise noted, all lab tests performed by: Division of Pathology and Laboratory Medicine [address] [place] [address] * Thyroxine Free (01/15/2024 10:26 PM CDT) Pathologist [facility] T4 (Thyroxine) Free 1.65 0.92 - 1.68 ng/dL 01/15/2024 11:13 PM CDT [facility] Blood Peripheral blood specimen / Unknown CVC Line / Unknown 01/15/2024 10:26 PM CDT 01/15/2024 10:33 PM CDT us Bernarda Duvall [employer] LAB BLOOD ORDERABLES Final Resul t [facility] [facility] Unless otherwise noted, all lab tests performed by: Division of Pathology and Laboratory Medicine [address] [place] [id number] * (ABNORMAL) Blood Gas Venous (01/15/2024 10:26 PM CDT) [facility] pH Venous 7.37 7.32 - 7.43 01/15/2024 10:34 PM CDT [facility] P CO2 Venous 33.9(L) 41.0 - 51.0 mmHg 01/15/2024 10:34 PM CDT [facility] P O2 Venous 29 mmHg 01/15/2024 10:34 PM CDT [facility] Bicarbonate Venous 20(L) 21 - 28 mmol/L 01/15/2024 10:34 PM CDT [facility] Base Excess Venous -5(L) -2 - 3 mmol/L 01/15/2024 10:34 PM CDT [facility] Oxygen Saturation Venous 53 % 01/15/2024 10:34 PM CDT [facility] Oxygen FLOW Rate/ FiO2 01/15/2024 10:34 PM CDT [facility] O2 Therapy 01/15/2024 10:34 PM CDT [facility] Blood Peripheral blood specimen / Unknown CVC Line / Unknown 01/15/2024 10:26 PM CDT 01/15/2024 10:32 PM CDT us Bernarda Duvall APRN LAB BLOOD ORDERABLES Final Resul t [facility] Unless otherwise noted, all lab tests performed by: Division of Pathology and Laboratory Medicine [address] [place] [id number] * (ABNORMAL) Calcium Level (01/15/2024 10:26 PM CDT) Calcium Level Total 7.9(L) 8.2 - 10.2 mg/dL 01/15/2024 11:06 PM CDT [facility] Blood Peripheral blood specimen / Unknown CVC Line / Unknown 01/15/2024 10:26 PM CDT 01/15/2024 10:33 PM CDT Bernarda Duvall APRN LAB BLOOD ORDERABLES Final Resul t Performing Organization Address City/[facility]/ZIP Co de Phone Number [facility] Unless otherwise noted, all lab tests performed by: Division of Pathology and Laboratory Medicine [address] [place] [id number] * (ABNORMAL) Cardiac Panel (01/15/2024 10:25 PM CDT) Creatine Kinase 30(L) 39 - 308 U/L 01/15/2024 10:56 PM CDT [facility] CKMB 2.6 <=10.4 ng/mL 01/15/2024 10:56 PM CDT [facility] Troponin T 37(H) <=19 ng/L 01/15/2024 10:56 PM CDT [facility] Comment: < 19 ng/L Suggest retest at [...] CDT 01/15/2024 10:33 PM CDT Bernarda Duvall [employer] LAB BLOOD ORDERABLES Final Resul t [facility] Unless otherwise noted, all lab tests performed by: Division of Pathology and Laboratory Medicine [address] [place] [id number] * OSI Chest (01/15/2024 9:13 AM CDT) Narrative Systemgenerated, Documentation - 01/18/2024 9:13 AM CDT Study acquired at another institution. For comparison only. No MD Gamino originated interpretation requested or available. Mario Alberto ELYG OUTSIDE IMAGE O RDERABLES Final Result * OSI CT Brain (01/15/2024 9:13 AM CDT) Narrative Systemgenerated, Documentation - 01/18/2024 9:13 AM CDT Study acquired at another institution. For comparison only. No MD Gamino originated interpretation requested or available. Mario Alberto ELYG OUTSIDE IMAGE O RDERABLES Final Result * OSI CT Abdomen and Pelvis (01/12/2024 9:14 AM CDT) Narrative Systemgenerated, Documentation - 01/18/2024 9:14 AM CDT Study acquired at another institution. For comparison only. No MD Gamino originated interpretation requested or available. Mario Alberto MILLS OUTSIDE IMAGE O RDERABLES Final Result after 04/28/2023 Insurance [employer] Advance Directives * Full Code (Latest Code Status on File) Date Activated Date Inactivated Comments 01/16/2024 5:14 AM 01/24/2024 12:25 AM Care Teams Director Of Teaching And Learning Relationship Specialty Start Date End Date Jatin lAvarez MD [address] [place] [id number] [email or web address] PCP - General Leukemia 03/06/24 Arjun Hamm MD [address] [place] [id number] [email or web address] 01/23/24 DR. Leandro Lugo [facility] 01/19/24 01/18/99
[2024-04-27] MEDS ORDERED: FAMOTIDINE 20 MG/2 ML VIAL IV ONE (11:50)
[2024-04-27] MEDS ORDERED: NA CHLORIDE 0.9% 1,000 ML ONE (11:50)
[2024-04-27] MEDS ORDERED: ONDANSETRON 4 MG/2 ML VIAL ONE (11:50)
--- NOTE | 2024-04-27 12:08 | RAD REPORT ---
EXAMINATION: CT ABDOMEN AND PELVIS WITHOUT CONTRAST CLINICAL INDICATION: Male, 83 years old.Abd pain;Nausea / vomiting TECHNIQUE: CT abdomen and pelvis was performed, without IV contrast, as per department protocol. Axia l, sagittal and coronal reconstructions were obtained. One or more of the following dose reduction techniques were used: Automated exposure control, adjustment of the mA and/or kV according to the pat ient size, and/or iterative reconstruction. Unless otherwise specified, incidental findings do not require dedicated imaging follow-up. [id number]. IV CONTRAST: Not administered. COMPARISON: 01/12/2024, 10/03/2019 FINDINGS: The lack of intravenous contrast limits the sensitivity of this exam for evaluation of solid visceral organs, vascular structures, and retroperitoneum. LOWER CHEST: Chronic changes at the lung bases.Small pericardial effusion. Multivessel coronary arter y calcifications. UPPER GI: No significant abnormality. LIVER: No significant focal abnormality. GALLBLADDER/BILE DUCTS: No biliary ductal dilatation.? PANCREAS: No mass, ductal dilation, or himanshu-pancreatic fluid. SPLEEN: Unremarkable. ADRENALS: No adrenal masses. KIDNEYS AND URETERS: No hydronephrosis.Benign left renal cyst.Motion artifact. No renal or ureteral c alculi identified. ABDOMINAL AORTA AND OTHER VESSELS: The abdominal aorta at the renal arteries measures up to 2.7 cm an d is nonaneurysmal. 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 This is unchanged. PERITONEUM: No abnormal free fluid. No free air. LYMPH NODES: No pathologic lymphadenopathy. ABDOMINAL WALL: Unremarkable SMALL BOWEL/COLON: Small bowel has normal course and caliber. No colonic wall thickening or pericolon ic inflammatory changes.Normal appendix. URINARY BLADDER: Underdistended but grossly unremarkable. REPRODUCTIVE ORGANS: No pathologic process. MUSCULOSKELETAL: Multilevel degenerative changes in the spine. No acute fracture. ADDITIONAL FINDINGS: None. IMPRESSION: No acute or significant abnormalities in the abdomen or pelvis, with evaluation limited by lack of IV contrast. Unchanged incidental findings as noted above.
--- NOTE | 2024-04-27 12:47 | RAD REPORT ---
EXAM: Chest Single View HISTORY: COUGH COMPARISON: 01/15/2024 FINDINGS: LUNGS/PLEURA: The lungs are clear. No pleural effusions or pneumothorax. No pulmonary edema. MEDIASTINUM: The mediastinal silhouette is within normal limits. CARDIAC: The cardiac silhouette is within normal limits. UPPER ABDOMEN: No significant abnormality. BONES: No acute abnormality. LINES/TUBES/OTHER: N/A IMPRESSION: No evidence of acute cardiopulmonary disease.
[2024-04-27 12:58] LABS: Absolute Lymphocytes (CBC) 0.7 K/uL (0.7-4.9); Absolute Monocytes 0.3 K/uL (0.1-1.3); Absolute Neutrophil 1.7 K/uL (1.8-8.0); Basophils % 0.3 % (0-1.3); Eosinophils % 0.6 % (0-4.4); Hematocrit 33.1 % (39.6-49.0); Hemoglobin 11.4 g/dL (13.6-17.9); Lymphocytes % 24.9 % (15.3-44.8); MCH 35.2 pg (27.0-35.0); MCHC 34.4 g/dL (32.0-36.0); MCV 102.2 fL (80-100); MPV 7.8 fL (7.6-11.3); Monocytes % 10.7 % (3.3-12.3); Neutrophils % 63.5 % (41.7-73.7); Nucleated Red Blood Cells % 0.1 % (0-0); Platelets 106 thou/uL (152-406); RBC Red Blood Cell Count 3.24 M/uL (4.33-5.43); Red Cell Distribution Width 27.1 % (12.1-15.2)
[2024-04-27 12:59] LABS: Specific Gravity 1.022 (1.005-1.030); Sqamous Epithelial None Seen /HPF (None Seen); Urine Bacteria None Seen /HPF (<20); Urine Bilirubin NEGATIVE (Negative); Urine Blood Negative (Negative); Urine Clarity Turbid (Clear); Urine Color Yellow (Yellow); Urine Culture Reflex Order NOT NEEDED; Urine Glucose NEGATIVE (Negative); Urine Ketones NEGATIVE (Negative); Urine Microscopic Reflex YN ORDER UMIC; Urine Mucus Slight /HPF (None Seen); Urine Nitrite NEGATIVE (Negative); Urine Protein TRACE (Negative); Urine RBC <5 /HPF (None Seen); Urine Urobilinogen Normal (Normal); Urine WBC <5 /HPF (<5); Urine pH 5.5 (5.0-7.0)
[2024-04-27 13:04] LABS: PT Prothrombin Time 13.1 SECONDS (9.4-12.5); Protime INR 1.25
[2024-04-27 13:15] LABS: Albumin 3.4 g/dL (3.4-5.0); Bilirubin Direct 0.3 mg/dL (0-0.2); Bilirubin Indirect, Calculated 1.1 mg/dL (0.2-0.8); Bilirubin Total 1.4 mg/dL (0.2-1.0); Globulin 3.3 g/dL (2.3-3.5); Protein, Total 6.7 g/dL (6.4-8.2); Troponin High Sensitivity 8.6 pg/mL (<58.9)
[2024-04-27 13:19] LABS: White Blood Cell Scan OK (OK)
[2024-04-27 13:20] LABS: Anisocytosis 2+; Blood Morphology Comment NOTED (NOT SEEN); Hypersegmented Neutrophils PRESENT; Macrocytosis 1+; Microcytosis 1+; Platelet Estimate DECR; Platelets, Giant FEW
[2024-04-27] MEDS ORDERED: POTASSIUM 25 MEQ EFFERV TAB ONE (15:47)
--- NOTE | 2024-04-27 15:52 | ER ---
Nurse's Notes [facility] Name: Jovi Garcia Age: 83 yrs Sex: Male : 1940 Arrival Date: 04/27/2024 Time: 11:03 Bed 7 Private MD: Diagnosis: Nausea;Anorexia;Antineoplastic chemotherapy induced pancytopenia;Hypokalemia Presentation: 04/27 11:18 Chief complaint: Spouse and/or significant other states: the patient has been "belching ap3 loudly and a lot, is nauseous, isn't eating and he says he doesn't feel good" for approx one week. Coronavirus screen: At this time, the client does not indicate any symptoms associated with coronavirus-19. Ebola Screen: No symptoms or risks identified at this time. Initial Sepsis Screen: Does the patient meet any 2 criteria? No. Patient's initial sepsis screen is negative. Does the patient have a suspected source of infection? No. Patient's initial sepsis screen is negative. Risk Assessment: Do you want to hurt yourself or someone else? Patient reports no desire to harm self or others. Onset of symptoms is unknown. 11:18 Method Of Arrival: Wheelchair ap3 11:18 Acuity: NABEEL 3 ap3 Triage Assessment: 11:21 General: Appears in no apparent distress. Behavior is calm, cooperative, appropriate ap3 for age. Pain: Denies pain. Neuro: Level of Consciousness is awake, alert, obeys commands, Oriented to person, place, time, situation, Appropriate for age. Cardiovascular: Patient's skin is warm and dry. Respiratory: Airway is patent Respiratory effort is even, unlabored, Respiratory pattern is regular, symmetrical. GI: Reports bloating, gaseousness, nausea. 11:22 General: Reports feeling ill for. ap3 Historical: - Allergies: 11:20 No Known Allergies; ap3 - PMHx: 11:20 aortic aneurysm; BPH; Chronic obstructive lung disease; CHRONIC PROXIMAL HEMICRANIA; ap3 Dementia; Dementia; HARD OF HEARING; Hypertensive disorder; Leukemia; - PSHx: 11:20 back sx; Stented artery; ap3 - Immunization history:: Client reports receiving the 2nd dose of the Covid vaccine, Flu vaccine is not up to date. - Infectious Disease History:: Denies. - Social history:: Smoking status: Patient denies any tobacco usage or history of. Screenin:22 Abuse screen: Denies threats or abuse. Nutritional screening: No deficits noted. ap3 Tuberculosis screening: No symptoms or risk factors identified. 13:32 [facility] ED Fall Risk Assessment (Adult) History of falling in the last 3 months, ld1 including since admission No falls in past 3 months (0 pts) Confusion or Disorientation No (0 pts) Intoxicated or Sedated No (0 pts) Impaired Gait No (0 pts) Mobility Assist Device Used No (0 pt) Altered Elimination No (0 pt) Score/Fall Risk Level 0 - 2 = Low Risk Oriented to surroundings, Maintained a safe environment, Educated pt \\T\\ family on fall prevention, incl call for assistance when getting out of bed, Assessed \\T\\ reinforced patient's understanding of fall precautions, Provided non-skid footwear, Hourly rounding (assess needs \\T\\ fall precautionary measures) done, Used ambulatory aids as needed (educated on \\T\\ assisted with), Used gait belt as appropriate. Assessment: 13:32 General: Appears in no apparent distress. comfortable, Behavior is calm, cooperative, ld1 appropriate for age. Pain: Denies pain. Neuro: Level of Consciousness is awake, alert, obeys commands, Oriented to person, place, time, situation, Appropriate for age. Cardiovascular: Capillary refill < 3 seconds Patient's skin is warm and dry. Respiratory: Airway is patent Respiratory effort is even, unlabored. GI: Abdomen is round non-distended. : No signs and/or symptoms were reported regarding the genitourinary system. EENT: No signs and/or symptoms were reported regarding the EENT system. Derm: No signs and/or symptoms reported regarding the dermatologic system. Musculoskeletal: No signs and/or symptoms reported regarding the musculoskeletal system. Vital Signs: 11:18 BP 129 / 85; Pulse 81; Resp 17; Temp 98(TE); Pulse Ox 100% on R/A; Weight 93.89 kg; ap3 13:32 Pulse 75; Resp 18; Pulse Ox 100% on R/A; ld1 15:58 BP 150 / 80; Pulse 72; Resp 16; Pulse Ox 99% ; ko1 ED Course: 11:07 Patient arrived in ED. sj2 11:13 Angel Gamino MD is Attending Physician. titus 11:20 Triage completed. ap3 11:22 Arm band placed on right wrist. ap3 11:48 Molly Omer, RN is Primary Nurse. ld1 11:58 CT Abd/Pelvis - Without Contrast In Process Unspecified. EDMS 12:36 XRAY Chest (1 view) In Process Unspecified. EDMS 12:42 Basic Metabolic Panel Sent. ko1 12:42 CBC with Diff Sent. ko1 12:42 LFT's Sent. ko1 12:42 Lipase Sent. ko1 12:42 Urinalysis w/ reflexes Sent. ko1 12:43 Patient has correct armband on for positive identification. Bed in low position. Call ko1 light in reach. Side rails up X 1. Provided Education on: labs, meds. Client placed on continuous cardiac and pulse oximetry monitoring. NIBP monitoring applied. color television console monitor on. Door closed. Noise minimized. Lights dimmed. Warm blanket given. Pillow given. 12:43 Magnesium Sent. ko1 12:43 NT PRO-BNP Sent. ko1 12:43 PT-INR Sent. ko1 12:43 Troponin HS Sent. ko1 12:43 Initial lab(s) drawn, by ms, sent to lab. Urine collected: clean catch specimen, sg ko1 colored, Amount Voided: 250mL. Inserted saline lock: 22 gauge in right antecubital area, using aseptic technique. Blood collected. Flushed with 10 mL NS. 13:32 No provider procedures requiring assistance completed. ld1 15:58 IV discontinued, intact, bleeding controlled, No redness/swelling at site. Pressure ko1 dressing applied. Administered Medications: 12:43 Drug: NS 0.9% IV 1000 ml IV at 1000 ml once; to be given as a bolus over 60 minutes ko1 Route: IV; Rate: 1000 ml; Site: right antecubital; 13:43 Follow up: Response: No adverse reaction; IV Status: Completed infusion; IV Intake: ko1 1000ml 12:43 Drug: Famotidine IVP 20 mg IVP once; dilute with 10 mL 0.9% NaCl; give over 2 minutes ko1 Route: IVP; Site: right antecubital; 12:58 Follow up: Response: No adverse reaction ko1 12:43 Drug: Ondansetron IVP 4 mg IVP once; over 2 minutes Route: IVP; Site: right antecubital;ko1 12:58 Follow up: Response: No adverse reaction ko1 15:51 Drug: Potassium PO Effervescent Tablet 50 mEq PO once; dissolve in 4 ounces of water or ko1 juice Route: PO; 16:00 Follow up: Response: No adverse reaction; Medication administered at discharge. ko1 Medication: 13:32 VIS not applicable for this client. ld1 Intake: 13:43 IV: 1000ml; Total: 1000ml. ko1 Outcome: 15:52 Discharge ordered by MD. qureshi 15:58 Discharged to home ambulatory, with family, ko1 15:58 Condition: stable 15:58 Discharge instructions given to patient, family, Instructed on discharge instructions, follow up and referral plans. medication usage, Demonstrated understanding of instructions, follow-up care, medications, Prescriptions given X 2, 16:16 Patient left the ED. ko1 Signatures: Dispatcher [employer] EDMS Angel Gamino MD MD cha Prokisch, Amanda, RN RN ana [email or web address] Molly Omer RN RN jud1 Elizabeth Shaw RN RN ko1 Jeevan Rivera2
--- NOTE | 2024-04-27 15:52 | EDPHYS ---
Physician Documentation [facility] Name: Jovi Garcia Age: 83 yrs Sex: Male : 1940 Arrival Date: 04/27/2024 Time: 11:03 Bed 7 Private MD: KEVIN Physician Angel Gamino HPI: 04/27 15:39 This 83 yrs old Male presents to ER via Wheelchair with complaints of Nausea, titus Decreased Appetite. 15:39 The patient presents to the emergency department with nausea, diarrhea. Onset: The titus symptoms/episode began/occurred 5 day(s) ago. Possible causes: unknown. The symptoms are aggravated by nothing. The symptoms are alleviated by nothing. Associated signs and symptoms: Pertinent positives: anorexia, nausea. Severity of symptoms: At their worst the symptoms were mild in the emergency department the symptoms have improved mildly. The patient has experienced similar episodes in the past, multiple times. weak , decreased appitite. Historical: - Allergies: 11:20 No Known Allergies; ap3 - PMHx: 11:20 aortic aneurysm; BPH; Chronic obstructive lung disease; CHRONIC PROXIMAL HEMICRANIA; ap3 Dementia; Dementia; HARD OF HEARING; Hypertensive disorder; Leukemia; - PSHx: 11:20 back sx; Stented artery; ap3 - Immunization history:: Client reports receiving the 2nd dose of the Covid vaccine, Flu vaccine is not up to date. - Infectious Disease History:: Denies. - Social history:: Smoking status: Patient denies any tobacco usage or history of. ROS: 15:48 Constitutional: Negative for fever, chills, and weight loss, Eyes: Negative for injury, titus pain, redness, and discharge, ENT: Negative for injury, pain, and discharge, Neck: Negative for injury, pain, and swelling, Cardiovascular: Negative for chest pain, palpitations, and edema, Respiratory: Negative for shortness of breath, cough, wheezing, and pleuritic chest pain, Back: Negative for injury and pain, : Negative for injury, bleeding, discharge, and swelling, MS/Extremity: Negative for injury and deformity, Skin: Negative for injury, rash, and discoloration, Neuro: Negative for headache, weakness, numbness, tingling, and seizure, Psych: Negative for depression, anxiety, suicide ideation, homicidal ideation, and hallucinations, Allergy/Immunology: Negative for hives, rash, and allergies, Endocrine: Negative for neck swelling, polydipsia, polyuria, polyphagia, and marked weight changes, Hematologic/Lymphatic: Negative for swollen nodes, abnormal bleeding, and unusual bruising, 15:48 Abdomen/GI: Positive for abdominal pain, nausea and vomiting, of the right upper quadrant, left upper quadrant, right lower quadrant and left lower quadrant, Exam: 15:48 Constitutional: This is a well developed, well nourished patient who is awake, alert, titus and in no acute distress. Head/Face: Normocephalic, atraumatic. Eyes: Pupils equal round and reactive to light, extra-ocular motions intact. Lids and lashes normal. Conjunctiva and sclera are non-icteric and not injected. Cornea within normal limits. Periorbital areas with no swelling, redness, or edema. ENT: Nares patent. No nasal discharge, no septal abnormalities noted. Tympanic membranes are normal and external auditory canals are clear. Oropharynx with no redness, swelling, or masses, exudates, or evidence of obstruction, uvula midline. Mucous membranes moist. Neck: Trachea midline, no thyromegaly or masses palpated, and no cervical lymphadenopathy. Supple, full range of motion without nuchal rigidity, or vertebral point tenderness. No Meningismus. Chest/axilla: Normal chest wall appearance and motion. Nontender with no deformity. No lesions are appreciated. Cardiovascular: Regular rate and rhythm with a normal S1 and S2. No gallops, murmurs, or rubs. Normal PMI, no JVD. No pulse deficits. Respiratory: Lungs have equal breath sounds bilaterally, clear to auscultation and percussion. No rales, rhonchi or wheezes noted. No increased work of breathing, no retractions or nasal flaring. Abdomen/GI: Soft, non-tender, with normal bowel sounds. No distension or tympany. No guarding or rebound. No evidence of tenderness throughout. Back: No spinal tenderness. No costovertebral tenderness. Full range of motion. Male : Normal genitalia with no discharge or lesions. Skin: Warm, dry with normal turgor. Normal color with no rashes, no lesions, and no evidence of cellulitis. MS/ Extremity: Pulses equal, no cyanosis. Neurovascular intact. Full, normal range of motion., bilateral aka Neuro: Awake and alert, GCS 15, oriented to person, place, time, and situation. Cranial nerves II-XII grossly intact. Motor strength 5/5 in all extremities. Sensory grossly intact. Cerebellar exam normal. Normal gait. Psych: Awake, alert, with orientation to person, place and time. Behavior, mood, and affect are within normal limits. 15:48 ECG was reviewed by the Attending Physician. Vital Signs: 11:18 BP 129 / 85; Pulse 81; Resp 17; Temp 98(TE); Pulse Ox 100% on R/A; Weight 93.89 kg; ap3 13:32 Pulse 75; Resp 18; Pulse Ox 100% on R/A; ld1 15:58 BP 150 / 80; Pulse 72; Resp 16; Pulse Ox 99% ; ko1 MDM: 11:25 Medical Screening Exam initiated titus 15:49 Differential diagnosis: Nonspecific abd pain, gastritis, cholecystitis, pancreatitis, titus appendicitis, diverticulitis, viral gastroenteritis, gastroenteritis. Differential Diagnosis altered mental status, sepsis, flu. Data reviewed: vital signs, nurses notes, lab test result(s), EKG, radiologic studies, CT scan, plain films. Consideration of Admission/Observation Patient was admitted/placed on observation. Escalation of care including admission/observation considered. I considered the following discharge prescriptions or medication management in the emergency department Medications were administered in the Emergency Department. See MAR. Independent interpretation of the following test(s) in the Emergency Department EKG: See my EKG interpretation above. Test considered but Not performed: Ultrasound no abd usg. Historians other than the Patient: Spouse/Significant Other: well informed. Care significantly affected by the following chronic conditions: Chronic Obstructive Pulmonary Disease, Obesity, Cancer, aortic aneurysm , bph. 04/27 11:15 Order name: Basic Metabolic Panel; Complete Time: 15:31 [facility] 04/27 11:15 Order name: CBC with Diff; Complete Time: 15: [facility] 04/27 11:15 Order name: LFT's; Complete Time: 15: [facility] 04/27 11:15 Order name: Magnesium; Complete Time: 15:31 [facility] 04/27 11:15 Order name: NT PRO-BNP; Complete Time: 15: [facility] 04/27 11:15 Order name: PT-INR; Complete Time: 15:04/27 11:15 Order name: Troponin HS; Complete Time: 15:31 [facility] 04/27 11:15 Order name: Lipase; Complete Time: 15:31 [facility] 04/27 11:15 Order name: Urinalysis w/ reflexes; Complete Time: 15:31 [facility] 04/27 13:21 Order name: CBC Smear Scan; Complete Time: 15:31 [facility] 04/27 11:15 Order name: XRAY Chest (1 view); Complete Time: 15:31 [facility] 04/27 11:15 Order name: CT Abd/Pelvis - Without Contrast; Complete Time: 15:31 [facility] 04/27 11:15 Order name: Cardiac monitoring; Complete Time: 11:49 [facility] 04/27 11:15 Order name: EKG - Nurse/Tech; Complete Time: 11:49 [facility] 04/27 11:15 Order name: IV Saline Lock; Complete Time: 12:42 [facility] 04/27 11:15 Order name: Labs collected and sent; Complete Time: 12:42 [facility] 04/27 11:15 Order name: O2 Per Protocol; Complete Time: 11:49 [facility] 04/27 11:15 Order name: O2 Sat Monitoring; Complete Time: 11:49 [facility] 04/27 15:33 Order name: Misc. Order: po juice; Complete Time: 15:45 titus EC:48 Rate is 77 beats/min. Rhythm is regular. QRS [place] is Normal. [place] interval is normal. QRS titus interval is normal. QT interval is normal. No Q waves. T waves are Normal. No ST changes noted. Clinical impression: NSR w/ Non-specific ST/T Changes and No evidence of ischemia. Interpreted by me. Reviewed by me. Administered Medications: 12:43 Drug: NS 0.9% IV 1000 ml IV at 1000 ml once; to be given as a bolus over 60 minutes ko1 Route: IV; Rate: 1000 ml; Site: right antecubital; 13:43 Follow up: Response: No adverse reaction; IV Status: Completed infusion; IV Intake: ko1 1000ml 12:43 Drug: Famotidine IVP 20 mg IVP once; dilute with 10 mL 0.9% NaCl; give over 2 minutes ko1 Route: IVP; Site: right antecubital; 12:58 Follow up: Response: No adverse reaction ko1 12:43 Drug: Ondansetron IVP 4 mg IVP once; over 2 minutes Route: IVP; Site: right antecubital;ko1 12:58 Follow up: Response: No adverse reaction ko1 15:51 Drug: Potassium PO Effervescent Tablet 50 mEq PO once; dissolve in 4 ounces of water or ko1 juice Route: PO; 16:00 Follow up: Response: No adverse reaction; Medication administered at discharge. ko1 Disposition Summary: 04/27/24 15:52 Discharge Ordered Notes: Location: Home [facility] Problem: new titus Symptoms: have improved titus Condition: Stable titus Diagnosis - Nausea titus - Anorexia titus - Antineoplastic chemotherapy induced pancytopenia titus - Hypokalemia titus Followup: titus - With: Private Physician - When: 2 - 3 days - Reason: Recheck today's complaints, Continuance of care, Re-evaluation by your physician Discharge Instructions: - Discharge Summary Sheet [facility] - Potassium Content of Foods titus - Nausea, Adult titus - Nausea and Vomiting, Adult, [id number] titus - Hypokalemia titus - Nausea, Adult, [id number] titus - Pancytopenia [facility] Forms: - Medication Reconciliation Form [facility] - Antibiotic Education titus - Prescription Opioid Use titus - Patient Portal Instructions [facility] - Leadership Thank You Letter [facility] Prescriptions: - ondansetron 4 mg Oral Tablet,disintegrating - take 1 tablet ORAL route every 6-8 hours for 5 days; 20 tablet; Refills: 0, [facility] Product Selection Permitted - Potassium Chloride 20 meq Oral Packet - take 1 packet ORAL route once daily 1 packet in 6 (six) ounces of water or titus juice; Take after meal; 14 packet; Refills: 0, Product Selection Permitted Signatures: Dispatcher [employer] EDMS Angel Gamino MD MD cha Prokisch, Amanda RN RN ap3 Elizabeth Shaw RN RN ko1 Corrections: (The following items were deleted from the chart) 11:15 11:15 Chest Single View+RAD.RAD.BRZ ordered. EDMS EDMS 11:15 11:15 Abdomen Pelvis Wo Con+CT.RAD.BRZ ordered. EDMS EDMS
[2024-04-27 16:34] VITALS: TEMP 98
[2024-04-27 16:50] VITALS: BP 150/80; O2SAT 99
== END 2024-04-27 16:16 | disposition home or self-care (01) ==
LOC: ER 11:03
DX: R11.0 Nausea (principal); R63.0 Anorexia; E87.6 Hypokalemia; D61.810 Antineoplastic chemotherapy induced pancytopenia; C95.90 Leukemia, unspecified not having achieved remission; J44.9 Chronic obstructive pulmonary disease, unspecified; I10 Essential (primary) hypertension; N40.0 Benign prostatic hyperplasia without lower urinary tract symptoms; F03.90 Unspecified dementia, unspecified severity, without behavioral disturbance, psychotic disturbance, mood disturbance, and anxiety
CPT/HCPCS: 96361; 85025; 81001; 80048; 36415; 83735; 85610; 80076; 84484; 83690; 83880; 74176; 71045; 96375; 96374; 99285; J2405; J7030

== ENCOUNTER 2024-06-28 12:58 | Emergency (ER) | payer MEDICAID ==
--- OUTSIDE RECORDS SUMMARY | 2024-06-28 13:05 | XMS REPORT | Clinical Summary ---
Author Name Unknown Organization [facility] Address [address] [place] [address] Care Team Providers Care Building And Grounds Supervisor Name Role Phone Arjun Hamm MD Unavailable Jatin Alvarez MD Primary Care Provider [phone] Allergies No known active allergies Medications furosemide [...] sodium chloride (NS) 0.9% flush syringe 10 mLIndications:Beveler tomasa myelomonocytic leukemia Inject 10 mL (1 [...] Care Team Description 03/06/2024 Documentation [facility] [address] [place] [address] Main [facility], 8th [place] [address] Mikey Dodd, VIDEO CLERK 02/29/2024 Orders Only [facility] [address] [place] [address], 8th [place] [address] Mikey Dodd, VIDEO CLERK Chronic myelomonocytic leukemia (Primary Dx) 02/29/2024 Telephone [facility] [address] Main Bldg, 8th [place] [address] Leny Stearns, MARIKA 02/06/2024 4:30 PM CDT Telemedicine [facility] [address] Main Bldg, 8th [place] [address] Jatin Alvarez MD Chronic myelomonocytic leukemia (Primary Dx) 01/29/2024 Documentation [facility] [address] Main Bldg, 8th [place] [address] Kandis Melton RN 01/26/2024 Telephone [facility] [address] Main Bldg, 8th [place] [address] Leny Stearns, MARIKA 01/23/2024 Orders Only [facility] [address] Main Bldg, 8th [place] [address] Susan Sahu, VIDEO CLERK Chronic myelomonocytic leukemia (Primary Dx) 01/23/2024 Orders Only [facility] [address] Main Bldg, 8th [place] [address] Susan Sahu, VIDEO CLERK 01/22/2024 Orders Only [facility] [address] Bldg, 11th [place] [address] Bonny Perales, VIDEO CLERK 01/18/2024 8:10 PM CDT Ancillary [facility] [address] [place] [id number] 01/18/2024 8:05 PM CDT Ancillary Procedure [facility] [address] [place] [address] 01/18/2024 8:00 PM CDT Ancillary Procedure [facility] [address] [place] [address] 01/18/2024 Travel 01/15/2024 8:59 PM CDT - 01/23/2024 10:20 PM CDT Hospital Encounter MAIN [address] [place] [address] Garrison Sheehan MD Issa, Ghayas C, MD Acute renal impairment (Primary Dx); Chronic myelomonocytic leukemia; Cancer; Malnutrition of moderate degree; Hyperuricemia; Tumor lysis syndrome; Disorder of fluid AND/OR electrolyte; Acute metabolic acidosis; Altered mental status; Other elevated white blood cell count; Creatine kinase level above reference range; Difficulty in walking; Other abnormalities of gait and mobility Discharge Disposition: Home 01/15/2024 Travel after 06/29/2023 Immunizations Name Administration Dates Next Due [id number] B, Historical 04/04/2006 Fluad Quad Pf 03/28/2023 [...] Comments COVID-19 Vaccine (#1) 1945 Pneumococcal Vaccine: 50+ Ye ars (1 of 2 - PCV) 1960 Influenza Vaccine (#1) 2023 3, 02/09/2022, 05/05/2021 [...] CYTOMETRY WORKUP Routine 01/17/2024 11:10 AM CDT RI DIAGNOSTIC BONE MARROW BIOPSIES & ASPIRATIONS Routine [...] Routine 01/12/2024 9:14 AM CDT Cancer after 06/29/2023 Results * (ABNORMAL) Basic Metabolic Panel- Calcium Ionized (01/23/2024 12:26 AM CDT) Only the most recent of15 resultswithin the time period is included. eGFR 60 >=60 mL/min/1. 73 sq. m 01/23/2024 2:27 AM T [facility] Comment: The eGFRcr is calculated with [...] - 145 mmol/L 01/23/2024 2:27 AM CDT [facility] Potassium Level 3.7 3.4 - 4.5 mmol/L 01/23/2024 2:27 AM CDT [facility] Chloride 103 98 - 107 mmol/L 01/23/2024 2:27 AM CDT [facility] CO2 23 22 - 29 mmol/L 01/23/2024 2:27 AM CDT [facility] Anion Gap 11 4 - 14 mmol/L 01/23/2024 2:27 AM CDT [facility] Creatinine 1.20(H) 0.67 - 1.17 mg/dL 01/23/2024 2:27 AM CDT [facility] BUN <4(L) 6 - 23 mg/dL 01/23/2024 2:27 AM T [facility] Glucose Level 116(H) 70 - 99 mg/dL 01/23/2024 2:27 AM CDT [facility] Comment: Effective 11/04/15, the glucose reference intervals have been updated based on [place] [employer] guidelines (Standards of Medical Care [...] Barrera APRN LAB BLOOD ORDERABLES Final Result [facility] Unless otherwise noted, all lab tests performed by: Division of Pathology and Laboratory Medicine [address] [place] [phone] * (ABNORMAL) .CBC (01/23/2024 12:26 AM CDT) Only the most recent of14 resultswithin the time period is included. White Blood Cell 2.4(L) 4.1 - 10.5 K/uL 01/23/2024 5:49 AM CDT [facility] Red Blood Cell 2.66(L) 4.30 - 6.04 M/uL 01/23/2024 5:49 AM CDT [facility] Hemoglobin 8.4(L) 13.3 - 17.4 g/dL 01/23/2024 5:49 AM CDT [facility] Hematocrit 25.6(L) 39.5 - 51.8 % 01/23/2024 5:49 AM CDT [facility] Mean Cell Volume 96 82 - 99 fL 01/23/2024 5:49 AM CDT [facility] Mean Cell Hemoglobin 31.6 26.6 - 33.2 pg 01/23/2024 5:49 AM CDT [facility] Mean Cell Hemoglobin Concentration 32.8 31.1 - 35.2 g/dL 01/23/2024 5:49 AM CDT [facility] RDW-SD 53.9(H) 37.5 - 49.7 fL 01/23/2024 5:49 AM CDT [facility] Red Cell Diameter Width 15.3 11.6 - 15.5 % 01/23/2024 5:49 AM CDT [facility] Platelet 54(L) 160 - 397 K/uL 01/23/2024 5:49 AM CDT [facility] Mean Platelet Volume 9.7 9.1 - 12.6 fL 01/23/2024 5:49 AM CDT [facility] INRBC 0.0 0.0 - 0.1 /100 WBC 01/23/2024 5:49 AM CDT [facility] Comment: The INRBC (instrument NRBC) value [...] Barrera APRN LAB BLOOD ORDERABLES Final Result [facility] Unless otherwise noted, all lab tests performed by: Division of Pathology and Laboratory Medicine [address] [place] [phone] * Fractionated Bilirubin (01/23/2024 12:26 AM CDT) Only the most recent of9 resultswithin the time period is included. Bilirubin Direct 0.2 0.0 - 0.3 mg/dL 01/23/2024 1:09 AM CDT [facility] Comment:Indocyanine Green (I CG) may cause falsely elevated bilirubin results. Total and direct bilirubin must not be measured from samples containing indocyanine green. Bilirubin Indirect 0.9 0.0 - 0.9 mg/dL 01/23/2024 1:09 AM CDT [facility] Bilirubin Total 1.1 0.0 - 1.2 mg/dL 01/23/2024 1:09 AM CDT [facility] Comment:Indocyanine Green (I CG) may cause [...] BLOOD ORDERABLES Final Result Performing Organization Address City/[facility] de Phone Number [facility] Unless otherwise noted, all lab tests performed by: Division of Pathology and Laboratory Medicine [address] [place] [phone] * aPTT (01/23/2024 12:26 AM CDT) Only the most recent of10 resultswithin the time period is included. Activated PTT 28.4 24.8 - 35.6 second(s) 01/23/2024 1:16 AM CDT [facility] Blood Venous blood specimen / Unknown Venipuncture / Unknown 01/23/2024 12:26 AM CDT 01/23/2024 12:38 AM CDT Jackie Solomon APRN LAB BLOOD ORDERABLES Final Result Performing Organization Address City/[facility] de Phone Number [facility] Unless otherwise noted, all lab tests performed by: Division of Pathology and Laboratory Medicine [address] [place] [address] * Calcium Ionized, Venous (01/23/2024 12:26 AM CDT) Only the most recent of15 resultswithin the time period is included. Venous Ionized Calcium 1.18 1.15 - 1.29 mmol/L 01/23/2024 12:41 AM CDT [facility] Oxygen FLOW Rate/ FiO2 01/23/2024 12:41 AM CDT [facility] O2 Therapy Room air 01/23/2024 12:41 AM CDT [facility] Blood Venous blood specimen / Unknown Venipuncture / Unknown 01/23/2024 12:26 AM CDT 01/23/2024 12:38 AM CDT us Bee Mullinssimon VIDEO CLERK LAB BLOOD ORDERABLES Final Result [facility] Unless otherwise noted, all lab tests performed by: Division of Pathology and Laboratory Medicine [address] [place] [phone] * (ABNORMAL) Differential (01/23/2024 12:26 AM CDT) Only the most recent of9 resultswithin the time period is included. Total Cells 100 01/23/2024 5:49 AM CDT [facility] Manual Neutrophil % 19.0(L) 43.2 - 72.7 % 01/23/2024 5:49 AM CDT [facility] Comment:The Neutrophil count includes Bands. Manual Lymphocyte % 59.0(H) 16.8 - 46.2 % 01/23/2024 5:49 AM CDT [facility] Manual Monocyte % 16.0(H) 5.1 - 12.5 % 01/23/2024 5:49 AM CDT [facility] Manual Eosinophil % 3.0 0.4 - 6.3 % 01/23/2024 5:49 AM CDT [facility] Manual Basophil % 3.0(H) 0.2 - 1.4 % 01/23/2024 5:49 AM CDT [facility] Metamyelocyte % 5:49 AM CDT [facility] Comment:The Metamyelocyte co unt includes Myelocytes. Manual Neutrophil Abs 0.46(L) 1.95 - 7.25 K/uL 01/23/2024 5:49 AM CDT [facility] Manual Lymphocyte Abs 1.42 1.01 - 3.24 K/uL 01/23/2024 5:49 AM CDT [facility] Manual Monocyte Abs 0.38 0.24 - 0.85 K/uL 01/23/2024 5:49 AM CDT [facility] Manual Eosinophil Abs 0.07 0.02 - 0.50 K/uL 01/23/2024 5:49 AM CDT [facility] Manual Basophil Abs 0.07 0.02 - 0.09 K/uL 01/23/2024 5:49 AM CDT [facility] RBC Morphology PRESENT 01/23/2024 5:49 AM CDT [facility] PLT Morph Normal Normal 01/23/2024 5:49 AM CDT [facility] Anisocytosis Present(A) (none) 01/23/2024 5:49 AM CDT [facility] Ovalocyte Present(A) (none) 01/23/2024 5:49 AM CDT [facility] Blood Venous blood specimen / Unknown Venipuncture / Unknown 01/23/2024 12:26 AM CDT 01/23/2024 12:39 AM CDT us Bee Barrera APRN LAB BLOOD ORDERABLES Final Result [facility] Unless otherwise noted, all lab tests performed by: Division of Pathology and Laboratory Medicine [address] [place] [phone] * (ABNORMAL) Prothrombin Time (01/23/2024 12:26 AM CDT) Only the most recent of11 resultswithin the time period is included. Prothrombin Time 14.6(H) 12.2 - 14.4 second(s) 01/23/2024 1:16 AM CDT [facility] International Normalization Ratio 1.16(H) 0.91 - 1.10 01/23/2024 1:16 AM CDT [facility] Blood Venous blood specimen / Unknown Venipuncture / Unknown 01/23/2024 12:26 AM CDT 01/23/2024 12:38 AM CDT Jackie Solomon APRN LAB BLOOD ORDERABLES Final Result [facility] Unless otherwise noted, all lab tests performed by: Division of Pathology and Laboratory Medicine [address] [place] [address] * Fibrinogen (01/23/2024 12:26 AM CDT) Only the most recent of9 resultswithin the time period is included. Fibrinogen 320 214 - 503 mg/dL 01/23/2024 1:16 AM CDT [facility] Blood Venous blood specimen / Unknown Venipuncture / Unknown 01/23/2024 12:26 AM CDT 01/23/2024 12:38 AM CDT Jackie Solomon APRN LAB BLOOD ORDERABLES Final Result Performing Organization Address [facility] de Phone Number [facility] Unless otherwise noted, all lab tests performed by: Division of Pathology and Laboratory Medicine [address] [place] [phone] * (ABNORMAL) D-Dimer (01/23/2024 12:26 AM CDT) Only the most recent of9 resultswithin the time period is included. Pathologist [facility] D-Dimer 6.47(H) 0.10 - 0.50 mcg/ml FEU 01/23/2024 1:18 AM CDT [facility] Blood Venous blood specimen / Unknown Venipuncture / Unknown 01/23/2024 12:26 AM CDT 01/23/2024 12:38 AM CDT Narrative [facility] - 01/23/2024 1:18 AM CDT The cut off value for exclusion of venous thromboembolism is <0.51 mcg/mL FEUs (fibrinogen equivalent units). Jackie Solomon APRN LAB BLOOD ORDERABLES Final Result Performing Organization Address [facility] Co de Phone Number [facility] Unless otherwise noted, all lab tests performed by: Division of Pathology and Laboratory Medicine [address] [place] [phone] * (ABNORMAL) Uric Acid (01/23/2024 12:26 AM CDT) Only the most recent of6 resultswithin the time period is included. Uric Acid 2.5(L) 3.4 - 7.0 mg/dL 01/23/2024 2:27 AM CDT [facility] Blood Venous blood specimen / Unknown Venipuncture / Unknown 01/23/2024 12:26 AM CDT 01/23/2024 12:37 AM CDT Beeayden Barrera VIDEO CLERK LAB BLOOD ORDERABLES Final Result [facility] Unless otherwise noted, all lab tests performed by: Division of Pathology and Laboratory Medicine [address] [place] [address] * Alanine Aminotransferase (01/23/2024 12:26 AM CDT) Only the most recent of9 resultswithin the time period is included. ALT 18 <=41 U/L 01/23/2024 2:2 7 AM CDT [facility] Blood Venous blood specimen / Unknown Venipuncture / Unknown 01/23/2024 12:26 AM CDT 01/23/2024 12:37 AM CDT Jackie Solomon APRN LAB BLOOD ORDERABLES Final Result Performing Organization Address City/[facility]/ZIP Co de Phone Number [facility] Unless otherwise noted, all lab tests performed by: Division of Pathology and Laboratory Medicine [address] [place] [phone] * Aspartate Aminotransferase (01/23/2024 12:26 AM CDT) Only the most recent of9 resultswithin the time period is included. AST 20 <=40 U/L 01/23/2024 1:0 9 AM CDT [facility] Blood Venous blood specimen / Unknown Venipuncture / Unknown 01/23/2024 12:26 AM CDT 01/23/2024 12:37 AM CDT Jackie Solomon APRN LAB BLOOD ORDERABLES Final Result [facility] Unless otherwise noted, all lab tests performed by: Division of Pathology and Laboratory Medicine [address] [place] [phone] * (ABNORMAL) Total Protein (01/23/2024 12:26 AM CDT) Only the most recent of7 resultswithin the time period is included. Tot Protein 6.1(L) 6.4 - 8.3 gm/dL 01/23/2024 1:09 AM CDT [facility] Blood Venous blood specimen / Unknown Venipuncture / Unknown 01/23/2024 12:26 AM CDT 01/23/2024 12:37 AM CDT Narrative [facility] - 01/23/2024 1:09 AM CDT Reference range established based on adult population Jackie Solomon APRN LAB BLOOD ORDERABLES Final Result Performing Organization Address [facility] Co de Phone Number [facility] Unless otherwise noted, all lab tests performed by: Division of Pathology and Laboratory Medicine [address] [place] [phone] * (ABNORMAL) Phosphorus Level (01/23/2024 12:26 AM CDT) Only the most recent of15 resultswithin the time period is included. Phosphorus Level 2.4(L) 2.5 - 4.5 mg/dL 01/23/2024 2:27 AM CDT [facility] Blood Venous blood specimen / Unknown Venipuncture / Unknown 01/23/2024 12:26 AM CDT 01/23/2024 12:37 AM CDT Bee Barrera APRN LAB BLOOD ORDERABLES Final Result [facility] Unless otherwise noted, all lab tests performed by: Division of Pathology and Laboratory Medicine [address] [place] [address] [place] [address] * Alkaline phosphatase (01/23/2024 12:26 AM CDT) Only the most recent of9 resultswithin the time period is included. Alkaline Phosphatase 62 40 - 129 U/L 01/23/2024 1:09 AM CDT [facility] Blood Venous blood specimen / Unknown Venipuncture / Unknown 01/23/2024 12:26 AM CDT 01/23/2024 12:37 AM CDT Jackie Solomon APRN LAB BLOOD ORDERABLES Final Result Performing Organization Address City/[facility]/ZIP Co de Phone Number [facility] Unless otherwise noted, all lab tests performed by: Division of Pathology and Laboratory Medicine [address] [place] [phone] * Magnesium Level (01/23/2024 12:26 AM CDT) Only the most recent of15 resultswithin the time period is included. Pathologist [facility] Magnesium Level 1.6 1.6 - 2.6 mg/dL 01/23/2024 2:27 AM CDT [facility] Blood Venous blood specimen / Unknown Venipuncture / Unknown 01/23/2024 12:26 AM CDT 01/23/2024 12:37 AM CDT Bee Barrera APRN LAB BLOOD ORDERABLES Final Result Performing Organization Address City/[facility]/ZIP Co de Phone Number [facility] Unless otherwise noted, all lab tests performed by: Division of Pathology and Laboratory Medicine [address] [place] [phone] * (ABNORMAL) LDH (01/23/2024 12:26 AM CDT) Only the most recent of9 resultswithin the time period is included. LDH 234(H) 135 - 225 U/L 01/23/2024 1:09 AM CDT [facility] Blood Venous blood specimen / Unknown Venipuncture / Unknown 01/23/2024 12:26 AM CDT 01/23/2024 12:37 AM CDT Narrative [facility] - 01/23/2024 1:09 AM CDT Results greater than 1651 U/L may not be reliable due to matrix effect with extended dilution as it exceeds the industrial gas production operator's recommended limit. Caution should be exercised when interpreting such values and done in conjunction with clinical context. Jackie Julianne Solomon APRN LAB BLOOD ORDERABLES Final Result Performing Organization Address City/[facility] de Phone Number [facility] Unless otherwise noted, all lab tests performed by: Division of Pathology and Laboratory Medicine [address] [place] [phone] * Albumin Level (01/23/2024 12:26 AM CDT) Only the most recent of9 resultswithin the time period is included. Albumin Level 3.9 3.5 - 5.2 gm/dL 01/23/2024 2:27 AM CDT [facility] Blood Venous blood specimen / Unknown Venipuncture / Unknown 01/23/2024 12:26 AM CDT 01/23/2024 12:37 AM CDT Jackie Whitaker Juanito MORRISON LAB BLOOD ORDERABLES Final Result Performing Organization Address [facility] de Phone Number [facility] Unless otherwise noted, all lab tests performed by: Division of Pathology and Laboratory Medicine [address] [place] [phone] * (ABNORMAL) POC Glucose Screen - Fingerstick (01/22/2024 7:25 AM CDT) Only the most recent of25 resultswithin the time period is included. Glucose Screen 133(H) 70 - 99 mg/dL 01/22/2024 7:27 AM CDT [facility] POC Sample Type Capillary 01/22/2024 7:27 AM CDT [facility] Blood 01/22/2024 7:25 AM CDT 01/22/2024 7:27 AM CDT Narrative [facility] - 01/22/2024 7:27 AM CDT Capillary [...] MD POCT ORDERABLES - DEVICE Final Result [facility] Unless otherwise noted, all lab tests performed by: Division of Pathology and Laboratory Medicine [address] [place] [phone] * X-ray Chest 1 View Portable (01/21/2024 [...] ABORh B POS 01/21/2024 12:00 AM CDT [facility] ABSC Negative 01/21/2024 12:00 AM CDT [facility] Clot Expiration 01/24/2024 23:59 01/21/2024 12:00 AM CDT [facility] Historical Record Check Complete 01/21/2024 12:00 AM CDT [facility] Blood Venous blood specimen / Unknown Venipuncture / Unknown 01/21/2024 12:51 AM CDT 01/21/2024 1:05 AM CDT us Jackie Solomon APRN BLOOD BANK TEST ORDER ROSSANA Final Result [facility] [address] [place] [address] * (ABNORMAL) Uric Acid Rasburicase (01/19/2024 1:27 AM CDT) Only the most recent of9 resultswithin the time period is included. Uric Acid Rasburicase Treated 2.9(L) 3.4 - 7.0 mg/dL 01/19/2024 2:02 AM CDT [facility] Blood Venous blood specimen / Unknown Venipuncture / Unknown 01/19/2024 1:27 AM CDT 01/19/2024 1:36 AM CDT us Jatin Alvarez MD LAB BLOOD ORDERABLES Final Resu lt [facility] Unless otherwise noted, all lab tests performed by: Division of Pathology and Laboratory Medicine [address] [place] [phone] * XR Chest 1 View (01/18/2024 2:13 [...] Cardiomediastinal silhouette is stable. Procedure Note Keyur aMjor MD - 01/18/2024 FULL RESULT: Examination: XR [...] [employer]ARK[employer] Final Result CYTOGENETICS [facility] Cytogenetics Lab [address] [place] [address] * CG 24HR CULTURE (01/17/2024 11:10 AM CDT) Only the most recent of2 resultswithin the time period is included. Bone Marrow (Iliac Crest, Right Posterior, Aspirate) Non-blood Collection / Unknown 01/17/2024 11:10 AM CDT 01/17/2024 12:50 PM CDT Jackie Solomon APRN [facility] CP BIOMARK[employer] Final Result CYTOGENETICS [facility] Cytogenetics Lab [address] [place] [phone] * MD RNA Hold (01/17/2024 11:10 AM CDT) Bone Marrow (Iliac Crest, Right Posterior, Aspirate) Non-blood Collection / Unknown 01/17/2024 11:10 AM CDT 01/17/2024 1:45 PM CDT Jackie Solomon APRN [facility] CP [employer]ARK[employer] Final Result MOLECULAR DIAGNOSTICS [facility] Molecular Diagnostics Laboratory [address] [place] [address] * Cytogenetics Workup (01/17/2024 11:10 AM CDT) Only the most recent of2 resultswithin the time period is included. Triage Comments 04/04/2024 10:01 AM TAXICAB COORDINATOR [facility] HEMATOPATH LAB Bone Marrow (Iliac Crest, Right Posterior, Aspirate) Non-blood Collection / Unknown 01/17/2024 11:10 AM CDT 01/17/2024 12:50 PM CDT Jackie Solomon APRN [facility] CP [employer] Final Result [facility] HEMATOPATH LAB * Flow Cytometry Workup (01/17/2024 11:10 AM CDT) Pathologist [facility] FLOW CYTOMETRY WORKUP TESTS TO ORDER FC Scatter 01/18/2024 6:36 AM CDT FLOW CYTOMETRY Bone Marrow (Iliac Crest, Right Posterior, Aspirate) Non-blood Collection / Unknown 01/17/2024 11:10 AM CDT 01/17/2024 12:45 PM CDT us Jackie Solomon APRN [facility] CP [employer] Final Result [facility] AP LABS [facility] [place] [address], FLOW CYTOMETRY [facility] [address] [place] [address] * Hematopathology Bone Marrow Interpretation (01/17/2024 11:10 AM CDT) Diagnosis Bone marrow, right posterior iliac crest, core biopsy, clot sections, aspirate smears, touch preparation and peripheral blood smear: CHRONIC MYELOMONOCYTIC LEUKEMIA-1 (9% BLASTS) 01/22/2024 9:05 PM CDT [facility] Comment Patient is an 83-year-old [...] be reported separately. 01/22/2024 9:05 PM CDT [facility] Microscopic Description BONE MARROW BIOPSY [...] Nilda rods seen. 01/22/2024 9:05 PM T [facility] Stains on Biopsy Reticulin: No reticulin fibrosis Trichrome: No collagen fibrosis Grade: MF-0 01/22/2024 9:05 PM T [facility] Stains on Aspirate Smear / Touch Preparation Iron: Decreased (1+) stainable storage iron. Ring sideroblasts are not increased. MPO: Positive in a subset of blasts. 01/22/2024 9:05 PM T [facility] Gross Description B: Iliac crest, right posterior, biopsy Length: 1.4 cm Submitted in a single cassette for decalcification. DG C: Iliac crest, right posterior, clot Dimensions: 0.3 x 2.5 x 2.5 cm Specimen is entirely submitted in 1. DG 01/22/2024 9:05 PM T [facility] Peripheral Blood Peripheral blood smear [...] and unremarkable morphology. 01/22/2024 9:05 PM T [facility] Disclaimer "Some tests reported here may have been developed and performance characteristics determined by [facility] Pathology and Laboratory Medicine. These tests have not been specifically cleared or approved by the U.S. Food and Drug Administration. If applicable, controls were reviewed and showed appropriate reactivity." 01/22/2024 9:05 PM T [facility] Bone Marrow (Iliac Crest, Right [...] PATHOLOGY ORDERABLES Final Result [facility] [address] [address], [place] * (ABNORMAL) Hematopathology Bone Marrow Differential [...] - 2 % 01/18/20 10:39 AM CDT [facility] BM Monocyte % 8(H) 0 - 5 % 01/18/2024 10:39 AM CDT [facility] BM Pronormoblast % 1 1 - 8 % 01/18/2024 10:39 AM CDT [facility] BM Normoblast % 6(L) 7 - 32 % 10:39 AM CDT [facility] BM M:E Ratio 14.0(H) 3.0 - 4.0 01/18/2024 10:39 AM CDT [facility] Bone Marrow (Iliac Crest, Right Posterior, Aspirate) Non-blood Collection / Unknown 01/17/2024 11:10 AM CDT 01/17/2024 12:54 PM CDT Narrative [facility] - 01/18/2024 10:39 AM CDT DISCLAIMER Preliminary BM Diff may have been completed by a vice president medical affairs or a hematopathology fellow and is subject to change. Any pathologist updates will be included on interpretation and appear in the final result. Please use caution in evaluating your patient based on preliminary results. us Jatin Alvarez MD LAB PATHOLOGY ORDERABLES Final Result [facility] [address] [place] [address], * CG Chromosome Analysis Interpretation and Report [...] report includes activity performed off-site at location: [id number]. 01/30/2024 1:04 PM CDT [facility] Pathologist Signature . 01/30/2024 1:04 PM CDT [facility] Bone Marrow (Iliac Crest, Right Posterior, Aspirate) Non-blood Collection / Unknown 01/17/2024 11:10 AM CDT 01/17/2024 12:50 PM CDT Jackie Solomon APRN [facility] HP CYTOGENETICS ( HP CG) Final Result CYTOGENET[facility] Cytogenetics Lab [address] [place] [address] * RI DIAGNOSTIC BONE MARROW BIOPSIES & ASPIRATIONS (01/17/2024 11:10 AM CDT) Bone Marrow Narrative Jewel King APRN - 01/17/2024 11:10 AM CDT Jewel King APRN 01/17/2024 5:43 PM Procedure: Bone Marrow Aspiration/Biopsy Date/Time: 01/17/2024 11:10 AM Provider Information: Performed by: Jewel King APRN Authorized by: Jackie Solomon APRN Clothing Examiner present: yes Clothing Examiner: Pinky Garcia information manager used?: preparer samples and repairs not needed Patient Diagnosis: Pre-procedure diagnosis: CMML [...] Site location: posterior iliac crest Instrument(s) used: HeyzapmichelleSoulstice Endeavors needle Instruments placed by: advanced practice provider [...] on the dressing. Specimens's labels verified with [employer]. us Jackie Solomon APRN PROCEDURE/MINOR SURGI PHYLLIS [...] developed and its performance characteristics determined by [facility] Clinical Flow Cytometry Laboratory. It has not [...] (HP FC) Final Result FLOW CYTOMETRY [facility] [address] [place] [address] * FLT3 Mutation Analysis Interpretation and Report (01/17/2024 11:10 AM CDT) Pathology [id number] 01/19/2024 8:02 PM CDT MOLECULAR DIAGNOSTICS FLT3 [...] assay. J Mol Diagn. 2002;5(2):96-102. PubMed PMID: [id number] Cliff Sheehan. Acute Myeloid Leukemia: from Mutation Profiling to Treatment Decisions. Curr Hematol Malig Rep. 2019 Nov 02. Review. PubMed PMID: [id number]. Melo N et al, Targeting FLT3 mutations in AML: review of current knowledge and evidence. Leukemia. 2019 May;33(2):299-312 . PubMed PMID: [id number]. Shayla MELTON. The importance of FLT3 mutational analysis in acute myeloid leukemia. Leuk Lymphoma. 2018 Jan;59(10):2273-2 286. PubMed PMID: [id number]. Gene-related information: HGNC: https://www.genen florin.org Peer-reviewed literature evidence: PubMed: www.ncbi.nlm.nih. gov/pubmed/?term= FLT3+mutation+adair kemia Professional Guidelines: [place] Society of Clinical Oncology (ASCO): www.asco.org [place] Society of Hematology (NHAN): www.hematology.or g Association for Molecular Pathology (AMP): www.amp.org College of [place] Pathology: www.cap.org LeukemiaNet (ELN): www.leukemia-net. org National Comprehensive Cancer Network (NCCN): www.nccn.org Regulatory Approvals: U.S Food & Drug Administration (FDA): www.fda.gov 01/19/2024 8:02 PM CDT MOLECULAR DIAGNOSTICS ASR DISCLAIMER This test was developed and its performance characteristics determined by the Molecular Diagnostics Laboratory (MDL) at [facility]. It has not been cleared or approved [...] 1:45 PM CDT us Jackie Solomon APRN [facility] HP MOLECULAR DIAG NOSTICS (HP ) Final Result MOLECULAR DIAGNOSTICS [facility] Molecular Diagnostics Laboratory [address] [place] [address] * CT Head without Contrast (01/16/2024 9:09 [...] are unexpected and potentially actionable. Bernarda Duvall VIDEO CLERK [facility] CT ORDERABLES Final Result * CT Chest [...] [facility] Catheter Type: PICC Catheter lumen: Double lumen Vein location: Brachial Laterality: Right Tip in good position and cleared for infusion Pia Dodd VIDEO CLERK IV THERAPY ORDERABLES Final Result * XR [...] By: Pia Dodd APRN Procedure Location: ICU Clothing Examiner Present: No Pre Procedure Diagnosis: Chronic myelomonocytic [...] risks, benefits, and alternative dicussed with patient/designated auto service representative. Time out: universal protocol time out [...] Forearm circumference:24cm Additional Comments: None Pia Dodd VIDEO CLERK IMG VAP ORDERABLES Final Re sult * Sodium Urine (01/16/2024 10:22 AM CDT) [facility] Urine Sodium 98 mmol/L 01/16/2024 11:06 AM CDT [facility] Comment:Normal range not rubina ilable for collections less than 24 hours in duration. Urine (Urine Clean Catch) Non-blood Collection / Unknown 01/16/2024 10:22 AM CDT 01/16/2024 10:35 AM CDT Yamil Jaime VIDEO CLERK URINE ORDERABLES Final Result [facility] Unless otherwise noted, all lab tests performed by: Division of Pathology and Laboratory Medicine [address] [place] [address] * (ABNORMAL) Protein/Creatinine Ratio Urine (01/16/2024 10:22 AM CDT) UTP, Random 16 mg/dL 01/16/2024 11:06 AM CDT [facility] Comment:Normal range not rubina ilable for collections less than 24 hours in duration. Urine Creatinine 54.5 40.0 - 278.0 mg/dL 01/16/2024 11:06 AM CDT [facility] Comment:The reference range listed is for first morning urine collection. Urine Protein/Creatini ne Ratio 0.29(H) <=0.14 g/g 01/16/2024 11:06 AM CDT [facility] Urine (Urine Clean Catch) Non-blood Collection / Unknown 01/16/2024 10:22 AM CDT 01/16/2024 10:35 AM CDT Yamilitz Jaime APRN URINE ORDERABLES Final Result Performing Organization Address City/State/[facility] Co de Phone Number [facility] Unless otherwise noted, all lab tests performed by: Division of Pathology and Laboratory Medicine [address] [place] [address] * Potassium Urine (01/16/2024 10:22 AM CDT) Urine Potassium 20 mmol/L 11:06 AM CDT [facility] Comment:Normal range not rubina ilable for collections less than 24 hours in duration. Urine (Urine Clean Catch) Non-blood Collection / Unknown 01/16/2024 10:22 AM CDT 01/16/2024 10:35 AM CDT Yamil Jaime APRN URINE ORDERABLES Final Result [facility] Unless otherwise noted, all lab tests performed by: Division of Pathology and Laboratory Medicine [address] [place] [address] * Urine Culture (01/16/2024 10:22 AM CDT) Only the most recent of2 resultswithin the time period is included. Urine Culture No Growth. 01/18/2024 8:43 AM CDT [facility] Urine (Urine Sagastume) Non-blood Collection / Unknown 01/16/2024 10:22 AM CDT 01/16/2024 10:35 AM CDT Jackie Solomon APRN MICROBIOLOGY - GENERA L ORDERABLES Final Result Performing Organization Address [facility] Co de Phone Number [facility] Unless otherwise noted, all lab tests performed by: Division of Pathology and Laboratory Medicine [address] [place] [address] * Folate Level (01/16/2024 10:16 AM CDT) [facility] Folate Level 13.9 4.8 - 24.2 ng/mL 01/16/2024 11:08 AM CDT [facility] Is patient fasting? Yes 01/16/2024 11:08 AM CDT [facility] Blood Peripheral blood specimen / Unknown CVC Line / Unknown 01/16/2024 10:16 AM CDT 01/16/2024 10:30 AM CDT Narrative [facility] - 01/16/2024 11:08 AM CDT Reference range established based on adult population. Jackie Solomon APRN LAB BLOOD ORDERABLES Final Result Performing Organization Address [facility] Co de Phone Number [facility] Unless otherwise noted, all lab tests performed by: Division of Pathology and Laboratory Medicine [address] [place] [address] * C. auris Screening PCR (01/16/2024 9:56 AM CDT) Pathologist [facility] Specimen Source Axilla+ Groin 01/20/2024 7:58 AM CDT [facility] C auris PCR, Result Negative Not Applicable 01/20/2024 7:58 AM CDT [employer] [facility] Comment: ADDITIONAL INFORMATION This test was developed and its performance characteristics determined by [facility] in a manner consistent with CLIA requirements. This test has not been cleared or approved by the U.S. Food and Drug Administration. Test Performed by: [facility] - [address] [address] Entry Level Accountant: Delmy Velasquez Ph.D.; CLIA# [id number] Swab (Axilla + Groin) Non-blood Collection / Unknown 01/16/2024 9:56 AM CDT 01/16/2024 10:14 AM CDT Lise Roberto MD MICROBIOLOGY - GENERAL ORDERA BLES Final Result [facility] * Respiratory Multiplex PCR Panel, Nasopharyngeal Swab (01/16/2024 9:56 AM CDT) Adenovirus Not Detected Not Detected 01/16/2024 12:26 PM CDT [facility] Coronavirus 229E Not Detected Not Detected 01/16/2024 12:26 PM CDT [facility] Coronavirus HKU1 Not Detected Not Detected 01/16/2024 12:26 PM CDT [facility] Coronavirus NL63 Not Detected Not Detected 01/16/2024 12:26 PM CDT [facility] Coronavirus OC43 Not Detected Not Detected 01/16/2024 12:26 PM CDT [facility] COVID-19 (SARS-CoV-2) Not Detected Not Detected 01/16/2024 12:26 PM CDT [facility] Human Metapneumovirus Not Detected Not Detected 01/16/2024 12:26 PM CDT [facility] Human Rhinovirus/Enterov irus Not Detected Not Detected 01/16/2024 12:26 PM CDT [facility] Influenza A Not Detected Not Detected 01/16/2024 12:26 PM CDT [facility] Influenza A H1 Not Detected Not Detected 01/16/2024 12:26 PM CDT [facility] Influenza A H1 2009 Not Detected Not Detected 01/16/2024 12:26 PM CDT [facility] Influenza A H3 Not Detected Not Detected 01/16/2024 12:26 PM CDT [facility] Influenza B Not Detected Not Detected 01/16/2024 12:26 PM CDT [facility] Parainfluenza Virus 1 Not Detected Not Detected 01/16/2024 12:26 PM CDT [facility] Parainfluenza Virus 2 Not Detected Not Detected 01/16/2024 12:26 PM CDT [facility] Parainfluenza Virus 3 Not Detected Not Detected 01/16/2024 12:26 PM CDT [facility] Parainfluenza Virus 4 Not Detected Not Detected 01/16/2024 12:26 PM CDT [facility] Respiratory Syncytial Virus Not Detected Not Detected 01/16/2024 12:26 PM CDT [facility] Bordetella parapertussis Not Detected Not Detected 01/16/2024 12:26 PM CDT [facility] Bordetella pertussis Not Detected Not Detected 01/16/2024 12:26 PM CDT [facility] Chlamydophila pneumoniae Not Detected Not Detected 01/16/2024 12:26 PM CDT [facility] Mycoplasma pneumoniae Not Detected Not Detected 01/16/2024 12:26 PM CDT [facility] Swab Nasopharyngeal structure / Unknown Non-blood Collection / Unknown 01/16/2024 9:56 AM CDT 01/16/2024 10:14 AM CDT [facility] - 01/16/2024 12:26 PM CDT The assay is a qualitative multiplex PCR assay to aid in the diagnosis of respiratory pathogens through simultaneous qualitative detection and identification of multiple pathogens directly from nasopharyngeal swabs ([employer]ODUCTION [employer]PERVISOR) from individuals with respiratory symptoms. Testing is performed using the [employer] FilmArray Respiratory Panel 2.1 (RP2.1) on the [employer] System. The following organisms are identified using the [employer] RP 2.1 Panel: Adenovirus, Human Coronavirus (229E, [...] verified by the microbiology laboratory at the [facility] (CLIA Accreditation # [id number] and CAP Accreditation # [id number]). Results must be interpreted within the context of all relevant clinical and laboratory findings. Assay should not be used for monitoring response to therapy. Jackie Solomon APRN MICROBIOLOGY - GENERA L ORDERABLES Final Result Performing Organization Address City/[facility]/ZIP Co de Phone Number [facility] Unless otherwise noted, all lab tests performed by: Division of Pathology and Laboratory Medicine [address] [place] [address] * Flow Cytometry Workup - AML, MDS with excess blasts, MPN accelerated/blast phase or new acute leukemia of unknown lineage (01/16/2024 9:41 AM CDT) [facility] FLOW CYTOMETRY WORKUP TESTS TO ORDER FC MRD AML 01/17/2024 6:08 AM CDT FLOW CYTOMETRY Blood Peripheral blood specimen / Unknown CVC Line / Unknown 01/16/2024 9:41 AM CDT 01/16/2024 9:55 AM CDT Jackie Solomon APRN, [facility] CP [employer]ARK[employer] WORK UPS Final Result Performing Organization Address City/[facility]/ZIP Co de Phone Number [facility] [address] [address], [place] FLOW CYTOMETRY [facility] Flow Cytometry Laboratory [address] [place] [address] * DNA Hold (01/16/2024 9:41 AM CDT) Blood Peripheral blood specimen / Unknown CVC Line / Unknown 01/16/2024 9:41 AM CDT 01/16/2024 9:55 AM CDT us Jackie Solomon APRN [facility] CP BIOMARKER WORK UPS Final Result MOLECULAR DIAGNOSTICS [facility] Molecular Diagnostics Laboratory [address] [place] [address] * CG Optical Genome Mapping Analysis Final Report (01/16/2024 9:41 AM CDT) Clinical Indication Post-op Diagnosis: CMML 01/24/2024 4:09 PM CDT [facility] Optical Genome Mapping Summary Tier 1 & Tier 2 Variants None Detected 01/24/2024 4:09 PM CDT [facility] HEMATOPATH LAB Optical Genome Mapping Interpretation No apparent Tier 1 (pathogenic) or Tier II (likely pathogenic) cytogenetic abnormality detected. Tier 3 Variants Events Abnormalities Genes involved Gain 5q31.1(134076130_ 036503116)x2~3 TCF7 Loss 7q22.1(102206891_ 724342910)x1~2 CUX1 Gain 7q34(307921487_10 7228766)x2~3 BRAF Loss 16p12.1(96141001_ 27690516)x1~2 IL21R Gain 17q11.2(14634254_ 36707859)x2~3 SUZ12 Loss 21q22.3(25302804_ 59132500)x1~2 U2AF1 Chromoanagenesis- Related Variants None Detected ISCN ogm[GRCh38] 5q31.1(134076130_ 706700166)x2~3,7q 22.1(102206891_10 5925361)x1~2,7q34 (849071487_588057 486)x2~3,16p12.1( 26670001_16401000 )x1~2,17q11.2(669 33987_94008220)x2 ~3,21q22.3(703408 51_19083769)x1~2 01/24/2024 4:09 PM CDT [facility] HEMATOPATH LAB Optical Genome Mapping Methodology Ultra-high molecular weight (UHMW) genomic DNA (gDNA) extraction is performed by using [employer] SP DNA Isolation Kit for blood and bone marrow, which utilizes a lyse, bind, wash, and elute procedure in combination with thermoplastic paramagnetic Nanobind disks to isolate UHMW gDNA from blood and bone marrow with minimal fragmentation. Approximately 1.5 million cells from a blood or bone marrow aspirate are used for gDNA extraction. Extracted gDNA is then labeled and stained using the [employer] Direct Label and Stain (DLS) kit, which utilizes the Direct Label Enzyme (DLE-1) to attach a fluorescent tag (DL-green) via covalent modification to the UHMW gDNA at sequence specific recognition motif (CTTAAG), then followed by staining of the DNA backbone. Approximately 750 ng UHMW gDNA is labelled and stained. Labeled and stained UHMW gDNA is then loaded into a flowcell on a [employer] chip, which is subsequently inserted into the [employer] Imaging instrument. The flowcells utilize a system [...] duplications. Data analysis is performed using the ilustrum in conjunction with VIA, utilizing a graphical user interface tool for visualization and curation, through Rare Variant Analysis for acquired variants. Following variant calling via the Rare Variant Analysis Pipeline, the sample is filtered using the recommended confidence settings and restricted to variants present in <1% of the [employer] control database. Genomic assessment is based on [...] available upon request. 01/24/2024 4:09 PM T [facility] HEMATOPATH LAB Optical Genome Mapping Limitations [...] is below 20%. 01/24/2024 4:09 PM T [facility] HEMATOPATH LAB Optical Genome Mapping Classification of Variants (reference PMID [id number], [id number], [id number]) Tier 1 Variants with Strong Clinical Significance Tier2 Variants with Potential Clinical Significance Tier 3 Variants of Unknown (Uncertain) Clinical Significance Tier 4* Variants of known insignificance (benign or likely benign) *Tier 4 is not reported 01/24/2024 4:09 PM T [facility] HEMATOPATH LAB Optical Genome Mapping References PMID [id number], [id number], [id number], [id number], [id number], [id number], [id number], [id number] 01/24/2024 4:09 PM T [facility] HEMATOPATH LAB Optical Genome Mapping Disclaimer This test was developed and its performance determined by [facility] as required by the CLIA '88 regulations. It has not been cleared nor approved for specific uses by the U.S. Food and Drug Administration. In applying these results to patient care, correlation with clinical, pathological and other laboratory data are recommended. 01/24/2024 4:09 PM [facility] HEMATOPATH LAB Pathologist Signature . 01/24/2024 4:09 PM T [facility] HEMATOPATH LAB Blood Peripheral blood specimen / Unknown CVC Line / Unknown 01/16/2024 9:41 AM CDT 01/16/2024 9:55 AM CDT Jackie Solomon APRN [facility] HP CYTOGENETICS ( HP CG) Final Result [facility] HEMATOPATH LAB CYTOGENETICS [facility] Cytogenetics Lab [address] [place] [address] * Yamil Case (Newly Diagnosed or Suspected New) (01/16/2024 9:41 AM CDT) Blood Peripheral blood specimen / Unknown CVC Line / Unknown 01/16/2024 9:41 AM CDT 01/16/2024 9:55 AM CDT Jackie Solomon APRN LAB BLOOD ORDERABLES Final Result [facility] Unless otherwise noted, all lab tests performed by: Division of Pathology and Laboratory Medicine [address] [place] [address] * EndLeukemia Mutation Panel V1 Interpretation and Report (01/16/2024 9:41 AM CDT) Pathology Accession N/A 01/22/2024 12:06 PM CDT MOLECULAR DIAGNOSTICS EndLeukemia Result [facility] [id number] EndLeukemia Assay V1.1 Mutation Analysis Report: Clinical [...] Gene Genomic Variant COSMIC dbSNP ClinVar ASXL1 chr20:43392216 C>T c.4243C>T p.R1415* [id number] CSF3R chr1:59224791 A>G c.2087T>C p.M696T CUX1 chr7:847448529 C>T c.484C>T p.L162F NRAS chr1:177362730 C>A c.35G>T p.G12V QPNJ072 [id number] SRSF2 chr17:05263363 G>T c.284C>A p.P95H TET2 chr4:461451050 C>T c.1088C>T p.P363L [id number] 826933 TET2 chr4:151221379 T>TCA c.2305_2306dupCA p.Q769fs*44 Link to COSMIC: <[email or web address]> Link to dbSNP: <https://www.ncbi.nl .nih.gov/snp> Link [...] in the experimental setup and data analysis: fg microtec Control Software 4.2.0.112, Real Time Analysis 2.11.30, Sequence Analysis Viewer 2.4.7 and [employer].2.0.10 ([employer] Application Center) EndLeukemia Regular Workflow 1.10. [...] of Somatic Mutations in Cancer, [employer] [place], [place]) and dbSNP version 137 ([place] [facility], [place]). o Probable somatic mutations [...] A post-variant calling analysis and annotation tool, [address] version 1.10.1.616, was used in the construction [...] ANKRD26 (NM_014915) 1 (1-5) ASXL1 (NM_015338) 12-13 (167-1686), 13 (6185-9570) ASXL2 (NM_018263) 12-13 (381-1436) BCOR (NM_017745) 2-4 (1-512), 4-12 (462-1546), 13-15 (5702-0698), 15 (9753-7211) BCORL1 (NM_021946) 1-6 (1-1261), 6 (7107-2172), 6-12 (7149-8791), 12 (1571-1275) BRAF (NM_004333) 11 (439-477), 15 (581-620) BRINP3 (NM_199051) 2-8 (1-767) CALR (NM_004343) 9 (352-418) CBL (NM_005188) 7-9 (337-477) CBLB (NM_170662) 7-10 (282-469) CBLC (NM_012116) 7-10 (336-475) CEBPA (NM_004364) 1 (1-113), 1 (127-175), 1 (215-245), 1 (248-359) CREBBP (NM_004380) 1-8 (1-608), 9-31 (615-1943), 31 (7002-8556) CRLF2 (NM_022148) 6 (230-234) CSF3R (NM_156039) 14 [...] 5-7 (180-292) JAK1 (NM_002227) 3-22 (3-1023), 22-24 (3479-5487) JAK2 (NM_004972) 10 (406-442), 12-14 (505-622), 16 (665-711), 18 (762-805) JAK3 (NM_000215) 2-23 (1-1069) KDM6A (NM_021140) 1-9 (1-223), 9-19 (227-971), 19-21 (976-1070), 22-23 (1534-6737), 23-25 (9541-2143), 25-29 (1102-8617) KIT (NM_000222) 8-9 (411-514), 11 (550-592), 17 (788-828) KMT2A (NM_005933) 2-13 (145-1561), 14-15 (8348-5349), 27 (0185-7588), 27 (0104-5505), 27 (8667-0523), 27 (8824-4701) KRAS (NM_004985) 2-4 (1-150) MAP2K1 (NM_002755) 2 (28-91), 3 (98-146) MPL (NM_005373) 10 (490-522), 12 (552-636) NF1 (NM_001042492) 1-5 (1-190), 6 (202-218), 8-9 (244-309), 9-13 (311-468), 13-23 (478-1038), 24-26 (2378-0008), 26-31 (0847-1042), 31-35 (9430-3340), 35 (0415-0017), 36-38 (7696-8684), 39-47 (0001-3117), 47-52 (9828-9060), 52-58 (7504-5602) NOTCH1 (NM_017617) 26-28 (7211-8934), 34 (2211-4490), 34 (7960-0648) NPM1 (NM_002520) 11 (283-295) NRAS (NM_002524) 2-4 (1-150) PAX5 (NM_016734) 1-10 (1-392) PHF6 (NM_032458) 2-3 (1-79), 4-10 (81-366) PIGA (NM_002641) 2 (1-5), 2-6 (15-485) PML (NM_033238) 3 (201-256) KGKB09H (NM_001031698) 2-19 (2-609), 19-20 (612-658), 20-26 (662-893) [...] 3-12 (10-392), 13-22 (402-737), 22-29 (739-1049), 29-34 (9909-1163) STAG2 (NM_006603) 2-14 (1-442), 14-16 (644-539), 17-22 (544-751), 23-33 (756-1232) STAT3 (NM_139276) 17-22 (489-715) STAT5A (NM_003152) 3-7 (1-215), 7-20 (223-795) STAT5B (NM_012448) 16 (636-692) SUZ12 (NM_015355) 1-5 (15-169), 6 (174-175), 6-16 (180-740) TERC (NR_001566) 1 (1-41) TERT ([id number]) 1 (1-24), 1-2 (32-172), 2-4 (235-630), 4-16 ([phone]) TET2 ([id number]) 3 (1-77), 3 (91-853), 3 (867-1027), 3-11 (5587-5081) TP53 ([id number]) 2 (1-25), 4 (33-75), 4-11 [...] Laboratory (MDL) at the [facility]. It has not been cleared by the [...] NOSTICS (HP ) Final Result MOLECULAR DIAGNOSTICS [facility] [address] [place] [address] * HIV 1/2 Antigen/Antibody, Fourth Gen W/RFL [...] purpose. For additional information please refer to http://[email or web address]/faq/[email or web address] (This link is being provided for informational/ educational purposes only.) The performance of this assay has not been clinically validated in patients less than 2 years old. Blood Peripheral blood specimen / Unknown CVC Line / Unknown 01/16/2024 9:41 AM CDT 01/16/2024 9:55 AM CDT Narrative [facility] (DEEJAY) - 01/17/2024 5:02 PM CDT Performing Organization Information: [facility] [address] [place] [address] Lise Biggs Jackie Solomon APRN LAB BLOOD [...] orange) ES dual color rearrangement probe. Vendor: [employer]. 01/17/2024 1:56 PM CDT CYTOGENETICS [facility] CP CG FISH DISCLAIMER This test was developed and its performance determined by .[facility] Cytogenetics Laboratory as required by the CLIA [...] 01/16/2024 9:55 AM CDT Jackie Solomon APRN [facility] HP CYTOGENETICS ( HP CG) Final Result CYTOGENETICS [facility] [address] [place] [address] * CG KMT2A(MLL) FISH Interpretation and Report (01/16/2024 9:41 AM CDT) Clinical Indication Post-op Diagnosis: CMML 01/17/2024 1:57 PM CDT CYTOGENETICS Processed Specimen Type Blood Smear 01/17/2024 1:57 PM CDT CYTOGENETICS KMT2A (MLL) FISH SUMMARY: NORMAL RESULT nuc jerad([id number])[200] INTERPRETATION: 200 cells have been analyzed, the results are within the normal limits. 01/17/2024 1:57 PM CDT CYTOGENETICS (2F)-Normal 100.0 % 01/17/2024 1:57 PM CDT CYTOGENETICS KMT2A (MLL) FISH Methodology Technique: fluorescence in situ hybridization (FISH) Probe used: KMT2A (MLL) dual color breakapart rearrangement probe, located at 11q23 5'KMT2A (MLL) - centromeric (spectrum green) / 3'KMT2A (MLL) - telomeric (spectrum orange) Vendor: [employer]. 01/17/2024 1:57 PM CDT CYTOGENETICS [facility] CP CG FISH DISCLAIMER This test was developed and its performance determined by [facility] Cytogenetics Laboratory as required by the CLIA [...] ( HP CG) Final Result CYTOGENETICS [facility] [address] [place] [address] * Hepatitis C Virus RNA Detect/Quant (01/16/2024 9:41 AM CDT) [facility] HepC RNA PCR [facility] Undetected Undetected IU/mL 01/18/2024 4:30 PM CDT [facility] D[facility] Comment: Result in log IU/mL is Undetected. ADDITIONAL INFORMATION The quantification range of this assay is 15 to 100,000,000 IU/mL (1.18 log to 8.00 log IU/mL). Testing was performed using the grover HCV test ([employer] Test Performed by: [facility] [address] [place] [address] Entry Level Accountant: Delmy Velasquez Ph.D.; CLIA# [id number] Blood Peripheral blood specimen / Unknown CVC Line / Unknown 01/16/2024 9:41 AM CDT 01/16/2024 9:55 AM CDT Jackie Solomon APRN LAB BLOOD ORDERABLES Final Result [facility] D[facility] * Hepatitis B Total Ig Core Ab (SCREENING) (anti-HBc total Ig; HBcAb total Ig) (01/16/2024 9:41 AM CDT) [facility] HBcAb. Non Reactive Non Reactive 01/16/2024 12:09 PM CDT [facility] Blood Peripheral blood specimen / Unknown CVC Line / Unknown 01/16/2024 9:41 AM CDT 01/16/2024 9:55 AM CDT Jackie Solomon APRN LAB BLOOD ORDERABLES Final Result [facility] Unless otherwise noted, all lab tests performed by: Division of Pathology and Laboratory Medicine [address] [place] [address] [place] [address] * FC MRD AML Interpretation and Report [...] developed and its performance characteristics determined by [facility] Clinical Flow Cytometry Laboratory. It has not [...] 01/16/2024 9:55 AM CDT Jackie Solomon APRN [facility] HP FLOW CYTOMETRY (HP FC) Final Result FLOW CYTOMETRY [facility] Flow Cytometry Laboratory [address] [place] [address] * Potassium Venous (01/16/2024 9:41 AM CDT) Venous Potassium 3.8 3.4 - 4.5 mmol/L 01/16/2024 9:57 AM CDT [facility] Oxygen FLOW Rate/ FiO2 01/16/2024 9:57 AM CDT [facility] O2 Therapy 01/16/2024 9:57 AM CDT [facility] Blood Peripheral blood specimen / Unknown CVC Line / Unknown 01/16/2024 9:41 AM CDT 01/16/2024 9:54 AM CDT Jackie Solomon APRN LAB BLOOD ORDERABLES Final Result [facility] Unless otherwise noted, all lab tests performed by: Division of Pathology and Laboratory Medicine [address] [place] [address] * Peripheral Smear for Bone Marrow (01/16/2024 9:41 AM CDT) Blood Peripheral blood specimen / Unknown CVC Line / Unknown 01/16/2024 9:41 AM CDT 01/16/2024 9:55 AM CDT Jackie Solomon APRN LAB BLOOD ORDERABLES Final Result [facility] Unless otherwise noted, all lab tests performed by: Division of Pathology and Laboratory Medicine [address] [place] [address] * (ABNORMAL) Erythropoietin Level (01/16/2024 9:41 AM CDT) [facility] Erythropoietin Level 31.1(H) 2.6 - 18.5 mIU/mL 01/16/2024 11:00 AM CDT [facility] Blood Peripheral blood specimen / Unknown CVC Line / Unknown 01/16/2024 9:41 AM CDT 01/16/2024 9:55 AM CDT Jackie Solomon APRN LAB BLOOD ORDERABLES Final Result Performing Organization Address [facility] Co de Phone Number [facility] Unless otherwise noted, all lab tests performed by: Division of Pathology and Laboratory Medicine [address] [place] [address] * HTLV I/II Ab (01/16/2024 9:41 AM CDT) [facility] HTLV I/II Ab Screen-[place] Negative Negative 01/18/2024 9:34 PM CDT [facility] Comment: Test Performed by: [place] [address] Entry Level Accountant: Delmy Velasquez Ph.D.; CLIA# [id number] Blood Peripheral blood specimen / Unknown CVC Line / Unknown 01/16/2024 9:41 AM CDT 01/16/2024 9:55 AM CDT Jackie Solomon APRN LAB BLOOD ORDERABLES Final Result Performing Organization Address City/[facility]/ZIP Co de Phone Number [facility] * Hepatitis Surface B Ag (01/16/2024 9:41 AM CDT) [facility] HBsAg. Non Reactive Non Reactive 01/16/2024 12:09 PM CDT [facility] Blood Peripheral blood specimen / Unknown CVC Line / Unknown 01/16/2024 9:41 AM CDT 01/16/2024 9:55 AM CDT Jackie Solomon APRN LAB BLOOD ORDERABLES Final Result Performing Organization Address City/[facility]/ZIP Co de Phone Number [facility] Unless otherwise noted, all lab tests performed by: Division of Pathology and Laboratory Medicine [address] [place] [address] * Reticulocyte Count Automated (01/16/2024 9:41 AM CDT) [facility] Reticulocyte Count Automated 2.03 0.92 - 2.71 % 01/16/2024 10:27 AM CDT [facility] RETHE 36.3 29.9 - 38.4 pg 01/16/2024 10:27 AM CDT [facility] IRF 21.0 4.4 - 22.0 % 01/16/2024 10:27 AM CDT [facility] Retic Absolute 0.0603 0.04 - 0.13 M/uL 01/16/2024 10:27 AM CDT [facility] Blood Peripheral blood specimen / Unknown CVC Line / Unknown 01/16/2024 9:41 AM CDT 01/16/2024 9:55 AM CDT Jackie Solomon APRN LAB BLOOD ORDERABLES Final Result Performing Organization Address City/[facility]/ZIP Co de Phone Number [facility] Unless otherwise noted, all lab tests performed by: Division of Pathology and Laboratory Medicine [address] [place] [address] * Vitamin B12 Level (01/16/2024 9:41 AM CDT) Pathologist [facility] Vitamin B12 Level 1,108 232 - 1,245 pg/mL 01/16/2024 10:45 AM CDT [facility] Is patient fasting? Yes 01/16/2024 10:45 AM CDT [facility] Blood Peripheral blood specimen / Unknown CVC Line / Unknown 01/16/2024 9:41 AM CDT 01/16/2024 9:55 AM CDT Narrative [facility] - 01/16/2024 10:45 AM CDT Reference range established based on adult population. Jackie Solomon APRN LAB BLOOD ORDERABLES Final Result [facility] Unless otherwise noted, all lab tests performed by: Division of Pathology and Laboratory Medicine [address] [place] [address] * Echocardiogram 2D Complete (01/16/2024 8:44 AM [...] resultswithin the time period is included. Pathologist [facility] NT-ProBNP 2,694(H) <=450 pg/mL 01/16/2024 8:46 AM CDT [facility] Blood Peripheral blood specimen / Unknown CVC Line / Unknown 01/16/2024 1:14 AM CDT 01/16/2024 1:22 AM CDT Jackie Solomon APRN LAB BLOOD ORDERABLES Final Result Performing Organization Address City/[facility] Co de Phone Number [facility] Unless otherwise noted, all lab tests performed by: Division of Pathology and Laboratory Medicine [address] [place] [phone] * Thyroid Stimulating Hormone (01/16/2024 1:14 AM CDT) Only the most recent of2 resultswithin the time period is included. [facility] Thyroid Stimulating Hormone 2.60 0.27 - 4.20 mcunit/mL 01/16/2024 8:32 AM CDT [facility] Blood Peripheral blood specimen / Unknown CVC Line / Unknown 01/16/2024 1:14 AM CDT 01/16/2024 1:22 AM CDT Jackie Solomon APRN LAB BLOOD ORDERABLES Final Result Performing Organization Address City/[facility]/ZIP Co de Phone Number [facility] Unless otherwise noted, all lab tests performed by: Division of Pathology and Laboratory Medicine [address] [place] [phone] * T4 (01/16/2024 1:14 AM CDT) Pathologist [facility] Thyroxine 4.7 4.5 - 11.7 mcg/dL 01/16/2024 8:32 AM CDT [facility] Blood Peripheral blood specimen / Unknown CVC Line / Unknown 01/16/2024 1:14 AM CDT 01/16/2024 1:22 AM CDT Jackie Solomon APRN LAB BLOOD ORDERABLES Final Result [facility] Unless otherwise noted, all lab tests performed by: Division of Pathology and Laboratory Medicine [address] [place] [address] * Ferritin (01/16/2024 1:14 AM CDT) [facility] Ferritin Level 261 30 - 400 ng/mL 01/16/2024 8:32 AM CDT [facility] Blood Peripheral blood specimen / Unknown CVC Line / Unknown 01/16/2024 1:14 AM CDT 01/16/2024 1:22 AM CDT Narrative [facility] - 01/16/2024 8:32 AM CDT Reference range established for age 20 - 60 years Jackie Solomon APRN LAB BLOOD ORDERABLES Final Result Performing Organization Address City/[facility] Co de Phone Number [facility] Unless otherwise noted, all lab tests performed by: Division of Pathology and Laboratory Medicine [address] [place] [phone] * (ABNORMAL) Urinalysis Microscopic Exam (01/16/2024 1:00 AM CDT) Urine Mucous Trace Not Seen, Trace /HPF 01/16/2024 2:00 AM CDT [facility] Urine Bacteria Not Seen Not Seen /HPF 01/16/2024 2:00 AM CDT [facility] Urine Squamous Epithelial Cells Not Seen Not Seen, OCC, Rare /HPF 01/16/2024 2:00 AM CDT [facility] Urine Amorphous Crystal OCC(A) Not Seen /HPF 01/16/2024 2:00 AM CDT [facility] Urine WBC 1 <=2 /HPF 01/16/2024 2:00 AM CDT [facility] Urine RBC 3(H) <=2 /HPF 01/16/2024 2:00 AM CDT [facility] Urine (Urine Sagastume) Non-blood Collection / Unknown 01/16/2024 1:00 AM CDT 01/16/2024 1:27 AM CDT Bernarda Duvall APRN LAB BLOOD ORDERABLES Final Resul t [facility] Unless otherwise noted, all lab tests performed by: Division of Pathology and Laboratory Medicine [address] [place] [phone] * (ABNORMAL) Urinalysis w/Microscopic if Indicated (01/16/2024 1:00 AM CDT) Urine Appearance Hazy(A) Clear 01/16/20 1:36 AM CDT [facility] Urine Color Straw Colorless, Straw, Yellow, Dark Yellow, Straw-Yellow 01/16/2024 1:36 AM CDT [facility] Urine Specific Weir 1.013 1.003 - 1.035 01/16/2024 1:36 AM CDT [facility] Urine pH 5.5 5.0 - 8.0 01/16/2024 1:36 AM CDT [facility] Urine Glucose Negative Negative mg/dL 01/16/2024 1:36 AM CDT [facility] Urine Ketones Negative Negative mg/dL 01/16/2024 1:36 AM CDT [facility] Urine Blood Small(A) Negative 01/16/2024 1:36 AM CDT [facility] Urine Protein 20(A) Negative mg/dL 01/16/2024 1:36 AM CDT [facility] Urine Bilirubin Negative Negative 1:36 AM CDT [facility] Urine Urobilinogen Negative Negative 01/16/2024 1:36 AM CDT [facility] Urine Nitrite Negative Negative 01/16/2024 1:36 AM CDT [facility] Urine Leukocyte Esterase Negative Negative 01/16/2024 1:36 AM CDT [facility] Urine (Urine Sagastume) Non-blood Collection / Unknown 01/16/2024 1:00 AM CDT 01/16/2024 1:27 AM CDT Narrative [facility] - 01/16/2024 1:36 AM CDT Some reporting parameters within the Urinalysis test have changed due to the implementation of new instrumentation in the Main [place], allowing greater sensitivity of measurement. Urinalysis results reported by the [facility] using existing instrumentation, as well as Urinalysis testing performed manually or by back-up methodology at the main [place], will remain relatively unchanged. New reporting parameters and units will now be reported for all campuses. Bernarda Duvall APRN URINE ORDERABLES Final Result Performing Organization Address City/[facility]/ZIP Co de Phone Number [facility] Unless otherwise noted, all lab tests performed by: Division of Pathology and Laboratory Medicine [address] [place] [address] * EKG, 12-Lead (Portable) (01/16/2024) us Bernarda Duvall APRN ECG ORDERABLES Final Result Performing Organization Address [facility]/ZIP Co de Phone Number [facility] * Confirm ABORh (01/15/2024 10:45 PM CDT) Pathologist [facility] ABORh Confirm B POS 01/15/2024 10:17 PM CDT [facility] Blood Peripheral blood specimen / Unknown CVC Line / Unknown 01/15/2024 10:45 PM CDT 01/15/2024 10:52 PM CDT Bernarda Duvall APRN BLOOD BANK TEST ORDERABLES Final Result Performing Organization Address City/[facility] Co de Phone Number [facility] [address] [facility] [address] [place] [address] * VRE Culture (01/15/2024 10:40 PM CDT) VRE Culture No Vancomycin-Resi stant Enterococci isolated. 01/17/2024 2:27 PM CDT [facility] Swab Rectum structure / Unknown Non-blood Collection / Unknown 01/15/2024 10:40 PM CDT 01/15/2024 10:52 PM CDT us Bernarda Duvall APRN MICROBIOLOGY - GENERAL ORDERABLE S Final Result Performing Organization Address City/[facility]/ZIP Co de Phone Number [facility] Unless otherwise noted, all lab tests performed by: Division of Pathology and Laboratory Medicine [address] [place] [phone] * Blood Culture Peripheral (01/15/2024 10:26 PM CDT) [facility] Blood Culture No Growth. 01/21/2024 12:01 AM CDT [facility] Blood Peripheral blood specimen / Unknown CVC Line / Unknown 01/15/2024 10:26 PM CDT 01/15/2024 10:33 PM CDT us Bernarda Duvall APRN MICROBIOLOGY - GENERAL ORDERABLE S Final Result Performing Organization Address [facility] de Phone Number [facility] Unless otherwise noted, all lab tests performed by: Division of Pathology and Laboratory Medicine [address] [place] [phone] * (ABNORMAL) Triiodothyronine (01/15/2024 10:26 PM CDT) [facility] Triiodothyronine 46(L) 80 - 200 ng/dL 01/15/2024 11:13 PM CDT [facility] Blood Peripheral blood specimen / Unknown CVC Line / Unknown 01/15/2024 10:26 PM CDT 01/15/2024 10:33 PM CDT us Bernarda Duvall APRN LAB BLOOD ORDERABLES Final Resul t Performing Organization Address City/[facility]/ZIP Co de Phone Number [facility] Unless otherwise noted, all lab tests performed by: Division of Pathology and Laboratory Medicine [address] [place] [phone] * Thyroxine Free (01/15/2024 10:26 PM CDT) Pathologist [facility] T4 (Thyroxine) Free 1.65 0.92 - 1.68 ng/dL 01/15/2024 11:13 PM CDT [facility] Blood Peripheral blood specimen / Unknown CVC Line / Unknown 01/15/2024 10:26 PM CDT 01/15/2024 10:33 PM CDT us Bernarda Duvall VIDEO CLERK LAB BLOOD ORDERABLES Final Resul t [facility] Unless otherwise noted, all lab tests performed by: Division of Pathology and Laboratory Medicine [address] [place] [phone] * (ABNORMAL) Blood Gas Venous (01/15/2024 10:26 PM CDT) [facility] pH Venous 7.37 7.32 - 7.43 01/15/2024 10:34 PM CDT [facility] P CO2 Venous 33.9(L) 41.0 - 51.0 mmHg 01/15/2024 10:34 PM CDT [facility] P O2 Venous 29 mmHg 01/15/2024 10:34 PM CDT [facility] Bicarbonate Venous 20(L) 21 - 28 mmol/L 01/15/2024 10:34 PM CDT [facility] Base Excess Venous -5(L) -2 - 3 mmol/L 01/15/2024 10:34 PM CDT [facility] Oxygen Saturation Venous 53 % 01/15/2024 10:34 PM CDT [facility] Oxygen FLOW Rate/ FiO2 01/15/2024 10:34 PM CDT [facility] O2 Therapy 01/15/2024 10:34 PM CDT [facility] Blood Peripheral blood specimen / Unknown CVC Line / Unknown 01/15/2024 10:26 PM CDT 01/15/2024 10:32 PM CDT us Bernarda Duvall APRN LAB BLOOD ORDERABLES Final Resul t [facility] Unless otherwise noted, all lab tests performed by: Division of Pathology and Laboratory Medicine [address] [place] [phone] * (ABNORMAL) Calcium Level (01/15/2024 10:26 PM CDT) Calcium Level Total 7.9(L) 8.2 - 10.2 mg/dL 01/15/2024 11:06 PM CDT [facility] Blood Peripheral blood specimen / Unknown CVC Line / Unknown 01/15/2024 10:26 PM CDT 01/15/2024 10:33 PM CDT Bernarda Duvall APRN LAB BLOOD ORDERABLES Final Resul t Performing Organization Address City/[facility]/ZIP Co de Phone Number [facility] Unless otherwise noted, all lab tests performed by: Division of Pathology and Laboratory Medicine [address] [place] [phone] * (ABNORMAL) Cardiac Panel (01/15/2024 10:25 PM CDT) Creatine Kinase 30(L) 39 - 308 U/L 01/15/2024 10:56 PM CDT [facility] CKMB 2.6 <=10.4 ng/mL 01/15/2024 10:56 PM CDT [facility] Troponin T 37(H) <=19 ng/L 01/15/2024 10:56 PM CDT [facility] Comment: < 19 ng/L Suggest retest [...] 10:25 PM CDT 01/15/2024 10:33 PM CDT Bernardajohn Duvall VIDEO CLERK LAB BLOOD ORDERABLES Final Resul t [facility] Unless otherwise noted, all lab tests performed by: Division of Pathology and Laboratory Medicine [address] [place] [phone] * OSI Chest (01/15/2024 9:13 AM CDT) [...] OUTSIDE IMAGE O RDERABLES Final Result after 06/29/2023 Insurance [employer] Advance Directives * Full Code (Latest Code Status on File) Date Activated Date Inactivated Comments 01/16/2024 5:14 AM 01/24/2024 12:25 AM Care Teams Building And Grounds Supervisor Relationship Specialty Start Date End Date Jatin Alvarez MD [facility] [place] [address] [email or web address] PCP - General Leukemia 03/06/24 Arjun Hamm MD [address] [place] [id number] [email or web address] Hematology and Oncology 01/23/24 DR. Leandro De León [facility] Family Practice 01/19/24 01/18/99
[2024-06-28 15:48] LABS: Anion Gap 9.5 mEq/L (5.0-15.0); Potassium 3.5 mEq/L (3.5-5.1)
[2024-06-28 16:25] LABS: Absolute Lymphocytes (CBC) 1.1 K/uL (0.7-4.9); Absolute Monocytes 0.1 K/uL (0.1-1.3); Absolute Neutrophil 0.5 K/uL (1.8-8.0); Basophils % 0.1 % (0-1.3); Eosinophils % 0.4 % (0-4.4); Hematocrit 17.3 % (39.6-49.0); Hemoglobin 6.3 g/dL (13.6-17.9); Lymphocytes % 64.2 % (15.3-44.8); MCH 43.6 pg (27.0-35.0); MCHC 36.2 g/dL (32.0-36.0); MCV 120.4 fL (80-100); MPV 9.1 fL (7.6-11.3); Monocytes % 5.9 % (3.3-12.3); Neutrophils % 29.4 % (41.7-73.7); Platelets 61 thou/uL (152-406); RBC Red Blood Cell Count 1.44 M/uL (4.33-5.43)
[2024-06-28 17:01] LABS: Blood Morphology Comment NOTED (NOT SEEN); Differential Total Cells Count 100; Lymphocytes 63 % (15-42); Monocytes 6 % (0-10); Platelet Estimate DECR; Platelets, Giant PRESENT; Segmented Neutrophils 31 % (40-80)
[2024-06-28 17:02] LABS: Macrocytosis 3+
[2024-06-28] MEDS ORDERED: NA CHLORIDE 0.9% 250 ML ONE (17:37)
--- NOTE | 2024-06-28 20:05 | EDPHYS ---
Physician Documentation [facility] Name: Jovi Garcia Age: 84 yrs Sex: Male : 1940 Arrival Date: 06/28/2024 Time: 12:58 Bed 15 Private MD: ED Physician Vipul Andrade HPI: 06/28 17:10 This 84 yrs old Male presents to ER via Ambulatory with complaints of ec2 Abnormal Lab Results. 17:10 Patient with a history of leukemia arrives today for evaluation of anemia. Patient ec2 reports no report of blood loss. No previous blood transfusions. Outpatient labs with hemoglobin 6.7. Does endorse some lightheadedness some generalized weakness as well as some shortness of breath.. Historical: - Allergies: 13:22 No Known Allergies; iw - PMHx: 13:22 aortic aneurysm; BPH; Chronic obstructive lung disease; CHRONIC PROXIMAL HEMICRANIA; iw Dementia; Dementia; HARD OF HEARING; Hypertensive disorder; Leukemia; - Immunization history:: Adult Immunizations up to date. - Infectious Disease History:: Denies. - Social history:: Smoking status: Patient/guardian denies using tobacco, but has a distant history of tobacco abuse. ROS: 17:11 Constitutional: as per hpi ec2 Exam: 17:11 Constitutional: GEN: NAD Head: atraumatic Eyes: EOMI Ears: External ears are ec2 normal. CV: regular rate LUNGS: no respiratory distress ABD: non-distended SKIN: no evidence of rashes MSK: no evidence of trauma Vital Signs: 13:21 BP 131 / 68; Pulse 89; Resp 16; Temp 98.5; Pulse Ox 100% on R/A; Weight 91.63 kg; iw Height 6 ft. 0 in. ; 15:40 BP 144 / 77; Pulse 77; Resp 20; Pulse Ox 100% on R/A; me1 16:00 BP 133 / 68; Pulse 73; Resp 20; Pulse Ox 100% ; me1 17:00 BP 138 / 63; Pulse 75; Resp 19; Pulse Ox 100% ; me1 18:00 BP 120 / 64; Pulse 73; Resp 19; Pulse Ox 100% ; hb 19:00 BP 119 / 65; Pulse 75; Resp 19; Temp 97.4; Pulse Ox 100% ; hb 19:50 BP 140 / 59; Pulse 78; Resp 19; Temp 97.6(TE); Pulse Ox 100% ; hb 13:21 Body Mass Index 27.40 (91.63 kg, 182.88 cm) iw MDM: 13:00 Medical Screening Exam initiated ec2 17:11 Data reviewed: vital signs, nurses notes. ED course: Patient arrives today for ec2 generalized weakness with a history of leukemia found to be anemic. Repeat lab work shows similar anemia. Will transfuse and observe. Anticipate patient can potentially go home pending transfusion. 06/28 13:00 Order name: CBC with Diff; Complete Time: 17:05 ec2 06/28 13:00 Order name: BMP; Complete Time: 15:57 ec2 06/28 13:00 Order name: Packed Rbc Leukored ec2 06/28 13:03 Order name: ABO/RH typing EDOR 06/28 13:04 Order name: Antibody Screen EDOR 06/28 16:35 Order name: Manual Differential; Complete Time: 17:05 EDOR 06/28 17:16 Order name: ABO/RH no charge; Complete Time: 19:09 EDOR 06/28 13:00 Order name: IV ec2 06/28 13:00 Order name: Consent for Blood Transfusion; Complete Time: 20:19 ec2 06/28 15:50 Order name: Misc. Order: recollect - lavender; Complete Time: 16:09 hb Administered Medications: No medications were administered Disposition Summary: 06/28/24 20:05 Discharge Ordered Notes: Location: Home kb Condition: Stable kb Diagnosis - Anemia, unspecified kb Followup: ec2 - With: Private Physician - When: - Reason: Re-evaluation by your physician Discharge Instructions: - Discharge Summary Sheet ec2 - Anemia ec2 - Blood Transfusion, Adult ec2 Forms: - Medication Reconciliation Form kb - Antibiotic Education kb - Prescription Opioid Use kb - Patient Portal Instructions kb - Leadership Thank You Letter kb Critical care time excluding procedures: 19:08 Critical care time: Bedside Care: 10 minutes, Consultation: 10 minutes, Family kb Intervention: 10 minutes. Total time: 30 minutes Signatures: Dispatcher [employer] EDOR Gena Leon FNP-C FNP-Christi Muniz RN RN Yazmin Armstrong RN RN Angie Sprague RN RN nj1 Vipul Andrade MD MD ec2 Corrections: (The following items were deleted from the chart) 14:02 13:01 TYPE AND SCREEN+BB.LAB.BRZ ordered. EDMS EDMS 17:12 16:21 CBC+H.LAB.BRZ ordered. EDMS EDMS
--- NOTE | 2024-06-28 20:05 | ER ---
Nurse's Notes [facility] Name: Jovi Garcia Age: 84 yrs Sex: Male : 1940 Arrival Date: 06/28/2024 Time: 12:58 Bed 15 Private MD: Diagnosis: Anemia, unspecified Presentation: 06/28 13:21 Chief complaint: Spouse and/or significant other states: sent from Dr. Hamm for low iw hgb, was drawn yesterday , dx with leukemia six months ago. Coronavirus screen: At this time, the client does not indicate any symptoms associated with coronavirus-19. Ebola Screen: No symptoms or risks identified at this time. Initial Sepsis Screen: Does the patient meet any 2 criteria? No. Patient's initial sepsis screen is negative. Does the patient have a suspected source of infection? No. Patient's initial sepsis screen is negative. Risk Assessment: Do you want to hurt yourself or someone else? Patient reports no desire to harm self or others. Onset of symptoms was June 28, 2024. 13:21 Method Of Arrival: Ambulatory iw 13:21 Acuity: NABEEL 3 iw Triage Assessment: 13:22 General: Appears in no apparent distress. Behavior is calm, cooperative. Pain: Denies iw pain. Historical: - Allergies: 13:22 No Known Allergies; iw - PMHx: 13:22 aortic aneurysm; BPH; Chronic obstructive lung disease; CHRONIC PROXIMAL HEMICRANIA; iw Dementia; Dementia; HARD OF HEARING; Hypertensive disorder; Leukemia; - Immunization history:: Adult Immunizations up to date. - Infectious Disease History:: Denies. - Social history:: Smoking status: Patient/guardian denies using tobacco, but has a distant history of tobacco abuse. Screenin:33 [facility] ED Fall Risk Assessment (Adult) History of falling in the last 3 months, me1 including since admission No falls in past 3 months (0 pts) Confusion or Disorientation No (0 pts) Intoxicated or Sedated No (0 pts) Impaired Gait No (0 pts) Mobility Assist Device Used No (0 pt) Altered Elimination No (0 pt) Score/Fall Risk Level 0 - 2 = Low Risk Maintained a safe environment, Provided non-skid footwear, Hourly rounding (assess needs \T\ fall precautionary measures) done. Abuse screen: Denies threats or abuse. Nutritional screening: No deficits noted. Tuberculosis screening: No symptoms or risk factors identified. Assessment: 15:33 General: Appears in no apparent distress. well groomed, well developed, well nourished, me1 Behavior is calm, cooperative, appropriate for age, Reports sent from Dr. Hamm for low hgb, was drawn yesterday , dx with leukemia six months ago. Pain: Denies pain. Neuro: Level of Consciousness is awake, alert, obeys commands, Oriented to person, place, time, situation, Appropriate for age. Cardiovascular: Patient's skin is warm and dry. Respiratory: Airway is patent Respiratory effort is even, unlabored, Respiratory pattern is regular, symmetrical. GI: No signs and/or symptoms were reported involving the gastrointestinal system. : No signs and/or symptoms were reported regarding the genitourinary system. EENT: No signs and/or symptoms were reported regarding the EENT system. Derm: Skin is intact, is healthy with good turgor, Skin is pink, warm \T\ dry. Musculoskeletal: No signs and/or symptoms reported regarding the musculoskeletal system. 20:41 General: Discharge delayed waiting for to take him home. Patient has dementia and hb cannot be alone in lobby. Vital Signs: 13:21 BP 131 / 68; Pulse 89; Resp 16; Temp 98.5; Pulse Ox 100% on R/A; Weight 91.63 kg; iw Height 6 ft. 0 in. ; 15:40 BP 144 / 77; Pulse 77; Resp 20; Pulse Ox 100% on R/A; me1 16:00 BP 133 / 68; Pulse 73; Resp 20; Pulse Ox 100% ; me1 17:00 BP 138 / 63; Pulse 75; Resp 19; Pulse Ox 100% ; me1 18:00 BP 120 / 64; Pulse 73; Resp 19; Pulse Ox 100% ; hb 19:00 BP 119 / 65; Pulse 75; Resp 19; Temp 97.4; Pulse Ox 100% ; hb 19:50 BP 140 / 59; Pulse 78; Resp 19; Temp 97.6(TE); Pulse Ox 100% ; hb 13:21 Body Mass Index 27.40 (91.63 kg, 182.88 cm) iw ED Course: 12:59 Patient arrived in ED. im 13:00 Vipul Andrade MD is Attending Physician. ec2 13:22 Triage completed. iw 15:27 Angie Sprague, RN is Primary Nurse. me1 15:33 Patient has correct armband on for positive identification. Bed in low position. Call ga1 light in reach. Side rails up X 1. Provided Education on: POC. Verbalized understanding.. Client placed on continuous cardiac and pulse oximetry monitoring. NIBP monitoring applied. Pulse ox on. NIBP on. 15:33 No provider procedures requiring assistance completed. me1 15:50 Arm band placed on Patient placed in an exam room. me1 16:09 Initial lab(s) drawn, by me, sent to lab. Inserted saline lock: 22 gauge in left [facility] antecubital area, using aseptic technique. 19:08 [facility]C [facility] kb 20:20 IV discontinued, intact, bleeding controlled, No redness/swelling at site. Pressure hb dressing applied. Administered Medications: No medications were administered Medication: 15:33 VIS not applicable for this client. ga1 Outcome: 20:05 Discharge ordered by . kb 20:20 Discharged to home via wheelchair, with family, 20:20 Condition: stable 20:20 Discharge instructions given to patient, family, Instructed on discharge instructions, follow up and referral plans. Demonstrated understanding of instructions, follow-up care, 20:41 Patient left the ED. hb Signatures: Gena Leon FNP-C [employer]-Ckb Christi Velarde RN RN Yazmin Armstrong RN RN Zeenat Wood Michelle, MARIKA RN ga1 Vipul Andrade MD MD ec2 Corrections: (The following items were deleted from the chart) 13:23 13:21 BP 131 / 68; Pulse 89bpm; Resp 16bpm; Pulse Ox 100% RA; Temp 98.5F; iw iw 15:33 13:21 Chief complaint: Spouse and/or significant other states: sent from Dr. Hamm for me1 low hgb, was drawn yesterday , dx with leukemia six months ago iw 17:12 16:58 CBC+H.LAB.BRZ drawn and sent. [facility] EDMS
[2024-06-28 21:00] VITALS: O2SAT 100
[2024-06-28 21:07] VITALS: BP 140/59; TEMP 97.6
== END 2024-06-28 20:41 | disposition home or self-care (01) ==
LOC: ER 12:58
PROC: 30233N1 Transfusion of Nonautologous Red Blood Cells into Peripheral Vein, Percutaneous Approach (ICD-10-PCS; principal; 2024-06-28)
DX: D64.9 Anemia, unspecified (principal); Z85.6 Personal history of leukemia
CPT/HCPCS: 85025; 80048; 36415; 86900; 86850; 86901; 86920; 99284; 36430; P9016; J7050

== ENCOUNTER 2024-06-30 15:52 | Emergency (ER) | payer MEDICAID ==
--- OUTSIDE RECORDS SUMMARY | 2024-06-30 15:57 | XMS REPORT | Clinical Summary ---
Author Name Unknown Organization [facility] Address [address] [place] [address] Care Team Providers Care Underwear Trimmer Name Role Phone Arjun Hamm MD Unavailable Jatin Alvarez MD Primary Care Provider [phone] Allergies No known active allergies Medications furosemide [...] sodium chloride (NS) 0.9% flush syringe 10 mLIndications:Applications Systems Analyst tomasa myelomonocytic leukemia Inject 10 mL (1 [...] Care Team Description 03/06/2024 Documentation [facility] [address] [place] [address] Main [facility], 8th [place] [address] Mikey Dodd, HEEL GUMMER 02/29/2024 Orders Only [facility] [address] [place] [address], 8th [place] [address] Mikey Dodd, HEEL GUMMER Chronic myelomonocytic leukemia (Primary Dx) 02/29/2024 Telephone [facility] [address] Main Bldg, 8th [place] [address] Leny Stearns, MARIKA 02/06/2024 4:30 PM CDT Telemedicine [facility] [address] Main Bldg, 8th [place] [address] Jatin Alvarez MD Chronic myelomonocytic leukemia (Primary Dx) 01/29/2024 Documentation [facility] [address] Main Bldg, 8th [place] [address] Kandis Melton RN 01/26/2024 Telephone [facility] [address] Main Bldg, 8th [place] [address] Leny Stearns, MARIKA 01/23/2024 Orders Only [facility] [address] Main Bldg, 8th [place] [address] Susan Sahu, HEEL GUMMER Chronic myelomonocytic leukemia (Primary Dx) 01/23/2024 Orders Only [facility] [address] Main Bldg, 8th [place] [address] Susan Sahu, HEEL GUMMER 01/22/2024 Orders Only [facility] [address] Main Bldg, 11th [place] [address] Bonny Perales, HEEL GUMMER 01/18/2024 8:10 PM CDT Ancillary Procedure [facility] [address] [place] [id number] 01/18/2024 8:05 PM CDT Ancillary Procedure [facility] [address] [place] [address] 01/18/2024 8:00 PM CDT Ancillary Procedure [facility] [address] [place] [address] 01/18/2024 Travel 01/15/2024 8:59 PM CDT - 01/23/2024 10:20 PM CDT Hospital Encounter MAIN [address] [place] [address] Garirson Sheehan MD Issa, Ghayas C, MD Acute renal impairment (Primary Dx); Chronic myelomonocytic leukemia; Cancer; Malnutrition of moderate degree; Hyperuricemia; Tumor lysis syndrome; Disorder of fluid AND/OR electrolyte; Acute metabolic acidosis; Altered mental status; Other elevated white blood cell count; Creatine kinase level above reference range; Difficulty in walking; Other abnormalities of gait and mobility Discharge Disposition: Home 01/15/2024 Travel after 07/01/2023 Immunizations Name Administration Dates Next Due [id number] B, Historical 04/04/2006 Fluad Quad Pf 03/28/2023 [...] CYTOMETRY WORKUP Routine 01/17/2024 11:10 AM CDT [place] DIAGNOSTIC BONE MARROW BIOPSIES & ASPIRATIONS Routine [...] Routine 01/12/2024 9:14 AM CDT Cancer after 07/01/2023 Results * (ABNORMAL) Basic Metabolic Panel- Calcium Ionized (01/23/2024 12:26 AM CDT) Only the most recent of15 resultswithin the time period is included. eGFR 60 >=60 mL/min/1. 73 sq. m 01/23/2024 2:27 AM T [facility] Comment: The eGFRcr is calculated with [...] - 145 mmol/L 01/23/2024 2:27 AM CDT [facility] Potassium Level 3.7 3.4 - 4.5 mmol/L 01/23/2024 2:27 AM CDT [facility] Chloride 103 98 - 107 mmol/L 01/23/2024 2:27 AM CDT [facility] CO2 23 22 - 29 mmol/L 01/23/2024 2:27 AM CDT [facility] Anion Gap 11 4 - 14 mmol/L 01/23/2024 2:27 AM CDT [facility] Creatinine 1.20(H) 0.67 - 1.17 mg/dL 01/23/2024 2:27 AM CDT [facility] BUN <4(L) 6 - 23 mg/dL 01/23/2024 2:27 AM T [facility] Glucose Level 116(H) 70 - 99 mg/dL 01/23/2024 2:27 AM CDT [facility] Comment: Effective 11/04/15, the glucose reference intervals have been updated based on [place] Diabetes [employer] guidelines (Standards of Medical Care [...] Barrera APRN LAB BLOOD ORDERABLES Final Result [facility] Unless otherwise noted, all lab tests performed by: Division of Pathology and Laboratory Medicine [address] [place] [id number] * (ABNORMAL) .CBC (01/23/2024 12:26 AM CDT) Only the most recent of14 resultswithin the time period is included. White Blood Cell 2.4(L) 4.1 - 10.5 K/uL 01/23/2024 5:49 AM CDT [facility] Red Blood Cell 2.66(L) 4.30 - 6.04 M/uL 01/23/2024 5:49 AM CDT [facility] Hemoglobin 8.4(L) 13.3 - 17.4 g/dL 01/23/2024 5:49 AM CDT [facility] Hematocrit 25.6(L) 39.5 - 51.8 % 01/23/2024 5:49 AM CDT [facility] Mean Cell Volume 96 82 - 99 fL 01/23/2024 5:49 AM CDT [facility] Mean Cell Hemoglobin 31.6 26.6 - 33.2 pg 01/23/2024 5:49 AM CDT [facility] Mean Cell Hemoglobin Concentration 32.8 31.1 - 35.2 g/dL 01/23/2024 5:49 AM CDT [facility] RDW-SD 53.9(H) 37.5 - 49.7 fL 01/23/2024 5:49 AM CDT [facility] Red Cell Diameter Width 15.3 11.6 - 15.5 % 01/23/2024 5:49 AM CDT [facility] Platelet 54(L) 160 - 397 K/uL 01/23/2024 5:49 AM CDT [facility] Mean Platelet Volume 9.7 9.1 - 12.6 fL 01/23/2024 5:49 AM CDT [facility] INRBC 0.0 0.0 - 0.1 /100 WBC 01/23/2024 5:49 AM CDT [facility] Comment: The INRBC (instrument NRBC) value [...] Barrera APRN LAB BLOOD ORDERABLES Final Result [facility] Unless otherwise noted, all lab tests performed by: Division of Pathology and Laboratory Medicine [address] [place] [id number] * Fractionated Bilirubin (01/23/2024 12:26 AM CDT) Only the most recent of9 resultswithin the time period is included. Bilirubin Direct 0.2 0.0 - 0.3 mg/dL 01/23/2024 1:09 AM CDT [facility] Comment:Indocyanine Green (I CG) may cause falsely elevated bilirubin results. Total and direct bilirubin must not be measured from samples containing indocyanine green. Bilirubin Indirect 0.9 0.0 - 0.9 mg/dL 01/23/2024 1:09 AM CDT [facility] Bilirubin Total 1.1 0.0 - 1.2 mg/dL 01/23/2024 1:09 AM CDT [facility] Comment:Indocyanine Green (I CG) may cause [...] BLOOD ORDERABLES Final Result Performing Organization Address City/[facility] de Phone Number [facility] Unless otherwise noted, all lab tests performed by: Division of Pathology and Laboratory Medicine [address] [place] [id number] * aPTT (01/23/2024 12:26 AM CDT) Only the most recent of10 resultswithin the time period is included. Activated PTT 28.4 24.8 - 35.6 second(s) 01/23/2024 1:16 AM CDT [facility] Blood Venous blood specimen / Unknown Venipuncture / Unknown 01/23/2024 12:26 AM CDT 01/23/2024 12:38 AM CDT Jackie Solomon APRN LAB BLOOD ORDERABLES Final Result Performing Organization Address City/[facility] de Phone Number [facility] Unless otherwise noted, all lab tests performed by: Division of Pathology and Laboratory Medicine [address] [place] [address] * Calcium Ionized, Venous (01/23/2024 12:26 AM CDT) Only the most recent of15 resultswithin the time period is included. Venous Ionized Calcium 1.18 1.15 - 1.29 mmol/L 01/23/2024 12:41 AM CDT [facility] Oxygen FLOW Rate/ FiO2 01/23/2024 12:41 AM CDT [facility] O2 Therapy Room air 01/23/2024 12:41 AM CDT [facility] Blood Venous blood specimen / Unknown Venipuncture / Unknown 01/23/2024 12:26 AM CDT 01/23/2024 12:38 AM CDT us Bee Mullinssimon HEEL GUMMER LAB BLOOD ORDERABLES Final Result [facility] Unless otherwise noted, all lab tests performed by: Division of Pathology and Laboratory Medicine [address] [place] [phone] * (ABNORMAL) Differential (01/23/2024 12:26 AM CDT) Only the most recent of9 resultswithin the time period is included. Total Cells 100 01/23/2024 5:49 AM CDT [facility] Manual Neutrophil % 19.0(L) 43.2 - 72.7 % 01/23/2024 5:49 AM CDT [facility] Comment:The Neutrophil count includes Bands. Manual Lymphocyte % 59.0(H) 16.8 - 46.2 % 01/23/2024 5:49 AM CDT [facility] Manual Monocyte % 16.0(H) 5.1 - 12.5 % 01/23/2024 5:49 AM CDT [facility] Manual Eosinophil % 3.0 0.4 - 6.3 % 01/23/2024 5:49 AM CDT [facility] Manual Basophil % 3.0(H) 0.2 - 1.4 % 01/23/2024 5:49 AM CDT [facility] Metamyelocyte % 5:49 AM CDT [facility] Comment:The Metamyelocyte co unt includes Myelocytes. Manual Neutrophil Abs 0.46(L) 1.95 - 7.25 K/uL 01/23/2024 5:49 AM CDT [facility] Manual Lymphocyte Abs 1.42 1.01 - 3.24 K/uL 01/23/2024 5:49 AM CDT [facility] Manual Monocyte Abs 0.38 0.24 - 0.85 K/uL 01/23/2024 5:49 AM CDT [facility] Manual Eosinophil Abs 0.07 0.02 - 0.50 K/uL 01/23/2024 5:49 AM CDT [facility] Manual Basophil Abs 0.07 0.02 - 0.09 K/uL 01/23/2024 5:49 AM CDT [facility] RBC Morphology PRESENT 01/23/2024 5:49 AM CDT [facility] PLT Morph Normal Normal 01/23/2024 5:49 AM CDT [facility] Anisocytosis Present(A) (none) 01/23/2024 5:49 AM CDT [facility] Ovalocyte Present(A) (none) 01/23/2024 5:49 AM CDT [facility] Blood Venous blood specimen / Unknown Venipuncture / Unknown 01/23/2024 12:26 AM CDT 01/23/2024 12:39 AM CDT us Bee Barrera APRN LAB BLOOD ORDERABLES Final Result [facility] Unless otherwise noted, all lab tests performed by: Division of Pathology and Laboratory Medicine [address] [place] [id number] * (ABNORMAL) Prothrombin Time (01/23/2024 12:26 AM CDT) Only the most recent of11 resultswithin the time period is included. Prothrombin Time 14.6(H) 12.2 - 14.4 second(s) 01/23/2024 1:16 AM CDT [facility] International Normalization Ratio 1.16(H) 0.91 - 1.10 01/23/2024 1:16 AM CDT [facility] Blood Venous blood specimen / Unknown Venipuncture / Unknown 01/23/2024 12:26 AM CDT 01/23/2024 12:38 AM CDT Jackie Solomon APRN LAB BLOOD ORDERABLES Final Result [facility] Unless otherwise noted, all lab tests performed by: Division of Pathology and Laboratory Medicine [address] [place] [address] * Fibrinogen (01/23/2024 12:26 AM CDT) Only the most recent of9 resultswithin the time period is included. Fibrinogen 320 214 - 503 mg/dL 01/23/2024 1:16 AM CDT [facility] Blood Venous blood specimen / Unknown Venipuncture / Unknown 01/23/2024 12:26 AM CDT 01/23/2024 12:38 AM CDT Jackie Solomon APRN LAB BLOOD ORDERABLES Final Result Performing Organization Address [facility] de Phone Number [facility] Unless otherwise noted, all lab tests performed by: Division of Pathology and Laboratory Medicine [address] [place] [phone] * (ABNORMAL) D-Dimer (01/23/2024 12:26 AM CDT) Only the most recent of9 resultswithin the time period is included. Pathologist [facility] D-Dimer 6.47(H) 0.10 - 0.50 mcg/ml FEU 01/23/2024 1:18 AM CDT [facility] Blood Venous blood specimen / Unknown Venipuncture / Unknown 01/23/2024 12:26 AM CDT 01/23/2024 12:38 AM CDT Narrative [facility] - 01/23/2024 1:18 AM CDT The cut off value for exclusion of venous thromboembolism is <0.51 mcg/mL FEUs (fibrinogen equivalent units). Jackie Solomon APRN LAB BLOOD ORDERABLES Final Result Performing Organization Address [facility] Co de Phone Number [facility] Unless otherwise noted, all lab tests performed by: Division of Pathology and Laboratory Medicine [address] [place] [address] * (ABNORMAL) Uric Acid (01/23/2024 12:26 AM CDT) Only the most recent of6 resultswithin the time period is included. Uric Acid 2.5(L) 3.4 - 7.0 mg/dL 01/23/2024 2:27 AM CDT [facility] Blood Venous blood specimen / Unknown Venipuncture / Unknown 01/23/2024 12:26 AM CDT 01/23/2024 12:37 AM CDT Beeayden Barrera HEEL GUMMER LAB BLOOD ORDERABLES Final Result [facility] Unless otherwise noted, all lab tests performed by: Division of Pathology and Laboratory Medicine [address] [place] [address] * Alanine Aminotransferase (01/23/2024 12:26 AM CDT) Only the most recent of9 resultswithin the time period is included. ALT 18 <=41 U/L 01/23/2024 2:2 7 AM CDT [facility] Blood Venous blood specimen / Unknown Venipuncture / Unknown 01/23/2024 12:26 AM CDT 01/23/2024 12:37 AM CDT Jackie Solomon APRN LAB BLOOD ORDERABLES Final Result Performing Organization Address City/[facility]/ZIP Co de Phone Number [facility] Unless otherwise noted, all lab tests performed by: Division of Pathology and Laboratory Medicine [address] [place] [id number] * Aspartate Aminotransferase (01/23/2024 12:26 AM CDT) Only the most recent of9 resultswithin the time period is included. AST 20 <=40 U/L 01/23/2024 1:0 9 AM CDT [facility] Blood Venous blood specimen / Unknown Venipuncture / Unknown 01/23/2024 12:26 AM CDT 01/23/2024 12:37 AM CDT Jackie Solomon APRN LAB BLOOD ORDERABLES Final Result [facility] Unless otherwise noted, all lab tests performed by: Division of Pathology and Laboratory Medicine [address] [place] [id number] * (ABNORMAL) Total Protein (01/23/2024 12:26 AM CDT) Only the most recent of7 resultswithin the time period is included. Tot Protein 6.1(L) 6.4 - 8.3 gm/dL 01/23/2024 1:09 AM CDT [facility] Blood Venous blood specimen / Unknown Venipuncture / Unknown 01/23/2024 12:26 AM CDT 01/23/2024 12:37 AM CDT Narrative [facility] - 01/23/2024 1:09 AM CDT Reference range established based on adult population Jackie Solomon APRN LAB BLOOD ORDERABLES Final Result Performing Organization Address [facility] Co de Phone Number [facility] Unless otherwise noted, all lab tests performed by: Division of Pathology and Laboratory Medicine [address] [place] [phone] * (ABNORMAL) Phosphorus Level (01/23/2024 12:26 AM CDT) Only the most recent of15 resultswithin the time period is included. Phosphorus Level 2.4(L) 2.5 - 4.5 mg/dL 01/23/2024 2:27 AM CDT [facility] Blood Venous blood specimen / Unknown Venipuncture / Unknown 01/23/2024 12:26 AM CDT 01/23/2024 12:37 AM CDT Bee Barrera APRN LAB BLOOD ORDERABLES Final Result [facility] Unless otherwise noted, all lab tests performed by: Division of Pathology and Laboratory Medicine [address] [place] [address] [place] [address] * Alkaline phosphatase (01/23/2024 12:26 AM CDT) Only the most recent of9 resultswithin the time period is included. Alkaline Phosphatase 62 40 - 129 U/L 01/23/2024 1:09 AM CDT [facility] Blood Venous blood specimen / Unknown Venipuncture / Unknown 01/23/2024 12:26 AM CDT 01/23/2024 12:37 AM CDT Jackie Solomon APRN LAB BLOOD ORDERABLES Final Result Performing Organization Address City/[facility]/ZIP Co de Phone Number [facility] Unless otherwise noted, all lab tests performed by: Division of Pathology and Laboratory Medicine [address] [place] [address] * Magnesium Level (01/23/2024 12:26 AM CDT) Only the most recent of15 resultswithin the time period is included. Pathologist [facility] Magnesium Level 1.6 1.6 - 2.6 mg/dL 01/23/2024 2:27 AM CDT [facility] Blood Venous blood specimen / Unknown Venipuncture / Unknown 01/23/2024 12:26 AM CDT 01/23/2024 12:37 AM CDT Bee Barrera APRN LAB BLOOD ORDERABLES Final Result Performing Organization Address City/[facility]/ZIP Co de Phone Number [facility] Unless otherwise noted, all lab tests performed by: Division of Pathology and Laboratory Medicine [address] [place] [phone] * (ABNORMAL) LDH (01/23/2024 12:26 AM CDT) Only the most recent of9 resultswithin the time period is included. LDH 234(H) 135 - 225 U/L 01/23/2024 1:09 AM CDT [facility] Blood Venous blood specimen / Unknown Venipuncture / Unknown 01/23/2024 12:26 AM CDT 01/23/2024 12:37 AM CDT Narrative [facility] - 01/23/2024 1:09 AM CDT Results greater than 1651 U/L may not be reliable due to matrix effect with extended dilution as it exceeds the composition roll maker and cutter's recommended limit. Caution should be exercised when interpreting such values and done in conjunction with clinical context. Jackie Julianne Solomon APRN LAB BLOOD ORDERABLES Final Result Performing Organization Address City/[facility] de Phone Number [facility] Unless otherwise noted, all lab tests performed by: Division of Pathology and Laboratory Medicine [address] [place] [address] * Albumin Level (01/23/2024 12:26 AM CDT) Only the most recent of9 resultswithin the time period is included. Albumin Level 3.9 3.5 - 5.2 gm/dL 01/23/2024 2:27 AM CDT [facility] Blood Venous blood specimen / Unknown Venipuncture / Unknown 01/23/2024 12:26 AM CDT 01/23/2024 12:37 AM CDT Jackie Whitaker Juanito MORRISON LAB BLOOD ORDERABLES Final Result Performing Organization Address [facility] de Phone Number [facility] Unless otherwise noted, all lab tests performed by: Division of Pathology and Laboratory Medicine [address] [place] [phone] * (ABNORMAL) POC Glucose Screen - Fingerstick (01/22/2024 7:25 AM CDT) Only the most recent of25 resultswithin the time period is included. Glucose Screen 133(H) 70 - 99 mg/dL 01/22/2024 7:27 AM CDT [facility] POC Sample Type Capillary 01/22/2024 7:27 AM CDT [facility] Blood 01/22/2024 7:25 AM CDT 01/22/2024 7:27 AM CDT Narrative [facility] - 01/22/2024 7:27 AM CDT Capillary [...] MD POCT ORDERABLES - DEVICE Final Result [facility] Unless otherwise noted, all lab tests performed by: Division of Pathology and Laboratory Medicine [address] [place] [address] * X-ray Chest 1 View Portable (01/21/2024 [...] ABORh B POS 01/21/2024 12:00 AM CDT [facility] ABSC Negative 01/21/2024 12:00 AM CDT [facility] Clot Expiration 01/24/2024 23:59 01/21/2024 12:00 AM CDT [facility] Historical Record Check Complete 01/21/2024 12:00 AM CDT [facility] Blood Venous blood specimen / Unknown Venipuncture / Unknown 01/21/2024 12:51 AM CDT 01/21/2024 1:05 AM CDT us Jackie Solomon APRN BLOOD BANK TEST ORDER ROSSANA Final Result [facility] Transfusion Services [facility] [address] [place] [address] * (ABNORMAL) Uric Acid Rasburicase (01/19/2024 1:27 AM CDT) Only the most recent of9 resultswithin the time period is included. Uric Acid Rasburicase Treated 2.9(L) 3.4 - 7.0 mg/dL 01/19/2024 2:02 AM CDT [facility] Blood Venous blood specimen / Unknown Venipuncture / Unknown 01/19/2024 1:27 AM CDT 01/19/2024 1:36 AM CDT us Jatin Alvarez MD LAB BLOOD ORDERABLES Final Resu lt [facility] Unless otherwise noted, all lab tests performed by: Division of Pathology and Laboratory Medicine [address] [place] [address] * XR Chest 1 View (01/18/2024 2:13 [...] BIOMARKER [employer] Final Result CYTOGENETICS [facility] Cytogenetics Lab [address] [place] [address] * CG 24HR CULTURE (01/17/2024 11:10 AM CDT) Only the most recent of2 resultswithin the time period is included. Bone Marrow (Iliac Crest, Right Posterior, Aspirate) Non-blood Collection / Unknown 01/17/2024 11:10 AM CDT 01/17/2024 12:50 PM CDT Jackie Solomon APRN [facility] CP BIOMARKER WORK UPS Final Result CYTOGENETICS [facility] Cytogenetics Lab [address] [place] [id number] * MD RNA Hold (01/17/2024 11:10 AM CDT) Bone Marrow (Iliac Crest, Right Posterior, Aspirate) Non-blood Collection / Unknown 01/17/2024 11:10 AM CDT 01/17/2024 1:45 PM CDT Jackie Solomon APRN [facility] CP BIOMARKER WORK UPS Final Result MOLECULAR DIAGNOSTICS [facility] Molecular Diagnostics Laboratory [address] [place] [address] * Cytogenetics Workup (01/17/2024 11:10 AM CDT) Only the most recent of2 resultswithin the time period is included. Triage Comments 04/04/2024 10:01 AM POWDER WORKER [facility] HEMATOPATH LAB Bone Marrow (Iliac Crest, Right Posterior, Aspirate) Non-blood Collection / Unknown 01/17/2024 11:10 AM CDT 01/17/2024 12:50 PM CDT Jackie Solomon APRN [facility] CP BIOMARKER [employer] Final Result [facility] HEMATOPATH LAB * Flow Cytometry Workup (01/17/2024 11:10 AM CDT) Pathologist [facility] FLOW CYTOMETRY WORKUP TESTS TO ORDER FC Scatter 01/18/2024 6:36 AM CDT FLOW CYTOMETRY Bone Marrow (Iliac Crest, Right Posterior, Aspirate) Non-blood Collection / Unknown 01/17/2024 11:10 AM CDT 01/17/2024 12:45 PM CDT us Jackie Solomon APRN [facility] CP BIOMARKER [employer] Final Result [facility] AP LABS [facility] [place] [address], FLOW CYTOMETRY [facility] [place] Flow Cytometry Laboratory [address] [place] [address] * Hematopathology Bone Marrow Interpretation (01/17/2024 11:10 AM CDT) Diagnosis Bone marrow, right posterior iliac crest, core biopsy, clot sections, aspirate smears, touch preparation and peripheral blood smear: CHRONIC MYELOMONOCYTIC LEUKEMIA-1 (9% BLASTS) 01/22/2024 9:05 PM CDT [facility] Comment Patient is [...] be reported separately. 01/22/2024 9:05 PM CDT [facility] Microscopic Description BONE [...] Nilda rods seen. 01/22/2024 9:05 PM T [facility] [facility] Stains on Biopsy Reticulin: No reticulin fibrosis Trichrome: No collagen fibrosis Grade: MF-0 01/22/2024 9:05 PM T [facility]S Stains on Aspirate Smear / Touch Preparation Iron: Decreased (1+) stainable storage iron. Ring sideroblasts are not increased. MPO: Positive in a subset of blasts. 01/22/2024 9:05 PM T [facility]S Gross Description B: Iliac crest, right posterior, biopsy Length: 1.4 cm Submitted in a single cassette for decalcification. DG C: Iliac crest, right posterior, clot Dimensions: 0.3 x 2.5 x 2.5 cm Specimen is entirely submitted in 1. DG 01/22/2024 9:05 PM T [facility] AP [facility]S Peripheral Blood Peripheral [...] and unremarkable morphology. 01/22/2024 9:05 PM T [facility] AP LABS Disclaimer "Some tests reported here may have been developed and performance characteristics determined by [facility] Pathology and Laboratory Medicine. These tests have not been specifically cleared or approved by the U.S. Food and Drug Administration. If applicable, controls were reviewed and showed appropriate reactivity." 01/22/2024 9:05 PM T [facility]S Bone Marrow (Iliac [...] PATHOLOGY ORDERABLES Final Result [facility] [address] [address], [place] * (ABNORMAL) Hematopathology Bone Marrow Differential [...] - 2 % 01/18/20 10:39 AM CDT [facility] BM Monocyte % 8(H) 0 - 5 % 01/18/2024 10:39 AM CDT [facility] BM Pronormoblast % 1 1 - 8 % 01/18/2024 10:39 AM CDT [facility] BM Normoblast % 6(L) 7 - 32 % 10:39 AM CDT [facility] BM M:E Ratio 14.0(H) 3.0 - 4.0 01/18/2024 10:39 AM CDT [facility] Bone Marrow (Iliac Crest, Right Posterior, Aspirate) Non-blood Collection / Unknown 01/17/2024 11:10 AM CDT 01/17/2024 12:54 PM CDT Narrative [facility] - 01/18/2024 10:39 AM CDT DISCLAIMER Preliminary BM Diff may have been completed by a medical detailist or a hematopathology fellow and is subject to change. Any pathologist updates will be included on interpretation and appear in the final result. Please use caution in evaluating your patient based on preliminary results. us Jatin Alvarez MD LAB PATHOLOGY ORDERABLES Final Result [facility] [id number] [place] [address], * CG Chromosome Analysis Interpretation and Report [...] report includes activity performed off-site at location: [id number]. 01/30/2024 1:04 PM CDT CYTOGENETICS Pathologist Signature . 01/30/2024 1:04 PM CDT CYTOGENETICS Bone Marrow (Iliac Crest, Right Posterior, Aspirate) Non-blood Collection / Unknown 01/17/2024 11:10 AM CDT 01/17/2024 12:50 PM CDT Jackie Solomon APRN [facility] HP CYTOGENETICS ( HP CG) Final Result CYTOGENETICS [facility] Cytogenetics Lab [address] [place] [address] * [place] DIAGNOSTIC BONE MARROW BIOPSIES & ASPIRATIONS (01/17/2024 11:10 AM CDT) Bone Marrow Narrative Jewel King APRN - 01/17/2024 11:10 AM CDT Jewel King APRN 01/17/2024 5:43 PM Procedure: Bone Marrow Aspiration/Biopsy Date/Time: 01/17/2024 11:10 AM Provider Information: Performed by: Jewel King APRN Authorized by: Jackie Solomon APRN Sales Representative [employer] present: yes Sales Representative Church Furniture: Pinky Garcia diagram clerk used?: farm equipment engine mechanic not needed Patient Diagnosis: Pre-procedure diagnosis: CMML [...] Site location: posterior iliac crest Instrument(s) [facility] Instruments placed by: advanced practice provider [...] on the dressing. Specimens's labels verified with 4Less. us Jackie Solomon APRN PROCEDURE/MINOR SURGI PHYLLIS [...] developed and its performance characteristics determined by [facility] Clinical Flow Cytometry Laboratory. It has [...] (HP FC) Final Result FLOW CYTOMETRY [facility] [place] Flow Cytometry Laboratory [address] [place] [address] * FLT3 Mutation Analysis Interpretation and Report (01/17/2024 11:10 AM CDT) Pathology [id number] 01/19/2024 8:02 PM CDT MOLECULAR DIAGNOSTICS FLT3 [...] assay. J Mol Diagn. 2002;5(2):96-102. PubMed PMID: [id number] Cliff Sheehan. Acute Myeloid Leukemia: from Mutation Profiling to Treatment Decisions. Curr Hematol Malig Rep. 2019 Nov 02. Review. PubMed PMID: [id number]. Melo N et al, Targeting FLT3 mutations in AML: review of current knowledge and evidence. Leukemia. 2019 May;33(2):299-312 . PubMed PMID: [id number]. Shayla MELTON. The importance of FLT3 mutational analysis in acute myeloid leukemia. Leuk Lymphoma. 2018 Jan;59(10):2273-2 286. PubMed PMID: [id number]. Gene-related information: HGNC: https://www.genen florin.org Peer-reviewed literature evidence: PubMed: www.ncbi.nlm.nih. gov/pubmed/?term= FLT3+mutation+adair kemia Professional Guidelines: [place] Society of Clinical Oncology (ASCO): www.asco.org Finnish Society of Hematology (NHAN): www.hematology.or g Association for Molecular Pathology (AMP): www.amp.org College of [place] Pathology: www.cap.org LeukemiaNet (ELN): www.leukemia-net. org National Comprehensive Cancer Network (NCCN): www.nccn.org Regulatory Approvals: U.S Food & Drug Administration (FDA): www.fda.gov 01/19/2024 8:02 PM CDT MOLECULAR DIAGNOSTICS ASR DISCLAIMER This test was developed and its performance characteristics determined by the Molecular Diagnostics Laboratory (MDL) at [facility] [place]. It has not been cleared or approved [...] 1:45 PM CDT us Jackie Solomon APRN [facility] HP MOLECULAR DIAG NOSTICS (HP ) Final Result MOLECULAR DIAGNOSTICS [facility] Molecular Diagnostics Laboratory [address] [place] [address] * CT Head without Contrast (01/16/2024 9:09 [...] are unexpected and potentially actionable. Bernarda Duvall HEEL GUMMER [facility] CT ORDERABLES Final Result * CT Chest [...] by: Laurent Fisher RN Device placement location: [facility] Catheter Type: PICC Catheter lumen: Double lumen Vein location: Brachial Laterality: Right Tip in good position and cleared for infusion Pia Dodd HEEL GUMMER IV THERAPY ORDERABLES Final Result * XR [...] By: Pia Dodd APRN Procedure Location: ICU Sales Representative [employer] Present: No Pre Procedure Diagnosis: Chronic myelomonocytic [...] risks, benefits, and alternative dicussed with patient/designated medical device sales representative. Time out: universal protocol time [...] Forearm circumference:24cm Additional Comments: None Pia Dodd HEEL GUMMER IMG VAP ORDERABLES Final Re sult * Sodium Urine (01/16/2024 10:22 AM CDT) [facility] Urine Sodium 98 mmol/L 01/16/2024 11:06 AM CDT [facility] Comment:Normal range not rubina ilable for collections less than 24 hours in duration. Urine (Urine Clean Catch) Non-blood Collection / Unknown 01/16/2024 10:22 AM CDT 01/16/2024 10:35 AM CDT Yamil Jaime HEEL GUMMER URINE ORDERABLES Final Result [facility] Unless otherwise noted, all lab tests performed by: Division of Pathology and Laboratory Medicine [address] [place] [address] * (ABNORMAL) Protein/Creatinine Ratio Urine (01/16/2024 10:22 AM CDT) UTP, Random 16 mg/dL 01/16/2024 11:06 AM CDT [facility] Comment:Normal range not rubina ilable for collections less than 24 hours in duration. Urine Creatinine 54.5 40.0 - 278.0 mg/dL 01/16/2024 11:06 AM CDT [facility] Comment:The reference range listed is for first morning urine collection. Urine Protein/Creatini ne Ratio 0.29(H) <=0.14 g/g 01/16/2024 11:06 AM CDT [facility] Urine (Urine Clean Catch) Non-blood Collection / Unknown 01/16/2024 10:22 AM CDT 01/16/2024 10:35 AM CDT Yamilitz Jaime APRN URINE ORDERABLES Final Result Performing Organization Address City/State/[facility] Co de Phone Number [facility] Unless otherwise noted, all lab tests performed by: Division of Pathology and Laboratory Medicine [address] [place] [address] * Potassium Urine (01/16/2024 10:22 AM CDT) Urine Potassium 20 mmol/L 11:06 AM CDT [facility] Comment:Normal range not rubina ilable for collections less than 24 hours in duration. Urine (Urine Clean Catch) Non-blood Collection / Unknown 01/16/2024 10:22 AM CDT 01/16/2024 10:35 AM CDT Yamil Jaime APRN URINE ORDERABLES Final Result [facility] Unless otherwise noted, all lab tests performed by: Division of Pathology and Laboratory Medicine [address] [place] [address] * Urine Culture (01/16/2024 10:22 AM CDT) Only the most recent of2 resultswithin the time period is included. Urine Culture No Growth. 01/18/2024 8:43 AM CDT [facility] Urine (Urine Sagastume) Non-blood Collection / Unknown 01/16/2024 10:22 AM CDT 01/16/2024 10:35 AM CDT Jackie Solomon APRN MICROBIOLOGY - GENERA L ORDERABLES Final Result Performing Organization Address [facility] Co de Phone Number [facility] Unless otherwise noted, all lab tests performed by: Division of Pathology and Laboratory Medicine [address] [place] [address] * Folate Level (01/16/2024 10:16 AM CDT) [facility] Folate Level 13.9 4.8 - 24.2 ng/mL 01/16/2024 11:08 AM CDT [facility] Is patient fasting? Yes 01/16/2024 11:08 AM CDT [facility] Blood Peripheral blood specimen / Unknown CVC Line / Unknown 01/16/2024 10:16 AM CDT 01/16/2024 10:30 AM CDT Narrative [facility] - 01/16/2024 11:08 AM CDT Reference range established based on adult population. Jackie Solomon APRN LAB BLOOD ORDERABLES Final Result Performing Organization Address [facility] Co de Phone Number [facility] Unless otherwise noted, all lab tests performed by: Division of Pathology and Laboratory Medicine [address] [place] [address] * C. auris Screening PCR (01/16/2024 9:56 AM CDT) Pathologist [facility] Specimen Source Axilla+ Groin 01/20/2024 7:58 AM CDT [facility] C auris PCR, Result Negative Not Applicable 01/20/2024 7:58 AM CDT [facility] Comment: ADDITIONAL INFORMATION This test was developed and its performance characteristics determined by [facility] in a manner consistent with CLIA requirements. This test has not been cleared or approved by the U.S. Food and Drug Administration. Test Performed by: [facility] Laboratories - [address] [address] Senior Receptionist: Delmy Velasquez Ph.D.; CLIA# [id number] Swab (Axilla + Groin) Non-blood Collection / Unknown 01/16/2024 9:56 AM CDT 01/16/2024 10:14 AM CDT Lise Roberto MD MICROBIOLOGY - GENERAL ORDERA BLES Final Result [facility] * Respiratory Multiplex PCR Panel, Nasopharyngeal Swab (01/16/2024 9:56 AM CDT) Adenovirus Not Detected Not Detected 01/16/2024 12:26 PM CDT [facility] Coronavirus 229E Not Detected Not Detected 01/16/2024 12:26 PM CDT [facility] Coronavirus HKU1 Not Detected Not Detected 01/16/2024 12:26 PM CDT [facility] Coronavirus NL63 Not Detected Not Detected 01/16/2024 12:26 PM CDT [facility] Coronavirus OC43 Not Detected Not Detected 01/16/2024 12:26 PM CDT [facility] COVID-19 (SARS-CoV-2) Not Detected Not Detected 01/16/2024 12:26 PM CDT [facility] Human Metapneumovirus Not Detected Not Detected 01/16/2024 12:26 PM CDT [facility] Human Rhinovirus/Enterov irus Not Detected Not Detected 01/16/2024 12:26 PM CDT [facility] Influenza A Not Detected Not Detected 01/16/2024 12:26 PM CDT [facility] Influenza A H1 Not Detected Not Detected 01/16/2024 12:26 PM CDT [facility] Influenza A H1 2009 Not Detected Not Detected 01/16/2024 12:26 PM CDT [facility] Influenza A H3 Not Detected Not Detected 01/16/2024 12:26 PM CDT [facility] Influenza B Not Detected Not Detected 01/16/2024 12:26 PM CDT [facility] Parainfluenza Virus 1 Not Detected Not Detected 01/16/2024 12:26 PM CDT [facility] Parainfluenza Virus 2 Not Detected Not Detected 01/16/2024 12:26 PM CDT [facility] Parainfluenza Virus 3 Not Detected Not Detected 01/16/2024 12:26 PM CDT [facility] Parainfluenza Virus 4 Not Detected Not Detected 01/16/2024 12:26 PM CDT [facility] Respiratory Syncytial Virus Not Detected Not Detected 01/16/2024 12:26 PM CDT [facility] Bordetella parapertussis Not Detected Not Detected 01/16/2024 12:26 PM CDT [facility] Bordetella pertussis Not Detected Not Detected 01/16/2024 12:26 PM CDT [facility] Chlamydophila pneumoniae Not Detected Not Detected 01/16/2024 12:26 PM CDT [facility] Mycoplasma pneumoniae Not Detected Not Detected 01/16/2024 12:26 PM CDT [facility] Swab Nasopharyngeal structure / Unknown Non-blood Collection / Unknown 01/16/2024 9:56 AM CDT 01/16/2024 10:14 AM CDT [facility] - 01/16/2024 12:26 PM CDT The assay is a qualitative multiplex PCR assay to aid in the diagnosis of respiratory pathogens through simultaneous qualitative detection and identification of multiple pathogens directly from nasopharyngeal swabs (INSTANT PRINT OPERATOR) from individuals with respiratory symptoms. Testing is performed using the [employer] FilmArray Respiratory Panel 2.1 (RP2.1) on the [employer]. The following organisms are identified using the [employer]heet RP 2.1 Panel: Adenovirus, Human Coronavirus (229E, [...] verified by the microbiology laboratory at the [facility] (CLIA Accreditation # [id number] and CAP Accreditation # [id number]). Results must be interpreted within the context of all relevant clinical and laboratory findings. Assay should not be used for monitoring response to therapy. Jackie Solomon APRN MICROBIOLOGY - GENERA L ORDERABLES Final Result Performing Organization Address City/[facility]/ZIP Co de Phone Number [facility] Unless otherwise noted, all lab tests performed by: Division of Pathology and Laboratory Medicine [address] [place] [address] * Flow Cytometry Workup - AML, MDS with excess blasts, MPN accelerated/blast phase or new acute leukemia of unknown lineage (01/16/2024 9:41 AM CDT) [facility] FLOW CYTOMETRY WORKUP TESTS TO ORDER FC MRD AML 01/17/2024 6:08 AM CDT FLOW CYTOMETRY Blood Peripheral blood specimen / Unknown CVC Line / Unknown 01/16/2024 9:41 AM CDT 01/16/2024 9:55 AM CDT Jackie Solomon APRN, [facility] CP BIOMARKER WORK UPS Final Result Performing Organization Address City/[facility]/ZIP Co de Phone Number [facility] [address] [address], [place] FLOW CYTOMETRY [facility] Flow Cytometry Laboratory [address] [place] [address] * DNA Hold (01/16/2024 9:41 AM CDT) Blood Peripheral blood specimen / Unknown CVC Line / Unknown 01/16/2024 9:41 AM CDT 01/16/2024 9:55 AM CDT us Jackie Solomon APRN [facility] CP BIOMARKER WORK UPS Final Result MOLECULAR DIAGNOSTICS [facility] [place] Molecular Diagnostics Laboratory [address] [place] [address] * CG Optical Genome Mapping Analysis Final Report (01/16/2024 9:41 AM CDT) Clinical Indication Post-op Diagnosis: CMML 01/24/2024 4:09 PM CDT CYTOGENETICS Optical Genome Mapping Summary Tier 1 & Tier 2 Variants None Detected 01/24/2024 4:09 PM CDT [facility] HEMATOPATH LAB Optical Genome Mapping Interpretation No apparent Tier 1 (pathogenic) or Tier II (likely pathogenic) cytogenetic abnormality detected. Tier 3 Variants Events Abnormalities Genes involved Gain 5q31.1([id number]_ 817271268)x2~3 TCF7 Loss 7q22.1(102206891_ 106743049)x1~2 CUX1 Gain 7q34(518921487_79 5536314)x2~3 BRAF Loss 16p12.1(66880001_ 40383676)x1~2 IL21R Gain 17q11.2(56778442_ 69281016)x2~3 SUZ12 Loss 21q22.3(10658349_ 18486752)x1~2 U2AF1 Chromoanagenesis- Related Variants None Detected ISCN ogm[GRCh38] 5q31.1(134076130_ 233400151)x2~3,7q 22.1(102206891_10 7466735)x1~2,7q34 ([id number]_770617 486)x2~3,16p12.1( 26670001_71047000 )x1~2,17q11.2(324 91316_92260220)x2 ~3,21q22.3(658703 83_98882448)x1~2 01/24/2024 4:09 PM CDT [facility] HEMATOPATH LAB Optical Genome Mapping Methodology Ultra-high molecular weight (UHMW) genomic DNA (gDNA) extraction is performed by using [employer] SP DNA Isolation Kit for blood and bone marrow, which utilizes a lyse, bind, wash, and elute procedure in combination with thermoplastic paramagnetic Nanobind disks to isolate UHMW gDNA from blood and bone marrow with minimal fragmentation. Approximately 1.5 million cells from a blood or bone marrow aspirate are used for gDNA extraction. Extracted gDNA is then labeled and stained using the [employer] Direct Label and Stain (DLS) kit, which utilizes the Direct Label Enzyme (DLE-1) to attach a fluorescent tag (DL-green) via covalent modification to the UHMW gDNA at sequence specific recognition motif (CTTAAG), then followed by staining of the DNA backbone. Approximately 750 ng UHMW gDNA is labelled and stained. Labeled and stained UHMW gDNA is then loaded into a flowcell on a Phagenesis chip, which is subsequently inserted into the [employer] Imaging instrument. The flowcells utilize a system [...] duplications. Data analysis is performed using the Flamsred in conjunction with VIA, utilizing a graphical user interface tool for visualization and curation, through Rare Variant Analysis for acquired variants. Following variant calling via the Rare Variant Analysis Pipeline, the sample is filtered using the recommended confidence settings and restricted to variants present in <1% of the [employer] control database. Genomic assessment is based on [...] available upon request. 01/24/2024 4:09 PM T [facility] HEMATOPATH LAB Optical Genome Mapping [...] is below 20%. 01/24/2024 4:09 PM T [facility] HEMATOPATH LAB Optical Genome Mapping Classification of Variants (reference PMID [id number], [id number], [id number]) Tier 1 Variants with Strong Clinical Significance Tier2 Variants with Potential Clinical Significance Tier 3 Variants of Unknown (Uncertain) Clinical Significance Tier 4* Variants of known insignificance (benign or likely benign) *Tier 4 is not reported 01/24/2024 4:09 PM T [facility] HEMATOPATH LAB Optical Genome Mapping References PMID [id number], [id number], [id number], [id number], [id number], [id number], [id number], [id number] 01/24/2024 4:09 PM T [facility] HEMATOPATH LAB Optical Genome Mapping Disclaimer This test was developed and its performance determined by [facility] [place] Cytogenetics Laboratory as required by the CLIA '88 regulations. It has not been cleared nor approved for specific uses by the U.S. Food and Drug Administration. In applying these results to patient care, correlation with clinical, pathological and other laboratory data are recommended. 01/24/2024 4:09 PM [facility] HEMATOPATH LAB Pathologist Signature . 01/24/2024 4:09 PM T [facility] HEMATOPATH LAB Blood Peripheral blood specimen / Unknown CVC Line / Unknown 01/16/2024 9:41 AM CDT 01/16/2024 9:55 AM CDT Jackie Solomon APRN [facility] HP CYTOGENETICS ( HP CG) Final Result [facility] HEMATOPATH LAB CYTOGENETICS [facility] Cytogenetics Lab [address] [place] [address] * Yamil Case (Newly Diagnosed or Suspected New) (01/16/2024 9:41 AM CDT) Blood Peripheral blood specimen / Unknown CVC Line / Unknown 01/16/2024 9:41 AM CDT 01/16/2024 9:55 AM CDT Jackie Solomon APRN LAB BLOOD ORDERABLES Final Result [facility] Unless otherwise noted, all lab tests performed by: Division of Pathology and Laboratory Medicine [address] [place] [address] * EndLeukemia Mutation Panel V1 Interpretation and Report (01/16/2024 9:41 AM CDT) Pathology Accession N/A 01/22/2024 12:06 PM CDT MOLECULAR DIAGNOSTICS EndLeukemia Result Radha [facility] [id number] EndLeukemia Assay V1.1 Mutation Analysis Report: Clinical [...] Gene Genomic Variant COSMIC dbSNP ClinVar ASXL1 chr20:30856108 C>T c.4243C>T p.R1415* [id number] CSF3R chr1:29904197 A>G c.2087T>C p.M696T CUX1 chr7:589571620 C>T c.484C>T p.L162F NRAS chr1:134088288 C>A c.35G>T p.G12V LRBC305 [id number] 75681 SRSF2 chr17:82270871 G>T c.284C>A p.P95H TET2 chr4:068366636 C>T c.1088C>T p.P363L [id number] 842412 TET2 chr4:225030089 T>TCA c.2305_2306dupCA p.Q769fs*44 Link to COSMIC: <[email or web address]> Link to dbSNP: <https://www.ncbi.nl .nih.gov/snp> Link [...] in the experimental setup and data analysis: [employer] Control Software 4.2.0.112, Real Time Analysis 2.11.30, Sequence Analysis Viewer 2.4.7 and Lailaihui.2.0.10 ([employer] Application Center) EndLeukemia Regular Workflow 1.10. [...] Somatic Mutations in Cancer, [employer] [place], [place]) and dbSNP version 137 ([employer], [place]). o Probable somatic mutations [...] A post-variant calling analysis and annotation tool, [employer] version 1.10.1.616, was used in the construction [...] ANKRD26 (NM_014915) 1 (1-5) ASXL1 (NM_015338) 12-13 (359-6234), 13 (6917-6849) ASXL2 (NM_018263) 12-13 (381-1436) BCOR (NM_017745) 2-4 (1-512), 4-12 (935-1546), 13-15 (9989-0140), 15 (4251-0148) BCORL1 (NM_021946) 1-6 (1-1261), 6 (7190-4382), 6-12 (2447-4457), 12 (9392-6760) BRAF (NM_004333) 11 (439-477), 15 (581-620) BRINP3 (NM_199051) 2-8 (1-767) CALR (NM_004343) 9 (352-418) CBL (NM_005188) 7-9 (337-477) CBLB (NM_170662) 7-10 (282-469) CBLC (NM_012116) 7-10 (336-475) CEBPA (NM_004364) 1 (1-113), 1 (127-175), 1 (215-245), 1 (248-359) CREBBP (NM_004380) 1-8 (1-608), 9-31 (615-1943), 31 (2246-1276) CRLF2 (NM_022148) 6 (230-234) CSF3R (NM_156039) 14 [...] 5-7 (180-292) JAK1 (NM_002227) 3-22 (3-1023), 22-24 (7171-7749) JAK2 (NM_004972) 10 (406-442), 12-14 (505-622), 16 (665-711), 18 (762-805) JAK3 (NM_000215) 2-23 (1-1069) KDM6A (NM_021140) 1-9 (1-223), 9-19 (227-971), 19-21 (976-1070), 22-23 (0855-5118), 23-25 (4762-6033), 25-29 (5232-4566) KIT (NM_000222) 8-9 (411-514), 11 (550-592), 17 (788-828) KMT2A (NM_005933) 2-13 (145-1561), 14-15 (8861-4314), 27 (1495-5181), 27 (3166-0405), 27 (9059-5025), 27 (6925-0440) KRAS (NM_004985) 2-4 (1-150) MAP2K1 (NM_002755) 2 (28-91), 3 (98-146) MPL (NM_005373) 10 (490-522), 12 (552-636) NF1 (NM_001042492) 1-5 (1-190), 6 (202-218), 8-9 (244-309), 9-13 (311-468), 13-23 (478-1038), 24-26 (4330-7223), 26-31 (7366-0719), 31-35 (4893-8529), 35 (3284-6536), 36-38 (4201-4545), 39-47 (9985-1129), 47-52 (7028-9246), 52-58 (3779-7904) NOTCH1 (NM_017617) 26-28 (8502-0163), 34 (6967-5478), 34 (3253-3552) NPM1 (NM_002520) 11 (283-295) NRAS (NM_[id number]) 2-4 (1-150) PAX5 (NM_[id number]) 1-10 (1-392) PHF6 (NM_[id number]) 2-3 (1-79), 4-10 (81-366) PIGA (NM_[id number]) 2 (1-5), 2-6 (15-485) PML (NM_033238) 3 (201-256) LLJD58D ([id number]) 2-19 (2-609), 19-20 (612-658), 20-26 (662-893) [...] 3-12 (10-392), 13-22 (402-737), 22-29 (739-1049), 29-34 (6430-7386) STAG2 (NM_[id number]) 2-14 (1-442), 14-16 (483-539), 17-22 (542-751), 23-33 (756-1232) STAT3 (NM_[id number]) 17-22 (489-715) STAT5A (NM_003152) 3-7 (1-215), 7-20 (223-795) STAT5B (NM_[id number]) 16 (636-692) SUZ12 (NM_[id number]) 1-5 (15-169), 6 (174-175), 6-16 (180-740) TERC (NR_001566) 1 (1-41) TERT (NM_[id number]) 1 (1-24), 1-2 (32-172), 2-4 (235-630), 4-16 (633-1133) TET2 (NM_[id number]) 3 (1-77), 3 (91-853), 3 (867-1027), 3-11 (3498-2308) TP53 (NM_000546) 2 (1-25), 4 (33-75), 4-11 [...] Laboratory (MDL) at the [facility] [place]. It has not been cleared by the [...] NOSTICS (HP ) Final Result MOLECULAR DIAGNOSTICS [facility] [place] [facility] [address] [place] [address] * HIV 1/2 Antigen/Antibody, Fourth Gen W/RFL [...] purpose. For additional information please refer to http://education.[employer]/faq/KXF707 (This link is being provided for informational/ educational purposes only.) The performance of this assay has not been clinically validated in patients less than 2 years old. Blood Peripheral blood specimen / Unknown CVC Line / Unknown 01/16/2024 9:41 AM CDT 01/16/2024 9:55 AM CDT Narrative [facility] (DEEJAY) - 01/17/2024 5:02 PM CDT Performing Organization Information: [facility] [address] [place] [address] Lise Biggs Jackie Solomon APRN LAB BLOOD [...] orange) ES dual color rearrangement probe. Vendor: [employer]. 01/17/2024 1:56 PM CDT CYTOGENETICS [facility] CP CG FISH DISCLAIMER This test was developed and its performance determined by .[facility] Cytogenetics Laboratory as required by [...] 01/16/2024 9:55 AM CDT Jackie Solomon APRN [facility] HP CYTOGENETICS ( HP CG) Final Result CYTOGENETICS [facility] [place] Cytogenetics [facility] [address] [place] [address] * CG KMT2A(MLL) FISH Interpretation and Report (01/16/2024 9:41 AM CDT) Clinical Indication Post-op Diagnosis: CMML 01/17/2024 1:57 PM CDT CYTOGENETICS Processed Specimen Type Blood Smear 01/17/2024 1:57 PM CDT CYTOGENETICS KMT2A (MLL) FISH SUMMARY: NORMAL RESULT nuc jerad([id number])[200] INTERPRETATION: 200 cells have been analyzed, the results are within the normal limits. 01/17/2024 1:57 PM CDT CYTOGENETICS (2F)-Normal 100.0 % 01/17/2024 1:57 PM CDT CYTOGENETICS KMT2A (MLL) FISH Methodology Technique: fluorescence in situ hybridization (FISH) Probe used: KMT2A (MLL) dual color breakapart rearrangement probe, located at 11q23 5'KMT2A (MLL) - centromeric (spectrum green) / 3'KMT2A (MLL) - telomeric (spectrum orange) Vendor: [employer]. 01/17/2024 1:57 PM CDT CYTOGENETICS [facility] CP CG FISH DISCLAIMER This test was developed and its performance determined by [facility] Cytogenetics Laboratory as required [...] ( HP CG) Final Result CYTOGENETICS [facility] [place] Cytogenetics [facility] [address] [place] [address] * Hepatitis C Virus RNA Detect/Quant (01/16/2024 9:41 AM CDT) [facility] HepC RNA PCR [facility] Undetected Undetected IU/mL 01/18/2024 4:30 PM CDT [facility] DEEJAY Comment: Result in log IU/mL is Undetected. ADDITIONAL INFORMATION The quantification range of this assay is 15 to 100,000,000 IU/mL (1.18 log to 8.00 log IU/mL). Testing was performed using the grover HCV test ([employer] Test Performed by: [facility] [address] [place] [address] Senior Receptionist: Delmy Velasquez Ph.D.; CLIA# [id number] Blood Peripheral blood specimen / Unknown CVC Line / Unknown 01/16/2024 9:41 AM CDT 01/16/2024 9:55 AM CDT Jackie Solomon APRN LAB BLOOD ORDERABLES Final Result [facility] DEEJAY * Hepatitis B Total Ig Core Ab (SCREENING) (anti-HBc total Ig; HBcAb total Ig) (01/16/2024 9:41 AM CDT) [facility] HBcAb. Non Reactive Non Reactive 01/16/2024 12:09 PM CDT [facility] Blood Peripheral blood specimen / Unknown CVC Line / Unknown 01/16/2024 9:41 AM CDT 01/16/2024 9:55 AM CDT Jackie Solomon APRN LAB BLOOD ORDERABLES Final Result [facility] Unless otherwise noted, all lab tests performed by: Division of Pathology and Laboratory Medicine [address] [place] [address] [place] [address] * FC MRD AML Interpretation and Report [...] developed and its performance characteristics determined by [facility] Clinical Flow Cytometry Laboratory. It has [...] 01/16/2024 9:55 AM CDT Jackie Solomon APRN [facility] HP FLOW CYTOMETRY (HP FC) Final Result FLOW CYTOMETRY [facility] Flow Cytometry Laboratory [address] [place] [address] * Potassium Venous (01/16/2024 9:41 AM CDT) Venous Potassium 3.8 3.4 - 4.5 mmol/L 01/16/2024 9:57 AM CDT [facility] Oxygen FLOW Rate/ FiO2 01/16/2024 9:57 AM CDT [facility] O2 Therapy 01/16/2024 9:57 AM CDT [facility] Blood Peripheral blood specimen / Unknown CVC Line / Unknown 01/16/2024 9:41 AM CDT 01/16/2024 9:54 AM CDT Jackie Solomon APRN LAB BLOOD ORDERABLES Final Result [facility] Unless otherwise noted, all lab tests performed by: Division of Pathology and Laboratory Medicine [address] [place] [address] * Peripheral Smear for Bone Marrow (01/16/2024 9:41 AM CDT) Blood Peripheral blood specimen / Unknown CVC Line / Unknown 01/16/2024 9:41 AM CDT 01/16/2024 9:55 AM CDT Jackie Solomon APRN LAB BLOOD ORDERABLES Final Result [facility] Unless otherwise noted, all lab tests performed by: Division of Pathology and Laboratory Medicine [address] [place] [address] * (ABNORMAL) Erythropoietin Level (01/16/2024 9:41 AM CDT) [facility] Erythropoietin Level 31.1(H) 2.6 - 18.5 mIU/mL 01/16/2024 11:00 AM CDT [facility] Blood Peripheral blood specimen / Unknown CVC Line / Unknown 01/16/2024 9:41 AM CDT 01/16/2024 9:55 AM CDT Jackie Solomon APRN LAB BLOOD ORDERABLES Final Result Performing Organization Address [facility] Co de Phone Number [facility] Unless otherwise noted, all lab tests performed by: Division of Pathology and Laboratory Medicine [address] [place] [address] * HTLV I/II Ab (01/16/2024 9:41 AM CDT) [facility] HTLV I/II Ab Screen-Kanorado Negative Negative 01/18/2024 9:34 PM CDT [facility] Comment: Test Performed by: [place] [address] Senior Receptionist: Delmy Velasquez Ph.D.; CLIA# [id number] Blood Peripheral blood specimen / Unknown CVC Line / Unknown 01/16/2024 9:41 AM CDT 01/16/2024 9:55 AM CDT Jackie Solomon APRN LAB BLOOD ORDERABLES Final Result Performing Organization Address City/[facility]/ZIP Co de Phone Number [facility] DEE[facility] * Hepatitis Surface B Ag (01/16/2024 9:41 AM CDT) [facility] HBsAg. Non Reactive Non Reactive 01/16/2024 12:09 PM CDT [facility] Blood Peripheral blood specimen / Unknown CVC Line / Unknown 01/16/2024 9:41 AM CDT 01/16/2024 9:55 AM CDT Jackie Solomon APRN LAB BLOOD ORDERABLES Final Result Performing Organization Address City/[facility]/ZIP Co de Phone Number [facility] Unless otherwise noted, all lab tests performed by: Division of Pathology and Laboratory Medicine [address] [place] [address] * Reticulocyte Count Automated (01/16/2024 9:41 AM CDT) [facility] Reticulocyte Count Automated 2.03 0.92 - 2.71 % 01/16/2024 10:27 AM CDT [facility] RETHE 36.3 29.9 - 38.4 pg 01/16/2024 10:27 AM CDT [facility] IRF 21.0 4.4 - 22.0 % 01/16/2024 10:27 AM CDT [facility] Retic Absolute 0.0603 0.04 - 0.13 M/uL 01/16/2024 10:27 AM CDT [facility] Blood Peripheral blood specimen / Unknown CVC Line / Unknown 01/16/2024 9:41 AM CDT 01/16/2024 9:55 AM CDT Jackie Solomon APRN LAB BLOOD ORDERABLES Final Result Performing Organization Address City/[facility]/ZIP Co de Phone Number [facility] Unless otherwise noted, all lab tests performed by: Division of Pathology and Laboratory Medicine [address] [place] [phone] * Vitamin B12 Level (01/16/2024 9:41 AM CDT) Pathologist [facility] Vitamin B12 Level 1,108 232 - 1,245 pg/mL 01/16/2024 10:45 AM CDT [facility] Is patient fasting? Yes 01/16/2024 10:45 AM CDT [facility] Blood Peripheral blood specimen / Unknown CVC Line / Unknown 01/16/2024 9:41 AM CDT 01/16/2024 9:55 AM CDT Narrative [facility] - 01/16/2024 10:45 AM CDT Reference range established based on adult population. Jackie Solomon APRN LAB BLOOD ORDERABLES Final Result [facility] Unless otherwise noted, all lab tests performed by: Division of Pathology and Laboratory Medicine [address] [place] [address] * Echocardiogram 2D Complete (01/16/2024 8:44 AM [...] resultswithin the time period is included. Pathologist [facility] NT-ProBNP 2,694(H) <=450 pg/mL 01/16/2024 8:46 AM CDT [facility] Blood Peripheral blood specimen / Unknown CVC Line / Unknown 01/16/2024 1:14 AM CDT 01/16/2024 1:22 AM CDT Jackie Solomon APRN LAB BLOOD ORDERABLES Final Result Performing Organization Address City/[facility] Co de Phone Number [facility] Unless otherwise noted, all lab tests performed by: Division of Pathology and Laboratory Medicine [address] [place] [address] * Thyroid Stimulating Hormone (01/16/2024 1:14 AM CDT) Only the most recent of2 resultswithin the time period is included. [facility] Thyroid Stimulating Hormone 2.60 0.27 - 4.20 mcunit/mL 01/16/2024 8:32 AM CDT [facility] Blood Peripheral blood specimen / Unknown CVC Line / Unknown 01/16/2024 1:14 AM CDT 01/16/2024 1:22 AM CDT Jackie Solomon APRN LAB BLOOD ORDERABLES Final Result Performing Organization Address City/[facility]/ZIP Co de Phone Number [facility] Unless otherwise noted, all lab tests performed by: Division of Pathology and Laboratory Medicine [address] [place] [address] * T4 (01/16/2024 1:14 AM CDT) Pathologist [facility] Thyroxine 4.7 4.5 - 11.7 mcg/dL 01/16/2024 8:32 AM CDT [facility] Blood Peripheral blood specimen / Unknown CVC Line / Unknown 01/16/2024 1:14 AM CDT 01/16/2024 1:22 AM CDT Jackie Solomon APRN LAB BLOOD ORDERABLES Final Result [facility] Unless otherwise noted, all lab tests performed by: Division of Pathology and Laboratory Medicine [address] [place] [address] * Ferritin (01/16/2024 1:14 AM CDT) [facility] Ferritin Level 261 30 - 400 ng/mL 01/16/2024 8:32 AM CDT [facility] Blood Peripheral blood specimen / Unknown CVC Line / Unknown 01/16/2024 1:14 AM CDT 01/16/2024 1:22 AM CDT Narrative [facility] - 01/16/2024 8:32 AM CDT Reference range established for age 20 - 60 years Jackie Solomon APRN LAB BLOOD ORDERABLES Final Result Performing Organization Address City/[facility] Co de Phone Number [facility] Unless otherwise noted, all lab tests performed by: Division of Pathology and Laboratory Medicine [address] [place] [address] * (ABNORMAL) Urinalysis Microscopic Exam (01/16/2024 1:00 AM CDT) Urine Mucous Trace Not Seen, Trace /HPF 01/16/2024 2:00 AM CDT [facility] Urine Bacteria Not Seen Not Seen /HPF 01/16/2024 2:00 AM CDT [facility] Urine Squamous Epithelial Cells Not Seen Not Seen, OCC, Rare /HPF 01/16/2024 2:00 AM CDT [facility] Urine Amorphous Crystal OCC(A) Not Seen /HPF 01/16/2024 2:00 AM CDT [facility] Urine WBC 1 <=2 /HPF 01/16/2024 2:00 AM CDT [facility] Urine RBC 3(H) <=2 /HPF 01/16/2024 2:00 AM CDT [facility] Urine (Urine Sagastume) Non-blood Collection / Unknown 01/16/2024 1:00 AM CDT 01/16/2024 1:27 AM CDT Bernarda Duvall APRN LAB BLOOD ORDERABLES Final Resul t [facility] Unless otherwise noted, all lab tests performed by: Division of Pathology and Laboratory Medicine [address] [place] [phone] * (ABNORMAL) Urinalysis w/Microscopic if Indicated (01/16/2024 1:00 AM CDT) Urine Appearance Hazy(A) Clear 01/16/20 1:36 AM CDT [facility] Urine Color Straw Colorless, Straw, Yellow, Dark Yellow, Straw-Yellow 01/16/2024 1:36 AM CDT [facility] Urine Specific [place] 1.013 1.003 - 1.035 01/16/2024 1:36 AM CDT [facility] Urine pH 5.5 5.0 - 8.0 01/16/2024 1:36 AM CDT [facility] Urine Glucose Negative Negative mg/dL 01/16/2024 1:36 AM CDT [facility] Urine Ketones Negative Negative mg/dL 01/16/2024 1:36 AM CDT [facility] Urine Blood Small(A) Negative 01/16/2024 1:36 AM CDT [facility] Urine Protein 20(A) Negative mg/dL 01/16/2024 1:36 AM CDT [facility] Urine Bilirubin Negative Negative 1:36 AM CDT [facility] Urine Urobilinogen Negative Negative 01/16/2024 1:36 AM CDT [facility] Urine Nitrite Negative Negative 01/16/2024 1:36 AM CDT [facility] Urine Leukocyte Esterase Negative Negative 01/16/2024 1:36 AM CDT [facility] Urine (Urine Sagastume) Non-blood Collection / Unknown 01/16/2024 1:00 AM CDT 01/16/2024 1:27 AM CDT Narrative [facility] - 01/16/2024 1:36 AM CDT Some reporting parameters within the Urinalysis test have changed due to the implementation of new instrumentation in the Main [place], allowing greater sensitivity of measurement. Urinalysis results reported by the [facility] using existing instrumentation, as well as Urinalysis testing performed manually or by back-up methodology at the main [place], will remain relatively unchanged. New reporting parameters and units will now be reported for all campuses. Bernarda Duvall APRN URINE ORDERABLES Final Result Performing Organization Address City/[facility]/ZIP Co de Phone Number [facility] Unless otherwise noted, all lab tests performed by: Division of Pathology and Laboratory Medicine [address] [place] [phone] * EKG, 12-Lead (Portable) (01/16/2024) us Bernarda Duvall APRN ECG ORDERABLES Final Result Performing Organization Address [facility]/ZIP Co de Phone Number [facility] IECG * Confirm ABORh (01/15/2024 10:45 PM CDT) Pathologist [facility] ABORh Confirm B POS 01/15/2024 10:17 PM CDT [facility] Blood Peripheral blood specimen / Unknown CVC Line / Unknown 01/15/2024 10:45 PM CDT 01/15/2024 10:52 PM CDT Bernarda Duvall APRN BLOOD BANK TEST ORDERABLES Final Result Performing Organization Address City/[facility] Co de Phone Number [facility] [address] [facility] [address] [place] [address] * VRE Culture (01/15/2024 10:40 PM CDT) VRE Culture No Vancomycin-Resi stant Enterococci isolated. 01/17/2024 2:27 PM CDT [facility] Swab Rectum structure / Unknown Non-blood Collection / Unknown 01/15/2024 10:40 PM CDT 01/15/2024 10:52 PM CDT us Bernarda Duvall APRN MICROBIOLOGY - GENERAL ORDERABLE S Final Result Performing Organization Address City/[facility]/ZIP Co de Phone Number [facility] Unless otherwise noted, all lab tests performed by: Division of Pathology and Laboratory Medicine [address] [place] [address] * Blood Culture Peripheral (01/15/2024 10:26 PM CDT) [facility] Blood Culture No Growth. 01/21/2024 12:01 AM CDT [facility] Blood Peripheral blood specimen / Unknown CVC Line / Unknown 01/15/2024 10:26 PM CDT 01/15/2024 10:33 PM CDT us Bernarda Duvall APRN MICROBIOLOGY - GENERAL ORDERABLE S Final Result Performing Organization Address [facility] de Phone Number [facility] Unless otherwise noted, all lab tests performed by: Division of Pathology and Laboratory Medicine [address] [place] [address] * (ABNORMAL) Triiodothyronine (01/15/2024 10:26 PM CDT) [facility] Triiodothyronine 46(L) 80 - 200 ng/dL 01/15/2024 11:13 PM CDT [facility] Blood Peripheral blood specimen / Unknown CVC Line / Unknown 01/15/2024 10:26 PM CDT 01/15/2024 10:33 PM CDT us Bernarda Duvall APRN LAB BLOOD ORDERABLES Final Resul t Performing Organization Address City/[facility]/ZIP Co de Phone Number [facility] Unless otherwise noted, all lab tests performed by: Division of Pathology and Laboratory Medicine [address] [place] [address] * Thyroxine Free (01/15/2024 10:26 PM CDT) Pathologist [facility] T4 (Thyroxine) Free 1.65 0.92 - 1.68 ng/dL 01/15/2024 11:13 PM CDT [facility] Blood Peripheral blood specimen / Unknown CVC Line / Unknown 01/15/2024 10:26 PM CDT 01/15/2024 10:33 PM CDT us Bernarda Duvall HE[employer]MER LAB BLOOD ORDERABLES Final Resul t [facility] Unless otherwise noted, all lab tests performed by: Division of Pathology and Laboratory Medicine [address] [place] [phone] * (ABNORMAL) Blood Gas Venous (01/15/2024 10:26 PM CDT) [facility] pH Venous 7.37 7.32 - 7.43 01/15/2024 10:34 PM CDT [facility] P CO2 Venous 33.9(L) 41.0 - 51.0 mmHg 01/15/2024 10:34 PM CDT [facility] P O2 Venous 29 mmHg 01/15/2024 10:34 PM CDT [facility] Bicarbonate Venous 20(L) 21 - 28 mmol/L 01/15/2024 10:34 PM CDT [facility] Base Excess Venous -5(L) -2 - 3 mmol/L 01/15/2024 10:34 PM CDT [facility] Oxygen Saturation Venous 53 % 01/15/2024 10:34 PM CDT [facility] Oxygen FLOW Rate/ FiO2 01/15/2024 10:34 PM CDT [facility] O2 Therapy 01/15/2024 10:34 PM CDT [facility] Blood Peripheral blood specimen / Unknown CVC Line / Unknown 01/15/2024 10:26 PM CDT 01/15/2024 10:32 PM CDT us Bernarda Duvall APRN LAB BLOOD ORDERABLES Final Resul t [facility] Unless otherwise noted, all lab tests performed by: Division of Pathology and Laboratory Medicine [address] [place] [phone] * (ABNORMAL) Calcium Level (01/15/2024 10:26 PM CDT) Calcium Level Total 7.9(L) 8.2 - 10.2 mg/dL 01/15/2024 11:06 PM CDT [facility] Blood Peripheral blood specimen / Unknown CVC Line / Unknown 01/15/2024 10:26 PM CDT 01/15/2024 10:33 PM CDT Bernarda Duvall APRN LAB BLOOD ORDERABLES Final Resul t Performing Organization Address City/[facility]/ZIP Co de Phone Number [facility] Unless otherwise noted, all lab tests performed by: Division of Pathology and Laboratory Medicine [address] [place] [phone] * (ABNORMAL) Cardiac Panel (01/15/2024 10:25 PM CDT) Creatine Kinase 30(L) 39 - 308 U/L 01/15/2024 10:56 PM CDT [facility] CKMB 2.6 <=10.4 ng/mL 01/15/2024 10:56 PM CDT [facility] Troponin T 37(H) <=19 ng/L 01/15/2024 10:56 PM CDT [facility] Comment: < 19 ng/L Suggest retest [...] CDT 01/15/2024 10:33 PM CDT Bernardajohn Duvall [facility] [employer] LAB BLOOD ORDERABLES Final Resul t [facility] Unless otherwise noted, all lab tests performed by: Division of Pathology and Laboratory Medicine [address] [place] [phone] * OSI Chest (01/15/2024 9:13 AM CDT) [...] OUTSIDE IMAGE O RDERABLES Final Result after 07/01/2023 Insurance [employer]AGE [employer] Advance Directives * Full Code (Latest Code Status on File) Date Activated Date Inactivated Comments 01/16/2024 5:14 AM 01/24/2024 12:25 AM Care Teams Underwear Trimmer Relationship Specialty Start Date End Date Jatin Alvarez MD [facility] [place] [address] [email or web address] PCP - General Leukemia 03/06/24 Arjun Hamm MD [address] [place] [phone] [email or web address] Hematology and Oncology 01/23/24 DR. Leandro De León [facility] Family Practice 01/19/24 01/18/99
[2024-06-30 16:34] LABS: Absolute Lymphocytes (CBC) 0.3 K/uL (0.7-4.9); Absolute Neutrophil 1.1 K/uL (1.8-8.0); Basophils % 0.2 % (0-1.3); Eosinophils % 0.3 % (0-4.4); Hematocrit 20.6 % (39.6-49.0); Hemoglobin 7.2 g/dL (13.6-17.9); Lymphocytes % 19.4 % (15.3-44.8); MCH 39.1 pg (27.0-35.0); MCV 111.7 fL (80-100); MPV 8.7 fL (7.6-11.3); Monocytes % 2.9 % (3.3-12.3); Neutrophils % 77.2 % (41.7-73.7); Nucleated Red Blood Cells % 0.4 % (0-0); Platelets 47 thou/uL (152-406); RBC Red Blood Cell Count 1.85 M/uL (4.33-5.43); Red Cell Distribution Width 29.2 % (12.1-15.2)
[2024-06-30 16:38] LABS: PT Prothrombin Time 13.7 SECONDS (10-13.0); Protime INR 1.21
[2024-06-30 16:52] LABS: ALT/SGPT 19 U/L (16-61); Albumin 3.6 g/dL (3.4-5.0); Albumin/Globulin Ratio 1.2 (1.1-1.8); Alkaline Phosphatase 54 U/L (45-117); Anion Gap 9.4 mEq/L (5.0-15.0); BUN Blood Urea Nitrogen 23 mg/dL (7-18); Bicarbonate 23 mEq/L (21-32); Bilirubin Direct 0.4 mg/dL (0-0.2); Bilirubin Indirect, Calculated 1.4 mg/dL (0.2-0.8); Bilirubin Total 1.8 mg/dL (0.2-1.0); Glomerular Filtration Rate 60 ml/min (=/>90); Glucose Level 107 mg/dL (74-106); Magnesium 1.7 mg/dL (1.6-2.4); Potassium 3.4 mEq/L (3.5-5.1); Protein, Total 6.6 g/dL (6.4-8.2); Sodium Level 136 mEq/L (136-145); Troponin High Sensitivity 6.1 pg/mL (<58.9)
[2024-06-30 17:12] LABS: AST/SGOT < 10 U/L (15-37)
[2024-06-30 17:17] LABS: Anisocytosis 2+; Blood Morphology Comment NOTED (NOT SEEN); Platelet Estimate DECR; White Blood Cell Scan OK (OK)
[2024-06-30 17:18] LABS: Microcytosis 2+
[2024-06-30] MEDS ORDERED: NA CHLORIDE 0.9% 250 ML ONE ×2 (18:21→20:32)
--- NOTE | 2024-06-30 19:02 | EDPHYS ---
Physician Documentation [facility] Name: Jovi Garcia Age: 84 yrs Sex: Male : 1940 Arrival Date: 06/30/2024 Time: 15:52 Bed 16 Private MD: ED Physician Blanka Keyes HPI: 06/30 16:25 This 84 yrs old Male presents to ER via EMS with complaints of Nausea/Vomiting. sp3 16:25 84-year-old male with a history of leukemia currently at the beginning of his treatment sp3 plan he also required a. BC transfusion recently at this facility, COPD, prior aortic aneurysm that presents ED with generalized weakness, vomiting and diarrhea since 7 AM this morning. No blood or mucus in his emesis or stool. Family and patient think that he may have eaten something bad potentially. No fever, headache, neck pain, chest pain, shortness of breath, back pain, extremity pain, syncope, near syncope, bleeding or any other signs or symptoms on ROS reported at this time.. Historical: - Allergies: 15:55 No Known Allergies; ss - PMHx: 15:55 aortic aneurysm; CHRONIC PROXIMAL HEMICRANIA; Chronic obstructive lung disease; ss Dementia; BPH; Leukemia; Hypertensive disorder; HARD OF HEARING; - PSHx: 15:55 back sx; Stented artery; ss - Immunization history:: Adult Immunizations up to date. - Infectious Disease History:: Denies. - Social history:: Smoking status: Patient/guardian denies using tobacco, but has a distant history of tobacco abuse. ROS: 16:26 Constitutional: Negative for fever, chills, and weight loss, Eyes: Negative for injury, sp3 pain, redness, and discharge, ENT: Negative for injury, pain, and discharge, Neck: Negative for injury, pain, and swelling, Cardiovascular: Negative for chest pain, palpitations, and edema, Respiratory: Negative for shortness of breath, cough, wheezing, and pleuritic chest pain, Back: Negative for injury and pain, MS/Extremity: Negative for injury and deformity, Skin: Negative for injury, rash, and discoloration, Neuro: Negative for headache, weakness, numbness, tingling, and seizure, Psych: Negative for depression, anxiety, suicide ideation, homicidal ideation, and hallucinations, Allergy/Immunology: Negative for hives, rash, and allergies, Endocrine: Negative for neck swelling, polydipsia, polyuria, polyphagia, and marked weight changes, Hematologic/Lymphatic: Negative for swollen nodes, abnormal bleeding, and unusual bruising, 16:26 All other systems are negative, Exam: 16:26 Constitutional: This is a well developed, well nourished patient who is awake, alert, sp3 and in no acute distress. Head/Face: Normocephalic, atraumatic. Eyes: Pupils equal round and reactive to light, extra-ocular motions intact. Lids and lashes normal. Conjunctiva and sclera are non-icteric and not injected. Cornea within normal limits. Periorbital areas with no swelling, redness, or edema. ENT: Nares patent. No nasal discharge, no septal abnormalities noted. External auditory canals are clear. Oropharynx with no redness, swelling, or masses, exudates, or evidence of obstruction, uvula midline. Mucous membranes moist. Neck: Trachea midline, no thyromegaly or masses palpated, and no cervical lymphadenopathy. Supple, full range of motion without nuchal rigidity, or vertebral point tenderness. No Meningismus. Chest/axilla: Normal chest wall appearance and motion. Nontender with no deformity. No lesions are appreciated. Cardiovascular: Regular rate and rhythm with a normal S1 and S2. No gallops, murmurs, or rubs. Normal PMI, no JVD. No pulse deficits. Respiratory: Lungs have equal breath sounds bilaterally, clear to auscultation and percussion. No rales, rhonchi or wheezes noted. No increased work of breathing, no retractions or nasal flaring. Back: No spinal tenderness. No costovertebral tenderness. Full range of motion. Skin: Warm, dry with normal turgor. Normal color with no rashes, no lesions, and no evidence of cellulitis. MS/ Extremity: Pulses equal, no cyanosis. Neurovascular intact. Full, normal range of motion. Neuro: Awake and alert, GCS 15, oriented to person, place, time, and situation. Cranial nerves II-XII grossly intact. Motor strength 5/5 in all extremities. Sensory grossly intact. Cerebellar exam normal. Normal gait. 16:26 Abdomen/GI: Increased bowel sounds noted. No significant pain to palpation. Nonsurgical abdomen. Vital signs are normal., Vital Signs: 15:55 BP 119 / 72; Pulse 81; Resp 16; Temp 98.7; Pulse Ox 100% ; Weight 91.63 kg; Height 5 ss ft. 11 in. ; Pain 0/10; 16:15 BP 124 / 68; Pulse 81; Resp 19; Pulse Ox 98% ; me1 17:00 BP 141 / 67; Pulse 81; Resp 16; Pulse Ox 99% ; me1 18:00 BP 122 / 62; Pulse 81; Resp 19; Pulse Ox 99% ; me1 19:00 BP 128 / 66; Pulse 87; Resp 24; Pulse Ox 99% on R/A; ay 20:00 BP 141 / 89; Pulse 87; Resp 23; Pulse Ox 99% ; ay 21:00 BP 126 / 65; Pulse 87; Resp 21; Pulse Ox 100% ; ay 22:00 BP 146 / 69; Pulse 92; Resp 22; Pulse Ox 97% ; ay 23:00 BP 132 / 64; Pulse 82; Resp 23; Temp 98; Pulse Ox 100% ; ay 15:55 Body Mass Index 28.17 (91.63 kg, 180.34 cm) ss 15:55 Pain Scale: Adult ss MDM: 15:54 Medical Screening Exam initiated sp3 16:27 Data reviewed: vital signs, nurses notes, old medical records, lab test result(s). ED sp3 course: 84-year-old male with PMH above including leukemia now with vomiting and diarrhea since morning. Also generalized weakness mild in nature. Vital signs are currently normal. There is no active emesis. EMS did give normal saline and ondansetron. Will obtain general labs including hemoglobin and treat with IV fluids and further antiemetics as indicated. No pain reported. Disposition pending workup and patient course.. 17:24 ED course: Hemoglobin back to 7.2. We will need to transfuse 2 units PRBCs. We will sp3 reevaluate after 2 units PRBCs and if patient continues to have no significant vomiting or diarrhea in ED, he will be safe for discharge.. 19:01 ED course: Patient will be marked discharged as he is having no further symptoms. He is sp3 in good spirits and in no acute distress. Once blood transfusion is complete we will discharge him home.. 06/30 16:04 Order name: Type And Screen sp3 06/30 16:04 Order name: Basic Metabolic Panel; Complete Time: 17:13 sp3 06/30 16:04 Order name: CBC with Diff; Complete Time: 17:20 sp3 06/30 16:04 Order name: LFT's; Complete Time: 17:13 sp3 06/30 16:04 Order name: Magnesium; Complete Time: 17:13 sp3 06/30 16:04 Order name: PT-INR; Complete Time: 17:13 sp3 06/30 16:04 Order name: Troponin HS; Complete Time: 17:13 sp3 06/30 16:49 Order name: CBC Smear Scan; Complete Time: 17:20 EDCT 06/30 17:35 Order name: Packed RBC Leukored EDCT 06/30 17:41 Order name: Bb Add On ss 06/30 16:04 Order name: Cardiac monitoring; Complete Time: 16:14 sp3 06/30 16:04 Order name: EKG - Nurse/Tech; Complete Time: 16:14 3 06/30 16:04 Order name: IV Saline Lock; Complete Time: 16:14 3 06/30 16:04 Order name: Labs collected and sent; Complete Time: 16:14 sp3 06/30 16:04 Order name: O2 Per Protocol; Complete Time: 16:14 sp3 06/30 16:04 Order name: O2 Sat Monitoring; Complete Time: 16:14 sp3 06/30 17:22 Order name: Transfuse; Complete Time: 18:56 sp3 Administered Medications: No medications were administered Disposition Summary: 06/30/24 19:01 Discharge Ordered Notes: Location: Home sp3 Condition: Stable sp3 Diagnosis - Vomiting and diarrhea resolved, anemia related to leukemia, blood transfusion sp3 Followup: sp3 - With: Private Physician - When: Upon discharge from the Emergency Department - Reason: Continuance of care Discharge Instructions: - Discharge Summary Sheet sp3 - Blood Transfusion, Adult, Care After sp3 Forms: - Medication Reconciliation Form sp3 - Antibiotic Education sp3 - Prescription Opioid Use sp3 - Patient Portal Instructions sp3 - Leadership Thank You Letter sp3 Signatures: Dispatcher [employer] Aruna Lopes RN RN ss Blanka Keyes MD MD sp3 Angie Sprague RN RN me1 Corrections: (The following items were deleted from the chart) 16:05 16:05 BASIC METABOLIC PANEL+C.LAB.BRZ ordered. EDMS EDMS 16:05 16:05 CBC+H.LAB.BRZ ordered. EDMS EDMS 16:05 16:05 HEPATIC FUNCTION+C.LAB.BRZ ordered. EDMS EDMS 16:05 16:05 MAGNESIUM+C.LAB.BRZ ordered. EDMS EDMS 16:05 16:05 PROTIME (+INR)+COAG.LAB.BRZ ordered. EDMS EDMS 16:05 16:05 Troponin High Sensitivity+C.LAB.BRZ ordered. EDMS EDMS 16:05 16:05 TYPE AND SCREEN+BB.LAB.BRZ ordered. EDMS EDMS 17:37 17:22 PACKED RBC LEUKORED+BB.LAB.BRZ ordered. EDMS EDMS 17:37 17:25 ABO/RH typing ordered. EDMS EDMS 17:37 17:25 Antibody Screen ordered. EDMS EDMS 18:16 17:24 ED course: Hemoglobin back to 7.2. We will need to transfuse 2 units PRBCs. We sp3 will also place in observation given his vomiting and diarrhea assess electrolyte status and fluid needs.. sp3
--- NOTE | 2024-06-30 19:02 | ER ---
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 C/o nausea that began today. Vomit x 1. Coronavirus screen: Client denies travel out of the [place] in the last 14 days. Ebola Screen: Patient denies exposure to infectious person. Patient denies travel to an Ebola-affected area in the 21 days before illness onset. Initial Sepsis Screen: Does the patient meet any 2 criteria? No. Patient's initial sepsis screen is negative. Does the patient have a suspected source of infection? No. Patient's initial sepsis screen is negative. Risk Assessment: Do you want to hurt yourself or someone else? Patient reports no desire to harm self or others. Onset of symptoms was June 28, 2024. 15:53 Method Of Arrival: EMS: [facility] 15:53 Acuity: NABEEL 3 ss 15:59 Care prior to arrival: Medication(s) given: zofran 4 mg, IV initiated. 20 GA, in the ss left antecubital area. Historical: - Allergies: 15:55 No Known Allergies; ss - PMHx: 15:55 aortic aneurysm; CHRONIC PROXIMAL HEMICRANIA; Chronic obstructive lung disease; ss Dementia; BPH; Leukemia; Hypertensive disorder; HARD OF HEARING; - PSHx: 15:55 back sx; Stented artery; ss - Immunization history:: Adult Immunizations up to date. - Infectious Disease History:: Denies. - Social history:: Smoking status: Patient/guardian denies using tobacco, but has a distant history of tobacco abuse. Screenin:10 [facility] ED Fall Risk Assessment (Adult) History of falling in the last 3 months, me1 including since admission No falls in past 3 months (0 pts) Confusion or Disorientation Yes (5 pts) Intoxicated or Sedated No (0 pts) Impaired Gait No (0 pts) Mobility Assist Device Used No (0 pt) Altered Elimination No (0 pt) Score/Fall Risk Level 0 - 2 = Low Risk Maintained a safe environment, Provided non-skid footwear, Hourly rounding (assess needs \T\ fall precautionary measures) done. Abuse screen: Denies threats or abuse. Nutritional screening: No deficits noted. Tuberculosis screening: No symptoms or risk factors identified. Assessment: 16:10 General: Appears ill, well groomed, well developed, well nourished, Behavior is calm, me1 cooperative, appropriate for age, Reports Received blood transfusion last Monday and since then has not been feeling well. C/o nausea that began today. Vomit x 1. Pain: Denies pain. Neuro: Level of Consciousness is awake, alert, obeys commands, Oriented to person, place, time, situation, Appropriate for age very forgetful with early dementia. Poor historian of recent events. Poor short term memory. Cardiovascular: Patient's skin is warm and dry. Respiratory: Airway is patent Respiratory effort is even, unlabored, Respiratory pattern is regular, symmetrical. GI: Abdomen is non-distended, Bowel sounds present X 4 quads. Reports nausea, vomiting, since this morning. : No signs and/or symptoms were reported regarding the genitourinary system. EENT: No signs and/or symptoms were reported regarding the EENT system. Derm: Skin is intact, Skin is pale. Musculoskeletal: No signs and/or symptoms reported regarding the musculoskeletal system. 19:11 Reassessment: Discharge delayed for completion of the currently infusing unit of PRBC jb4 and one more. 19:18 General: Appears in no apparent distress. comfortable, Behavior is calm, cooperative. ay General: Blood transfusing, pt alert ,no distress noted. Pt to be d/c'd after blood transfusion is complete. Pain: Denies pain. Neuro: Level of Consciousness is awake, alert, obeys commands, Oriented to person, place, dementia. Cardiovascular: Denies chest pain, nausea, vomiting, Capillary refill < 3 seconds. Respiratory: Airway is patent Respiratory effort is even, unlabored, Respiratory pattern is regular, symmetrical. GI: Patient currently denies nausea. : No signs and/or symptoms were reported regarding the genitourinary system. EENT: No signs and/or symptoms were reported regarding the EENT system. Vital Signs: 15:55 BP 119 / 72; Pulse 81; Resp 16; Temp 98.7; Pulse Ox 100% ; Weight 91.63 kg; Height 5 ss ft. 11 in. ; Pain 0/10; 16:15 BP 124 / 68; Pulse 81; Resp 19; Pulse Ox 98% ; me1 17:00 BP 141 / 67; Pulse 81; Resp 16; Pulse Ox 99% ; me1 18:00 BP 122 / 62; Pulse 81; Resp 19; Pulse Ox 99% ; me1 19:00 BP 128 / 66; Pulse 87; Resp 24; Pulse Ox 99% on R/A; ay 20:00 BP 141 / 89; Pulse 87; Resp 23; Pulse Ox 99% ; ay 21:00 BP 126 / 65; Pulse 87; Resp 21; Pulse Ox 100% ; ay 22:00 BP 146 / 69; Pulse 92; Resp 22; Pulse Ox 97% ; ay 23:00 BP 132 / 64; Pulse 82; Resp 23; Temp 98; Pulse Ox 100% ; ay 15:55 Body Mass Index 28.17 (91.63 kg, 180.34 cm) ss 15:55 Pain Scale: Adult ss ED Course: 15:53 Patient arrived in ED. ss 15:53 Blanka Keyes MD is Attending Physician. sp3 15:55 Triage completed. ss 15:55 Arm band placed on right wrist. ss 16:09 Angie Sprague, RN is Primary Nurse. me1 16:10 Patient has correct armband on for positive identification. Bed in low position. Call me1 light in reach. Side rails up X2. Provided Education on: POC. Verbalized understanding. Client placed on continuous cardiac and pulse oximetry monitoring. NIBP monitoring applied. sugar drier on. Pulse ox on. NIBP on. 16:10 No provider procedures requiring assistance completed. Maintain EMS IV. Dressing me1 intact. Good blood return noted. Site clean \T\ dry. Gauge \T\ site: 20g RAC. 16:29 Type And Screen Sent. me1 16:31 Initial lab(s) drawn, by me, sent to lab. EKG done, by ED staff, reviewed by Blanka Keyes MD T\T\S collected, blood band applied to patient. 18:56 Bb Add On Sent. me1 23:49 IV discontinued, intact, bleeding controlled, No redness/swelling at site. Pressure ay dressing applied. Administered Medications: No medications were administered Medication: 16:10 VIS not applicable for this client. me1 Outcome: 19:01 Discharge ordered by . sp3 23:49 Discharged to home via wheelchair, with significant other, ay 23:49 Condition: stable 23:49 Discharge instructions given to patient, Instructed on discharge instructions, follow up and referral plans. Demonstrated understanding of instructions, follow-up care, 23:50 Patient left the ED. ay Signatures: Aruna Suarez RN RN Bryson Handley RN RN [id number] Blanka Keyes MD MD sp3 Angie Sprague RN RN me1 Murali Au RN RN ay Corrections: (The following items were deleted from the chart) 16:10 15:53 Chief complaint: Patient states: Received blood transfusion last Monday and since me1 then has not been feeling well. C/o nausea that began today. Vomit x 1 ss
[2024-07-01 00:20] VITALS: BP 132/64; TEMP 98; O2SAT 100
== END 2024-06-30 23:50 | disposition home or self-care (01) ==
LOC: ER 15:52
PROC: 30233N1 Transfusion of Nonautologous Red Blood Cells into Peripheral Vein, Percutaneous Approach (ICD-10-PCS; principal; 2024-06-30)
DX: C95.90 Leukemia, unspecified not having achieved remission (principal); D63.8 Anemia in other chronic diseases classified elsewhere; J44.9 Chronic obstructive pulmonary disease, unspecified; I10 Essential (primary) hypertension
CPT/HCPCS: 85025; 80048; 36415; 86900; 83735; 86850; 85610; 86901; 80076; 86920 ×2; 84484; 99284; 36430; P9016 ×2; J7050 ×2